=== PATIENT | male | born 1930 | race Caucasian/White ===

== ENCOUNTER → 2016-11-10 | Outpatient (CLI) | payer BC ==
[~2016-11-10] MED LIST: ASCO500T3 PO; ASPI1TAB83 PO; ATOR-24 PO; CALC600T9 PO; CHOL1CAP57 PO; COEN10CA5 PO; CYAN500T PO; INSPMPNVLG; LEVO112T4 PO; LISI-729 PO; MULT-506 PO; TPRSR/25 PO; WARF-246 PO; WARF4TAB44 PO
[2016-11-11 06:08] LABS: ESTIMATED AVERAGE GLUCOSE 169 mg/dl; HA1C FLAG Normal (Normal)
== END | disposition home or self-care (01) ==
LOC: C.LAB1850 15:42
PROVIDERS: ATTEND Nurse Practitioner Adult Health
DX: E10.8 Type 1 diabetes mellitus with unspecified complications (principal); E03.9 Hypothyroidism, unspecified

== ENCOUNTER → 2017-02-11 | Outpatient (CLI) | payer BC ==
[2017-02-12 06:11] LABS: ESTIMATED AVERAGE GLUCOSE 183 mg/dl; HA1C FLAG Normal (Normal)
== END | disposition home or self-care (01) ==
LOC: C.LABBC 13:52
PROVIDERS: ATTEND Nurse Practitioner Adult Health
DX: E10.8 Type 1 diabetes mellitus with unspecified complications (principal); Z95.828 Presence of other vascular implants and grafts

== ENCOUNTER 2017-04-04 20:12 | Inpatient (IN) | payer BC, OTHER ==
[~2017-04-04] VITALS: Ht 182.9 cm; Wt 97.5 kg
[2017-04-04] MEDS ORDERED: ONDANSETRON INJ 2 MG/ML 2 ML VIAL IV STA (20:32)
[2017-04-04] MEDS ORDERED: SODIUM CHLORIDE 0.9% 1000ML 1,000 ML IV STA (20:32)
[2017-04-04] MEDS ORDERED: SODIUM CHLORIDE 0.9% 1000ML 1,000 ML IV ONE (20:32)
--- NOTE | 2017-04-04 20:37 | EMERGENCY ROOM VISIT NOTE ---
History Report prepared by Natalie: Adam Montoya Under the Supervision of: Dr. Jim Pulido M.D. First contact with patient: 20:22 Chief Complaint: ILLNESS Stated Complaint: DIZZY, NAUSEA, History of Present Illness The patient is a 87 year old male who presents to the Emergency Room with complaints of sudden nausea occurring prior to arrival. The patient states that he was eating dinner, and afterwards he became nauseous, dizzy, diaphoretic, and he was short of breath. The patient denies any fever, chest pain, headache, hematochezia, melena, or abdominal pain. The patient states that he is diabetic , and he does not test it every day. Additionally, the patient is currently on blood thinners. He states that he has never felt like this before, and he is not around anyone sick at home. He also denies any recent falls. Source of History: patient Onset: prior to arrival Position: other (global) Quality: other (nausea) Timing: other (sudden) Associated Symptoms: + diaphoresis, No headache, No chest pain, No abdominal pain, No melena, No hematochezia Note: Associated symptoms: Dizziness Review of Systems See HPI for pertinent positives & negatives. A total of 10 systems reviewed and were otherwise negative. Past Medical & Surgical Medical Problems: (1) DM (diabetes mellitus) (2) IDDM (insulin dependent diabetes mellitus) (3) Neuropathy (4) Psoas abscess, left (5) Right Femoral Neck Fracture (6) TIA (transient ischemic attack) Surgical Problems: (1) H/O aortic valve replacement Old medical records were reviewed. Nurse's notes were reviewed and I agree with. Family History No significant family history Social History Smoking Status: Never Smoker Drug Use: none Marital Status: Housing Status: lives with family Occupation Status: retired Current/Historical Medications Scheduled Ascorbic Acid (Vitamin C), 500 MG PO DAILY Aspirin (Aspirin), 81 MG PO DAILY Atorvastatin (Lipitor), 40 MG PO DAILY Cholecalciferol (Vitamin D3), 1,000 INTER.UNIT PO DAILY Coenzyme Q10 (Ubidecarenone) (Co Q 10), 10 MG PO DAILY Cyanocobalamin (Vitamin B-12), 500 MCG PO DAILY Insulin Aspart (novoLOG INSULIN PUMP ), 1 EA N/A UD Levothyroxine Sodium (Levothyroxine Sodium), 112 MCG PO DAILY Lisinopril (Prinivil), 5 MG PO DAILY Metoprolol Succinate (Metoprolol Succinate ER), 12.5 MG PO DAILY Multivitamin (Multivitamin), 1 TAB PO DAILY Warfarin Sodium (Warfarin Sodium), 5 MG PO DAILY Warfarin Sodium (Warfarin Sodium), 3 MG PO DAILY Allergies Coded Allergies: No Known Allergies (Verified , 04/04/17) Physical Exam Vital Signs Date Time Temp Pulse Resp B/P (MAP) Pulse Ox O2 Delivery O2 Flow Rate FiO2 04/04/17 23:26 60 16 134/66 96 Room Air 04/04/17 21:45 65 16 166/74 94 Room Air 04/04/17 20:25 62 04/04/17 20:23 36.5 63 18 151/98 95 Room Air Physical Exam General: Mildly ill appearing older male with intermittent nausea but otherwise no acute distress. HEENT: Normal cephalic atraumatic. Pupils are equal round and reactive to light. Extraocular movements are intact. Oropharynx is pink with moist mucous membranes. No swelling of the mouth lips or tongue. Neck: Supple with a midline trachea. No meningeal signs or stiffness, no JVD or bruits. No Stridor. Chest: Clear to auscultation bilaterally. No wheezes or rhonchi. No increased work of breathing. Heart: regular rate and rhythm. Abdomen: Insulin pump site on the left abdomen. Soft nontender, nondistended without rebound guarding or rigidity. Extremities: 1-2+ lower extremity edema which he states is chronic and is bilateral. No cyanosis clubbing. No calf tenderness or assymetry Spine/Back. Non tender to palpation. No CVA tenderness Skin: Good turgor without rashes. Neurologic exam: Cranial nerves two through 12 are intact. Motor and sensation are intact and symmetrical throughout. Medical Decision & Procedures ER Provider Diagnostic Interpretation: Radiology results as stated below per my review and radiologist interpretation: HEAD WITHOUT CONTRAST (CT) CT DOSE: 614.27 mGy.cm HISTORY: Mental status change eval for dizziness TECHNIQUE: Multiaxial CT images of the head were performed without the use of intravenous contrast. Comparison: 09/05/2016 Findings: The paranasal sinuses and mastoid air cells are clear. The calvarium and skull base are intact. The ventricles and sulci are within normal limits. There is no mass, hematoma, midline shift, or acute infarct. Age-related atrophy and chronic small vessel change Impression: No acute intracranial abnormality. The above report was generated using voice recognition software. It may contain grammatical, syntax or spelling errors. Electronically signed by: Juarez Moeller M.D. 04/04/2017 10:05 PM Dictated Date/Time: 04/04/2017 10:04 PM CHEST ONE VIEW PORTABLE CLINICAL HISTORY: CHEST PAIN dyspnea COMPARISON STUDY: 09/05/2016 FINDINGS: Mild cardia megaly. Prior median sternotomy. Mild basilar interstitial change considered chronic. No focal infiltrate. IMPRESSION: Chronic and postoperative change. No acute process. The above report was generated using voice recognition software. It may contain grammatical, syntax or spelling errors. Electronically signed by: Juarez Moeller M.D. 04/04/2017 9:06 PM Dictated Date/Time: 04/04/2017 9:06 PM Laboratory Results 04/04/17 20:40 Red Blood Count 4.07, Mean Corpuscular Volume 90.9, Mean Corpuscular Hemoglobin 30.0, Mean Corpuscular Hemoglobin Concent 33.0, Mean Platelet Volume 10.6, Neutrophils (%) (Auto) 53.4, Lymphocytes (%) (Auto) 34.4, Monocytes (%) (Auto) 8.0, Eosinophils (%) (Auto) 3.8, Basophils (%) (Auto) 0.2, Neutrophils # (Auto) 3.26, Lymphocytes # (Auto) 2.10, Monocytes # (Auto) 0.49, Eosinophils # (Auto) 0.23, Basophils # (Auto) 0.01 04/04/17 20:40 Test 04/04/17 20:38 04/04/17 20:40 04/04/17 20:51 Bedside Glucose 118 mg/dl (70-99) White Blood Count 6.10 K/uL (4.8-10.8) Red Blood Count 4.07 M/uL (4.7-6.1) Hemoglobin 12.2 g/dL (14.0-18.0) Hematocrit 37.0 % (42-52) Mean Corpuscular Volume 90.9 fL (80-100) Mean Corpuscular Hemoglobin 30.0 pg (25-34) Mean Corpuscular Hemoglobin Concent 33.0 g/dl (32-36) Platelet Count 195 K/uL (130-400) Mean Platelet Volume 10.6 fL (7.4-10.4) Neutrophils (%) (Auto) 53.4 % Lymphocytes (%) (Auto) 34.4 % Monocytes (%) (Auto) 8.0 % Eosinophils (%) (Auto) 3.8 % Basophils (%) (Auto) 0.2 % Neutrophils # (Auto) 3.26 K/uL (1.4-6.5) Lymphocytes # (Auto) 2.10 K/uL (1.2-3.4) Monocytes # (Auto) 0.49 K/uL (0.11-0.59) Eosinophils # (Auto) 0.23 K/uL (0-0.5) Basophils # (Auto) 0.01 K/uL (0-0.2) RDW Standard Deviation 46.3 fL (36.4-46.3) RDW Coefficient of Variation 13.9 % (11.5-14.5) Immature Granulocyte % (Auto) 0.2 % Immature Granulocyte # (Auto) 0.01 K/uL (0.00-0.02) Prothrombin Time 38.0 SECONDS (9.0-12.0) Prothromb Time International Ratio 3.4 (0.9-1.1) Activated Partial Thromboplast Time 45.5 SECONDS (21.0-31.0) Partial Thromboplastin Ratio 1.8 Anion Gap 6.0 mmol/L (3-11) Est Creatinine Clear Calc Drug Dose 56.8 ml/min Estimated GFR () 69.6 Estimated GFR (Non- 60.0 BUN/Creatinine Ratio 21.0 (10-20) Calcium Level 9.4 mg/dl (8.5-10.1) Total Bilirubin 0.8 mg/dl (0.2-1) Direct Bilirubin 0.1 mg/dl (0-0.2) Aspartate Amino Transf (AST/SGOT) 23 U/L (15-37) Alanine Aminotransferase (ALT/SGPT) 25 U/L (12-78) Alkaline Phosphatase 74 U/L (45-117) Total Creatine Kinase 107 U/L (39-308) Creatine Kinase MB 4.0 ng/ml (0.5-3.6) Creatine Kinase MB Ratio 3.7 (0-3.0) Total Protein 7.2 gm/dl (6.4-8.2) Albumin 3.9 gm/dl (3.4-5.0) Lipase 50 U/L (73-393) Bedside Troponin I < 0.030 ng/ml (0-0.045) Laboratory studies as stated above per my review. Medications Administered Medications (Trade) Dose Ordered Sig/Don Route Start Time Stop Time Status Last Admin Dose Admin Sodium Chloride 1,000 ml @ 999 mls/hr Q1H1M STAT IV 04/04/17 20:32 04/04/17 21:32 DC 04/04/17 20:59 999 MLS/HR Sodium Chloride 1,000 ml @ 150 mls/hr Q6H40M ONCE IV 04/04/17 20:32 04/05/17 03:11 04/04/17 22:16 150 MLS/HR Ondansetron HCl (Zofran Inj) 4 mg NOW STAT IV 04/04/17 20:32 04/04/17 20:34 DC 04/04/17 20:59 4 MG ECG Indication: nausea Rate (beats per minute): 67 Rhythm: normal sinus Findings: PVC (frequent), other (Bigeminy, non-specific intraventricular conduction delay) Comparison ECG Date: 08/27/16 Change: Bigeminy is now present REPEAT EKG: Normal Sinus Rhythm, 66 BPM, Non-specific intraventricular delay and PVC are now absent. Bigeminy is now absent. ED Course 2021: Past medical records reviewed. The patient was evaluated in room B7, and a complete history and physical examination were performed. 2031: Zofran Inj 4mg IV, Sodium Chloride 1000 ml @ 150 mls/hr IV, Sodium Chloride 1000 ml @ 999 mls/hr IV 2036: I reevaluated the patient, and he is feeling better and looks well. 2152: I reassessed the patient, and he states that he is feeling fine. 2244: I discussed the patient's case with Dr. Glover, Hospitalist. He is going to evaluate the patient for further treatment. Medical Decision Differentials include, but are not limited to; vertigo, arrhythmia, diabetic emergency, electrolyte or metabolic abnormality, GI problems, intracranial process. Blood Pressure Screening: Patient was found to have a slightly elevated blood pressure due to circumstances. I do not believe that the patient requires hypertension monitoring. Medication Reconciliation: I attest that I have personally reviewed the patient' s current medication list. This patient comes in as described above. He was placed in room B7. He is here for treatment and evaluation of nausea and dizziness. he felt better upon arrival and started having nausea .again it's worse with movement. IV access established blood sugar was obtained and was in the low 100s. He has a normal neurologic exam. He has no chest pain or shortness of breath. He was given Zofran 4 mg IV and IV fluids and was reassessed frequently. His EKG shows bigeminy but no ischemic changes a follow-up EKG shows resolution of the bigeminy. Troponin is not elevated. CAT scan of his head is unremarkable there is nothing to suggest acute intracranial process. He has no significant electrode or metabolic abnormalities. Given his age and symptoms, I do think he needs to be observed overnight. he had an episode where he felt very nauseated had near syncope/dizziness and I concerned that could've had some sort of arrhythmia or cardiac event. He also be further ruled out for neurologic process. He consulted Dr. Soto and the hospitalist team saw him in the ER for these measures. Consults Time Called: 2237 Consulting Physician: Dr. Glover, Hospitalist Returned Call: [phone] I discussed the patient's case with Dr. Glover Hospitalist. He is going to evaluate the patient for further treatment. Impression Primary Impression: Near syncope Additional Impressions: Dizziness Bigeminy Scribe Attestation The scribe's documentation has been prepared under my direction and personally reviewed by me in its entirety. I confirm that the note above accurately reflects all work, treatment, procedures, and medical decision making performed by me. Departure Information Dispostion Being Evaluated By Hospitalist Referrals Juan Mendez M.D. (PCP) Patient Instructions My [facility] Problem Qualifiers
[2017-04-04 20:59] LABS: BASO % 0.2 %; BASO ABS # 0.01 K/uL (0-0.2); COMPLETE YES; EOS % 3.8 %; IG% 0.2 %; LYMPH % 34.4 %; MEAN CELL VOLUME 90.9 fL (80-100); MEAN PLATELET VOLUME 10.6 fL (7.4-10.4); NEUT % 53.4 %; PLATELET COUNT 195 K/uL (130-400); RED BLOOD COUNT 4.07 M/uL (4.7-6.1)
--- NOTE | 2017-04-04 21:07 | DIAGNOSTIC IMAGING REPORT ---
CHEST ONE VIEW PORTABLE CLINICAL HISTORY: CHEST PAIN dyspnea COMPARISON STUDY: 09/05/2016 FINDINGS: Mild cardia megaly. Prior median sternotomy. Mild basilar interstitial change considered chronic. No focal infiltrate. IMPRESSION: Chronic and postoperative change. No acute process. The above report was generated using voice recognition software. It may contain grammatical, syntax or spelling errors. Electronically signed by: Juarez Moeller M.D. 04/04/2017 9:06 PM Dictated Date/Time: 04/04/2017 9:06 PM
[2017-04-04 21:11] LABS: INR 3.4 (0.9-1.1); PARTIAL THROMBOPLASTIN RATIO 1.8
[2017-04-04 21:20] LABS: CALCIUM 9.4 mg/dl (8.5-10.1); CREATININE 1.1 mg/dl (0.60-1.40); POTASSIUM 4.1 mmol/L (3.5-5.1)
[2017-04-04 21:25] LABS: CKMB/CK RATIO 3.7 (0-3.0)
--- NOTE | 2017-04-04 22:07 | DIAGNOSTIC IMAGING REPORT ---
HEAD WITHOUT CONTRAST (CT) CT DOSE: 614.27 mGy.cm HISTORY: Mental status change eval for dizziness TECHNIQUE: Multiaxial CT images of the head were performed without the use of intravenous contrast. Comparison: 09/05/2016 Findings: The paranasal sinuses and mastoid air cells are clear. The calvarium and skull base are intact. The ventricles and sulci are within normal limits. There is no mass, hematoma, midline shift, or acute infarct. Age-related atrophy and chronic small vessel change Impression: No acute intracranial abnormality. The above report was generated using voice recognition software. It may contain grammatical, syntax or spelling errors. Electronically signed by: Juarez Moeller M.D. 04/04/2017 10:05 PM Dictated Date/Time: 04/04/2017 10:04 PM
[2017-04-04] MEDS ORDERED: ENOXAPARIN 40 MG/0.4 ML SYR SC SCH (23:15)
[2017-04-04] MEDS ORDERED: ACETAMINOPHEN 325 MG TAB PO PRN (23:15)
[2017-04-04] MEDS ORDERED: MAGNESIUM HYDROXIDE SUSP 30 ML UDC PO PRN (23:15)
[2017-04-04] MEDS ORDERED: POLYETHYLENE (MIRALAX) 17 GM PACK PO PRN (23:15)
[2017-04-04] MEDS ORDERED: NovoLOG INSULIN PUMP SCH (23:15)
[2017-04-04] MEDS ORDERED: ALUMINUM/MAGNESIUM/SIMETH (MAALOX MAX) 30 ML UDC PO PRN (23:15)
[2017-04-04] MEDS ORDERED: ONDANSETRON INJ 2 MG/ML 2 ML VIAL IV PRN (23:15)
[2017-04-04 23:31] LABS: MAGNESIUM 2.4 mg/dl (1.8-2.4)
--- NOTE | 2017-04-04 23:35 | History and Physical ---
History & Physical Date & Time of Service: Apr 04, 2017 at 23:26 Chief Complaint: Dizzy, Nausea, Primary Care Physician: Juan Mendez M.D. History of Present Illness Source: patient Mr Paz is an 87 yo M with late-onset type 1 diabetes (on insulin pump, managed by [facility]), aortic valve replacement (on coumadin), hypertension, and hyperlipidemia who presents with a pre-syncopal event while eating dinner. He reports he was eating, did not choke, and mid-way through dinner noticed he felt very clammy and flushed. This was associated with nausea, dizziness, but he did not vomit. He thought that he given himself too much insulin and was having a low., But checked his sugar and it was not low. He denies any chest pain or shortness of breath at this point. He came to the ED and on arrival EKG was shown to be in bigeminy, and on telemetry has noticeable drops of heartbeats. He denies any sensation of this currently, and otherwise feels well. 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[employer]) Immunizations History of Influenza Vaccine: Yes Influenza Vaccine Date: Jul 22, 2008 History of Tetanus Vaccine?: Unknown History of Pneumococcal: Yes Pneumococcal Date: Oct 06, 2003 History of Hepatitis B Vaccine: Unknown Multi-Drug Resistant Organisms History of MDRO: No Allergies Coded Allergies: No Known Allergies (Verified , 04/04/17) Home Medications Scheduled Ascorbic Acid (Vitamin C), 500 MG PO DAILY Aspirin (Aspirin), 81 MG PO DAILY Atorvastatin (Lipitor), 40 MG PO DAILY Cholecalciferol (Vitamin D3), 1,000 INTER.UNIT PO DAILY Coenzyme Q10 (Ubidecarenone) (Co Q 10), 10 MG PO DAILY Cyanocobalamin (Vitamin B-12), 500 MCG PO DAILY Insulin Aspart (novoLOG INSULIN PUMP ), 1 EA N/A UD Levothyroxine Sodium (Levothyroxine Sodium), 112 MCG PO DAILY Lisinopril (Prinivil), 5 MG PO DAILY Metoprolol Succinate (Metoprolol Succinate ER), 12.5 MG PO DAILY Multivitamin (Multivitamin), 1 TAB PO DAILY Warfarin Sodium (Warfarin Sodium), 5 MG PO DAILY Warfarin Sodium (Warfarin Sodium), 3 MG PO DAILY Review of Systems See HPI for pertinent positives & negatives. A total of 10 systems reviewed and were otherwise negative. Physical Exam Vital Signs Date Time Temp Pulse Resp B/P (MAP) Pulse Ox O2 Delivery O2 Flow Rate FiO2 04/04/17 21:45 65 16 166/74 94 Room Air 04/04/17 20:25 62 04/04/17 20:23 36.5 63 18 151/98 95 Room Air General Appearance: WD/WN, no apparent distress Head: normocephalic, atraumatic Eyes: normal inspection, PERRL ENT: hearing grossly normal Neck: supple, no JVD Respiratory/Chest: lungs clear, normal breath sounds, no respiratory distress Cardiovascular: regular rate, rhythm, no murmur, normal peripheral pulses Abdomen/GI: normal bowel sounds, non tender, soft Back: no CVA tenderness, no muscle spasm Extremities/Musculoskelatal: no calf tenderness, no pedal edema Neurologic/Psych: alert, normal mood/affect, normal reflexes Skin: no rash Diagnostics Laboratory Results Results Past 24 Hours Test 04/04/17 20:38 04/04/17 20:40 04/04/17 20:51 Range/Units Bedside Glucose 118 70-99 mg/dl White Blood Count 6.10 4.8-10.8 K/uL Red Blood Count 4.07 4.7-6.1 M/uL Hemoglobin 12.2 14.0-18.0 g/dL Hematocrit 37.0 42-52 % Mean Corpuscular Volume 90.9 80-100 fL Mean Corpuscular Hemoglobin 30.0 25-34 pg Mean Corpuscular Hemoglobin Concent 33.0 32-36 g/dl Platelet Count 195 130-400 K/uL Mean Platelet Volume 10.6 7.4-10.4 fL Neutrophils (%) (Auto) 53.4 % Lymphocytes (%) (Auto) 34.4 % Monocytes (%) (Auto) 8.0 % Eosinophils (%) (Auto) 3.8 % Basophils (%) (Auto) 0.2 % Neutrophils # (Auto) 3.26 1.4-6.5 K/uL Lymphocytes # (Auto) 2.10 1.2-3.4 K/uL Monocytes # (Auto) 0.49 0.11-0.59 K/uL Eosinophils # (Auto) 0.23 0-0.5 K/uL Basophils # (Auto) 0.01 0-0.2 K/uL RDW Standard Deviation 46.3 36.4-46.3 fL RDW Coefficient of Variation 13.9 11.5-14.5 % Immature Granulocyte % (Auto) 0.2 % Immature Granulocyte # (Auto) 0.01 0.00-0.02 K/uL Prothrombin Time 38.0 9.0-12.0 SECONDS Prothromb Time International Ratio 3.4 0.9-1.1 Activated Partial Thromboplast Time 45.5 21.0-31.0 SECONDS Partial Thromboplastin Ratio 1.8 Sodium Level 137 136-145 mmol/L Potassium Level 4.1 3.5-5.1 mmol/L Chloride Level 100 98-107 mmol/L Carbon Dioxide Level 31 21-32 mmol/L Anion Gap 6.0 3-11 mmol/L Blood Urea Nitrogen 23 7-18 mg/dl Creatinine 1.10 0.60-1.40 mg/dl Est Creatinine Clear Calc Drug Dose 56.8 ml/min Estimated GFR () 69.6 Estimated GFR (Non- 60.0 BUN/Creatinine Ratio 21.0 10-20 Random Glucose 115 70-99 mg/dl Calcium Level 9.4 8.5-10.1 mg/dl Total Bilirubin 0.8 0.2-1 mg/dl Direct Bilirubin 0.1 0-0.2 mg/dl Aspartate Amino Transf (AST/SGOT) 23 15-37 U/L Alanine Aminotransferase (ALT/SGPT) 25 12-78 U/L Alkaline Phosphatase 74 45-117 U/L Total Creatine Kinase 107 39-308 U/L Creatine Kinase MB 4.0 0.5-3.6 ng/ml Creatine Kinase MB Ratio 3.7 0-3.0 Total Protein 7.2 6.4-8.2 gm/dl Albumin 3.9 3.4-5.0 gm/dl Lipase 50 73-393 U/L Bedside Troponin I < 0.030 0-0.045 ng/ml Diagnostic Radiology CT HEAD Impression: No acute intracranial abnormality. CXR normal EKG Initial EKG: bigeminy, HR 67 bpm, no ST elevation On Telemetry, frequent PVCs and dropped beats. Impression Assessment and Plan 87 yo diabetic, hypertensive male who presents with pre-syncopal event - ddx arrhythmia vs hypoglycemia vs orthostasis Pre-syncope - Continue telemetry monitoring - Hold beta jerald at this time - Orthostatic BPs - For arrythmia noted on monitor, will consult cardiology. - If continues/worsens, will apply pads overnight in case needs to be paced. Diabetes mellitus, on insulin pump - Will continue current pump settings - Diabetic diet - HbA1c in 01/2017 8.0% - BSG AC and HS Hypertension - Will hold beta jerald and Lisinopril at this time Hyperlipidemia - Will continue Lipitor Aortic valve replacement, on coumadin - Continue current coumadin regime VTE: Coumadin DISPO: TELE CODE STATUS: Full Attending Addendum: I have physically seen and examined this patient, have supervised the medical residents activities, and agree with the H&P as noted above with the following exceptions: NONE The patient is awake, well-developed and adequately nourished, alert and oriented 3, normocephalic and atraumatic, lying in bed and in no acute distress. HEENT--PERRL, EOMI, mucous membranes and oropharynx dry. Neck--supple, no JVD or bruits, thyroid normal, trachea midline, no adenopathy. Heart--heart rhythm on exam and monitor with intermittent PVCs and separate episodes of dropped beats, no murmurs, rubs or gallops. Lungs--clear bilaterally but diminished throughout, no respiratory distress, no accessory muscle use. Abdomen--normal bowel sounds and soft, nontender and nondistended, no hernias or masses, no organomegaly. Extremities--no cyanosis, clubbing or edema. There are good distal pulses b/l. Dermatologic--normal skin turgor, normal color, warm and dry, no abnormal lymph nodes, no rash. Neurologic--cranial nerves II through XII grossly intact. Rheumatologic--normal range of motion. Psychiatric--normal affect. Assessment and Plan: 1. 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 Hold all negative inotropes including current beta jerald. Hold lisinopril for generally low blood pressure. Check orthostatic vital signs. Consult cardiology to determine the patient may need a pacer implanted. Gentle IV fluid rehydration. Monitor blood sugars closely with patient's diabetic insulin pump to verify that low blood sugars are not a contributory cause to his symptoms of presyncope. VTE Prophylaxis VTE Risk Assessment Done? Y/N: Yes Risk Level: Moderate Resident Tracking Resident Involvement: Resident Care Provided Care Provided: Adult Hospital Medicine
[2017-04-04 23:50] VITALS: BP 154/72; PULSE 63; TEMP 36.4; O2SAT 98; Ht 182.9 cm; Wt 97.5 kg
[2017-04-05] VITALS (11 sets, daily range): BP systolic 110–129; BP diastolic 59–66; PULSE 53–60; TEMP 36.5–36.8; O2SAT 93–95
[2017-04-05] MEDS: SODIUM CHLOR 0.45% + 20MEQ KCL 1,000 ML IV SCH ×2 (01:12→12:22)
[2017-04-05] MEDS ORDERED: GLUCOSE 40% GEL 15 GM TUBE PO PRN (01:15)
[2017-04-05] MEDS ORDERED: INSULIN ASPART 100 UNITS/ML VIAL SC PRN (01:15)
[2017-04-05] MEDS ORDERED: DEXTROSE 50% 50 ML SYR IV PRN (01:15)
[2017-04-05] MEDS ORDERED: GLUCAGON FOR INJ 1 MG VIAL SQ PRN (01:15)
[2017-04-05] MEDS ORDERED: GLUCOSE 10 TABS/TUBE PO PRN (01:15)
[2017-04-05] MEDS: LEVOTHYROXINE 112 MCG TAB PO SCH (05:24)
[2017-04-05] MEDS: NovoLOG INSULIN PUMP SCH ×4 (07:00→21:02)
[2017-04-05] MEDS: ASCORBIC ACID 500 MG TAB PO SCH (07:26)
[2017-04-05] MEDS: ASPIRIN 81 MG ECTAB PO SCH (07:27)
[2017-04-05] MEDS: MULTIVITAMIN TAB PO SCH (07:27)
[2017-04-05] MEDS: LISINOPRIL 5 MG TAB PO SCH (07:28)
[2017-04-05] MEDS: CYANOCOBALAMIN 500 MCG TAB (VIT B-12) PO SCH (07:28)
[2017-04-05] MEDS: ATORVASTATIN 20 MG TAB PO SCH (07:28)
[2017-04-05] MEDS ORDERED: WARFARIN SOD 5 MG TAB PO SCH (09:00)
[2017-04-05] MEDS ORDERED: METOPROLOL SUCC 25MG EXT REL TAB PO SCH (09:00)
[2017-04-05] MEDS ORDERED: WARFARIN SOD 1 MG TAB PO SCH (09:00)
--- NOTE | 2017-04-05 11:51 | Cardiology Consultation ---
Cardiology Consultation Date of Service Apr 05, 2017. Cardiology Consultation CARDIOLOGY CONSULTATION DATE OF CONSULTATION: April 05, 2017 REFERRING PHYSICIAN: Lulú Albarran MD REASON FOR CONSULT: Abnormal rhythm in patient with vertigo. HISTORY OF PRESENT ILLNESS: 87-year-old man s/p bioprosthetic aortic valve/CABG (2005) with diabetes mellitus (on insulin pump) who was admitted late 04/04/2017 after he developed abrupt onset vertigo while eating dinner followed by a 1/2 hour of nausea without vomiting. He was sitting the whole time. He describes the symptoms as somewhat of a disequilibrium more than lightheadedness or tunnel vision. No chest pain or dyspnea at any time. No subjective palpitations. No definite neurologic symptoms, but he notes that he had difficulty speaking for some time (he attributed this to his gagging from nausea). He denied any focal weakness. Glucose check at home was apparently not low. The symptoms all resolved in about half an hour and he feels well currently. At baseline, he is reasonably physically active and notes no unusual dyspnea and no angina. He has not had any prolonged vertigo symptoms, but notes that from time to time he does have momentary disequilibrium. No other neurologic symptoms noted. OUTPATIENT MEDICATIONS: Amoxicillin (for dental infection) Aspirin 81 mg daily (intermittently compliant) Atorvastatin 40 mg daily Calcium Co Q10 Levothyroxine Lisinopril 5 mg daily Metoprolol succinate 25 mg half tablet daily Multi vitamin NovoLog D3 B12 Vitamin-C Warfarin most recent dose 8 milligram alternating with 10 mg daily ALLERGIES: No known drug allergies. Has pollen and tree allergies. 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 Dyslipidemia Hypertension Hypothyroidism Osteoporosis B12 deficiency Nephrolithiasis Hip fracture, operative repair 2013 Femoral fracture, operative repair 2015 Mild mitral regurgitation Mild pulmonary hypertension. Pulmonary embolism, has IVC filter. NSTEMI during his admission for diabetic ketoacidosis Normal LV systolic function. PAST SURGICAL HISTORY: CABG/AVR IVC filter Inguinal hernia repair Knee replacement Carpal tunnel surgery Hip surgeries after falls SOCIAL HISTORY: . Never smoked. One whiskey and dinner. Retired. FAMILY HISTORY: Sister with hepatic failure. Sister with renal failure. REVIEW OF SYSTEMS: As per HPI. No major bleeding episodes although he does bruise easily. PHYSICAL EXAMINATION: No distress. Vitals: Afebrile. BP 125/64, pulse 60 and generally regular with occasional pause, respirations 18 and unlabored. Skin: Few scattered ecchymoses. HEENT: Unremarkable. Neck: Jugular venous pulse at the clavicle at 90, no obvious carotid bruits. Lungs: Clear and equal breath sounds bilaterally. No wheezing or crackles. Cardiac: Regular rhythm with occasional pauses, 1/6 systolic ejection murmur with readily audible aortic closure sound. No diastolic murmur or gallop. Abdomen: Benign. Extremities: Trace pretibial edema, slightly greater on right. No tenderness. Intact peripheral pulses. Neurologic: Normal affect, nonfocal DATA: Initial ECG showed sinus rhythm with frequent PVCs in a pattern of bigeminy, NSIVCD, otherwise unremarkable. Subsequent ECG showed sinus rhythm with MS IVCD , ventricular ectopy resolved and MI interval increased slightly. Monitor showed probable blocked PACs, no significant tachycardia and no major pauses (all less than 2 seconds). Chest x-ray showed no acute change. Head CT showed no acute abnormality. Hemoglobin 12.2 with normal white count and platelet count. INR 3.4. Normal electrolytes, BUN 23, creatinine 1.1, glucose 118. Magnesium 2.4. Cardiac enzymes negative x2 so far. IMPRESSION: 1. Acute transient vertigo/disequilibrium with nausea, symptoms resolved/ evaluation underway. 2. Monitor with sinus rhythm and brief pauses (likely blocked PACs), no major pauses or tachycardia. 3. Bioprosthetic aortic valve, functioning well on auscultation. 4. Chronic anticoagulation with warfarin (presumably for prior pulmonary embolism), slightly supratherapeutic. 5. Coronary artery disease, status post CABG with ZUNIGA graft/no evidence of ongoing myocardial ischemia thus far. 6. Diabetes mellitus, on insulin pump. 7. Multiple other medical problems as noted. DISCUSSION: Etiology of the patient's transient disequilibrium with nausea is uncertain, however it appears unlikely that dysrhythmia would cause such prolonged symptoms (lasting half an hour) with prominent nausea. His minor pauses on monitor (likely blocked PACs) are not clinically significant. Reasonable to continue to monitor for profound bradycardia or other more significant rhythm disturbances throughout the next 24 hours. Alternative explanations for his symptoms include benign positional vertigo ( given his description of disequilibrium rather than tunnel vision) or transient ischemic attack (given the possibility his difficulty speaking was a neurologic event). If no alternative explanation is demonstrated (such as prolonged bradycardia), could manage by advising the patient to take his aspirin 81 mg daily (he noted to me that he has not been restoration about taking it regularly). At this point, there are no symptoms, enzymes, or ECG indications of ongoing cardiac ischemia. If there are no indications of major pause or hypotension during the day, could restart his low-dose beta-jerald and GLORY-inhibitor this evening or tomorrow. His primary parish visitor, Dr. Bill, is away. Therefore, I will continue to follow while he is hospitalized.
[2017-04-05] MEDS ORDERED: WARFARIN SOD 4 MG TAB PO SCH (16:00)
--- NOTE | 2017-04-05 18:16 | Family Medicine Progress Note ---
Progress Note Date of Service Apr 05, 2017. Subjective Pt evaluation today including: conversation w/ patient, physical exam, chart review, lab review, review of studies, review of inpatient medication list Pain: No dobbs PO Intake: tolerating PO well Voiding: no voiding problems Patient reports cessation of his symptoms but is unsure, as he hasn't tried moving from bed No nausea, vomiting, fever, chills reported Eager to see cardiology team today All Other Systems: Reviewed and Negative Medications Current Inpatient Medications Medications (Trade) Dose Ordered Sig/Don Route Start Time Stop Time Status Last Admin Dose Admin Acetaminophen (Tylenol Tab) 650 mg Q4H PRN PO 04/04/17 23:15 05/04/17 23:14 Al Hydrox/Mg Hydrox/Simethicone (Maalox Max Susp) 15 ml Q4H PRN PO 04/04/17 23:15 05/04/17 23:14 Magnesium Hydroxide (Milk Of Magnesia Susp) 30 ml Q12H PRN PO 04/04/17 23:15 05/04/17 23:14 Ondansetron HCl (Zofran Inj) 4 mg Q6H PRN IV 04/04/17 23:15 05/04/17 23:14 Polyethylene (Miralax Powder Packet) 17 gm DAILY PRN PO 04/04/17 23:15 05/04/17 23:14 Ascorbic Acid (Vitamin C Tab) 500 mg DAILY PO 04/05/17 09:00 05/05/17 08:59 04/05/17 07:26 500 MG Aspirin (Ecotrin Tab) 81 mg DAILY PO 04/05/17 09:00 05/05/17 08:59 04/05/17 07:27 81 MG Atorvastatin Calcium (Lipitor Tab) 40 mg DAILY PO 04/05/17 09:00 05/05/17 08:59 04/05/17 07:28 40 MG Cyanocobalamin (Vitamin B-12 Tab) 500 mcg DAILY PO 04/05/17 09:00 05/05/17 08:59 04/05/17 07:28 500 MCG Levothyroxine Sodium (Synthroid Tab) 112 mcg DAILYBB PO 04/05/17 06:00 05/05/17 06:59 04/05/17 05:24 112 MCG Lisinopril (Zestril Tab) 5 mg DAILY PO 04/05/17 09:00 05/05/17 08:59 04/05/17 07:28 5 MG Multivitamins (Multivitamin Tab) 1 tab DAILY PO 04/05/17 09:00 05/05/17 08:59 04/05/17 07:27 1 TAB Warfarin Sodium (Coumadin Tab) 8 mg DAILY@16 PO 04/05/17 16:00 05/05/17 15:59 04/05/17 16:06 8 MG Insulin Aspart (novoLOG INSULIN PUMP) 1 ea ACHS N/A 04/05/17 07:00 05/05/17 06:59 04/05/17 17:15 1 EA Insulin Aspart (novoLOG ASPART) SLIDING SCALE PRN PRN SC 04/05/17 01:15 05/05/17 01:14 Glucose (Glucose 40% Gel) UD PRN PO 04/05/17 01:15 05/05/17 01:14 Glucose (Glucose Chew Tab) 1 tabs UD PRN PO 04/05/17 01:15 05/05/17 01:14 Glucagon (Glucagon Inj) 1 mg UD PRN SQ 04/05/17 01:15 05/05/17 01:14 Dextrose (Dextrose 50% 50ML Syringe) 50 ml UD PRN IV 04/05/17 01:15 05/05/17 01:14 Objective Physical Exam General Appearance: WD/WN, no apparent distress Eyes: normal inspection, PERRL, EOMI, sclerae normal ENT: normal ENT inspection, TMs normal, pharynx normal Neck: supple, no JVD, no carotid bruits Respiratory/Chest: chest non-tender, lungs clear, normal breath sounds, no respiratory distress, no accessory muscle use Cardiovascular: regular rate, rhythm, no edema, no murmur Abdomen: normal bowel sounds, non tender, soft Extremities: non-tender, normal inspection, no pedal edema 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 as tested, no motor/sensory deficits, alert, normal mood/affect, oriented x 3 Skin: normal color, no rash Laboratory Results Test 04/05/17 17:03 04/05/17 21:31 Troponin I 0.025 ng/ml (0-0.045) Bedside Glucose 95 mg/dl (70-99) Assessment and Plan 87 yo male admitted for 30 min episode of pre-syncopal event; PMH significant for T1DM, HTN, Aortic stenosis; DDx includes arrhythmia, hypoglycemia, orthostasis Current Issues Pre-syncope - Cardiology consulted; deemed unlikely to be cardio related due to duration of symptoms - Hold beta jerald at this time - Orthostatic BPs - Transferred from tele to med/surg. - Will likely have to hold metoprolol for a time after discharge because of bradyarrhythmia Diabetes mellitus, on insulin pump - Continue current pump settings - Diabetic diet - HbA1c in 01/2017 8.0% - BSG AC and HS Hypertension - Hold beta jerald and Lisinopril at this time Hyperlipidemia - Continue Lipitor Aortic valve replacement, on coumadin - Continue current coumadin regime VTE: Coumadin DISPO: Transferred to med/surg from tele CODE STATUS: Full Resident Physician Supervision Note: I interviewed and examined the patient. Discussed with [Maria Esther] and agree with findings and plan as documented in the note. Any exceptions or clarifications are listed here: [None] Documented By: Patricio Koo feeling betteer. dizziness nonspecific but more vertiginous than presyncopal. has had blocked PACs, sinus rufus despite beta jerald being held (and being on really low dose) all other ROS otherwise negative except for as above vitals noted nad breathing unlabored no pallor or icterus no neurologic deficits dizziness - since seemed vertiginous by hx more than near syncopal doubt rhythm abnormalities contribute, follow. ambulate. stop iVF bradycardia - blcoked PACs, asymptomatic sinus rufus - technically "normal abnormalities" wiht no sx, but with age and multiple of these - suspect conduction system may be starting to slowly fail. doubt anything needs done acutely or even soon, but would continue to stop beta jerald and have ongoing outpatient rhythm monitoring and close f/u Resident Tracking Resident Involvement: Resident Care Provided Care Provided: Adult Hospital Medicine
[2017-04-06] MEDS: LEVOTHYROXINE 112 MCG TAB PO SCH (05:59)
[2017-04-06] MEDS: ASCORBIC ACID 500 MG TAB PO SCH (07:39)
[2017-04-06] MEDS: CYANOCOBALAMIN 500 MCG TAB (VIT B-12) PO SCH (07:39)
[2017-04-06] MEDS: LISINOPRIL 5 MG TAB PO SCH (07:40)
[2017-04-06] MEDS: ATORVASTATIN 20 MG TAB PO SCH (07:40)
[2017-04-06] MEDS: MULTIVITAMIN TAB PO SCH (07:40)
[2017-04-06] MEDS: ASPIRIN 81 MG ECTAB PO SCH (07:40)
[2017-04-06 07:41] VITALS: BP_SYST 147; BP_SYST 156; BP_SYST 164; BP_DIAS 72; BP_DIAS 73; BP_DIAS 74; PULSE 54; TEMP 36.6; O2SAT 94
[2017-04-06 08:00] VITALS: O2SAT 94
[2017-04-06] MEDS: NovoLOG INSULIN PUMP SCH ×2 (09:23→12:21)
--- NOTE | 2017-04-06 10:09 | Discharge Instructions ---
Discharge Instructions Date of Service Apr 06, 2017. Admission Reason for Admission: Pre-Syncope Discharge Discharge Diagnosis / Problem: Pre-syncopal episode Discharge Goals Goal(s): Improve function Activity Recommendations Activity Limitations: per Instructions/Follow-up section . Instructions / Follow-Up Instructions / Follow-Up You were admitted because you had an episode of pre-syncope on April 04. In the hospital, they did a scan of your head and lungs, both of which were normal. Your heart rate in the hospital was in the lower 50s, and so they held your Metoprolol and Lisinopril. Because your symptoms have not recurred and not due to your regular medications, cardiology has advised that you restart your Lisinopril and Metoprolol. Please also follow up with your lab courier, Dr. Bill, and your PCP in the next week. If you feel dizzy and unwell again after taking these medications, stop them and contact your PCP. Continue your baby aspirin, and take it every other day. This has been included in your prescription instructions. Your INR was 3.4 this morning. We have drawn another blood sample to check your INR and will call you with the results. We may as you to continue taking the 8mg instead of 10mg on the third day. With regards to your diabetes mellitus, continue with your insulin pump. Your blood pressure will be managed by the metoprolol and lisinopril. Continue your lipitor for your cholesterol. Current Hospital Diet Patient's current hospital diet: Diabetes Type 2 Diet Discharge Diet Recommended Diet: Diabetes Type 2 Diet Pending Studies Studies pending at discharge: yes List of pending studies: INR level Laboratory Results Hemoglobin A1c Test 02/11/17 14:00 Range/Units Estimated Average Glucose 183 mg/dl Hemoglobin A1c 8.0 H 4.5-5.6 % Medical Emergencies . Who to Call and When: Medical Emergencies: If at any time you feel your situation is an emergency, please call 911 immediately. . Non-Emergent Contact Non-Emergency issues call your: Primary Care Provider . . "Provider Documentation" section prepared by Alverto Chung. . VTE Core Measure Inpt VTE Proph given/why not?: Warfarin (Coumadin) Resident Tracking Resident Involvement: Resident Care Provided Care Provided: Adult Hospital Medicine
--- NOTE | 2017-04-06 10:50 | Cardiology Follow-Up ---
Cardiology Follow-Up Date of Service Apr 06, 2017. Cardiology Follow-Up HISTORY OF PRESENT ILLNESS: 87-year-old man s/p bioprosthetic aortic valve/CABG (2005) with diabetes mellitus (on insulin pump) who was admitted l04/04/2017 after he developed abrupt onset vertigo while eating dinner followed by a 1/2 hour of nausea without vomiting. He has had an uneventful hospital stay with no recurrence of symptoms. He denies chest pain, dyspnea, nausea, or lightheadedness. No neurologic symptoms. PHYSICAL EXAMINATION: No distress. Vitals: Afebrile. BP 156/74, pulse 54 and generally regular, respirations 18 and unlabored. Skin: Few scattered ecchymoses. HEENT: Unremarkable. Neck: Jugular venous pulse at the clavicle at 90, no obvious carotid bruits. Lungs: Clear and equal breath sounds bilaterally. No wheezing or crackles. Cardiac: Regular rhythm with occasional pauses, 1/6 systolic ejection murmur with readily audible aortic closure sound. No diastolic murmur or gallop. Abdomen: Benign. Extremities: Trace pretibial edema, slightly greater on right. No tenderness. Intact peripheral pulses. Neurologic: Normal affect, nonfocal DATA: Monitor had shown sinus bradycardia with blocked PACs. No significant pauses or tachycardia. Cardiac enzymes negative x 3. IMPRESSION: 1. Acute transient vertigo/disequilibrium with nausea, symptoms resolved/ etiology uncertain. 2. Monitor with sinus rhythm and brief pauses (likely blocked PACs), no major pauses or tachycardia. 3. Bioprosthetic aortic valve, functioning well on auscultation. 4. Chronic anticoagulation with warfarin (presumably for prior pulmonary embolism), slightly supratherapeutic. 5. Coronary artery disease, status post CABG with ZUNIGA graft/no evidence of myocardial ischemia. 6. Diabetes mellitus, on insulin pump. 7. Multiple other medical problems as noted. DISCUSSION: Etiology of the patient's transient disequilibrium with nausea is unlikely to be dysrhythmia. The minor pauses on monitor (likely blocked PACs) are not clinically significant. Potential explanations for his symptoms include benign positional vertigo ( given his description of disequilibrium rather than tunnel vision) or transient ischemic attack (given the possibility his difficulty speaking was a neurologic event) or transient hypoglycemia. Advised patient on BPV precautions. Recommend restarting aspirin 81 mg (could use every other day given his easy bruising). No evidence of cardiac ischemia. Would restart his low-dose beta-jerald and GLORY-inhibitor as outpatient, since no clinically significant pauses or hypotension seen. He should follow up with his primary records analysis manager, Dr. Bill, sometime within the next month.
[2017-04-06] MEDS ORDERED: METOPROLOL TARTRATE 25 MG TAB PO ONE (11:30)
[2017-04-06 12:44] VITALS: BP 156/74; PULSE 54; TEMP 36.6; O2SAT 94
[2017-04-06] MEDS ORDERED: ASPI1TAB83 PO (15:25)
[2017-04-06 16:08] LABS: INR 3.4 (0.9-1.1); PROTHROMBIN TIME (PATIENT) 38.6 SECONDS (9.0-12.0)
--- NOTE | 2017-04-06 18:42 | Discharge Summary ---
Discharge Summary Date of Service Apr 06, 2017. (Alverto Chung M.D.) Discharge Summary Admission Date: Apr 04, 2017 at 23:05 Discharge Date: Apr 06, 2017 Discharge Disposition: Home Principal Diagnosis: Pre-syncope Immunizations: Have You Had Influenza Vaccine: Yes Influenza Vaccine Date: Jul 22, 2008 History of Tetanus Vaccine?: Unknown History of Pneumococcal: Yes Pneumococcal Date: Oct 06, 2003 History of Hepatitis B Vaccine: Unknown Consultations: Cardiology was consulted regarding Mr. Paz' pre-syncopal episode and atrial bigeminy. (Alverto Chung M.D.) Medication Reconciliation Changed Medications: Aspirin (Aspirin) 81 Mg Tab 81 MG PO DIRECTED for 30 Days, #30 (Changed from: DAILY) Take 1 Aspirin every other day. Continued Medications: Ascorbic Acid (Vitamin C) 500 Mg Tab 500 MG PO DAILY Atorvastatin (Lipitor) 40 Mg Tab 40 MG PO DAILY Cholecalciferol (Vitamin D3) 1,000 Unit Cap 1000 INTER.UNIT PO DAILY Coenzyme Q10 (Ubidecarenone) (Co Q 10) 10 Mg Cap 10 MG PO DAILY Cyanocobalamin (Vitamin B-12) 500 Mcg Tab 500 MCG PO DAILY Insulin Aspart (novoLOG INSULIN PUMP ) 1 Ea Inj 1 EA N/A UD, EA Levothyroxine Sodium (Levothyroxine Sodium) 112 Mcg Tab 112 MCG PO DAILY Lisinopril (Prinivil) 5 Mg Tab 5 MG PO DAILY, TAB Metoprolol Succinate (Metoprolol Succinate ER) 25 Mg Tabcr 12.5 MG PO DAILY Multivitamin (Multivitamin) Tab 1 TAB PO DAILY Warfarin Sodium (Warfarin Sodium) 5 Mg Tab 5 MG PO DAILY take 5mg daily with three 1mg tabs for a total dose of 8mg daily except for every third day then take two 5mg tabs for a dose of 10mg Warfarin Sodium (Warfarin Sodium) 1 Mg Tab 3 MG PO DAILY take three 1mg tablets with one 5mg tablet for a dose of 8mg daily except for every third day then take two 5mg tabs for a dose of 10mg Discharge Exam Mr. Paz is a pleasant 87 year old gentleman who had no new concerns today. He reports that he is feeling well and denies any new pre-syncopal events, chest pain, or shortness of breath. Review of Systems: Constitutional: No fever, No chills, No sweats, No weakness Eyes: No worsening of vision, No eye pain Respiratory: No cough, No sputum, No wheezing, No shortness of breath, No dyspnea on exertion Cardiovascular: No chest pain, No orthopnea, No PND Abdomen: No pain, No nausea, No vomiting, No diarrhea Physical Exam: General Appearance: WD/WN, no apparent distress Eyes: normal inspection, PERRL, EOMI Neck: supple, no adenopathy Respiratory/Chest: chest non-tender, lungs clear, normal breath sounds, no respiratory distress, no accessory muscle use Cardiovascular: regular rate, rhythm, no edema, no gallop, no JVD, no murmur , normal peripheral pulses Abdomen / GI: normal bowel sounds, non tender, soft, no organomegaly, no pulsatile mass Extremities: normal inspection, no calf tenderness Neurologic/Psychiatric: alert, normal mood/affect, oriented x 3 Skin: normal color (Alverto Chung M.D.) Hospital Course Mr Paz is an 87 year old gentleman with a history of type 1 diabetes (on insulin pump), bioprosthetic aortic valve replacement (on coumadin), hypertension and hyperlipidemia who presented 2 days ago with a presyncopal event lasting approximately 30 minutes whilst eating dinner. He states that he was dizzy, nauseous and felt clammy, but denies chest pain, shortness of breath , palpitations and vomiting. On arrival, his EKG showed premature ventricular contractions and was in the low 50s. His metoprolol and lisinopril were held until cardiology evaluated him. His pre-syncopal episode, however, was not found to be of cardiac origin as his PVC's would not produce symptoms lasting [address] brain was negative and chest xray was normal. His INR at discharge was found to be 3.4 and therefore he was told to skip a dose of coumadin, and his weekly regimen was lowered by 10% for the week, and he was told to follow up with the lab in a weeks time to obtain a new INR level. Mr. Paz was also counselled to restart his metoprolol and lisinopril at his regular home dosage and to have his baby aspirin every other day. He was told to follow up with his commodities manager, Dr. Bill, and his PCP in a week. Total Time Spent: Less than 30 minutes This includes examination of the patient, discharge planning, medication reconciliation, and communication with other providers. (Alverto Chung M.D.) Discharge Instructions Please refer to the electronic Patient Visit Report (Discharge Instructions) for additional information. (Alverto Chung M.D.) Follow-Up Follow-up with commodities manager and PCP in one week (Alverto Chung M.D.) Additional Copies To Juan Mendez M.D.; Stephon Bill M.D. History Resident Physician Supervision Note: I was present with Dr. Chung during the history and exam. I discussed the case with the resident and agree with the findings and plan as documented in the note. Any exceptions or clarifications are listed here. Pt resting comfortably in bed. He states that he has not had any symptoms of lightheadedness, nausea or malaise since yesterday and is feeling well. Reports no fever, CP/SOB, palpitations, sensation change. (Martin Moy MD) General Appearance: WD/WN, no apparent distress Respiratory: chest non-tender, lungs clear, normal breath sounds, no respiratory distress Cardiovascular: normal peripheral pulses, regular rate, rhythm, no edema, no murmur Neurologic/Psychiatric: no motor/sensory deficits, alert, normal mood/affect, oriented x 3, other (on 50 yard ambulation testing, patient moved well with a stable gait w/ SPC w/o issue) (Martin Moy MD) Assessment/Plan 87 y/o male h/o HTN, DMII, HLD, aortic valve replacement p/w pre-syncope Pre-syncopal episode - pauses and some bradycardia but likely not causative, resuming metoprolol and lisinopril on discharge DMII - continue present pump settings and testing regimen as outpatient HTN - continue as above HLD - continue lipitor AVR on coumadin - adjustment of regimen and monitoring as outpatient (Martin Moy MD)
== END 2017-04-06 15:45 | disposition home health service (06) | DRG 149 ==
LOC: EDBD 20:12 → C.EDB 20:15 → C.2T 23:05 → ENRESERV 23:14 → C.MS4W 04-05 17:52
PROVIDERS: ADMIT Hospitalist; ATTEND Family Medicine
DX: R42 Dizziness and giddiness (principal); E11.9 Type 2 diabetes mellitus without complications; G62.9 Polyneuropathy, unspecified; Z96.41 Presence of insulin pump (external) (internal); I10 Essential (primary) hypertension; E03.9 Hypothyroidism, unspecified; Z86.73 Personal history of transient ischemic attack (TIA), and cerebral infarction without residual deficits; Z79.82 Long term (current) use of aspirin

== ENCOUNTER 2017-06-19 09:47 | Emergency (ER) | payer BC ==
[~2017-06-19] VITALS: Ht 182.9 cm; Wt 96.0 kg
[~2017-06-19 09:47] MED LIST changes: -ATOR-24 PO; -CALC600T9 PO
[2017-06-19 09:54] VITALS: TEMP 36.5; Ht 182.9 cm; Wt 96.0 kg
[2017-06-19] MEDS ORDERED: SODIUM CHLORIDE 0.9% 1000ML 1,000 ML IV STA (10:44)
[2017-06-19 10:50] LABS: BASO % 0.2 %; BASO ABS # 0.02 K/uL (0-0.2); COMPLETE YES; EOS % 2.6 %; HEMATOCRIT 36.4 % (42-52); IG% 0.3 %; LYMPH % 19.6 %; LYMPH ABS # 2.23 K/uL (1.2-3.4); MEAN CELL VOLUME 90.8 fL (80-100); MEAN CORPUSCULAR HEMOGLOBIN 31.7 pg (25-34); MEAN CORPUSCULAR HGB CONC 34.9 g/dl (32-36); MEAN PLATELET VOLUME 11.1 fL (7.4-10.4); MONO % 4.8 %; NEUT % 72.5 %; PLATELET COUNT 214 K/uL (130-400); RED BLOOD COUNT 4.01 M/uL (4.7-6.1); WHITE BLOOD COUNT 11.37 K/uL (4.8-10.8)
[2017-06-19 10:54] LABS: INR 1.6 (0.9-1.1); PARTIAL THROMBOPLASTIN RATIO 1.2; PROTHROMBIN TIME (PATIENT) 17.3 SECONDS (9.0-12.0)
[2017-06-19] MEDS ORDERED: INSULIN ASPART 100 UNITS/ML 3 ML PEN SC ONE (11:00)
--- NOTE | 2017-06-19 11:02 | EMERGENCY ROOM VISIT NOTE ---
History Report prepared by Natalie: Chantell Holden Under the Supervision of: Dr. Isaac Bernardo M.D. First contact with patient: 10:00 Chief Complaint: ILLNESS Stated Complaint: NEAR SYNCOPE/HYPERGLYCEMIA History of Present Illness The patient is an 87 year old male who presents to the Emergency Room with complaints of a persistent malfunctioning insulin pump that began last evening. The patient reports that he has a history of Type 1 diabetes and has an insulin pump. He states that last evening he changed his pump and states that he believes that he did not attach the pump properly. The patient states that he found his blood glucose level was found to be 400 mg/dL and notes that he is typically under 150 mg/dL. He states that this morning he was felt dizzy and nauseous. The patient states that he called EMS and was brought in to the emergency department. He states that he took additional insulin this morning. The patient reports a history of an aortic valve replacement, noting that he is on warfarin. The patient denies any vomiting, abdominal pain, fever, or chills. Source of History: patient Onset: last evening Position: other (global) Quality: other (malfunctioning insulin pump) Timing: other (persistent) Associated Symptoms: + nausea, No fevers, No chills, No vomiting, No abdominal pain Note: Associated Symptoms: dizzy Review of Systems See HPI for pertinent positives & negatives. A total of 10 systems reviewed and were otherwise negative. Past Medical & Surgical Medical Problems: (1) DM (diabetes mellitus) (2) IDDM (insulin dependent diabetes mellitus) (3) Neuropathy (4) Psoas abscess, left (5) Right Femoral Neck Fracture (6) TIA (transient ischemic attack) Surgical Problems: (1) H/O aortic valve replacement Family History No significant family history Social History Smoking Status: Never Smoker Drug Use: none Marital Status: Housing Status: lives with family Occupation Status: retired Current/Historical Medications Scheduled Ascorbic Acid (Vitamin C), 500 MG PO DAILY Aspirin (Aspirin), 81 MG PO DIRECTED Cholecalciferol (Vitamin D3), 1,000 INTER.UNIT PO DAILY Coenzyme Q10 (Ubidecarenone) (Co Q 10), 10 MG PO DAILY Cyanocobalamin (Vitamin B-12), 500 MCG PO DAILY Insulin Aspart (novoLOG INSULIN PUMP ), 1 EA N/A UD Levothyroxine Sodium (Levothyroxine Sodium), 112 MCG PO DAILY Lisinopril (Prinivil), 5 MG PO DAILY Metoprolol Succinate (Metoprolol Succinate ER), 12.5 MG PO DAILY Multivitamin (Multivitamin), 1 TAB PO DAILY Warfarin Sodium (Warfarin Sodium), 5 MG PO DAILY Warfarin Sodium (Warfarin Sodium), 3 MG PO DAILY Allergies Coded Allergies: No Known Allergies (Verified , 04/04/17) Physical Exam Vital Signs Date Time Temp Pulse Resp B/P (MAP) Pulse Ox O2 Delivery O2 Flow Rate FiO2 06/19/17 13:13 63 137/68 100 06/19/17 13:07 66 06/19/17 11:17 68 16 93 06/19/17 11:01 133/60 06/19/17 10:47 70 14 91 06/19/17 10:32 75 121/53 97 Room Air 06/19/17 10:31 121/53 06/19/17 10:17 69 14 98 06/19/17 09:59 71 06/19/17 09:54 36.5 74 18 140/67 96 Room Air 06/19/17 09:50 140/67 Physical Exam GENERAL: Patient awake, alert, oriented x 3. Patient follows commands. Patient does not appear toxic. Patient is adequately hydrated and well- nourished. SKIN: No erythema, pallor, cyanosis or rash HEENT: Normal head, pupils equal, reactive to light and accommodation. Ears normal. Oral cavity and posterior pharynx appear normal. Neck: Without adenopathy, no neck vein distention. LUNGS: Clear to auscultation. No wheezes, no rales, no rhonchi. HEART: murmur noted to auscultation. No gallops. No rubs ABDOMEN: Insulin pump attached in the right lower quadrant. No masses, no rebound, no hepatomegaly or splenomegaly. EXTREMITIES: No signs of trauma. No pedal or pretibial edema. No calf or thigh tenderness. NEUROLOGIC: Cranial nerves II-XII within normal limits. No gross motor sensory function deficits. Medical Decision & Procedures Laboratory Results 06/19/17 09:36 Red Blood Count 4.01, Mean Corpuscular Volume 90.8, Mean Corpuscular Hemoglobin 31.7, Mean Corpuscular Hemoglobin Concent 34.9, Mean Platelet Volume 11.1, Neutrophils (%) (Auto) 72.5, Lymphocytes (%) (Auto) 19.6, Monocytes (%) (Auto) 4.8, Eosinophils (%) (Auto) 2.6, Basophils (%) (Auto) 0.2, Neutrophils # (Auto) 8.24, Lymphocytes # (Auto) 2.23, Monocytes # (Auto) 0.55, Eosinophils # (Auto) 0.30, Basophils # (Auto) 0.02 06/19/17 09:36 Test 06/19/17 09:36 06/19/17 12:23 White Blood Count 11.37 K/uL (4.8-10.8) Red Blood Count 4.01 M/uL (4.7-6.1) Hemoglobin 12.7 g/dL (14.0-18.0) Hematocrit 36.4 % (42-52) Mean Corpuscular Volume 90.8 fL (80-100) Mean Corpuscular Hemoglobin 31.7 pg (25-34) Mean Corpuscular Hemoglobin Concent 34.9 g/dl (32-36) Platelet Count 214 K/uL (130-400) Mean Platelet Volume 11.1 fL (7.4-10.4) Neutrophils (%) (Auto) 72.5 % Lymphocytes (%) (Auto) 19.6 % Monocytes (%) (Auto) 4.8 % Eosinophils (%) (Auto) 2.6 % Basophils (%) (Auto) 0.2 % Neutrophils # (Auto) 8.24 K/uL (1.4-6.5) Lymphocytes # (Auto) 2.23 K/uL (1.2-3.4) Monocytes # (Auto) 0.55 K/uL (0.11-0.59) Eosinophils # (Auto) 0.30 K/uL (0-0.5) Basophils # (Auto) 0.02 K/uL (0-0.2) RDW Standard Deviation 44.9 fL (36.4-46.3) RDW Coefficient of Variation 13.5 % (11.5-14.5) Immature Granulocyte % (Auto) 0.3 % Immature Granulocyte # (Auto) 0.03 K/uL (0.00-0.02) Prothrombin Time 17.3 SECONDS (9.0-12.0) Prothromb Time International Ratio 1.6 (0.9-1.1) Activated Partial Thromboplast Time 31.1 SECONDS (21.0-31.0) Partial Thromboplastin Ratio 1.2 Anion Gap 12.0 mmol/L (3-11) Est Creatinine Clear Calc Drug Dose 52.1 ml/min Estimated GFR () 62.6 Estimated GFR (Non- 54.0 BUN/Creatinine Ratio 24.1 (10-20) Calcium Level 9.0 mg/dl (8.5-10.1) Total Bilirubin 1.7 mg/dl (0.2-1) Aspartate Amino Transf (AST/SGOT) 19 U/L (15-37) Alanine Aminotransferase (ALT/SGPT) 25 U/L (12-78) Alkaline Phosphatase 82 U/L (45-117) Total Protein 6.8 gm/dl (6.4-8.2) Albumin 3.8 gm/dl (3.4-5.0) Globulin 3.0 gm/dl (2.5-4.0) Albumin/Globulin Ratio 1.3 (0.9-2) Beta-Hydroxybutyric Acid 37.94 mg/dL (0.2-2.81) Bedside Glucose 240 mg/dl (70-99) Laboratory results as stated above per my review. Medications Administered Medications (Trade) Dose Ordered Sig/Don Route Start Time Stop Time Status Last Admin Dose Admin Sodium Chloride 1,000 ml @ 500 mls/hr Q2H STAT IV 06/19/17 10:44 06/19/17 12:43 DC 06/19/17 11:25 500 MLS/HR Insulin Aspart (novoLOG ASPART) 10 units ONE ONCE SC 06/19/17 11:00 06/19/17 11:01 DC 06/19/17 11:00 10 UNITS ECG Indication: altered mental status Rate (beats per minute): 73 Rhythm: sinus rhythm Findings: left axis deviation, other (intraventricular conduction delay) ED Course 1005: Past medical records reviewed. The patient was evaluated in room A10. A complete history and physical examination was performed by the medical student. 1044: Ordered Sodium Chloride 1000 ml @ 500 mls/hr IV. 1054: Past medical records reviewed. The patient was evaluated in room A10. A complete history and physical examination was performed. 1100: Ordered Insulin Aspart 10 units SC. 1250: I reevaluated the patient and he is doing well. I discussed the exam findings with him and I discussed the treatment plan. He verbalized complete understanding and agreement. He is ready for discharge. Medical Decision Nurses notes reviewed. Medical history sheet reviewed. Differential diagnosis includes but is not limited to: Malfunctioning pump, poor controlled insulin. The patient is concerned about his insulin pump not working correctly. He believes that it may be in a scarred area on his abdomen. Therefore he was not getting insulin. Blood sugar was elevated here. He was given subcutaneous insulin and the blood sugar was rechecked and was coming down nicely. The patient will be allowed to return home and reinsert the pump at a different site. INR is low and he was to take one and one half doses tonight. He is to follow-up with Coumadin clinic within the next few days. Medication Reconcilliation Current Medication List: was personally reviewed by me Blood Pressure Screening Patient's blood pressure: Normal blood pressure Blood pressure disposition: Did not require urgent referral Impression Primary Impression: Insulin pump mechanical complication Scribe Attestation The scribe's documentation has been prepared under my direction and personally reviewed by me in its entirety. I confirm that the note above accurately reflects all work, treatment, procedures, and medical decision making performed by me. Departure Information Dispostion Home / Self-Care Referrals Juan Mendez M.D. (PCP) Forms HOME CARE DOCUMENTATION FORM, IMPORTANT VISIT INFORMATION Patient Instructions My [facility] Additional Instructions Restart your insulin pump as soon as you get home today. Take 12 mg of Coumadin tonight then back to 8 mg every night. Follow-up with the Coumadin clinic on Thursday or Thursday. Continue all of your other medications as prescribed.
[2017-06-19 11:05] LABS: ALB/GLOB RATIO 1.3 (0.9-2); BUN/CREATININE RATIO 24.1 (10-20); CREATININE 1.2 mg/dl (0.60-1.40); POTASSIUM 4.9 mmol/L (3.5-5.1)
[2017-06-19 11:18] LABS: BETA-HYDROXYBUTYRATE 37.94 mg/dL (0.2-2.81)
[2017-06-19 13:13] VITALS: BP 137/68; PULSE 63; O2SAT 100
== END 2017-06-19 13:16 | disposition home or self-care (01) ==
LOC: EDBD 09:47 → C.EDA 09:48
DX: T85.694A Other mechanical complication of insulin pump, initial encounter (principal); X58.XXXA Exposure to other specified factors, initial encounter; E11.9 Type 2 diabetes mellitus without complications; R42 Dizziness and giddiness; I35.8 Other nonrheumatic aortic valve disorders; Z86.73 Personal history of transient ischemic attack (TIA), and cerebral infarction without residual deficits; Z79.4 Long term (current) use of insulin; Z79.01 Long term (current) use of anticoagulants; Z79.82 Long term (current) use of aspirin; Z79.899 Other long term (current) drug therapy

== ENCOUNTER → 2017-08-18 | Outpatient (CLI) | payer BC ==
[~2017-08-18] MED LIST changes: -WARF4TAB44 PO
[2017-08-18 14:00] LABS: ESTIMATED AVERAGE GLUCOSE 183 mg/dl; HA1C FLAG Normal (Normal)
[2017-08-18 17:07] LABS: ALT/SGPT 24 U/L (12-78); BLOOD UREA NITROGEN 24 mg/dl (7-18); BUN/CREATININE RATIO 19.3 (10-20); CARBON DIOXIDE 32 mmol/L (21-32); CHLORIDE 96 mmol/L (98-107); CHOLESTEROL 245 mg/dl (0-200); CREATININE 1.22 mg/dl (0.60-1.40); GLUCOSE 291 mg/dl (70-99); POTASSIUM 4.8 mmol/L (3.5-5.1); SODIUM 132 mmol/L (136-145); TRIGLYCERIDES 67 mg/dl (0-150); VERY LOW DENSITY LIPOPROT CALC 13 mg/dl
[2017-08-18 17:18] LABS: ALB/GLOB RATIO 1.2 (0.9-2); ALKALINE PHOSPHATASE 86 U/L (45-117); AST/SGOT 22 U/L (15-37); CHOLESTEROL/HDL RATIO 2.3; HDL CHOLESTEROL 107 mg/dl; LDL CHOLESTEROL CALCULATED 125 mg/dl
== END | disposition home or self-care (01) ==
LOC: C.LABBC 12:19
PROVIDERS: ATTEND Nurse Practitioner Adult Health
DX: E10.8 Type 1 diabetes mellitus with unspecified complications (principal); I10 Essential (primary) hypertension; E03.9 Hypothyroidism, unspecified

== ENCOUNTER → 2018-02-02 | Outpatient (CLI) | payer BC ==
[~2018-02-02] MED LIST changes: +ATOR-24 PO; +WARF1TAB6 PO; +WARF4TAB PO
[2018-02-03 06:09] LABS: HEMOGLOBIN A1C 8.4 % (4.5-5.6)
== END | disposition home or self-care (01) ==
LOC: C.LAB1850 14:25
PROVIDERS: ATTEND Nurse Practitioner Adult Health
DX: E78.5 Hyperlipidemia, unspecified (principal); E11.21 Type 2 diabetes mellitus with diabetic nephropathy

== ENCOUNTER → 2018-02-03 | Outpatient (CLI) | payer BC ==
--- NOTE | 2018-02-03 12:33 | DIAGNOSTIC IMAGING REPORT ---
RIGHT KNEE 2 VIEWS CLINICAL HISTORY: Right knee pain. FINDINGS: AP and lateral views of the right knee are obtained. No prior studies are available for comparison at the time of dictation. The skeletal structures are osteopenic. No fracture is seen. Postoperative change is partially visualized in the distal femoral shaft. There is advanced degenerative narrowing in the medial compartment with near complete loss of the joint space. Mild narrowing is seen in the lateral and patellofemoral compartments. There are large marginal osteophytes. A joint effusion is noted. The overlying soft tissues are normal in appearance. There is advanced atherosclerotic calcification of the popliteal artery. A calcified fabella is incidentally noted. IMPRESSION: 1. No acute bony abnormality is seen in the right knee. 2. Osteopenia and degenerative change as above. 3. Joint effusion. Electronically signed by: Ronn Pretty M.D. 02/03/2018 12:32 PM Dictated Date/Time: 02/03/2018 12:30 PM
== END | disposition home or self-care (01) ==
LOC: C.RADBC 12:04
PROVIDERS: ATTEND Internal Medicine
DX: M25.561 Pain in right knee (principal)

== ENCOUNTER 2018-03-22 11:07 | Inpatient (IN) | payer BC, OTHER ==
[~2018-03-22] VITALS: Ht 175.3 cm; Wt 96.2 kg
[2018-03-22] VITALS (10 sets, daily range): BP systolic 93–118; BP diastolic 48–66; PULSE 71–85; TEMP 36.7; O2SAT 92–100; BMI 31.5
[~2018-03-22 11:07] MED LIST changes: -WARF-246 PO
[2018-03-22] MEDS ORDERED: NovoLIN-R INSULIN PER UNIT CHARGE IV STA ×2 (11:35→12:47)
[2018-03-22] MEDS ORDERED: SODIUM CHLORIDE 0.9% 1000ML 1,000 ML IV STA ×2 (11:35→15:36)
--- NOTE | 2018-03-22 12:04 | EMERGENCY ROOM VISIT NOTE ---
History Report prepared by Natalie: Luz Elena Estrada Under the Supervision of: Dr. Alejandra Simons D.O. First contact with patient: 11:22 Chief Complaint: HYPERGLYCEMIA Stated Complaint: HYPERGLYCEMIA Nursing Triage Summary: pt arrives from home via BLS per BLS pt called 911 for hyperglycemic episode EMS reports pt states his sugar was greater than 500, he is a type 1 Diabetic who uses an insulin pump pt reports he was going to dose himself with his pump but EMS arrived before he was able too EMS reports his sugar on their arrival was 469, pt does have a head "discomfort " and is slow to put words together, but no vision changes History of Present Illness The patient is an 88 year old male who presents to the Emergency Room with complaints of an episode of hyperglycemia starting this morning. The patient states that he took his sugar when he got up and it was 550. He states that he was about to give himself a manual dose of Insulin when EMS arrived. He reports that his pump was functioning fine yesterday, but is unsure if it may be functioning improperly today. The patient complains of being fatigued. He notes that he was not able to sleep well last night. The patient denies urinary symptoms, change in diet, changes in medications, and recent sickness. The patient notes that he has an AC at his house. Source of History: patient Onset: this morning Position: other (global) Quality: other (hyperglycemia) Timing: other (episode) Associated Symptoms: + fatigue, No urinary symptoms Note: The patient denies change in diet, changes in medications, and recent sickness Review of Systems See HPI for pertinent positives & negatives. A total of 10 systems reviewed and were otherwise negative. Past Medical & Surgical Medical Problems: (1) DM (diabetes mellitus) (2) Elevated troponin (3) IDDM (insulin dependent diabetes mellitus) (4) Neuropathy (5) Psoas abscess, left (6) Right Femoral Neck Fracture (7) TIA (transient ischemic attack) Surgical Problems: (1) H/O aortic valve replacement Family History No significant family history Social History Smoking Status: Never Smoker Drug Use: none Marital Status: Housing Status: lives with family Occupation Status: retired Current/Historical Medications Scheduled Ascorbic Acid (Vitamin C), 500 MG PO DAILY Aspirin (Aspirin), 81 MG PO DIRECTED Atorvastatin (Lipitor), 40 MG PO DAILY Cholecalciferol (Vitamin D3), 1,000 INTER.UNIT PO DAILY Coenzyme Q10 (Ubidecarenone) (Co Q 10), 10 MG PO DAILY Cyanocobalamin (Vitamin B-12), 500 MCG PO DAILY Insulin Aspart (novoLOG INSULIN PUMP ), 1 EA N/A UD Levothyroxine Sodium (Levothyroxine Sodium), 112 MCG PO DAILY Lisinopril (Prinivil), 5 MG PO DAILY Metoprolol Succinate (Metoprolol Succinate ER), 12.5 MG PO DAILY Multivitamin (Multivitamin), 1 TAB PO DAILY Warfarin Sod (Jantoven), 7 MG PO 3XWK Warfarin Sodium (Coumadin), 8 TAB PO 4XWK Allergies Coded Allergies: No Known Allergies (Verified , 03/22/18) Physical Exam Vital Signs Date Time Temp Pulse Resp B/P (MAP) Pulse Ox O2 Delivery O2 Flow Rate FiO2 03/22/18 15:49 Room Air 03/22/18 15:16 85 03/22/18 14:40 90 18 114/63 93 Room Air 03/22/18 13:07 86 03/22/18 12:41 105 18 121/62 95 Room Air 03/22/18 11:46 101 03/22/18 11:10 36.7 101 18 110/69 93 Room Air Physical Exam GENERAL: Somnolent, but easily aroused. Well appearing, well nourished, no distress, non-toxic EYE EXAM: normal conjunctiva, PERRL and EOM's grossly intact OROPHARYNX: no exudate, no erythema, lips, buccal mucosa, and tongue normal and mucous membranes are mildly dry NECK: supple, no nuchal rigidity, no adenopathy, non-tender LUNGS: Clear to auscultation. Normal chest wall mechanics HEART: no murmurs, S1 normal and S2 normal CHEST: Well healed vertical midline sternotomy scar. ABDOMEN: abdomen soft, non-tender, normo-active bowel sounds, no masses, no rebound or guarding. BACK: Back is symmetrical on inspection and there is no deformity, no midline tenderness, no CVA tenderness. SKIN: no rashes and no bruising UPPER EXTREMITIES: upper extremities are grossly normal. LOWER EXTREMITIES: Bilateral 2+ pedal edema. Chronic venostasis changes to distal bilateral LE. NEURO EXAM: Normal sensorium, cranial nerves II-XII grossly intact, normal speech, no gross weakness of arms, no gross weakness of legs. Medical Decision & Procedures ER Provider Diagnostic Interpretation: Radiology results have been interpreted by the radiologist and reviewed by me. CHEST ONE VIEW PORTABLE CLINICAL HISTORY: altered ms dyspnea COMPARISON STUDY: 02/04/2018 FINDINGS: Mild stable cardiomegaly. Prior median sternotomy. Lungs are considered clear. Diaphragms are smooth. IMPRESSION: No acute process. The above report was generated using voice recognition software. It may contain grammatical, syntax or spelling errors. Electronically signed by: Juarez Moeller M.D. 03/22/2018 12:07 PM Dictated Date/Time: 03/22/2018 12:07 PM Laboratory Results Test 03/22/18 11:50 03/22/18 14:00 Phosphorus Level 5.5 mg/dl (2.5-4.9) Magnesium Level 2.5 mg/dl (1.8-2.4) Total Bilirubin 1.6 mg/dl (0.2-1) Aspartate Amino Transf (AST/SGOT) 61 U/L (15-37) Alanine Aminotransferase (ALT/SGPT) 32 U/L (12-78) Alkaline Phosphatase 89 U/L (45-117) Pro-B-Type Natriuretic Peptide 1383 pg/ml (0-1800) Total Protein 7.3 gm/dl (6.4-8.2) Albumin 4.2 gm/dl (3.4-5.0) Globulin 3.1 gm/dl (2.5-4.0) Albumin/Globulin Ratio 1.3 (0.9-2) Chemistry Specimen Hemolysis Arterial Blood pH 7.29 (7.35-7.45) Arterial Blood Partial Pressure CO2 34 mmHg (35-46) Arterial Blood Partial Pressure O2 70 mm/Hg (80-95) Arterial Blood HCO3 16 mmol/L (19-24) Arterial Blood Oxygen Saturation 90.4 % (90-95) Arterial Blood Base Excess -9.6 mEq/L (-9-1.8) Arterial Blood Gas Delivery ROOM AIR Yon Test POS (POS) Laboratory results per my review. Medications Administered Medications (Trade) Dose Ordered Sig/Don Route Start Time Stop Time Status Last Admin Dose Admin Insulin Human Regular (novoLIN-R U-100 PER UNIT) 8 units NOW STAT IV 03/22/18 11:35 03/22/18 11:37 DC 03/22/18 12:15 8 UNITS Sodium Chloride 1,000 ml @ 125 mls/hr Q8H STAT IV 03/22/18 11:35 03/22/18 17:07 DC 03/22/18 12:02 125 MLS/HR Ondansetron HCl (Zofran Inj) 4 mg STK-MED ONCE .ROUTE 03/22/18 12:21 03/22/18 12:22 DC 03/22/18 12:26 4 MG Insulin Human Regular (novoLIN-R U-100 PER UNIT) 6 units NOW STAT IV 03/22/18 12:47 03/22/18 12:48 DC 03/22/18 12:59 6 UNITS Miscellaneous (Insulin Protocol Dka Goal Range) 1 ea ONE ONCE N/A 03/22/18 13:45 03/22/18 13:46 DC 03/22/18 18:53 1 EA Insulin Human Regular 2.5 unit/ Syringe 2.5 ml @ 1 mls/min TODAY@1500 IV 03/22/18 15:00 03/22/18 15:06 DC 03/22/18 15:15 1 MLS/MIN Insulin Human Regular 250 units/ Sodium Chloride 252.5 ml @ 0 mls/hr Q24H IV 03/22/18 15:00 03/23/18 14:59 DC 03/22/18 15:17 2.4 MLS/HR ECG Per My Interpretation Indication: vomiting Rate (beats per minute): 95 Rhythm: sinus rhythm Findings: 1st degree AV block, RBBB, no acute ischemic change, left axis deviation Comparison ECG Date: REPEAT 1, REPEAT 2 Change: REPEAT 1: Sinus tachycardia at a rate of 107. Left axis deviation. Right bundle branch block. ST depression in lead 2,3, aVF, and V3-V6. REPEAT 2: Sinus rhythm at a rate of 94. 1st degree AV block. Left axis deviation. ST depression again noted in the same leads, but less compared to prior. ED Course 1129: The patient was evaluated in room B11B. A complete history and physical exam was performed. 1135: Ordered NSS 1000 ml @ 125 mls/hr IV, Insulin Huamn Regular 8 units IV. 1221: Ordered Zofran Inj 4 mg IV. 1231: I reevaluated the patient and he had an episode of vomiting. He seems brighter now, but when we rechecked his sugars, they are still going up. 1247: Ordered Insulin Human Regular 6 units IV. 1339: I reevaluated the patient and he was doing okay. He still denies chest pain and shortness of breath. I updated him and his family on his test results. We are doing a repeat EKG. 1403: I discussed the patient's case with Dr. Wooten-Cardiology. He is going to come evaluate the patient. 1436: I spoke to Dr. Wooten in the ED. He believes that the patient just needs close follow up as he has had this happen before when he was in DKA, although he did not have EKG changes at that time. He does not believe he needs an emergent trip to the film laboratory technician at this time. 1448: I reviewed the patient's case with [place] [place]. She will evaluate the patient for further management. 1500: Ordered Carbohydrates 15-30 grams PRN PO Hypoglycemia Treatment, Glucagon 1 mg Protocol PRN Im Hypoglycemia Protocol, Dextrose 25-50ML PRN IV Hypoglycemia Protocol, Glucose 4-8 tablets PRN PO Hypoglycemia Protocol, Glucose 15-30 grams PRN PO Hypoglycemia Protocol, Insulin Human Regular 250 units/ Sodium Chloride 252.5 ml @ 0 mls/hr IV, Insulin Human Regular 2.5 unit/ Syringe 2.5 ml @ 1 mls/min IV. Medical Decision Differential Diagnosis includes but is not limited to dehydration, stroke, anemia, hypoglycemia, hyponatremia, hypernatremia, urinary tract infection, pneumonia, bronchitis, sepsis, gastroenteritis, additional abdominal pathology, metabolic abnormalities and infections. Patient presenting here with elevated glucose readings which he thought were related to malfunctioning insulin pump as his blood sugar levels have been fine the day before. Patient found to be in DKA. Had been given IV fluids and IV doses of insulin before insulin drip was ready from pharmacy. There was a significant delay in his labs being resulted and it is unclear why. When the rest of his labs finally resulted was also found that he had an elevated troponin level. Patient's initial EKG did not show any acute ischemic changes, however following an episode of vomiting were patient appeared to be in significant distress, a repeat EKG was done as a precaution and he was noted to have ST depression. Upon finding the elevated troponin a repeat EKG was performed and ST depression was still present however improved compared to prior. Because of this case was discussed with the on-call caser shoe parts Dr. Wooten who came and saw the patient at bedside. Upon additional review of EMR, patient has had elevated troponins previously with DKA , however the EKG changes were no and patient does have prior history of CAD. Dr. Wooten felt reasonable to closely observe and recheck the patient, and trend his troponins and monitor for any additional changes. Patient was given additional fluids and insulin drip started. Case was discussed with hospitalist and manager intensive care unit. Patient anticoagulated and therapeutic on this. Not started on heparin drip in addition. Patient hemodynamically stable otherwise here, heart rate improved with IV fluids and improving blood sugar level. Patient slightly somnolent but oriented initially, this continued to improve with IV hydration and improved glucose. 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 No concerning changes for hyperkalemia on EKG and this will improve with treatment of his DKA also. Medication Reconcilliation Current Medication List: was personally reviewed by me Blood Pressure Screening Patient's blood pressure: Normal blood pressure Blood pressure disposition: Did not require urgent referral Consults Time Called: 1400 Consulting Physician: Dr. Wooten-Cardiology Returned Call: 1403 I discussed the patient's case with Dr. Wooten-Cardiology. He is going to come evaluate the patient. Additional Consults: Time Called: 1438 Consulted Physician: Dr. Kurtz Hospitalist Returned Call: 1448 Additional Comments: I reviewed the patient's case with Dr. Kurtz Hospitalist. She will evaluate the patient for further management. Impression Primary Impression: DKA (diabetic ketoacidoses) Additional Impressions: Non-STEMI (non-ST elevated myocardial infarction) CHAD (acute kidney injury) Hyperkalemia Critical Care I have personally spent 60 minutes of critical care time in the direct management of this patient. This includes bedside care, interpretation of diagnostic studies, and testing, discussion with consultants, patient, and family members, and other required patient management activities. This 60 minutes is in excess of all separately billable procedures. Scribe Attestation The scribe's documentation has been prepared under my direction and personally reviewed by me in its entirety. I confirm that the note above accurately reflects all work, treatment, procedures, and medical decision making performed by me. Departure Information Dispostion Being Evaluated By Hospitalist Referrals Juan Mendez M.D. (PCP) Patient Instructions My [facility] Problem Qualifiers Primary Impression: DKA (diabetic ketoacidoses) Diabetes mellitus type: type 2 Diabetes mellitus complication detail: without coma Qualified Codes: E11.10 - Type 2 diabetes mellitus with ketoacidosis without coma
--- NOTE | 2018-03-22 12:09 | DIAGNOSTIC IMAGING REPORT ---
CHEST ONE VIEW PORTABLE CLINICAL HISTORY: altered ms dyspnea COMPARISON STUDY: 02/04/2018 FINDINGS: Mild stable cardiomegaly. Prior median sternotomy. Lungs are considered clear. Diaphragms are smooth. IMPRESSION: No acute process. The above report was generated using voice recognition software. It may contain grammatical, syntax or spelling errors. Electronically signed by: Juarez Moeller M.D. 03/22/2018 12:07 PM Dictated Date/Time: 03/22/2018 12:07 PM
[2018-03-22] MEDS ORDERED: ONDANSETRON INJ 2 MG/ML 2 ML VIAL ONE (12:21)
[2018-03-22 12:56] LABS: EOS % 0.1 %; EOS ABS # 0.01 K/uL (0-0.5); HEMATOCRIT 38.4 % (42-52); HEMOGLOBIN 12.7 g/dL (14.0-18.0); IG# 0.03 K/uL (0.00-0.02); LYMPH % 7.3 %; MEAN CELL VOLUME 91.9 fL (80-100); MEAN CORPUSCULAR HEMOGLOBIN 30.4 pg (25-34); MEAN CORPUSCULAR HGB CONC 33.1 g/dl (32-36); MEAN PLATELET VOLUME 11.5 fL (7.4-10.4); MONO ABS # 0.69 K/uL (0.11-0.59); NEUT % 87.4 %; NEUT ABS # 11.95 K/uL (1.4-6.5); PLATELET COUNT 249 K/uL (130-400); RED CELL DISTRIBUTION WIDTH CV 14.5 % (11.5-14.5); RED CELL DISTRIBUTION WIDTH SD 49.2 fL (36.4-46.3); WHITE BLOOD COUNT 13.68 K/uL (4.8-10.8)
[2018-03-22 13:25] LABS: ALBUMIN 4.2 gm/dl (3.4-5.0); CALCIUM 9.7 mg/dl (8.5-10.1); CREATININE 1.49 mg/dl (0.60-1.40); PHOSPHORUS 5.5 mg/dl (2.5-4.9); POTASSIUM 5.2 mmol/L (3.5-5.1); TOTAL PROTEIN 7.3 gm/dl (6.4-8.2)
[2018-03-22] MEDS ORDERED: DKA GOAL RANGE 150-250 mg/dl 1 EA ONE ×2 (13:45→15:45)
[2018-03-22] MEDS ORDERED: GLUCOSE 40% GEL 15 GM TUBE PO PRN (15:00)
[2018-03-22] MEDS ORDERED: GLUCAGON FOR INJ 1 MG VIAL IM PRN (15:00)
[2018-03-22] MEDS ORDERED: INSULIN HUMAN REGULAR IV BOLUS 2.5 UNIT in SYRINGE 0 ML IV SCH (15:00)
[2018-03-22] MEDS ORDERED: DEXTROSE 50% 50 ML SYR IV PRN (15:00)
[2018-03-22] MEDS ORDERED: CARBOHYDRATES FOR HYPOGLYCEMIA PO PRN (15:00)
[2018-03-22] MEDS ORDERED: INSULIN REGULAR 250 UNITS in SODIUM CHLORIDE 0.9% 250ML 250 ML IV SCH (15:00)
[2018-03-22] MEDS ORDERED: GLUCOSE 10 TABS/TUBE PO PRN (15:00)
[2018-03-22] MEDS ORDERED: INSULIN IV INFUSION PROTOCOL STA (15:42)
[2018-03-22] MEDS ORDERED: ENOXAPARIN 40 MG/0.4 ML SYR SQ SCH (15:45)
[2018-03-22] MEDS ORDERED: MODERATE STRESS LEVEL ONE (15:45)
[2018-03-22] MEDS ORDERED: WARFARIN SOD 1 MG TAB PO SCH (15:45)
[2018-03-22] MEDS ORDERED: ICU PROTOCOL FOR HYPERGLYCEMIA PRN (15:45)
[2018-03-22] MEDS ORDERED: ONDANSETRON INJ 2 MG/ML 2 ML VIAL IV PRN (15:45)
--- NOTE | 2018-03-22 16:29 | History and Physical ---
History & Physical Date & Time of Service: Mar 22, 2018 at 15:57 Chief Complaint: Hyperglycemia Primary Care Physician: Juan Mendez M.D. History of Present Illness Source: patient, family Mr. Paz is an 88yo male presenting with DKA and elevated troponin. Patient is a Type I diabetic with insulin pump in place. He states that his blood sugars were fine yesterday, however became elevated overnight. When he woke up his blood sugar was 550. He called EMS and was brought to [facility]. Patient is not certain if his insulin pump was working properly. He complains of fatigue and generalized weakness as well as nausea with one episode of non-bloody/ nonbilious vomiting this AM prior to arrival, otherwise no complaints. Specifically no fever/chills/CP/palpitations. No cough/SOB/wheeze. No abdominal pain/diarrhea/constipation. On arrival to the ER he was afebrile, mildly tachycardic at 105bpm, otherwise hemodynamically stable. The insulin pump was turned off. Of note, patient had a marked troponin elevation in August 2016 during a prior hospital admission for DKA - troponin peaked at 12.4 at that time. 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 History of PE Anticoagulation TIA Hypertension Hyperlipidemia Surgical Problems: (1) H/O aortic valve replacement - bioprosthetic Right hip fracture Right femur fracture Right knee Left knee Family History No significant family history Social History Smoking Status: Never Smoker Smokeless Tobacco Use: No Alcohol Use: occasionally Drug Use: none Marital Status: Housing status: lives with significant other Occupational Status: retired Immunizations History of Influenza Vaccine: Yes Influenza Vaccine Date: Jul 22, 2008 History of Tetanus Vaccine?: Unknown History of Pneumococcal: Yes Pneumococcal Date: Oct 06, 2003 History of Hepatitis B Vaccine: Unknown Allergies Coded Allergies: No Known Allergies (Verified , 03/22/18) Home Medications Scheduled Ascorbic Acid (Vitamin C), 500 MG PO DAILY Aspirin (Aspirin), 81 MG PO DIRECTED Atorvastatin (Lipitor), 40 MG PO DAILY Cholecalciferol (Vitamin D3), 1,000 INTER.UNIT PO DAILY Coenzyme Q10 (Ubidecarenone) (Co Q 10), 10 MG PO DAILY Cyanocobalamin (Vitamin B-12), 500 MCG PO DAILY Insulin Aspart (novoLOG INSULIN PUMP ), 1 EA N/A UD Levothyroxine Sodium (Levothyroxine Sodium), 112 MCG PO DAILY Lisinopril (Prinivil), 5 MG PO DAILY Metoprolol Succinate (Metoprolol Succinate ER), 12.5 MG PO DAILY Multivitamin (Multivitamin), 1 TAB PO DAILY Warfarin Sod (Jantoven), 7 MG PO 3XWK Warfarin Sodium (Coumadin), 8 TAB PO 4XWK Review of Systems Constitutional: No fever, No chills, No sweats Eyes: No worsening of vision ENT: No hearing loss Respiratory: No cough, No sputum, No shortness of breath, No dyspnea on exertion Cardiovascular: No chest pain, No orthopnea, No claudication, No palpitations Abdomen: + nausea, + vomiting, No pain, No diarrhea, No constipation Musculoskeletal: No joint pain Genitourinary - Male: No hematuria, No dysuria Neurologic: + weakness Endocrine: + fatigue Hematologic / Lymphatic: No abnormal bleeding/bruising Integumentary: No rash Physical Exam Vital Signs Date Time Temp Pulse Resp B/P (MAP) Pulse Ox O2 Delivery O2 Flow Rate FiO2 03/22/18 15:16 85 03/22/18 14:40 90 18 114/63 93 Room Air 03/22/18 13:07 86 03/22/18 12:41 105 18 121/62 95 Room Air 03/22/18 11:46 101 03/22/18 11:10 36.7 101 18 110/69 93 Room Air General Appearance: WD/WN, no apparent distress Head: normocephalic, atraumatic Eyes: normal inspection, PERRL, EOMI, sclerae normal ENT: hearing grossly normal, pharynx normal, + pertinent finding (DRY MUCUS MEMBRANES) Neck: supple, no adenopathy, thyroid normal, no JVD, no carotid bruits, trachea midline Respiratory/Chest: chest non-tender, normal breath sounds, no respiratory distress, no accessory muscle use, + wheezing Cardiovascular: regular rate, rhythm, no edema, no gallop, no JVD, no murmur, normal peripheral pulses Abdomen/GI: normal bowel sounds, + pertinent finding (MILDLY TENDER IN EPIGASTRIC AREA WITH DEEP PALPATION, NO REBOUND/GUARDING/PERITONEAL SIGNS) Back: normal inspection, no CVA tenderness, no muscle spasm, + pertinent finding (LARGE AK PRESENT ON BACK) Extremities/Musculoskelatal: normal inspection, no calf tenderness, normal capillary refill, no pedal edema, non-tender Neurologic/Psych: no motor/sensory deficits Skin: normal color, warm/dry, no rash Diagnostics Laboratory Results Results Past 24 Hours Test 03/22/18 11:11 03/22/18 11:50 03/22/18 12:34 03/22/18 13:33 Range/Units Bedside Glucose 509 579 456 70-99 mg/dl White Blood Count 13.68 4.8-10.8 K/uL Red Blood Count 4.18 4.7-6.1 M/uL Hemoglobin 12.7 14.0-18.0 g/dL Hematocrit 38.4 42-52 % Mean Corpuscular Volume 91.9 80-100 fL Mean Corpuscular Hemoglobin 30.4 25-34 pg Mean Corpuscular Hemoglobin Concent 33.1 32-36 g/dl Platelet Count 249 130-400 K/uL Mean Platelet Volume 11.5 7.4-10.4 fL Neutrophils (%) (Auto) 87.4 % Lymphocytes (%) (Auto) 7.3 % Monocytes (%) (Auto) 5.0 % Eosinophils (%) (Auto) 0.1 % Basophils (%) (Auto) 0.0 % Neutrophils # (Auto) 11.95 1.4-6.5 K/uL Lymphocytes # (Auto) 1.00 1.2-3.4 K/uL Monocytes # (Auto) 0.69 0.11-0.59 K/uL Eosinophils # (Auto) 0.01 0-0.5 K/uL Basophils # (Auto) 0.00 0-0.2 K/uL RDW Standard Deviation 49.2 36.4-46.3 fL RDW Coefficient of Variation 14.5 11.5-14.5 % Immature Granulocyte % (Auto) 0.2 % Immature Granulocyte # (Auto) 0.03 0.00-0.02 K/uL Prothrombin Time 20.7 9.0-12.0 SECONDS Prothromb Time International Ratio 2.0 0.9-1.1 Sodium Level 129 136-145 mmol/L Potassium Level 5.2 3.5-5.1 mmol/L Chloride Level 93 98-107 mmol/L Carbon Dioxide Level 15 21-32 mmol/L Anion Gap 21.0 3-11 mmol/L Blood Urea Nitrogen 38 7-18 mg/dl Creatinine 1.49 0.60-1.40 mg/dl Est Creatinine Clear Calc Drug Dose 39.4 ml/min Estimated GFR () 47.9 Estimated GFR (Non- 41.3 BUN/Creatinine Ratio 25.2 10-20 Random Glucose 547 70-99 mg/dl Calcium Level 9.7 8.5-10.1 mg/dl Phosphorus Level 5.5 2.5-4.9 mg/dl Magnesium Level 2.5 1.8-2.4 mg/dl Total Bilirubin 1.6 0.2-1 mg/dl Aspartate Amino Transf (AST/SGOT) 61 15-37 U/L Alanine Aminotransferase (ALT/SGPT) 32 12-78 U/L Alkaline Phosphatase 89 45-117 U/L Troponin I 9.060 0-0.045 ng/ml Pro-B-Type Natriuretic Peptide 1383 0-1800 pg/ml Total Protein 7.3 6.4-8.2 gm/dl Albumin 4.2 3.4-5.0 gm/dl Globulin 3.1 2.5-4.0 gm/dl Albumin/Globulin Ratio 1.3 0.9-2 Beta-Hydroxybutyric Acid 85.81 0.2-2.81 mg/dL Chemistry Specimen Hemolysis Test 03/22/18 14:00 03/22/18 14:39 03/22/18 15:50 Range/Units Arterial Blood pH 7.29 7.35-7.45 Arterial Blood Partial Pressure CO2 34 35-46 mmHg Arterial Blood Partial Pressure O2 70 80-95 mm/Hg Arterial Blood HCO3 16 19-24 mmol/L Arterial Blood Oxygen Saturation 90.4 90-95 % Arterial Blood Base Excess -9.6 -9-1.8 mEq/L Arterial Blood Gas Delivery ROOM AIR Yon Test POS POS Bedside Glucose 463 453 70-99 mg/dl Diagnostic Radiology CHEST ONE VIEW PORTABLE CLINICAL HISTORY: altered ms dyspnea COMPARISON STUDY: 02/04/2018 FINDINGS: Mild stable cardiomegaly. Prior median sternotomy. Lungs are considered clear. Diaphragms are smooth. IMPRESSION: No acute process. The above report was generated using voice recognition software. It may contain grammatical, syntax or spelling errors. EKG Probable Atrial fibrillation Left axis deviation Right bundle branch block Abnormal ECG When compared with ECG of 04-FEB-2018 09:53, Atrial fibrillation has replaced Sinus rhythm Right bundle branch block has replaced Non-specific intra-ventricular conduction delay Confirmed by GARFIELD VELASQUEZ ([id number]) on 03/22/2018 2:44:57 PM 25mm/s 10mm/mV 150Hz 8.0 SP2 12SL 241 SEGUNDO: 15 Referred by: Confirmed By: GARFIELD VELASQUEZ Wide QRS rhythm Left axis deviation Non-specific intra-ventricular conduction block Marked ST abnormality, possible anterior subendocardial injury Abnormal ECG When compared with ECG of 22-MAR-2018 11:40, Wide QRS rhythm has replaced Atrial fibrillation 25mm/s 10mm/mV 150Hz 8.0 SP2 12SL 241 SEGUNDO: 15 Referred by: Referred Self Sinus rhythm with 1st degree A-V block Left anterior fascicular block ST depression, consider subendocardial injury Abnormal ECG When compared with ECG of 22-MAR-2018 12:28, (unconfirmed) Sinus rhythm has replaced Wide QRS rhythm Impression Assessment and Plan 88yo male with DM, CAD, HTN, HLP presenting with DKA, elevated troponin with EKG changes 1. DKA - patient with blood sugar of 547, anion gap=21, pH=7.29, +B- hydroxybutyrate. K=5.2. Most likely secondary to insulin pump malfunction - patient is unsure if it was functioning properly last night. Cannula was very bent on exam today. VS underlying illness - unclear etiology, patient with abdominal tenderness on exam, mildly elevated bili -Admit to MICU -Check Lipase, RUQUS -IVF, NSS x 1 liter bolus then 150mL/hr x 3 liters -Insulin gtt per protocol for DKA -Monitor BMP q 8 hours for electrolyte abnormalities, resolution of anion gap -Will resume treatment with insulin pump when acute issues resolve 2. Elevated troponin/history of CAD - patient with troponin of 9.06, EKG changes present - possible atrial fibrillation then wide complex rhythm now with ST depressions. Patient denies CP/palpitations, denies dyspnea/ diaphoresis. He has had elevated troponin in the past in setting of DKA. 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 -Cardiology has been consulted and assessed the patient in the ER - appreciate assistance with this case. No urgent intervention at this time -Will continue to monitor -Telemetry -Trend cardiac enzymes x 3 sets -Continue ASA 81mg, Atorvastatin 40mg, Metoprolol 12.5mg -Hold Lisinopril for now 3. HTN - patient presently normotensive -Continue Metoprolol -Hold Lisinopril for now 4. Hyperlipidemia - stable, chronic -Continue Atorvastatin 5. Hypothyroidism - stable, chronic -Continue Synthroid 6. Anemia - Hg=12.7, Hct=38.4. Near baseline. No evidence of hemolysis. No active bleeding -Continue to monitor 7. Leukocytosis - WBC=13.68. ?reactive. Patient is afebrile, no evidence of infection at present -Continue to monitor -Culture if patient becomes febrile or high suspicion for infectious process 8. CHAD - BUN=38, Cr=1.38 -IVF as above -Continue to monitor BUN, Cr, electrolytes, I/Os -Avoid nephrotoxic agents -Renal dosing where appropriate 9. History of PE - patient with IVC filter in place -Continue Coumadin anticoagulation 10. F/E/N - NSS bolus x 1 liter then 150mL/hr x 3 liters, monitor electrolytes and replete as needed, K=5.2 at present, NPO while patient in DKA 11. Ppx - Patient is on Coumadin 12. Code - DNR per discussion with patient 13. Dispo - admission to MICU for continued monitoring Resuscitation Status DNR VTE Prophylaxis Will order VTE Prophylaxis: Yes
[2018-03-22] MEDS: INSULIN ASPART 100 UNITS/ML 3 ML PEN SC SCH ×2 (17:07→20:26)
[2018-03-22] MEDS ORDERED: SODIUM CHLORIDE 0.9% 1000ML 1,000 ML IV ONE (17:07)
--- NOTE | 2018-03-22 17:54 | CARDIOLOGY CONSULTATION ---
DATE OF CONSULTATION: 03/22/2018 CONSULTATION REQUESTED BY: Dr. Simons. REASON FOR CONSULTATION: NSTEMI. HISTORY OF PRESENT ILLNESS: Mr. Paz is a very pleasant 88-year-old man with a history of type 1 diabetes on insulin pump, severe aortic stenosis and coronary artery disease status post bioprosthetic aortic valve replacement with ZUNIGA to LAD in 2005, who presented to the [facility] ED in the setting of lethargy and hyperglycemia. The patient had been in his usual state for the last several days. This morning, stated the patient moved placement of his insulin pump needle. During the course of the day, they noted increasing blood sugars and per , patient was unable to adjust to hyperglycemia and became increasingly lethargic. As a result, he was brought to the ED. On arrival, the patient was hyperglycemic to 547, his anion gap was 21, and his beta hydroxybutyric acid was elevated at 85.81. Subsequent troponin was checked which was elevated at 9 and after an episode of vomiting, a repeat EKG showed atrial fibrillation with chronic right bundle branch block and new ST depressions in V2 through V5. The patient remained chest pain free during this episode, but due to elevated troponin and EKG changes, cardiology was consulted. At the time of interview, the patient was sleeping, difficult to arouse, but denied any chest pain or new symptoms. Of note, patient had a prior hospitalization in 08/2016 when presented with DKA and was noted to have a troponin that elevated up to 12. A repeat echocardiogram at that time showed unchanged LV function with no regional wall motion abnormalities. Invasive investigation was declined by patient and family and the episode was thought potentially in part due to strain of acute illness. PAST MEDICAL HISTORY: 1. Severe aortic stenosis, status post bioprosthetic AVR at [facility] in 2005 (25 mm pericardial valve). 2. Coronary artery disease status post ZUNIGA to LAD at the time of AVR. 3. Longstanding type 1 diabetes, on insulin pump for more than 15 years. 4. History of PE, status post total hip arthroplasty, status post IVC filter, on anticoagulation with Coumadin. 5. Prior femur fracture post ORIF. 6. Hypertension. 7. Hyperlipidemia. 8. Testicular hypofunction. 9. Osteoporosis. 10. Dyslipidemia. 11. Vertigo with admission back in 03/2017. FAMILY HISTORY: Not relevant in the setting of patient's age and known comorbidities. SOCIAL HISTORY: Lives with his . Denies any heavy alcohol, smoking or illicit drugs. REVIEW OF SYSTEMS: Unable to be obtained due to patient's lethargy. HOME MEDICATIONS: Include Coumadin, atorvastatin 40, vitamin B12, multivitamin, omega-3, vitamin C, lisinopril 5, metoprolol succinate 12.5 mg daily, levothyroxine 112, vitamin D3, insulin pump, and aspirin 81. PHYSICAL EXAMINATION: VITAL SIGNS: Temperature 36.7, pulse of 90, blood pressure 114/63, satting 93% on room air. GENERAL: The patient appears lethargic but comfortable, in no acute distress. HEENT: Sclerae are anicteric. Oropharynx is clear. LUNGS: Clear to auscultation bilaterally. CARDIAC: Regular rate and rhythm with a crisp bioprosthetic closure sound and 2/6 systolic ejection murmur. ABDOMEN: Soft, nontender. EXTREMITIES: Warm. He has 2+ radial pulses. Distal extremities are well perfused with no significant lower extremity edema, some mild signs of chronic venous stasis. NEUROLOGIC: Lethargic, unable to, but otherwise appears nonfocal. DATA: Sodium 129, potassium of 5.2, BUN of 38, creatinine of 1.5, glucose 547. Beta hydroxybutyric of 85. Troponin of 9. ProBNP of 1383. White blood cell count of 13.7, hemoglobin of 12.7, platelets of 249. ABG; pH of 7.29, pCO2 of 34, pO2 of 70, bicarb of 60. Chest x-ray showed no acute cardiopulmonary process. IMPRESSION AND PLAN: 1. DKA. 2. Elevated troponin. 3. History of coronary artery disease status post ZUNIGA to LAD. 4. History of severe aortic stenosis, status post bioprosthetic AVR. 5. Type 1 diabetes, on insulin pump. Mr. Paz is here with lethargy and elevated blood sugars, found to be in DKA. While in the ED, he became acutely nauseous with vomiting and was noted on repeat EKG to have new ST depressions across precordial leads. Initial troponin elevated at 9. The patient is chest pain free and hemodynamically and electrically stable. He had a similar admission back in 08/2016 where troponin peaked at 12 in the setting of DKA. In that setting, recommend conservative management initially. I do not feel there is acute need for urgent intervention. Would recommend admission with serial troponins, repeat echocardiogram in the a.m. The patient anticoagulated on Coumadin and INR therapeutic. Continue home aspirin, beta jerald, and statin. Tentatively, we will plan to manage conservatively unless patient develops persistent chest pain or becomes hemodynamically or electrically unstable. Further recommendations pending patient's clinical course. Thank you for consultation. KIRSTEN
[2018-03-22] MEDS ORDERED: SODIUM CHLORIDE 0.9% 1000ML 1,000 ML IV SCH (18:08)
--- NOTE | 2018-03-22 18:13 | Critical Care Consultation ---
Critical Care Consultation Date of Consultation: Mar 22, 2018. Attending Physician: Chantell Slaughter D.O. Reason for Consultation: Diabetic ketoacidosis non-ST elevation MT History of Present Illness Patient is an 88-year-old male who presented to the emergency room for hyperglycemia, he checked his blood sugar which was recorded at 550. He normally wears an insulin pump however it is unsure if the pump is functioning correctly. Patient recently changed the infusion site on his insulin pump, as his blood sugars were elevating he became more weak. Upon arrival in the emergency department he was found to have significant ST depressions, profoundly elevated blood sugar and an elevated troponin. He was seen by Reji Wooten of interventional cardiology, at this time we are continuing to medically treat the patient as he previously had a similar episode for which his troponins peaked at 12, the patient is therapeutic on Coumadin for atrial fibrillation. Past Medical/Surgical History Insulin-dependent diabetes mellitus Severe aortic stenosis: Status post biosynthetic aortic valve replacement Coronary artery disease: ZUNIGA to LAD in 2005 History TIA History right hip fracture History of acute kidney injury Family History No significant family history Social History Smoking Status: Never Smoker Smokeless Tobacco Use: No Alcohol Use: occasionally Drug Use: none Marital Status: Housing Status: lives with family Occupation Status: retired Allergies Coded Allergies: No Known Allergies (Verified , 03/22/18) Home Medications Scheduled Ascorbic Acid (Vitamin C), 500 MG PO DAILY Aspirin (Aspirin), 81 MG PO DIRECTED Atorvastatin (Lipitor), 40 MG PO DAILY Cholecalciferol (Vitamin D3), 1,000 INTER.UNIT PO DAILY Coenzyme Q10 (Ubidecarenone) (Co Q 10), 10 MG PO DAILY Cyanocobalamin (Vitamin B-12), 500 MCG PO DAILY Insulin Aspart (novoLOG INSULIN PUMP ), 1 EA N/A UD Levothyroxine Sodium (Levothyroxine Sodium), 112 MCG PO DAILY Lisinopril (Prinivil), 5 MG PO DAILY Metoprolol Succinate (Metoprolol Succinate ER), 12.5 MG PO DAILY Multivitamin (Multivitamin), 1 TAB PO DAILY Warfarin Sod (Jantoven), 7 MG PO 3XWK Warfarin Sodium (Coumadin), 8 TAB PO 4XWK Current Inpatient Medications Current Inpatient Medications Medications (Trade) Dose Ordered Sig/Don Route Start Time Stop Time Status Last Admin Dose Admin Insulin Human Regular 250 units/ Sodium Chloride 252.5 ml @ 0 mls/hr Q24H IV 03/22/18 15:00 03/23/18 14:59 03/22/18 15:17 2.4 MLS/HR Glucose (Glucose 40% Gel) 15-30 GRAMS 15 GRAMS... UD PRN PO 03/22/18 15:00 04/21/18 14:59 Glucose (Glucose Chew Tab) 4-8 Tablets 4 Tabl... UD PRN PO 03/22/18 15:00 04/21/18 14:59 Dextrose (Dextrose 50% 50ML Syringe) 25-50ML 25ML FOR ... UD PRN IV 03/22/18 15:00 04/21/18 14:59 Glucagon (Glucagon Inj) 1 mg UD PRN IM 03/22/18 15:00 04/21/18 14:59 Carbohydrates (Carbohydrates For Hypoglycemia) 15-30 GRAMS 15 grams if BSG 54-69... UD PRN PO 03/22/18 15:00 04/21/18 14:59 Sodium Chloride 1,000 ml @ 150 mls/hr Q6H40M IV 03/22/18 18:08 03/23/18 14:07 Ondansetron HCl (Zofran Inj) 4 mg Q6H PRN IV 03/22/18 15:45 04/21/18 15:44 Miscellaneous Information (Icu Protocol For Hyperglycemia) 1 ea PRN PRN N/A 03/22/18 15:45 03/24/18 15:44 Insulin Aspart (novoLOG ASPART) [facility] [place] 03/22/18 17:15 04/21/18 18:59 Aspirin (Ecotrin Tab) 81 mg DAILY PO 03/23/18 09:00 04/22/18 08:59 Atorvastatin Calcium (Lipitor Tab) 40 mg DAILY PO 03/23/18 09:00 04/22/18 08:59 Cyanocobalamin (Vitamin B-12 Tab) 500 mcg DAILY PO 03/23/18 09:00 04/22/18 08:59 Levothyroxine Sodium (Synthroid Tab) 112 mcg DAILYBB PO 03/23/18 06:00 04/22/18 05:59 Metoprolol Succinate (Toprol Xl Tab) 12.5 mg DAILY PO 03/23/18 09:00 04/22/18 08:59 Warfarin Sodium (Coumadin Tab) 8 mg SuTuThSa@1600 PO 03/23/18 16:00 04/22/18 15:59 Albuterol/ Ipratropium (Duoneb) 3 ml Q4R INH 03/22/18 20:00 04/21/18 19:59 Insulin Human Regular 250 units/ Sodium Chloride 252.5 ml @ 0 mls/hr Q24H IV 03/23/18 15:00 04/22/18 14:59 Warfarin Sodium (Coumadin Tab) 7 mg MoWeFr@1600 PO 03/24/18 16:00 04/23/18 15:59 Review of Systems Denies chest pain, shortness of breath, nausea, vomiting, diarrhea, fever A 10 point review of systems has been obtained and is otherwise negative. Physical Exam Date Time Temp Pulse Resp B/P (MAP) Pulse Ox O2 Delivery O2 Flow Rate FiO2 03/22/18 17:31 79 18 96/66 (76) 95 Room Air 03/22/18 16:45 85 22 114/64 (81) 94 Room Air 03/22/18 16:00 94 Room Air 03/22/18 15:49 Room Air 03/22/18 15:16 85 03/22/18 14:40 90 18 114/63 93 Room Air 03/22/18 13:07 86 03/22/18 12:41 105 18 121/62 95 Room Air 03/22/18 11:46 101 03/22/18 11:10 36.7 101 18 110/69 93 Room Air General: Alert. nontoxic. Skin: Warm, dry, Head: Atraumatic Ears, nose, mouth and throat: airway patent Cardiovascular: Normal peripheral perfusion Respiratory: no respiratory distress Gastrointestinal: Non distended Musculoskeletal: No deformity, trace edema noted Laboratory Results Last 24 Hours Test 03/22/18 11:11 03/22/18 11:50 03/22/18 12:34 03/22/18 13:33 Bedside Glucose 509 mg/dl 579 mg/dl 456 mg/dl White Blood Count 13.68 K/uL Red Blood Count 4.18 M/uL Hemoglobin 12.7 g/dL Hematocrit 38.4 % Mean Corpuscular Volume 91.9 fL Mean Corpuscular Hemoglobin 30.4 pg Mean Corpuscular Hemoglobin Concent 33.1 g/dl Platelet Count 249 K/uL Mean Platelet Volume 11.5 fL Neutrophils (%) (Auto) 87.4 % Lymphocytes (%) (Auto) 7.3 % Monocytes (%) (Auto) 5.0 % Eosinophils (%) (Auto) 0.1 % Basophils (%) (Auto) 0.0 % Neutrophils # (Auto) 11.95 K/uL Lymphocytes # (Auto) 1.00 K/uL Monocytes # (Auto) 0.69 K/uL Eosinophils # (Auto) 0.01 K/uL Basophils # (Auto) 0.00 K/uL RDW Standard Deviation 49.2 fL RDW Coefficient of Variation 14.5 % Immature Granulocyte % (Auto) 0.2 % Immature Granulocyte # (Auto) 0.03 K/uL Prothrombin Time 20.7 SECONDS Prothromb Time International Ratio 2.0 Sodium Level 129 mmol/L Potassium Level 5.2 mmol/L Chloride Level 93 mmol/L Carbon Dioxide Level 15 mmol/L Anion Gap 21.0 mmol/L Blood Urea Nitrogen 38 mg/dl Creatinine 1.49 mg/dl Est Creatinine Clear Calc Drug Dose 39.4 ml/min Estimated GFR () 47.9 Estimated GFR (Non- 41.3 BUN/Creatinine Ratio 25.2 Random Glucose 547 mg/dl Calcium Level 9.7 mg/dl Phosphorus Level 5.5 mg/dl Magnesium Level 2.5 mg/dl Total Bilirubin 1.6 mg/dl Aspartate Amino Transf (AST/SGOT) 61 U/L Alanine Aminotransferase (ALT/SGPT) 32 U/L Alkaline Phosphatase 89 U/L Troponin I 9.060 ng/ml Pro-B-Type Natriuretic Peptide 1383 pg/ml Total Protein 7.3 gm/dl Albumin 4.2 gm/dl Globulin 3.1 gm/dl Albumin/Globulin Ratio 1.3 Beta-Hydroxybutyric Acid 85.81 mg/dL Chemistry Specimen Hemolysis Test 03/22/18 14:00 03/22/18 14:39 03/22/18 15:50 03/22/18 17:08 Arterial Blood pH 7.29 Arterial Blood Partial Pressure CO2 34 mmHg Arterial Blood Partial Pressure O2 70 mm/Hg Arterial Blood HCO3 16 mmol/L Arterial Blood Oxygen Saturation 90.4 % Arterial Blood Base Excess -9.6 mEq/L Arterial Blood Gas Delivery ROOM AIR Yon Test POS Bedside Glucose 463 mg/dl 453 mg/dl Lactic Acid Level 3.3 mmol/L Lipase 31 U/L Test 03/22/18 17:25 03/22/18 17:59 Urine Color YELLOW Urine Appearance CLEAR Urine pH 5.0 Urine Specific [place] 1.028 Urine Protein NEG Urine Glucose (UA) 3+ Urine Ketones 3+ Urine Occult Blood NEG Urine Nitrite NEG Urine Bilirubin NEG Urine Urobilinogen NEG Urine Leukocyte Esterase NEG Bedside Glucose 352 mg/dl Assessment & Plan Reason Critically Ill: 88-year-old male with elevated lactate and beta hydroxybutyrate indicative of diabetic ketoacidosis PLAN: CV: Elevated troponins -Reviewed cardiology notes Atrial fibrillation -On long-term anticoagulation: Warfarin Status post aortic valve replacement Fluids/Renal: Diabetic ketoacidosis -Insulin infusion -Elevated potassium initially, will likely need potassium supplementation ID: Monitor fever curve - Urine unremarkable -Chest x-ray unremarkable -Biliary ultrasound pending GI/Nutrition: Mild elevation in AST and bilirubin -Biliary ultrasound pending, no tenderness to palpation at this time Heme: Anemia: NOS Leukocytosis: Likely reactionary -On warfarin, currently therapeutic History of pulmonary embolism -History of IVC filter Endocrine: Insulin-dependent diabetes mellitus -Insulin infusion per DKA protocol Code Status: DNR in event of cardiac arrest I have personally spent 45 minutes of critical care time in the direct management of this patient. This is a life/limb threatening event. This includes time spent evaluating patient, direct bedside care, chart review, placing orders, interpretation of diagnostic studies, discussion with consultants, patient, and/or family members regarding treatment decisions, as well as other required patient management activities. This time is exclusive of all separately billable procedures, and teaching time and separate from and in addition to any other critical care service time.
[2018-03-22] MEDS: ALBUT/IPRATROP 3MG/0.5MG NEB 3 ML VIAL INH SCH ×2 (18:59→23:05)
--- NOTE | 2018-03-22 19:23 | DIAGNOSTIC IMAGING REPORT ---
GALLBLADDER-ABD LIMITED CLINICAL HISTORY: 88 years-old Male presenting with elevated bilirubin. TECHNIQUE: Real-time grayscale and limited color Doppler ultrasound imaging of the abdomen limited to the right upper quadrant was performed. COMPARISON: CT from 06/12/2015. FINDINGS: Pancreas: Largely obscured due to overlying bowel gas. Liver: Normal echogenicity and echotexture. Somewhat poor sonographic penetration. The liver measures 16.7 cm in maximal sagittal dimension. No sonographic evidence of hepatic mass. Main portal vein patent with normal directional flow. Biliary: No intrahepatic biliary ductal dilatation. Common bile duct measures up to 4 mm in diameter. Gallbladder: No evidence of gallstones, gallbladder distention, or pericholecystic fluid or inflammatory change. Mild apparent gallbladder wall thickening may be due to expansion of pericholecystic fat. Sonographic Mckeon's sign negative. Right kidney: Normal in appearance without evidence of hydronephrosis. Ascites: None. Other: None. IMPRESSION: No cholelithiasis or biliary ductal dilatation. No significant sonographic abnormality. Electronically signed by: Juan Ordonez M.D. 03/22/2018 7:22 PM Dictated Date/Time: 03/22/2018 7:20 PM
[2018-03-22] MEDS: NORMOSOL R 1,000 ML IV SCH (19:28)
[2018-03-22 20:28] LABS: CALCIUM 8.5 mg/dl (8.5-10.1); CREATININE 1.43 mg/dl (0.60-1.40); POTASSIUM 4.7 mmol/L (3.5-5.1)
[2018-03-23] VITALS (17 sets, daily range): BP systolic 80–117; BP diastolic 48–69; PULSE 66–83; TEMP 36.6–37; O2SAT 91–97; Ht 175.3 cm; Wt 96.2 kg
[2018-03-23 00:41] LABS: CALCIUM 7.8 mg/dl (8.5-10.1); CREATININE 1.33 mg/dl (0.60-1.40); POTASSIUM 4.4 mmol/L (3.5-5.1)
[2018-03-23] MEDS: NORMOSOL R 1,000 ML IV SCH ×2 (02:13→08:28)
[2018-03-23] MEDS: ALBUT/IPRATROP 3MG/0.5MG NEB 3 ML VIAL INH SCH ×4 (04:38→15:09)
[2018-03-23 06:04] LABS: BASO % 0.1 %; BASO ABS # 0.01 K/uL (0-0.2); EOS % 0.5 %; EOS ABS # 0.06 K/uL (0-0.5); HEMATOCRIT 30.9 % (42-52); HEMOGLOBIN 10.6 g/dL (14.0-18.0); IG# 0.02 K/uL (0.00-0.02); LYMPH % 17.5 %; LYMPH ABS # 2.16 K/uL (1.2-3.4); MEAN CELL VOLUME 88.8 fL (80-100); MEAN CORPUSCULAR HEMOGLOBIN 30.5 pg (25-34); MEAN CORPUSCULAR HGB CONC 34.3 g/dl (32-36); MEAN PLATELET VOLUME 10.1 fL (7.4-10.4); MONO % 8.5 %; MONO ABS # 1.05 K/uL (0.11-0.59); NEUT % 73.2 %; NEUT ABS # 9.03 K/uL (1.4-6.5); PLATELET COUNT 181 K/uL (130-400); RED CELL DISTRIBUTION WIDTH CV 14.6 % (11.5-14.5); WHITE BLOOD COUNT 12.33 K/uL (4.8-10.8)
[2018-03-23] MEDS: LEVOTHYROXINE 112 MCG TAB PO SCH (06:14)
[2018-03-23 06:21] LABS: INR 3.5 (0.9-1.1)
[2018-03-23 06:41] LABS: CALCIUM 7.7 mg/dl (8.5-10.1); CREATININE 1.09 mg/dl (0.60-1.40); POTASSIUM 4.1 mmol/L (3.5-5.1)
[2018-03-23] MEDS: INSULIN ASPART 100 UNITS/ML 3 ML PEN SC SCH ×4 (08:27→21:17)
[2018-03-23] MEDS: ATORVASTATIN 40 MG TAB PO SCH (08:28)
[2018-03-23] MEDS: CYANOCOBALAMIN 500 MCG TAB (VIT B-12) PO SCH (08:29)
[2018-03-23] MEDS: METOPROLOL SUCC 25MG EXT REL TAB PO SCH ×2 (08:29→08:54)
[2018-03-23] MEDS: ASPIRIN 81 MG ECTAB PO SCH (08:29)
[2018-03-23] MEDS ORDERED: ENOXAPARIN 40 MG/0.4 ML SYR SQ ONE (09:44)
[2018-03-23] MEDS ORDERED: GLUCOSE 40% GEL 15 GM TUBE PO PRN (10:00)
[2018-03-23] MEDS ORDERED: DEXTROSE 50% 50 ML SYR IV PRN (10:00)
[2018-03-23] MEDS ORDERED: CARBOHYDRATES FOR HYPOGLYCEMIA PO PRN (10:00)
[2018-03-23] MEDS ORDERED: GLUCAGON FOR INJ 1 MG VIAL SQ PRN (10:00)
[2018-03-23] MEDS ORDERED: GLUCOSE 10 TABS/TUBE PO PRN (10:00)
[2018-03-23] MEDS: INSULIN GLARGINE SOLOSTAR 100 UNITS/ML 3 ML PEN SC SCH (10:30)
--- NOTE | 2018-03-23 11:48 | Clinical Documentation Query ---
CLINICAL DOCUMENTATION QUERY 88 year old male who presents to the Emergency Room in [place]. On presentation patient had an ECG showing probable AFib, Anterior ST Depressions, Inferior ST Depressions, & RBBB. Troponin's where markedly elevated at 9.060, 32.400, 26.600 respectively. With treatment of DKA ECG has improved as. In your clinical opinion is this patient being managed for: ( x) Type II [place] in setting of DKA ( ) Not Agree ( ) Other explanation of clinical findings (No explanation is considered a No Response) ( ) Unable to determine ( ) Need to Discuss (Phone CDS or qliq) (No discussion is considered a No Response) The medical record reflects the following clinical findings, treatment, and risk factors. Clinical Indicators: As above. Treatment: ECG, Cardiology consult, serial troponin's, IV insulin gtt, Risk Factors: DKA, CAD, Age Please clarify and document your clinical opinion in the progress notes and discharge summary. Terms such as "probable", "suspected", "likely", "questionable", "possible", or "still to be ruled out" are acceptable. IF IN AGREEMENT, YOU MUST DOCUMENT ABOVE DIAGNOSTIC STATEMENT IN DAILY PROGRESS NOTES AND DISCHARGE SUMMARY. This document is not part of the patient's record. Thank You, René Donald RN [phone] & via qlicCONNECT
--- NOTE | 2018-03-23 11:49 | Clinical Documentation Query ---
CLINICAL DOCUMENTATION QUERY 88 year old male who presents to the Emergency Room in [place]. On presentation patient had an ECG showing probable AFib, Anterior ST Depressions, Inferior ST Depressions, & RBBB. Troponin's where markedly elevated at 9.060, 32.400, 26.600 respectively. With treatment of DKA ECG has improved as. In your clinical opinion is this patient being managed for: (x) Type II [place] in setting of DKA/metabolic acidosis ( ) Not Agree ( ) Other explanation of clinical findings (No explanation is considered a No Response) ( ) Unable to determine ( ) Need to Discuss (Phone CDS or qliq) (No discussion is considered a No Response) The medical record reflects the following clinical findings, treatment, and risk factors. Clinical Indicators: As above. Treatment: ECG, Cardiology consult, serial troponin's, IV insulin gtt, Risk Factors: DKA, CAD, Age Please clarify and document your clinical opinion in the progress notes and discharge summary. Terms such as "probable", "suspected", "likely", "questionable", "possible", or "still to be ruled out" are acceptable. IF IN AGREEMENT, YOU MUST DOCUMENT ABOVE DIAGNOSTIC STATEMENT IN DAILY PROGRESS NOTES AND DISCHARGE SUMMARY. This document is not part of the patient's record. Thank You, René Donald RN [phone] & via qlicCONNECT
--- NOTE | 2018-03-23 13:08 | CARDIOLOGY PROGRESS NOTE ---
DATE: 03/23/2018 HISTORY OF PRESENT ILLNESS: The patient was seen by me this morning in his intensive care unit room. He is awake and alert today. He denies any chest pain or other anginal-type pains. He denies dyspnea, orthopnea, PND. He states that until at least 03/19/2018, he was in his usual state of health. He was going to physical therapy at [facility]. He was not having any limiting cardiac or pulmonary complaints. Today, he has no cardiac or pulmonary complaints. No abdominal pain or nausea. No leg pain. No cerebrovascular complaints. CURRENT MEDICATIONS: Warfarin daily, Lantus insulin 20 units subQ daily a.m., aspirin 81 mg daily, atorvastatin 40 mg daily, vitamin B12 500 mcg daily, metoprolol succinate ER 12.5 mg daily, levothyroxine 112 mcg daily, DuoNeb 3 mL q. 4 hours, insulin infusion, and several p.r.n. medications. ALLERGIES: No known drug allergies. PHYSICAL EXAMINATION: VITAL SIGNS: This morning with oral temperature 37.0, pulse 83, blood pressure 91/52, pulse oximetry on room air 92%. GENERAL APPEARANCE: Shows him to be in no distress. NECK: No jugular venous distention. LUNGS: Normal respiratory effort. No rales. Decreased breath sounds at bases. Expiratory wheeze, left upper lung field. HEART: Regular rate and rhythm. [place] prosthetic valve sound. Grade 2/6 systolic murmur, second right intercostal space and left sternal border. No diastolic murmur or rub. No gallop. ABDOMEN: Soft and nontender. No palpable masses or organomegaly. EXTREMITIES: No pretibial edema. NEUROLOGIC: Alert and oriented x3. Motor grossly intact. PSYCHIATRIC: Affect normal. DATA: Electrocardiogram today with normal sinus rhythm with borderline first degree atrioventricular block, left axis deviation, left anterior fascicular block, nonspecific IVCD, prolonged QTC interval, prolonged QT interval, and nonspecific ST and T wave abnormalities. Compared to yesterday's electrocardiogram, the resolution of ST depressions in the anterior leads. Monitor history reveals episodes of nonsustained accelerated junctional rhythm. Peak troponin I 32.400. Repeat troponin I 26.600. Metabolic profile today with sodium 141, potassium 4.1, chloride 107, carbon dioxide 28, BUN 34, creatinine 1.09, random glucose 127. CBC today with hemoglobin 10.6, hematocrit 30.9, WBC , platelet count 181. ASSESSMENT: 1. Status post episode of diabetic ketoacidosis. Glucose is markedly improved today. 2. The patient had a decreased mental status with the diabetic ketoacidosis. He now appears to be back to his baseline mental status. I have followed the patient for many years in the office. 3. No anginal-type symptoms. 4. Non-ST elevation myocardial infarction. This has occurred in the setting of his diabetic ketoacidosis. The patient denies any anginal-type symptoms. His electrocardiogram initially did reveal ST depressions anteriorly. These have since resolved. The patient has had prior hospitalizations for DKA with elevations in his troponin I. He had an episode in 08/2016. In the interim, he has done well without any anginal-type symptoms. Suspect that the current troponin elevation was secondary to demand ischemia and not a primary coronary event. 5. Evidence of reactive airway disease on exam today. 6. Decreased hemoglobin today compared to yesterday; likely reflects increased hydration. 7. Accelerated junctional rhythm. This was paroxysmal. RECOMMENDATIONS: 1. Continue metoprolol. 2. Continue warfarin. 3. Continue aspirin and atorvastatin. 4. Conservative medical management of his coronary artery disease. The patient has previously declined repeat cardiac catheterization.
[2018-03-23 14:43] LABS: CALCIUM 8.2 mg/dl (8.5-10.1); CREATININE 1.4 mg/dl (0.60-1.40); POTASSIUM 4.3 mmol/L (3.5-5.1)
[2018-03-23] MEDS ORDERED: INSULIN REGULAR 250 UNITS in SODIUM CHLORIDE 0.9% 250ML 250 ML IV SCH (15:00)
[2018-03-23] MEDS ORDERED: WARFARIN SOD 4 MG TAB PO SCH (16:00)
[2018-03-23] MEDS ORDERED: DC IV INSULIN INFUSION ONE (16:30)
[2018-03-23] MEDS ORDERED: ALBUT/IPRATROP 3MG/0.5MG NEB 3 ML VIAL INH PRN (18:15)
--- NOTE | 2018-03-23 18:45 | ECHOCARDIOGRAM REPORT ---
*NOTICE TO RECEIVING CONSTITUTION PARTY AGENCY This information is strictly Confidential and protected under [place] law. [place] law prohibits you from making any further disclosure of this information unless further disclosure is expressly permitted by the written consent of the person to whom it pertains or is authorized by law. A general authorization for the release of medical or other information is not sufficient for this purpose. Hospital accepts no responsibility if the information is made available to any other person, INCLUDING THE PATIENT. Interpretation Summary * Name: INNA BALLARD Study Date: 03/23/2018 06:21 AM BP: 104/61 mmHg * [facility] HR: 67 * : 1930 (M/d/yyyy) Gender: Male Height: 69 in * Age: 88 yrs Ethnicity: [place] Weight: 213 lb * Ordering Physician: Chantell Slaughter * Referring Physician: Self, Referred * Performed By: Debra Nagy RCS * * Reason For Study: NSTEMI * BSA: 2.1 m2 * -- Conclusions -- * 1. Normal LV size, borderline LVH. * 2. LVEF 50-55%. Abnormal septal motion consistent with post-operative state. * 3. Borderline RV size, normal RV function. * 4. Well-seated bioprosthetic aortic valve with expected transvalvular gradients. Trace AI. * 5. Mild mitral stenosis. * 6. Compared with prior study on 09/06/2016: No significant changes. Procedure Details * A complete two-dimensional transthoracic echocardiogram was performed (2D, M-mode, Doppler and color flow Doppler). Left Ventricle * The left ventricle is grossly normal size. * There is borderline concentric left ventricular hypertrophy. * Ejection Fraction = 50-55%. * Septal motion is consistent with post-operative state. Right Ventricle * Borderline right ventricular enlargement. * The right ventricular systolic function is normal as assessed by tricuspid annular plane systolic excursion (TAPSE) (normal >1.5 cm). Atria * The left atrium is moderately dilated. * The right atrium is severely dilated. * No ASD detected; PFO is not assessed. Mitral Valve * There is mild to moderate mitral annular calcification. * There is mild mitral stenosis. * There is trace mitral regurgitation. Tricuspid Valve * There is mild tricuspid regurgitation. * Right ventricular systolic pressure is elevated at 30-40mmHg. Aortic Valve * No hemodynamically significant valvular aortic stenosis. * Expected transvalvular gradients * There is no significant aortic regurgitation. * There is a bioprosthetic aortic valve. Pulmonic Valve * The pulmonary valve is inadequately visualized, but the Doppler data is adequate for interpretation. * Pulmonic stenosis is absent. * Trace pulmonic valvular regurgitation. Great Vessels * The aortic root and proximal ascending aorta are normal sized. Pericardium/Pleural * There is no pericardial effusion. Great Vessels * IVC > 2.1, >50% change with respiration MMode 2D Measurements and Calculations IVSd 1.1 cm IVSs 1.3 cm LVIDd 4.7 cm LVIDs 3.2 cm LVPWd 1.1 cm LVPWs 1.3 cm IVS/LVPW 0.99 FS 32.3 % EDV(Teich) 104.3 ml ESV(Teich) 41.2 ml EF(Teich) 60.5 % EDV(cubed) 106.4 ml ESV(cubed) 33.0 ml EF(cubed) 69.0 % % IVS thick 13.5 % % LVPW thick 18.4 % LV mass(C)d 198.5 grams LV mass(C)dI 93.5 grams/m\S\2 LV mass(C)s 138.9 grams LV mass(C)sI 65.5 grams/m\S\2 SV(Teich) 63.1 ml SI(Teich) 29.7 ml/m\S\2 SV(cubed) 73.3 ml SI(cubed) 34.6 ml/m\S\2 Ao root diam 3.6 cm Ao root area 10.0 cm\S\2 ACS 1.4 cm LA dimension 4.8 cm asc Aorta Diam 3.4 cm LA/Ao 1.3 EDV(MOD-sp4) 110.9 ml ESV(MOD-sp4) 62.6 ml EF(MOD-sp4) 43.5 % LVAd ap2 35.8 cm\S\2 LVLd ap2 8.8 cm EDV(MOD-sp2) 117.9 ml EDV(sp2-el) 123.0 ml LVAs ap2 20.8 cm\S\2 LVLs ap2 7.4 cm ESV(MOD-sp2) 47.6 ml ESV(sp2-el) 49.8 ml EF(MOD-sp2) 59.7 % EF(sp2-el) 59.5 % SV(MOD-sp4) 48.3 ml SI(MOD-sp4) 22.8 ml/m\S\2 SV(MOD-sp2) 70.4 ml SI(MOD-sp2) 33.2 ml/m\S\2 SV(sp2-el) 73.2 ml SI(sp2-el) 34.5 ml/m\S\2 Doppler Measurements and Calculations MV E max tremaine 148.3 cm/sec MV A max tremaine 90.6 cm/sec MV E/A 1.6 MV P1/2t max tremaine 161.8 cm/sec MV P1/2t 85.8 msec MVA(P1/2t) 2.6 cm\S\2 MV dec slope 552.3 cm/sec\S\2 MV dec time 0.25 sec Ao V2 max 268.7 cm/sec Ao max PG 28.9 mmHg Ao max PG (full) 24.7 mmHg Ao V2 mean 196.8 cm/sec Ao mean PG 17.0 mmHg Ao mean PG (full) 14.4 mmHg Ao V2 VTI 68.3 cm LV V1 max PG 4.2 mmHg LV V1 mean PG 2.6 mmHg LV V1 max 102.2 cm/sec LV V1 mean 78.2 cm/sec LV V1 VTI 24.3 cm SV(Ao) 680.6 ml SI(Ao) 320.8 ml/m\S\2 PA V2 max 74.6 cm/sec PA max PG 2.2 mmHg PI max tremaine 155.3 cm/sec PI max PG 9.6 mmHg PI dec slope 148.5 cm/sec\S\2 PI P1/2t 306.3 msec TR max tremaine 216.4 cm/sec
--- NOTE | 2018-03-23 18:52 | Critical Care Progress Note ---
Critical Care Progress Note Date of Service Mar 23, 2018. ICU Day ICU Day Number: [address] Vasquez Subjective No overnight events, patient tolerating diet Objective General: Alert. nontoxic. Skin: Warm, dry, Head: Atraumatic Ears, nose, mouth and throat: airway patent Cardiovascular: Normal peripheral perfusion Respiratory: no respiratory distress Gastrointestinal: Non distended Musculoskeletal: No deformity Assessment & Plan PLAN: CV: Elevated troponins -Reviewed cardiology notes -Reviewed echocardiogram no change compared to prior Atrial fibrillation -On long-term anticoagulation: Warfarin Status post aortic valve replacement Fluids/Renal: Diabetic ketoacidosis -Transitioning to subcutaneous insulin -Patient's to bring in insulin pump -medical educator consult ID: Monitor fever curve -Biliary ultrasound: Reviewed GI/Nutrition: Tolerated diet Heme: Anemia: NOS Leukocytosis: Likely reactionary -On warfarin, currently therapeutic History of pulmonary embolism -History of IVC filter Endocrine: Insulin-dependent diabetes mellitus -Transitioning off insulin infusion Code Status: DNR in event of cardiac arrest Patient's anion gap has closed, is tolerating diet, no significant electrolyte abnormality stable for downgrade to telemetry status given elevated troponins. Data Medications: Current Inpatient Medications Medications (Trade) Dose Ordered Sig/Don Route Start Time Stop Time Status Last Admin Dose Admin Glucose (Glucose 40% Gel) 15-30 GRAMS 15 GRAMS... UD PRN PO 03/22/18 15:00 04/21/18 14:59 Glucose (Glucose Chew Tab) 4-8 Tablets 4 Tabl... UD PRN PO 03/22/18 15:00 04/21/18 14:59 Dextrose (Dextrose 50% 50ML Syringe) 25-50ML 25ML FOR ... UD PRN IV 03/22/18 15:00 04/21/18 14:59 Glucagon (Glucagon Inj) 1 mg UD PRN IM 03/22/18 15:00 04/21/18 14:59 Carbohydrates (Carbohydrates For Hypoglycemia) 15-30 GRAMS 15 grams if BSG 54-69... UD PRN PO 03/22/18 15:00 04/21/18 14:59 Ondansetron HCl (Zofran Inj) 4 mg Q6H PRN IV 03/22/18 15:45 04/21/18 15:44 Miscellaneous Information (Icu Protocol For Hyperglycemia) 1 ea PRN PRN N/A 03/22/18 15:45 03/24/18 15:44 Aspirin (Ecotrin Tab) 81 mg DAILY PO 03/23/18 09:00 04/22/18 08:59 03/23/18 08:29 81 MG Atorvastatin Calcium (Lipitor Tab) 40 mg DAILY PO 03/23/18 09:00 04/22/18 08:59 03/23/18 08:28 40 MG Cyanocobalamin (Vitamin B-12 Tab) 500 mcg DAILY PO 03/23/18 09:00 04/22/18 08:59 03/23/18 08:29 500 MCG Levothyroxine Sodium (Synthroid Tab) 112 mcg DAILYBB PO 03/23/18 06:00 04/22/18 05:59 03/23/18 06:14 112 MCG Metoprolol Succinate (Toprol Xl Tab) 12.5 mg DAILY PO 03/23/18 09:00 04/22/18 08:59 Warfarin Sodium (Coumadin Tab) 8 mg SuTuThSa@1600 PO 03/23/18 16:00 04/22/18 15:59 03/23/18 17:16 8 MG Warfarin Sodium (Coumadin Tab) 7 mg MoWeFr@1600 PO 03/24/18 16:00 04/23/18 15:59 Insulin Glargine (Lantus Solostar Pen) 20 units QAM SC 03/23/18 10:30 04/22/18 10:29 03/23/18 10:30 20 UNITS Insulin Aspart (novoLOG ASPART) SLIDING SCALE If C... ACHS SC 03/23/18 11:00 04/22/18 10:59 03/23/18 17:19 9 UNITS Albuterol/ Ipratropium (Duoneb) 3 ml Q4 PRN INH 03/23/18 18:15 04/22/18 18:14 I & O: 24-Hour Column 03/24/18 08:00 Intake Total 601 ml Balance 601 ml Vital Signs: Date Time Temp Pulse Resp B/P (MAP) Pulse Ox O2 Delivery O2 Flow Rate FiO2 03/23/18 16:09 36.6 68 18 99/61 (74) 93 Room Air 03/23/18 15:10 70 18 93 Room Air 03/23/18 13:21 36.6 82 16 93 03/23/18 12:00 Room Air 03/23/18 12:00 36.6 82 16 101/57 (72) 93 Room Air 03/23/18 11:05 71 18 95 Room Air 03/23/18 10:00 71 11 92/48 (63) 96 Room Air 03/23/18 08:00 Room Air 03/23/18 08:00 37.0 83 29 91/52 (65) 92 Room Air 03/23/18 08:00 Room Air 03/23/18 06:59 66 18 93 Room Air 03/23/18 06:00 66 18 96/55 (69) 96 Room Air 03/23/18 04:00 37.0 67 16 104/61 (75) 97 Nasal Cannula 2.0 03/23/18 04:00 Nasal Cannula 2.0 03/23/18 02:00 70 16 106/58 (74) 97 Nasal Cannula 2.0 03/23/18 01:00 71 16 96/49 (65) 95 Nasal Cannula 2.0 03/23/18 00:01 37.0 72 16 80/55 (63) 95 Nasal Cannula 2.0 03/22/18 23:59 Nasal Cannula 2.0 03/22/18 23:05 75 21 97 Nasal Cannula 2.0 03/22/18 22:00 73 19 114/66 (82) 97 Nasal Cannula 2.0 03/22/18 21:00 74 18 94/52 (61) 92 03/22/18 20:07 93 Room Air 03/22/18 20:00 36.7 73 20 93/48 (59) 92 03/22/18 19:00 71 18 118/64 (82) 100 Room Air 03/22/18 19:00 77 16 95 Room Air Laboratory Results: Last 24 Hours Test 03/22/18 19:22 03/22/18 19:30 03/22/18 20:15 03/22/18 22:12 Bedside Glucose 330 mg/dl 292 mg/dl 316 mg/dl Sodium Level 136 mmol/L Potassium Level 4.7 mmol/L Chloride Level 102 mmol/L Carbon Dioxide Level 24 mmol/L Anion Gap 10.0 mmol/L Blood Urea Nitrogen 35 mg/dl Creatinine 1.43 mg/dl Est Creatinine Clear Calc Drug Dose 41.0 ml/min Estimated GFR () 50.3 Estimated GFR (Non- 43.4 BUN/Creatinine Ratio 24.5 Random Glucose 350 mg/dl Calcium Level 8.5 mg/dl Beta-Hydroxybutyric Acid 11.50 mg/dL Test 03/22/18 23:06 03/23/18 00:10 03/23/18 00:18 03/23/18 01:07 Bedside Glucose 313 mg/dl 227 mg/dl 178 mg/dl Sodium Level 139 mmol/L Potassium Level 4.4 mmol/L Chloride Level 105 mmol/L Carbon Dioxide Level 27 mmol/L Anion Gap 7.0 mmol/L Blood Urea Nitrogen 36 mg/dl Creatinine 1.33 mg/dl Est Creatinine Clear Calc Drug Dose 44.1 ml/min Estimated GFR () 54.9 Estimated GFR (Non- 47.4 BUN/Creatinine Ratio 26.8 Random Glucose 258 mg/dl Calcium Level 7.8 mg/dl Troponin I 32.400 ng/ml Test 03/23/18 02:12 03/23/18 03:09 03/23/18 04:11 03/23/18 05:14 Bedside Glucose 202 mg/dl 201 mg/dl 157 mg/dl 145 mg/dl Test 03/23/18 05:58 03/23/18 06:12 03/23/18 07:10 03/23/18 07:52 White Blood Count 12.33 K/uL Red Blood Count 3.48 M/uL Hemoglobin 10.6 g/dL Hematocrit 30.9 % Mean Corpuscular Volume 88.8 fL Mean Corpuscular Hemoglobin 30.5 pg Mean Corpuscular Hemoglobin Concent 34.3 g/dl Platelet Count 181 K/uL Mean Platelet Volume 10.1 fL Neutrophils (%) (Auto) 73.2 % Lymphocytes (%) (Auto) 17.5 % Monocytes (%) (Auto) 8.5 % Eosinophils (%) (Auto) 0.5 % Basophils (%) (Auto) 0.1 % Neutrophils # (Auto) 9.03 K/uL Lymphocytes # (Auto) 2.16 K/uL Monocytes # (Auto) 1.05 K/uL Eosinophils # (Auto) 0.06 K/uL Basophils # (Auto) 0.01 K/uL RDW Standard Deviation 47.0 fL RDW Coefficient of Variation 14.6 % Immature Granulocyte % (Auto) 0.2 % Immature Granulocyte # (Auto) 0.02 K/uL Prothrombin Time 36.1 SECONDS Prothromb Time International Ratio 3.5 Sodium Level 141 mmol/L Potassium Level 4.1 mmol/L Chloride Level 107 mmol/L Carbon Dioxide Level 28 mmol/L Anion Gap 6.0 mmol/L Blood Urea Nitrogen 34 mg/dl Creatinine 1.09 mg/dl Est Creatinine Clear Calc Drug Dose 54.7 ml/min Estimated GFR () 69.9 Estimated GFR (Non- 60.3 BUN/Creatinine Ratio 30.8 Random Glucose 127 mg/dl Calcium Level 7.7 mg/dl Bedside Glucose 122 mg/dl 117 mg/dl 151 mg/dl Test 03/23/18 07:57 03/23/18 09:06 03/23/18 09:59 03/23/18 11:23 Troponin I 26.600 ng/ml Bedside Glucose 233 mg/dl 248 mg/dl 233 mg/dl Test 03/23/18 12:31 03/23/18 13:30 03/23/18 13:54 03/23/18 14:25 Bedside Glucose 296 mg/dl 263 mg/dl 233 mg/dl Sodium Level 137 mmol/L Potassium Level 4.3 mmol/L Chloride Level 104 mmol/L Carbon Dioxide Level 27 mmol/L Anion Gap 6.0 mmol/L Blood Urea Nitrogen 34 mg/dl Creatinine 1.40 mg/dl Est Creatinine Clear Calc Drug Dose 42.6 ml/min Estimated GFR () 51.6 Estimated GFR (Non- 44.5 BUN/Creatinine Ratio 24.6 Random Glucose 258 mg/dl Calcium Level 8.2 mg/dl Test 03/23/18 16:26 Bedside Glucose 284 mg/dl
[2018-03-23 22:32] LABS: CALCIUM 8.1 mg/dl (8.5-10.1); CREATININE 1.19 mg/dl (0.60-1.40); POTASSIUM 4.4 mmol/L (3.5-5.1)
--- NOTE | 2018-03-23 23:39 | Progress Note ---
Subjective Date of Service: Mar 23, 2018. Subjective Pt evaluation today including: conversation w/ patient, physical exam 88 yo male reports feeling well. He feels a little dry today. Problem List Medical Problems: (1) Abnormal white blood cell (WBC) count Status: Acute (2) Acute kidney injury (nontraumatic) Status: Acute (3) CHAD (acute kidney injury) Status: Acute (4) Bigeminy Status: Acute (5) Dehydration Status: Acute (6) Dizziness Status: Acute (7) Dizzy Status: Acute (8) DKA (diabetic ketoacidoses) Status: Acute (9) DKA (diabetic ketoacidoses) Status: Acute (10) Insulin pump mechanical complication Status: Acute (11) Left leg weakness Status: Acute (12) Near syncope Status: Acute (13) Non-STEMI (non-ST elevated myocardial infarction) Status: Acute (14) NSTEMI (non-ST elevated myocardial infarction) Status: Acute (15) Vomiting Status: Acute Review of Systems Constitutional: No fever, No chills, No sweats Eyes: No worsening of vision ENT: No hearing loss Respiratory: No cough, No sputum, No shortness of breath, No dyspnea on exertion Cardiovascular: No chest pain, No orthopnea, No claudication, No palpitations Abdomen: No pain, No diarrhea, No constipation Musculoskeletal: No joint pain Genitourinary - Male: No hematuria, No dysuria Neurologic: + weakness Endocrine: + fatigue Hematologic / Lymphatic: No abnormal bleeding/bruising Integumentary: No rash Objective Vital Signs Date Time Temp Pulse Resp B/P (MAP) Pulse Ox O2 Delivery O2 Flow Rate FiO2 03/23/18 20:00 97 Room Air 03/23/18 19:05 36.8 70 20 117/68 (84) 97 Room Air 03/23/18 16:09 36.6 68 18 99/61 (74) 93 Room Air 03/23/18 15:10 70 18 93 Room Air 03/23/18 13:21 36.6 82 16 93 03/23/18 12:00 Room Air 03/23/18 12:00 36.6 82 16 101/57 (72) 93 Room Air 03/23/18 11:05 71 18 95 Room Air 03/23/18 10:00 71 11 92/48 (63) 96 Room Air 03/23/18 08:00 Room Air 03/23/18 08:00 37.0 83 29 91/52 (65) 92 Room Air 03/23/18 08:00 Room Air 03/23/18 06:59 66 18 93 Room Air 03/23/18 06:00 66 18 96/55 (69) 96 Room Air 03/23/18 04:00 37.0 67 16 104/61 (75) 97 Nasal Cannula 2.0 03/23/18 04:00 Nasal Cannula 2.0 03/23/18 02:00 70 16 106/58 (74) 97 Nasal Cannula 2.0 03/23/18 01:00 71 16 96/49 (65) 95 Nasal Cannula 2.0 03/23/18 00:01 37.0 72 16 80/55 (63) 95 Nasal Cannula 2.0 03/22/18 23:59 Nasal Cannula 2.0 Physical Exam Comments: General Appearance: WD/WN, no apparent distress Head: normocephalic, atraumatic Eyes: normal inspection, PERRL, EOMI, sclerae normal ENT: hearing grossly normal, pharynx normal, + pertinent finding (DRY MUCUS MEMBRANES) Neck: supple, no adenopathy, thyroid normal, no JVD, no carotid bruits, trachea midline Respiratory/Chest: chest non-tender, normal breath sounds, no respiratory distress, no accessory muscle use, Cardiovascular: regular rate, rhythm, no edema, no gallop, no JVD, no murmur, normal peripheral pulses Abdomen/GI: normal bowel sounds, no tenderness to palpation. Back: normal inspection, no CVA tenderness, no muscle spasm, + pertinent finding (LARGE AK PRESENT ON BACK) Extremities/Musculoskelatal: normal inspection, no calf tenderness, normal capillary refill, no pedal edema, non-tender Neurologic/Psych: no motor/sensory deficits Skin: normal color, warm/dry, no rash Laboratory Results Last 24 Hours Test 03/23/18 00:10 03/23/18 00:18 03/23/18 01:07 03/23/18 02:12 Sodium Level 139 mmol/L Potassium Level 4.4 mmol/L Chloride Level 105 mmol/L Carbon Dioxide Level 27 mmol/L Anion Gap 7.0 mmol/L Blood Urea Nitrogen 36 mg/dl Creatinine 1.33 mg/dl Est Creatinine Clear Calc Drug Dose 44.1 ml/min Estimated GFR () 54.9 Estimated GFR (Non- 47.4 BUN/Creatinine Ratio 26.8 Random Glucose 258 mg/dl Calcium Level 7.8 mg/dl Troponin I 32.400 ng/ml Bedside Glucose 227 mg/dl 178 mg/dl 202 mg/dl Test 03/23/18 03:09 03/23/18 04:11 03/23/18 05:14 03/23/18 05:58 Bedside Glucose 201 mg/dl 157 mg/dl 145 mg/dl White Blood Count 12.33 K/uL Red Blood Count 3.48 M/uL Hemoglobin 10.6 g/dL Hematocrit 30.9 % Mean Corpuscular Volume 88.8 fL Mean Corpuscular Hemoglobin 30.5 pg Mean Corpuscular Hemoglobin Concent 34.3 g/dl Platelet Count 181 K/uL Mean Platelet Volume 10.1 fL Neutrophils (%) (Auto) 73.2 % Lymphocytes (%) (Auto) 17.5 % Monocytes (%) (Auto) 8.5 % Eosinophils (%) (Auto) 0.5 % Basophils (%) (Auto) 0.1 % Neutrophils # (Auto) 9.03 K/uL Lymphocytes # (Auto) 2.16 K/uL Monocytes # (Auto) 1.05 K/uL Eosinophils # (Auto) 0.06 K/uL Basophils # (Auto) 0.01 K/uL RDW Standard Deviation 47.0 fL RDW Coefficient of Variation 14.6 % Immature Granulocyte % (Auto) 0.2 % Immature Granulocyte # (Auto) 0.02 K/uL Prothrombin Time 36.1 SECONDS Prothromb Time International Ratio 3.5 Sodium Level 141 mmol/L Potassium Level 4.1 mmol/L Chloride Level 107 mmol/L Carbon Dioxide Level 28 mmol/L Anion Gap 6.0 mmol/L Blood Urea Nitrogen 34 mg/dl Creatinine 1.09 mg/dl Est Creatinine Clear Calc Drug Dose 54.7 ml/min Estimated GFR () 69.9 Estimated GFR (Non- 60.3 BUN/Creatinine Ratio 30.8 Random Glucose 127 mg/dl Calcium Level 7.7 mg/dl Test 03/23/18 06:12 03/23/18 07:10 03/23/18 07:52 03/23/18 07:57 Bedside Glucose 122 mg/dl 117 mg/dl 151 mg/dl Troponin I 26.600 ng/ml Test 03/23/18 09:06 03/23/18 09:59 03/23/18 11:23 03/23/18 12:31 Bedside Glucose 233 mg/dl 248 mg/dl 233 mg/dl 296 mg/dl Test 03/23/18 13:30 03/23/18 13:54 03/23/18 14:25 03/23/18 16:26 Bedside Glucose 263 mg/dl 233 mg/dl 284 mg/dl Sodium Level 137 mmol/L Potassium Level 4.3 mmol/L Chloride Level 104 mmol/L Carbon Dioxide Level 27 mmol/L Anion Gap 6.0 mmol/L Blood Urea Nitrogen 34 mg/dl Creatinine 1.40 mg/dl Est Creatinine Clear Calc Drug Dose 42.6 ml/min Estimated GFR () 51.6 Estimated GFR (Non- 44.5 BUN/Creatinine Ratio 24.6 Random Glucose 258 mg/dl Calcium Level 8.2 mg/dl Test 03/23/18 20:53 03/23/18 22:05 Bedside Glucose 261 mg/dl Sodium Level 135 mmol/L Potassium Level 4.4 mmol/L Chloride Level 103 mmol/L Carbon Dioxide Level 26 mmol/L Anion Gap 6.0 mmol/L Blood Urea Nitrogen 31 mg/dl Creatinine 1.19 mg/dl Est Creatinine Clear Calc Drug Dose 50.1 ml/min Estimated GFR () 62.8 Estimated GFR (Non- 54.2 BUN/Creatinine Ratio 26.2 Random Glucose 223 mg/dl Calcium Level 8.1 mg/dl Assessment and Plan 88yo male with DM, CAD, HTN, HLP presenting with DKA, elevated troponin with EKG changes 1. DKA - patient with blood sugar of 547, anion gap=21, pH=7.29, +B- hydroxybutyrate. K=5.2. Most likely secondary to insulin pump malfunction - patient is unsure if it was functioning properly last night. Cannula was very bent on exam today. VS underlying illness - unclear etiology, patient with abdominal tenderness on exam, mildly elevated bili Transferred off the ICu Anion gap closed. Off insulin drip Will restart insulin pump in AM. 2. Type II [place] in setting of DKA Elevated troponin/history of CAD - patient with troponin of 9.06, EKG changes present - possible atrial fibrillation then wide complex rhythm now with ST depressions. Patient denies CP/palpitations, denies dyspnea/ diaphoresis. He has had elevated troponin in the past in setting of DKA. 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 -Cardiology has been consulted and assessed the patient in the ER - appreciate assistance with this case. No urgent intervention at this time -Will continue to monitor -Mild increase of troponin. -Likely secondary to dehydration. 3. HTN - patient presently normotensive -Continue Metoprolol -Hold Lisinopril for now 4. Hyperlipidemia - stable, chronic -Continue Atorvastatin 5. Hypothyroidism - stable, chronic -Continue Synthroid 6. Anemia - Hg=12.7, Hct=38.4. Near baseline. No evidence of hemolysis. No active bleeding -Continue to monitor 7. Leukocytosis - WBC=13.68. ?reactive. Patient is afebrile, no evidence of infection at present -Continue to monitor -Culture if patient becomes febrile or high suspicion for infectious process 8. CHAD - BUN=38, Cr=1.38 -resolved. cr=1.19 9. History of PE - patient with IVC filter in place -Continue Coumadin anticoagulation 10. Ppx - Patient is on Coumadin 11. Code - DNR per discussion with patient
[2018-03-24 03:30] VITALS: BP 117/67; PULSE 68; TEMP 36.8; O2SAT 90
[2018-03-24 04:00] VITALS: O2SAT 91
[2018-03-24] MEDS: LEVOTHYROXINE 112 MCG TAB PO SCH (06:00)
[2018-03-24 06:16] LABS: BASO % 0.1 %; BASO ABS # 0.01 K/uL (0-0.2); EOS % 3.7 %; EOS ABS # 0.31 K/uL (0-0.5); HEMATOCRIT 30.6 % (42-52); HEMOGLOBIN 10.4 g/dL (14.0-18.0); IG# 0.01 K/uL (0.00-0.02); LYMPH % 20.8 %; LYMPH ABS # 1.75 K/uL (1.2-3.4); MEAN CELL VOLUME 89.7 fL (80-100); MEAN CORPUSCULAR HEMOGLOBIN 30.5 pg (25-34); MEAN PLATELET VOLUME 10.2 fL (7.4-10.4); MONO ABS # 0.76 K/uL (0.11-0.59); NEUT % 66.3 %; NEUT ABS # 5.59 K/uL (1.4-6.5); PLATELET COUNT 158 K/uL (130-400); RED CELL DISTRIBUTION WIDTH CV 14.8 % (11.5-14.5); RED CELL DISTRIBUTION WIDTH SD 48.4 fL (36.4-46.3); WHITE BLOOD COUNT 8.43 K/uL (4.8-10.8)
[2018-03-24 06:55] LABS: CALCIUM 7.7 mg/dl (8.5-10.1); CREATININE 0.87 mg/dl (0.60-1.40); POTASSIUM 4.4 mmol/L (3.5-5.1)
[2018-03-24] MEDS: INSULIN ASPART 100 UNITS/ML 3 ML PEN SC SCH (07:00)
[2018-03-24] MEDS: ATORVASTATIN 40 MG TAB PO SCH (07:17)
[2018-03-24] MEDS: CYANOCOBALAMIN 500 MCG TAB (VIT B-12) PO SCH (07:17)
[2018-03-24] MEDS: ASPIRIN 81 MG ECTAB PO SCH (07:17)
[2018-03-24] MEDS: METOPROLOL SUCC 25MG EXT REL TAB PO SCH (07:18)
[2018-03-24 07:56] VITALS: BP 129/77; PULSE 65; TEMP 36.9; O2SAT 98
[2018-03-24] MEDS: INSULIN GLARGINE SOLOSTAR 100 UNITS/ML 3 ML PEN SC SCH (09:00)
[2018-03-24] MEDS ORDERED: ENOXAPARIN 40 MG/0.4 ML SYR SQ SCH (09:00)
--- NOTE | 2018-03-24 11:15 | Discharge Instructions ---
Discharge Instructions Date of Service Mar 24, 2018. Admission Reason for Admission: Dka, Elevated Troponin Discharge Discharge Diagnosis / Problem: DKA Discharge Goals Goal(s): Decrease discomfort, Improve function Activity Recommendations Activity Limitations: resume your previous activity . Instructions / Follow-Up Instructions / Follow-Up Followup with PCP in 1 week. Current Hospital Diet Patient's current hospital diet: AHA Diet (Heart Healthy), Low Sodium Diet (2gm Na), Diabetes Type 1 Diet Discharge Diet Recommended Diet: AHA Diet (Heart Healthy), Low Sodium Diet (2gm Na) Pending Studies Studies pending at discharge: no Laboratory Results Hemoglobin A1c Test 02/04/18 10:00 Range/Units Estimated Average Glucose 194 mg/dl Hemoglobin A1c 8.4 H 4.5-5.6 % Lipid Panel Test 02/05/18 05:29 Range/Units Triglycerides Level 49 0-150 mg/dl Cholesterol Level 216 H 0-200 mg/dl HDL Cholesterol 98 mg/dl Cholesterol/HDL Ratio 2.2 LDL Cholesterol, Calculated 108 mg/dl Medical Emergencies . Who to Call and When: Medical Emergencies: If at any time you feel your situation is an emergency, please call 911 immediately. . Non-Emergent Contact Non-Emergency issues call your: Primary Care Provider Call Non-Emergent contact if: you have any medication questions . . "Provider Documentation" section prepared by Teodoro Vail. .
[2018-03-24 11:26] VITALS: BP 129/77; PULSE 65; TEMP 36.9; O2SAT 98
[2018-03-24] MEDS ORDERED: WARFARIN PO SCH ×2 (16:00)
--- NOTE | 2018-04-01 15:35 | Discharge Summary ---
Discharge Summary Date of Service Mar 24, 2018. Discharge Summary Admission Date: Mar 22, 2018 at 15:56 Discharge Date: Mar 24, 2018 Discharge Disposition: Home Principal Diagnosis: Diabetic Ketoacidosis Immunizations: Have You Had Influenza Vaccine: Yes Influenza Vaccine Date: Jul 22, 2008 History of Tetanus Vaccine?: Unknown History of Pneumococcal: Yes Pneumococcal Date: Oct 06, 2003 History of Hepatitis B Vaccine: Unknown Consultations: Intensive care and Cardiology Medication Reconciliation Continued Medications: Ascorbic Acid (Vitamin C) 500 Mg Tab 500 MG PO DAILY Aspirin (Aspirin) 81 Mg Tab 81 MG PO DIRECTED for 30 Days, #30 Take 1 Aspirin every other day. Atorvastatin (Lipitor) 40 Mg Tab 40 MG PO DAILY, TAB Cholecalciferol (Vitamin D3) 1,000 Unit Cap 1000 INTER.UNIT PO DAILY Coenzyme Q10 (Ubidecarenone) (Co Q 10) 10 Mg Cap 10 MG PO DAILY Cyanocobalamin (Vitamin B-12) 500 Mcg Tab 500 MCG PO DAILY Insulin Aspart (novoLOG INSULIN PUMP ) 1 Ea Inj 1 EA N/A UD, EA Levothyroxine Sodium (Levothyroxine Sodium) 112 Mcg Tab 112 MCG PO DAILY Lisinopril (Prinivil) 5 Mg Tab 5 MG PO DAILY, TAB Metoprolol Succinate (Metoprolol Succinate ER) 25 Mg Tabcr 12.5 MG PO DAILY Multivitamin (Multivitamin) Tab 1 TAB PO DAILY Warfarin Sod (Jantoven) 1 Mg Tab 7 MG PO 3XWK, #120 TAB 3 Refills TAKES Mon, Wed, Fri Warfarin Sodium (Coumadin) 4 Mg Tab 8 TAB PO 4XWK for 30 Days, #60 TAB 3 Refills TAKES SAT, SUN, TUE, DIVINE Discharge Exam Review of Systems Constitutional: No fever, No chills, No sweats Eyes: No worsening of vision ENT: No hearing loss Respiratory: No cough, No sputum, No shortness of breath, No dyspnea on exertion Cardiovascular: No chest pain, No orthopnea, No claudication, No palpitations Abdomen: No pain, No diarrhea, No constipation Musculoskeletal: No joint pain Genitourinary - Male: No hematuria, No dysuria Neurologic: + weakness (on admission, not on discharge) Endocrine: + fatigue (on admission, not on discharge) Hematologic / Lymphatic: No abnormal bleeding/bruising Integumentary: No rash Physical Exam Comments: General Appearance: WD/WN, no apparent distress Head: normocephalic, atraumatic Eyes: normal inspection, PERRL, EOMI, sclerae normal ENT: hearing grossly normal, pharynx normal, Moist mucus membranes Neck: supple, no adenopathy, thyroid normal, no JVD, no carotid bruits, trachea midline Respiratory/Chest: chest non-tender, normal breath sounds, no respiratory distress, no accessory muscle use, Cardiovascular: regular rate, rhythm, no edema, no gallop, no JVD, no murmur, normal peripheral pulses Abdomen/GI: normal bowel sounds, no tenderness to palpation. Back: normal inspection, no CVA tenderness, no muscle spasm, + pertinent finding (LARGE [place] PRESENT ON BACK) Extremities/Musculoskelatal: normal inspection, no calf tenderness, normal capillary refill, no pedal edema, non-tender Neurologic/Psych: no motor/sensory deficits Skin: normal color, warm/dry, no rash Hospital Course 88yo male with DM, CAD, HTN, HLP presenting with DKA, elevated troponin with EKG changes 1. DKA - patient with blood sugar of 547, anion gap=21, pH=7.29, +B- hydroxybutyrate. K=5.2. Most likely secondary to insulin pump malfunction - patient is unsure if it was functioning properly last night. Cannula was very bent on exam today. VS underlying illness - unclear etiology, patient with abdominal tenderness on exam, mildly elevated bili Patient was admitted to the ICU due to DKA. Patient was placed on aggressive fluid resusciation and insulin drip; Patient responded to treatment. Anion gap closed. Patient was transferred off the ICU And was monitored for another day Restarted insulin pump on day of discharge. 2. Type II [place] in setting of DKA Elevated troponin/history of CAD - patient with troponin of 9.06, EKG changes present - possible atrial fibrillation then wide complex rhythm now with ST depressions. Patient denies CP/palpitations, denies dyspnea/ diaphoresis. He has had elevated troponin in the past in setting of DKA. 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 -Cardiology has been consulted and assessed the patient in the ER - appreciate assistance with this case. No urgent intervention at this time -Will continue to monitor -Mild increase of troponin. -Likely secondary to dehydration. 3. HTN - patient presently normotensive -Continue Metoprolol -Hold Lisinopril for now 4. Hyperlipidemia - stable, chronic -Continue Atorvastatin 5. Hypothyroidism - stable, chronic -Continue Synthroid 6. Anemia - Hg=12.7, Hct=38.4. Near baseline. No evidence of hemolysis. No active bleeding -Continue to monitor 7. Leukocytosis - WBC=13.68. Likely reactive. Patient is afebrile, no evidence of infection at present 8. CHAD - BUN=38, Cr=1.38 -resolved. cr=1.19 9. History of PE - patient with IVC filter in place -Continue Coumadin anticoagulation 10. Ppx - Patient is on Coumadin 11. Code - DNR per discussion with patient Total Time Spent: Greater than 30 minutes This includes examination of the patient, discharge planning, medication reconciliation, and communication with other providers. Discharge Instructions Please refer to the electronic Patient Visit Report (Discharge Instructions) for additional information. Follow-Up F/U with PCP in 1 week Additional Copies To Juan Mendez M.D.
[2018-04-13] MEDS ORDERED: INSDGI SC (15:38)
== END 2018-03-24 12:22 | disposition home or self-care (01) | DRG 919 ==
LOC: EDBD 11:07 → C.EDB 11:08 → C.MSICU 15:56 → ENRESERV 16:09 → C.2T 03-23 13:21
PROVIDERS: ADMIT Internal Medicine; ATTEND Internal Medicine Sports Medicine
DX: T85.614A Breakdown (mechanical) of insulin pump, initial encounter (principal); E10.10 Type 1 diabetes mellitus with ketoacidosis without coma; I21.A1 Myocardial infarction type 2; N17.9 Acute kidney failure, unspecified; T38.3X6A Underdosing of insulin and oral hypoglycemic [antidiabetic] drugs, initial encounter; Y82.8 Other medical devices associated with adverse incidents; E87.5 Hyperkalemia; R94.5 Abnormal results of liver function studies; D72.829 Elevated white blood cell count, unspecified; I48.91 Unspecified atrial fibrillation; I45.10 Unspecified right bundle-branch block; I25.10 Atherosclerotic heart disease of native coronary artery without angina pectoris; I10 Essential (primary) hypertension; E78.5 Hyperlipidemia, unspecified; E03.9 Hypothyroidism, unspecified; J45.909 Unspecified asthma, uncomplicated; D64.9 Anemia, unspecified; M81.0 Age-related osteoporosis without current pathological fracture; Z66 Do not resuscitate; Z95.3 Presence of xenogenic heart valve; Z95.1 Presence of aortocoronary bypass graft; Z96.649 Presence of unspecified artificial hip joint; Z86.73 Personal history of transient ischemic attack (TIA), and cerebral infarction without residual deficits; Z86.711 Personal history of pulmonary embolism; Z79.01 Long term (current) use of anticoagulants; Z79.82 Long term (current) use of aspirin; Z79.899 Other long term (current) drug therapy

== ENCOUNTER 2019-04-07 12:26 | Inpatient (IN) ==
--- NOTE | 2019-04-07 13:10 | CT Scan Report ---
CT head/brain wo con CLINICAL HISTORY: 89 years-old Male presenting with fall. TECHNIQUE: Multidetector CT imaging of the head was performed without the use of intravenous contrast . IV contrast: None. One or more dose lowering techniques were used consistent with the principles of ALARA (as low as reasonably achievable), including automatic exposure control, mA or kV adjustment t o individual patient size, and/or use of iterative reconstruction. COMPARISON: 02/04/2018. CT DOSE (mGy.cm): The estimated cumulative dose is 1016.74. FINDINGS: Wet Room Supervisor topogram: The patient is edentulous. Median sternotomy wires. Proportional ventricular and sulcal prominence, likely age-related parenchymal volume loss. No hemorr maya. Periventricular and subcortical white matter hypoattenuation, nonspecific but likely indicative of chronic small vessel ischemic change. No acute territorial infarct. No mass effect or midline conner ft. No extra-axial fluid collection. Paranasal sinuses and mastoid air cells clear. Calvarium intact. Intracranial atherosclerosis noted. Cerumen noted in the external auditory canals. IMPRESSION: 1. Chronic small vessel ischemic change. No acute intracranial abnormality. Electronically signed by: Juan Ordonez M.D. 04/07/2019 1:08 PM
[2019-04-07 13:16] LABS: Basophils # (auto) 0.01 K/uL (0-0.2); Basophils % (auto) 0.2 %; Eosinophils # (auto) 0.12 K/uL (0-0.5); Eosinophils % (auto) 1.9 %; Hematocrit (blood only) 35.3 % (42-52); Hemoglobin 12.1 g/dL (14.0-18.0); Immature Granulocytes # (auto) 0.02 K/uL (0.00-0.02); Immature Granulocytes % (auto) 0.3 %; Lymphocytes # (auto) 1.51 K/uL (1.2-3.4); Lymphocytes % (auto) 23.4 %; Mean Corpuscular Hgb Conc 34.3 g/dL (32-36); Mean Corpuscular Volume 87.8 fL (80-100); Mean Platelet Volume 10.8 fL (7.4-10.4); Monocytes # (auto) 0.51 K/uL (0.11-0.59); Monocytes % (auto) 7.9 %; Neutrophils # (auto) 4.27 K/uL (1.4-6.5); Neutrophils % (auto) 66.3 %; Platelet Count 149 K/uL (130-400); RDW Coefficient of Variation 14.3 % (11.5-14.5); RDW Standard Deviation 46.2 fL (36.4-46.3); Red Blood Count 4.02 M/uL (4.7-6.1); White Blood Count 6.44 K/uL (4.8-10.8)
--- NOTE | 2019-04-07 13:16 | CT Scan Report ---
CT OF THE CERVICAL SPINE WITHOUT CONTRAST CLINICAL HISTORY: Fall. COMPARISON STUDY: Neck CTA February 04, 2018. TECHNIQUE: Helical axial images of the cervical spine were obtained without IV contrast. Sagittal a nd coronal reconstructions were viewed. Automated exposure control was utilized for the study. A do se lowering technique was utilized adhering to the principles of ALARA. FINDINGS: Alignment of the cervical spine is anatomic. Vertebral body heights are maintained. No acut e cervical spine fracture or subluxation is present. There is no prevertebral edema. Facet joints are intact. Severe multilevel disc space narrowing, osteophytosis and facet arthrosis within the cervic al spine is noted. IMPRESSION: No acute cervical spine fracture or subluxation. Electronically signed by: Samir Garcia M.D. 04/07/2019 1:14 PM
[2019-04-07 13:27] LABS: INR 3.5 (0.9-1.1); Prothrombin Time 32.8 Seconds (9.0-12.0)
--- NOTE | 2019-04-07 13:32 | XRay Report ---
XR femur LT 2V routine CLINICAL HISTORY: 89 years-old Male presenting with l hip pain. TECHNIQUE: Frontal and lateral views of the left femur were obtained. COMPARISON: Correlation made to plain radiographs of the left femur from 02/04/2018. FINDINGS: The left hip joint is not included within the femur series. Please see separately dictated pelvic and left hip radiographs. Postsurgical changes of unicompartmental knee arthroplasty. A prominent 1.7 cm loose body is suggested in the knee joint. Severe underlying osteopenia. Allowing for this, no displ aced fracture. No malalignment allowing for suboptimal positioning. Atherosclerosis. IMPRESSION: 1. A loose body may be present in the left knee. Dedicated knee radiographs recommended. 2. Allowing for osteopenia, no gross evidence of acute osseous injury. Electronically signed by: Juan Ordonez M.D. 04/07/2019 1:30 PM
--- NOTE | 2019-04-07 13:34 | XRay Report ---
SINGLE VIEW PELVIS; 2 VIEWS LEFT HIP CLINICAL HISTORY: Fall with left hip pain. FINDINGS: An AP supine view of the pelvis with AP and crosstable lateral views of the left hip are co mpared to study dated 02/04/2018. The skeletal structures are osteopenic. There is a minimally displac ed subcapital fracture of the left femur. No additional fracture is identified involving the hips or bony pelvis. A right hip arthroplasty is in near anatomic alignment. A buttress plate is present pedro g the lateral cortex of the right proximal femur. Soft tissue edema is noted in the left upper thigh. There is moderate degenerative joint space narrowing present in the left hip. Enthesophytes arise fr om the anterior superior iliac spines. Lumbosacral spondylosis is partially imaged. There are numerou s pelvic phleboliths. Advanced atherosclerotic calcification is seen in the femoral arteries. An IVC filter is in place. There is no evidence of bowel obstruction. IMPRESSION: 1. There is an impacted and mildly displaced subcapital fracture of the left femur. 2. No additional fracture is identified involving the hips or bony pelvis. Electronically signed by: Ronn Pretty M.D. 04/07/2019 1:33 PM
[2019-04-07 13:36] LABS: Creatinine Clr Calc Pharmacy 61.9 ml/min; Est GFR (Non-African American) 66.4; Potassium 4.4 mmol/L (3.5-5.1)
[2019-04-07 13:37] LABS: Albumin Globulin Ratio 1.2 (0.9-2); Albumin Level 3.8 gm/dl (3.4-5.0); BUN Creatinine Ratio 20.7 (10-20); Calcium 8.7 mg/dl (8.5-10.1); Globulin 3.1 gm/dl (2.5-4.0); Total Protein 6.9 gm/dl (6.4-8.2)
--- NOTE | 2019-04-07 13:37 | XRay Report ---
XR hand RT min 3V routine CLINICAL HISTORY: r 2nd fingure pain trauma. Pain. COMPARISON: None. DISCUSSION: Severe degenerative change proximal interphalangeal joint right second finger. Localizer and soft tissue edema. The degenerative change potentially is associated with nondisplaced cortical f ractures. Mild degenerative change of the remaining bony structures. No additional acute abnormalities apprecia esperanza. IMPRESSION: 1. Moderate degenerative change throughout the hand and wrist with evidence for severe degenerative c hange of the second finger at the proximal interphalangeal joint. 2. Probable nondisplaced cortical hairline fractures proximal interphalangeal joint right second fing er. The above report was generated using voice recognition software. It may contain grammatical, syntax or spelling errors. Electronically signed by: Juarez Moeller M.D. 04/07/2019 1:36 PM
[2019-04-07] MEDS ORDERED: XYLOCAINE 1%/SOD BICARB 20 ML VIAL INFIL ONE (14:08)
--- NOTE | 2019-04-07 14:51 | History & Physical Report ---
Date of Service April 07, 2019 Assessment & Plan (1) Hip fracture, left: Ortho planning for OR later today if INR reversed Diet, DVT proph as per ortho (2) Encounter for pre-operative examination: EKG with 1st degree AV block I cannot find old EKGs to compare in [email or web address] or [facility], however cardiology notes from last year note EKG with same Pt is stable in the ED and is acceptable risk for a needed intervention (3) Fall in home: No other recent falls PT/OT when able Family did request [facility] if rehab needed CM c/s (4) IDDM (insulin dependent diabetes mellitus): Pump at home Will use SSI PRN while NPO Pt would like to manage with his pump as at home when able (5) HTN (hypertension): continue home meds Of note, pt states he only sporadically takes his metoprolol and lisinopril Monitor BP with daily dosing (6) TIA (transient ischemic attack): Uncertain if actual event per pt Takes aspirin 81mg on occasion, cannot remember last use but not today Hold for now (7) Aortic valve replaced: Coumadin use with anticoag clinic States a bovine valve 7mg on //, 8mg other days INR 3.5 Vit K 5mg and recheck at 5p to determine OR status for later today Of note, last anticoag clinic note states that pt's goal is 2-3 (not 2.5-3.5 as would typically be goal range in mechanical AVR) and plans were to switch to 7.5mg QD once current script is used (8) Hypothyroid: continue home meds (9) Hyperlipidemia: continue home meds (10) History of pulmonary embolism: After R hip surgery Has IVC filter in place (11) DVT prophylaxis: SCDs given OR Restart coumadin when able IVC filter in place History of Present Illness Primary Care Provider: Juan Mendez MD 89 y/o M with a L subcapital fracture s/p mechanical fall today. He was bending over to empty a dog bowl into plants off of his deck when he lost his balance and fell. He scraped his R hand and landed on his L hip and hit his head. Denies any LOC, syncope, lightheadedness, dizziness. Prior to this, he was having a usual day for himself. He and his took their grandchildren to [place] for breakfast and he had no issues with any of this activity. He says he has fallen in the past, but not in the last 6 months. He has a lot of pain related to his L hip, but feels fine otherwise. Pt denies fever, SOB, chest pain, abd pain, n/v/c/d. He has chronic b/l LE swelling and this is at baseline. Pt consistently takes his coumadin. Last dose was yesterday HS. He states that he only sporadically takes his aspirin and is unable to tell me the last time he took this. He states he also intermittently does not take his metoprolol and lisinopril. He uses an insulin pump to manage his DM and would like to use this while admitted when able. Allergies Allergy/AdvReac Type Severity Reaction Status Date / Time No Known Allergies Allergy Verified 04/07/19 13:38 Home Medications Home Medications Medication Instructions Recorded Confirmed Type aspirin 81 mg tablet,delayed 81 mg PO DAILY 06/15/18 04/07/19 History release atorvastatin 40 mg tablet 40 mg PO DAILY 06/15/18 04/07/19 History cholecalciferol (vitamin D3) 1,000 1,000 units PO DAILY 06/15/18 04/07/19 History unit capsule coenzyme Q 10 10 mg capsule 10 mg PO DAILY cap 06/15/18 04/07/19 History cyanocobalamin (vit B-12) 500 mcg 500 mcg PO DAILY 06/15/18 04/07/19 History lozenges levothyroxine 112 mcg capsule 112 mcg PO DAILY 06/15/18 04/07/19 History lisinopril 5 mg tablet 5 mg PO DAILY 06/15/18 04/07/19 History metoprolol succinate ER 25 mg 12.5 mg PO DAILY ea 06/15/18 04/07/19 History capsule sprinkle, ext. release 24 hr multivitamin tablet 1 tab PO DAILY 06/15/18 04/07/19 History warfarin 4 mg tablet See Rx Instructions PO UD tab 06/15/18 04/07/19 History ascorbic acid (vitamin C) [Vitamin 500 mg PO DAILY 07/13/18 04/07/19 History C] insulin aspart U-100 See Rx Instructions .ROUTE 07/13/18 04/07/19 History .COMPLEX #0 blood sugar diagnostic strips #400 ea 02/24/19 04/07/19 Rx Past Med/Surg History Medical History DKA (diabetic ketoacidoses) March 2018. Diabetes mellitus type 1 History of non-ST elevation myocardial infarction (NSTEMI) March 2018. Per cardiology note as patient was admitted at the time: "Non-ST elevation myocardial infarction. This has occurred in the setting of his diabetic ketoacidosis. The patient denies any anginal-type symptoms. His electrocardiogram initially did reveal ST depressions anteriorly. These have since resolved. The patient has had prior hospitalizations for DKA with elevations in his troponin I. He had an episode in 08/2016. In the interim, he has done well without any anginal-type symptoms. Suspect that the current troponin elevation was secondary to demand ischemia and not a primary coronary event." History of pulmonary embolism 2005 - post op - w/ ivc filter Hypertension Hypothyroidism Neuropathy On anticoagulant therapy Presence of IVC filter Transient ischemic attack (TIA) pulled from past problem list - pt could not confirm - unsure of dx Surgical History H/O aortic valve replacement >10 years - [facility] [place] - follows w/ dr. westbrook H/O removal of cyst History of colonoscopy History of herniorrhaphy rt inguinal History of inferior vena caval filter placement History of surgery rt femur reconstruction History of total hip arthroplasty rt History of total knee replacement lt Hx of right cataract extraction Family History Brother History of heart valve replacement Unknown Depression Sister Hepatic failure Renal failure Social History Preferred Language: Khmer Communication Ability: Effective Beliefs That Will Affect Care: None Current Living Situation: Spouse Feels Safe at Home: Yes Smoking Status: Never smoker Second Hand Exposure: No Hx Alcohol Use: Yes Alcohol type: beer Alcohol Intake Frequency Comment: 1 beer per day prior to dinner Hx Substance Use: No Review of Systems Review of Systems: Pertinent positives and negatives reviewed in HPI--all others negative Physical Exam Constitutional: WD/WN, vitals as above Eyes: normal visual ford by confrontation and + anicteric sclerae Neck: normal visual inspection and trachea midline Respiratory: normal respiratory effort, lungs clear to auscultation Cardiovascular: Rate/Rhythm: regular rate and regular rhythm Gastrointestinal (Abdomen): Inspection/Auscultation: abdomen not distended Percussion/Palpation: abdomen soft; abdomen nontender Musculoskeletal: Head/Neck/Chest: normocephalic and head atraumatic b/l 1+ pitting edema, peripheral pulses intact Skin: no rashes, warm and dry Neurologic: awake; not confused Speech / Cognition: normal speech Psychiatric: A+Ox3, euthymic affect Results & Data Vital Signs (Past 12 Hours) Vital Signs Temp Pulse Resp BP Pulse Ox 04/07/19 12:26 36.8 C 82 20 144/[address] head: neg for acute L hip/pelvis XR: displaced subcapital fx R hand XR: 2nd digit with nondisplaced hairline fx L femur XR: neg for acute ECG Findings: + 1st degree AV block Code Status & VTE Plan Code Status Full code, although pt states no prolonged mechanical life support, feeding tubes, etc. He and state that they have living huerta, but he is uncertain as to what it says at this point. He had a very difficult time deciding if he wanted any sort of resuscitation, but did ultimately decide that he would want initial resuscitation, but not prolonged if no meaningful recovery. His was present and agrees. Daughter had been present but stepped out during this conversation "in case he was having difficulty answering in front of me". VTE Prophylaxis Plan VTE Prophylaxis will be ordered: Yes PG Care Time/CCT Total # of Minutes Spent Total Time Spent with Patient: Total time spent is greater than 50% in coordination of care (as documented) at patient's floor/unit and/or counseling patient:
--- NOTE | 2019-04-07 14:59 | Emergency Department Note ---
ED Visit Note I was asked by Dr. dEmonds to perform this patient's left third finger laceration repair. Please see his dictation for full ED course and diagnostics. Examination reveals a 1 cm laceration to the distal aspect of the left third digit which extends along the lateral side of the fingernail. Verbal consent was obtained to perform the procedure. Using sterile technique the wound was cleaned with Betadine. The area was sterilely draped. 3 ml of 1% buffered lidocaine was used to perform a digital block to anesthetize the finger. Once the patient was anesthetized, the wound was copiously irrigated under pressure with sterile saline. The wound was explored and there were no deep structures injured such as tendons, bone, or significant blood vessels. The laceration was repaired using 3 simple interrupted 5-0 nylon sutures with the wound edges being well approximated. The patient tolerated the procedure well. Hemostasis was achieved. The area was cleaned with sterile saline and dressed with bacitracin ointment and bandage.
--- NOTE | 2019-04-07 15:19 | Orthopedic Consultation ---
Date of Consultation April 07, 2019 Assessment & Plan (1) Closed hip fracture: Reviewed diagnosis and treatment options with patient and family. After discussing risks/benefits, alternatives, and expected outcomes, patient elects to have a Bipolar left hip hemiarthroplasty. All questions answered. Informed consent signed. His INR is elevated at 3.5. Dr. Johnson ordered 5 mg oral Vit K to lower patient's INR Recheck INR at 1700. If INR is corrected, we will proceed with surgery tonight after he clears 8 hours NPO (last meal at 1000). If INR remains elevated, however, will have Dr. Slaughter perform procedure tomorrow Bedrest until surgery. Pain control and diabetes control per internal medicine. Supervising Physician Co-Signing Physician Notes I saw and examined the patient in the ER, and formulated the above treatment plan. Spoke with Dr. Johnson and Dr. Slaughter to coordinate this patient's care. History of Present Illness Reason for Consultation: Traumatic subcapital left hip fracture Requesting Physician: Juan Zaldivar MD Attending Physician: Karina Johnson History of Present Illness This 89 yo M is seen in ED this afternoon for consultation. Pt states that he tripped on an uneven surface while watering plants. Pt fell and struck his left hip off of a cement slab and was unable to move leg or stand afterward. Pt also c/o laceration to the distal tip of his left 3rd finger that was sutured while in ED. Pt denies CP, SOB, nausea, vomiting, fever, chills, sweats, lethargy, visual disturbances, head or neck pain at this time. No numbness/tingling down either leg. He has previously undergone a right hip cemented bipolar hemiarthroplasty, as well as an ORIF of a right [place] C periprosthetic femur fracture 3 years ago. Both surgeries were done by Dr. Slaughter. Allergies Allergy/AdvReac Type Severity Reaction Status Date / Time No Known Allergies Allergy Verified 04/07/19 13:38 Home Medications Home Medications Medication Instructions Recorded Confirmed Type aspirin 81 mg tablet,delayed 81 mg PO DAILY 06/15/18 04/07/19 History release atorvastatin 40 mg tablet 40 mg PO DAILY 06/15/18 04/07/19 History cholecalciferol (vitamin D3) 1,000 1,000 units PO DAILY 06/15/18 04/07/19 History unit capsule coenzyme Q 10 10 mg capsule 10 mg PO DAILY cap 06/15/18 04/07/19 History cyanocobalamin (vit B-12) 500 mcg 500 mcg PO DAILY 06/15/18 04/07/19 History lozenges levothyroxine 112 mcg capsule 112 mcg PO DAILY 06/15/18 04/07/19 History lisinopril 5 mg tablet 5 mg PO DAILY 06/15/18 04/07/19 History metoprolol succinate ER 25 mg 12.5 mg PO DAILY ea 06/15/18 04/07/19 History capsule sprinkle, ext. release 24 hr multivitamin tablet 1 tab PO DAILY 06/15/18 04/07/19 History warfarin 4 mg tablet See Rx Instructions PO UD tab 06/15/18 04/07/19 History ascorbic acid (vitamin C) [Vitamin 500 mg PO DAILY 07/13/18 04/07/19 History C] insulin aspart U-100 See Rx Instructions .ROUTE 07/13/18 04/07/19 History .COMPLEX #0 blood sugar diagnostic strips #400 ea 02/24/19 04/07/19 Rx Patient History Medical History DKA (diabetic ketoacidoses) March 2018. Diabetes mellitus type 1 History of non-ST elevation myocardial infarction (NSTEMI) March 2018. Per cardiology note as patient was admitted at the time: "Non-ST elevation myocardial infarction. This has occurred in the setting of his diabetic ketoacidosis. The patient denies any anginal-type symptoms. His electrocardiogram initially did reveal ST depressions anteriorly. These have since resolved. The patient has had prior hospitalizations for DKA with elevations in his troponin I. He had an episode in 08/2016. In the interim, he has done well without any anginal-type symptoms. Suspect that the current troponin elevation was secondary to demand ischemia and not a primary coronary event." History of pulmonary embolism 2005 - post op - w/ ivc filter Hypertension Hypothyroidism Neuropathy On anticoagulant therapy Presence of IVC filter Transient ischemic attack (TIA) pulled from past problem list - pt could not confirm - unsure of dx Surgical History H/O aortic valve replacement >10 years - [facility] [place] - follows w/ dr. westbrook H/O removal of cyst History of colonoscopy History of herniorrhaphy rt inguinal History of inferior vena caval filter placement History of surgery rt femur reconstruction History of total hip arthroplasty rt History of total knee replacement lt Hx of right cataract extraction Family History Brother History of heart valve replacement Unknown Depression Sister Hepatic failure Renal failure Social History Preferred Language: Tanzanian Communication Ability: Effective Beliefs That Will Affect Care: None Current Living Situation: Spouse Feels Safe at Home: Yes Smoking Status: Never smoker Second Hand Exposure: No Hx Alcohol Use: Yes Alcohol type: beer Alcohol Intake Frequency Comment: 1 beer per day prior to dinner Hx Substance Use: No Review of Systems Review of Systems: All systems reviewed & are unremarkable except as noted in HPI & below Physical Exam Constitutional: WD/WN, vitals as above Eyes: PERRL, conjunctivae normal, anicteric sclerae normal visual ford by confrontation ENMT: throat: posterior oropharynx clear with no edema, erythema or exudate. Respiratory: normal respiratory effort, lungs clear to auscultation Cardiovascular: Rate/Rhythm: regular rate and regular rhythm Heart Sounds: + murmur (Grade IV/ holosystolic murmur heard throughout all areas) Gastrointestinal (Abdomen): normal bowel sounds, soft, nontender, no hepatosplenomegaly Musculoskeletal: Left LE: TTP over anterior and lateral aspect of left hip. + log roll. Unable to test hip ROM due to pain. No TTP over femur knee or lower leg. Able to actively dorsi/plantar flex foot. Periph pulses intact. NV intact in Left LE. Able to depict light sensation to touch on dorsal and plantar surface of foot. Quad tone 4/5 but unable to perform SLRT. 1-2+ pitting edema in both LE's extending from knees to base of digits. Neurologic: CN's II-XI intact bilaterally Psychiatric: A+Ox3, euthymic affect Results & Data Vital Signs (Past 12 Hours) Vital Signs Temp Pulse Resp BP Pulse Ox 04/07/19 12:26 36.8 C 82 20 144/80 H 92 Laboratory Results 04/07/19 04/07/19 04/07/19 Range/Units 12:57 12:57 12:57 WBC 6.44 (4.8-10.8) K/uL RBC 4.02 L (4.7-6.1) M/uL Hgb 12.1 L (14.0-18.0) g/dL Hct 35.3 L (42-52) % MCV 87.8 (80-100) fL MCH 30.1 (25-34) pg MCHC 34.3 (32-36) g/dL RDW Std Deviation 46.2 (36.4-46.3) fL RDW Coeff of Roger 14.3 (11.5-14.5) % Plt Count 149 (130-400) K/uL MPV 10.8 H (7.4-10.4) fL Immature Gran % (Auto) 0.3 % Neut % (Auto) 66.3 % Lymph % (Auto) 23.4 % [place] % (Auto) 7.9 % Eos % (Auto) 1.9 % Baso % (Auto) 0.2 % Immature Gran # (Auto) 0.02 (0.00-0.02) K/uL Neut # (Auto) 4.27 (1.4-6.5) K/uL Lymph # (Auto) 1.51 (1.2-3.4) K/uL [place] # (Auto) 0.51 (0.11-0.59) K/uL Eos # (Auto) 0.12 (0-0.5) K/uL Baso # (Auto) 0.01 (0-0.2) K/uL PT 32.8 H (9.0-12.0) Seconds INR 3.5 H (0.9-1.1) Sodium 130 L (136-145) mmol/L Potassium 4.4 (3.5-5.1) mmol/L Chloride 95 L (98-107) mmol/L Carbon Dioxide 32 (21-32) mmol/L Anion Gap 3.0 (3-11) BUN 21 H (7-18) mg/dl Creatinine 1.00 (0.6-1.4) mg/dl Est Cr Clr Drug Dosing 61.9 ml/min Est GFR ( Amer) 77.0 Est GFR (Non-Af Amer) 66.4 BUN/Creatinine Ratio 20.7 H (10-20) Glucose 270 H (70-99) mg/dl Calcium 8.7 (8.5-10.1) mg/dl Total Bilirubin 1.0 (0.2-1) mg/dl AST 21 (15-37) U/L ALT 25 (12-78) U/L Alkaline Phosphatase 77 (45-117) U/L Total Protein 6.9 (6.4-8.2) gm/dl Albumin 3.8 (3.4-5.0) gm/dl Globulin 3.1 (2.5-4.0) gm/dl Albumin/Globulin Ratio 1.2 (0.9-2) Diagnostic Findings X-rays show a left subcapital vertical, femoral neck fracture, moderately displaced. (1) Closed hip fracture Encounter type: initial encounter Laterality: left Qualified Code(s): S72.002A - Fracture of unspecified part of neck of left femur, initial encounter for closed fracture
--- NOTE | 2019-04-07 15:24 | XRay Report ---
XR knee LT 2V routine CLINICAL HISTORY: 89 years-old Male presenting with l knee pain. TECHNIQUE: Frontal and lateral views of the left knee were obtained. COMPARISON: Radiographs from earlier today. FINDINGS: Suboptimal positioning limits evaluation. Tricompartmental arthroplasty in the medial compartment of the left knee. A bone fragment or loose masha dy is again noted in the anterior knee. Limited evaluation due to suboptimal crosstable lateral posit ioning. It is difficult to localize this on frontal view. Allowing for osteopenia, no acute fracture or malalignment. Trace if any joint effusion is present. Atherosclerosis. IMPRESSION: 1. Suboptimal positioning limits evaluation. Allowing for this, suspected loose body in the knee roberto nt. This is likely on a chronic basis. 2. Unicompartmental arthroplasty in the medial compartment of the knee. 3. Allowing for osteopenia, no acute osseous injury. Electronically signed by: Juna Ordonez M.D. 04/07/2019 3:23 PM
[2019-04-07 15:29] LABS: Appearance Urine Clear (Clear); Bilirubin Urine Negative (Negative); Blood Urine Negative (Negative); Color Urine Yellow; Glucose Urine UA 1+ (Negative); Ketones Urine Negative (Negative); Leukocyte Esterase Urine Negative (Negative); Nitrite Urine Negative (Negative); Protein Urine Negative (Negative); Specific Gravity Urine 1.013 (1.000-1.030); Urobilinogen Urine Negative (Negative)
--- NOTE | 2019-04-07 15:37 | Emergency Department Note ---
Entered by Kemi Awad acting as a scribe for History of Present Illness General Chief complaint: Fall Time Seen by Provider: 04/07/19 12:27 Source: patient History of Present Illness Onset (ago): hour(s) (just prior to arrival) Location: right Pain Consistency: + other (episode) Maximum Pain Intensity: 5 Quality: + other (fall ) Associated symptoms: + other (positive leg pain) The patient is a 89 year old male with a PMHx of NSTEMI, PE, TIA, diabetes, and HTN who presents to the Emergency Room with complaints of an episode of a fall that occurred just prior to arrival. The patient states that he walked outside and tripped on the sidewalk falling backwards into a brick wall before falling onto his right side. The patient states that he has leg pain and is unable to lift his legs. The patient states that he is on Coumadin. No other exacerbating or remitting factors. Home Medications Home Medications Medication Instructions Recorded Confirmed Type aspirin 81 mg tablet,delayed 81 mg PO DAILY 06/15/18 04/07/19 History release atorvastatin 40 mg tablet 40 mg PO DAILY 06/15/18 04/07/19 History cholecalciferol (vitamin D3) 1,000 1,000 units PO DAILY 06/15/18 04/07/19 History unit capsule coenzyme Q 10 10 mg capsule 10 mg PO DAILY cap 06/15/18 04/07/19 History cyanocobalamin (vit B-12) 500 mcg 500 mcg PO DAILY 06/15/18 04/07/19 History lozenges levothyroxine 112 mcg capsule 112 mcg PO DAILY 06/15/18 04/07/19 History lisinopril 5 mg tablet 5 mg PO DAILY 06/15/18 04/07/19 History metoprolol succinate ER 25 mg 12.5 mg PO DAILY ea 06/15/18 04/07/19 History capsule sprinkle, ext. release 24 hr multivitamin tablet 1 tab PO DAILY 06/15/18 04/07/19 History warfarin 4 mg tablet See Rx Instructions PO UD tab 06/15/18 04/07/19 History ascorbic acid (vitamin C) [Vitamin 500 mg PO DAILY 07/13/18 04/07/19 History C] insulin aspart U-100 See Rx Instructions .ROUTE 07/13/18 04/07/19 History .COMPLEX #0 blood sugar diagnostic strips #400 ea 02/24/19 04/07/19 Rx Allergies Allergy/AdvReac Type Severity Reaction Status Date / Time No Known Allergies Allergy Verified 04/07/19 13:38 Past Med/Surg History Medical History DKA (diabetic ketoacidoses) March 2018. Diabetes mellitus type 1 History of non-ST elevation myocardial infarction (NSTEMI) March 2018. Per cardiology note as patient was admitted at the time: "Non-ST elevation myocardial infarction. This has occurred in the setting of his diabetic ketoacidosis. The patient denies any anginal-type symptoms. His electrocardiogram initially did reveal ST depressions anteriorly. These have since resolved. The patient has had prior hospitalizations for DKA with elevations in his troponin I. He had an episode in 08/2016. In the interim, he has done well without any anginal-type symptoms. 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 westbrook H/O removal of cyst History of colonoscopy History of herniorrhaphy rt inguinal History of inferior vena caval filter placement History of surgery rt femur reconstruction History of total hip arthroplasty rt History of total knee replacement lt Hx of right cataract extraction Family History Brother History of heart valve replacement Unknown Depression Sister Hepatic failure Renal failure Social History Preferred Language: Zambian Communication Ability: Effective Beliefs That Will Affect Care: None Current Living Situation: Spouse Feels Safe at Home: Yes Smoking Status: Never smoker Second Hand Exposure: No Hx Alcohol Use: Yes Alcohol type: beer Alcohol Intake Frequency Comment: 1 beer per day prior to dinner Hx Substance Use: No Review of Systems See HPI for pertinent positives & negatives. and A total of 10 systems reviewed and were otherwise negative Physical Exam Vital Signs Vital Signs - 24 hr 04/07/19 12:26 Temperature 36.8 C Temperature Source Oral Sepsis Recent Fever Within 48 Hours No Sepsis New/Unexplained Change in Mental Status No Sepsis Action Taken by Nursing No Action Required Pulse Rate 82 Pulse Rhythm Regular Pulse Strength Normal Respiratory Rate 20 Respiratory Effort / Characteristics Non-Labored Spontaneous Respiratory Depth Normal Respiratory Pattern Regular Blood Pressure 144/80 H Blood Pressure Mean 101 Blood Pressure Position Lying Pulse Oximetry 92 Oxygen Delivery Method Room Air GENERAL: Laying on bed blood on hands. Talking in full sentences. HEAD: Abrasion just above midline frontal region. normal cephalic EYE EXAM: normal conjunctiva, PERRL and EOM's grossly intact OROPHARYNX: no exudate, no erythema, lips, buccal mucosa, and tongue normal and mucous membranes are moist EARS: TMs clear b/l NECK: supple, no nuchal rigidity, no adenopathy, non-tender CHEST: stable to compression anteriorly and posteriorly LUNGS: clear to auscultation. Normal chest wall mechanics HEART: no murmurs, S1 normal and S2 normal ABDOMEN: abdomen soft, non-tender, normo-active bowel sounds, no masses, no rebound or guarding. PELVIS: stable to compression anteriorly and posteriorly BACK: Back is symmetrical on inspection and there is no deformity, no midline tenderness, no CVA tenderness. UPPER EXTREMITIES: Bruising, swelling, and tenderness to palpation to the right second digit PIP. Skin tears to the right dorsal surface. Skin tears to the left third finger just anterior to the nail with laceration. Abrasions to the left fingers. LOWER EXTREMITIES: full active and passive range of motion of all joints without tenderness to palpation with exception of significant pain on palpation of the left hip. NEURO EXAM: Normal sensorium, cranial nerves II-XII grossly intact, normal spe ech, no gross weakness of arms, no gross weakness of legs. GCS: 15. Course ED COURSE: Vital signs were reviewed and showed hypertensive. The patients medical record was reviewed The above diagnostic studies were performed and reviewed. ED treatments and interventions as stated above. 1229: The patient was evaluated in room B12B. A complete history and physical examination was performed. 1356: I discussed the case with Dr. Johnson-[facility] Hospitalist who accepts the patient for further evaluation. 1421: I discussed the case with Dr. Zaldivar-Orthopedics who recommends Vitamin K. 1426: I discussed the case with Dr. Johnson-[facility] Hospitalist in regard to reversing the patient's coumadin level. 1428: Upon reevaluation, the patient is resting comfortably. I discussed my findings with the patient and he understands and agrees with the treatment plan. Based on the patients age, coexisting illnesses, exam and lab findings the dec ision to treat as an inpatient was made. The patient remained stable while under my care. The patient will be evaluated for further management. Administered Medications Discontinued Medications Lidocaine HCl (Buffered Lidocaine 1%) 20 ml INFIL NOW ONE Stop: 04/07/19 14:09 Last Admin: 04/07/19 14:53 Dose: 20 ml Documented by: [id number] Medical Decision Making Differential Diagnosis Differential diagnoses include major intracranial, cervical, spinal, thoracic, abdominal, pelvic and neurologic injury. Fracture, contusion, sprain, strain, laceration, abrasions included as well. Medical Records Attestation: I reviewed the patient's medical records. Home Medications Current Medication List: was personally reviewed by me Laboratory Data Attestation: I reviewed the patient's lab results. Result diagrams: 04/07/19 12:57 04/07/19 12:57 Lab Results 04/07/19 04/07/19 04/07/19 Range/Units 12:57 12:57 12:57 WBC 6.44 (4.8-10.8) K/uL RBC 4.02 L (4.7-6.1) M/uL Hgb 12.1 L (14.0-18.0) g/dL Hct 35.3 L (42-52) % MCV 87.8 (80-100) fL MCH 30.1 (25-34) pg MCHC 34.3 (32-36) g/dL RDW Std Deviation 46.2 (36.4-46.3) fL RDW Coeff of Roger 14.3 (11.5-14.5) % Plt Count 149 (130-400) K/uL MPV 10.8 H (7.4-10.4) fL Immature Gran % (Auto) 0.3 % Neut % (Auto) 66.3 % Lymph % (Auto) 23.4 % [place] % (Auto) 7.9 % Eos % (Auto) 1.9 % Baso % (Auto) 0.2 % Immature Gran # (Auto) 0.02 (0.00-0.02) K/uL Neut # (Auto) 4.27 (1.4-6.5) K/uL Lymph # (Auto) 1.51 (1.2-3.4) K/uL [place] # (Auto) 0.51 (0.11-0.59) K/uL Eos # (Auto) 0.12 (0-0.5) K/uL Baso # (Auto) 0.01 (0-0.2) K/uL PT 32.8 H (9.0-12.0) Seconds INR 3.5 H (0.9-1.1) Sodium 130 L (136-145) mmol/L Potassium 4.4 (3.5-5.1) mmol/L Chloride 95 L (98-107) mmol/L Carbon Dioxide 32 (21-32) mmol/L Anion Gap 3.0 (3-11) BUN 21 H (7-18) mg/dl Creatinine 1.00 (0.6-1.4) mg/dl Est Cr Clr Drug Dosing 61.9 ml/min Est GFR ( Amer) 77.0 Est GFR (Non-Af Amer) 66.4 BUN/Creatinine Ratio 20.7 H (10-20) Glucose 270 H (70-99) mg/dl Calcium 8.7 (8.5-10.1) mg/dl Total Bilirubin 1.0 (0.2-1) mg/dl AST 21 (15-37) U/L ALT 25 (12-78) U/L Alkaline Phosphatase 77 (45-117) U/L Total Protein 6.9 (6.4-8.2) gm/dl Albumin 3.8 (3.4-5.0) gm/dl Globulin 3.1 (2.5-4.0) gm/dl Albumin/Globulin Ratio 1.2 (0.9-2) Urine Color Urine Appearance (Clear) Urine pH (4.5-7.5) Ur Specific [place] (1.000-1.030) Urine Protein (Negative) Urine Glucose (UA) (Negative) Urine Ketones (Negative) Urine Blood (Negative) Urine Nitrite (Negative) Urine Bilirubin (Negative) Urine Urobilinogen (Negative) Ur Leukocyte Esterase (Negative) 07/18/19 Range/Units Unknown WBC (4.8-10.8) K/uL RBC (4.7-6.1) M/uL Hgb (14.0-18.0) g/dL Hct (42-52) % MCV (80-100) fL MCH (25-34) pg MCHC (32-36) g/dL RDW Std Deviation (36.4-46.3) fL RDW Coeff of Roger (11.5-14.5) % Plt Count (130-400) K/uL MPV (7.4-10.4) fL Immature Gran % (Auto) % Neut % (Auto) % Lymph % (Auto) % [place] % (Auto) % Eos % (Auto) % Baso % (Auto) % Immature Gran # (Auto) (0.00-0.02) K/uL Neut # (Auto) (1.4-6.5) K/uL Lymph # (Auto) (1.2-3.4) K/uL [place] # (Auto) (0.11-0.59) K/uL Eos # (Auto) (0-0.5) K/uL Baso # (Auto) (0-0.2) K/uL PT (9.0-12.0) Seconds INR (0.9-1.1) Sodium (136-145) mmol/L Potassium (3.5-5.1) mmol/L Chloride (98-107) mmol/L Carbon Dioxide (21-32) mmol/L Anion Gap (3-11) BUN (7-18) mg/dl Creatinine (0.6-1.4) mg/dl Est Cr Clr Drug Dosing ml/min Est GFR ( Amer) Est GFR (Non-Af Amer) BUN/Creatinine Ratio (10-20) Glucose (70-99) mg/dl Calcium (8.5-10.1) mg/dl Total Bilirubin (0.2-1) mg/dl AST (15-37) U/L ALT (12-78) U/L Alkaline Phosphatase (45-117) U/L Total Protein (6.4-8.2) gm/dl Albumin (3.4-5.0) gm/dl Globulin (2.5-4.0) gm/dl Albumin/Globulin Ratio (0.9-2) Urine Color Yellow Urine Appearance Clear (Clear) Urine pH 8.0 H (4.5-7.5) Ur Specific [place] 1.013 (1.000-1.030) Urine Protein Negative (Negative) Urine Glucose (UA) 1+ H (Negative) Urine Ketones Negative (Negative) Urine Blood Negative (Negative) Urine Nitrite Negative (Negative) Urine Bilirubin Negative (Negative) Urine Urobilinogen Negative (Negative) Ur Leukocyte Esterase Negative (Negative) Imaging Data Radiologist's Impression: Radiology results as stated below per my review and the radiologist's interpretation: CT OF THE CERVICAL SPINE WITHOUT CONTRAST CLINICAL HISTORY: Fall. COMPARISON STUDY: Neck CTA February 04, 2018. TECHNIQUE: Helical axial images of the cervical spine were obtained without IV contrast. Sagittal and coronal reconstructions were viewed. Automated exposure control was utilized for the study. A dose lowering technique was utilized adhering to the principles of ALARA. FINDINGS: Alignment of the cervical spine is anatomic. Vertebral body heights are maintained. No acute cervical spine fracture or subluxation is present. There is no prevertebral edema. Facet joints are intact. Severe multilevel disc space narrowing, osteophytosis and facet arthrosis within the cervical spine is noted. IMPRESSION: No acute cervical spine fracture or subluxation. Electronically signed by: Samir Garcia M.D. 04/07/2019 1:[address] head/brain wo con CLINICAL HISTORY: 89 years-old Male presenting with fall. TECHNIQUE: Multidetector CT imaging of the head was performed without the use of intravenous contrast. IV contrast: None. One or more dose lowering techniques were used consistent with the principles of ALARA (as low as reasonably achievable), including automatic exposure control, mA or kV adjustment to individual patient size, and/or use of iterative reconstruction. COMPARISON: 02/04/2018. CT DOSE (mGy.cm): The estimated cumulative dose is 1016.74. FINDINGS: [place] [place] [facility] topogram: The patient is edentulous. Median sternotomy wires. Proportional ventricular and sulcal prominence, likely age-related parenchymal volume loss. No hemorrhage. Periventricular and subcortical white matter hypoa ttenuation, nonspecific but likely indicative of chronic small vessel ischemic change. No acute territorial infarct. No mass effect or midline shift. No extra- axial fluid collection. Paranasal sinuses and mastoid air cells clear. Calvarium intact. Intracranial atherosclerosis noted. Cerumen noted in the external auditory canals. IMPRESSION: 1. Chronic small vessel ischemic change. No acute intracranial abnormality. Electronically signed by: Juan Ordonez M.D. 04/07/2019 1:08 PM XR hand RT min 3V routine CLINICAL HISTORY: r 2nd fingure pain trauma. Pain. COMPARISON: None. DISCUSSION: Severe degenerative change proximal interphalangeal joint right second finger. Localizer and soft tissue edema. The degenerative change potentially is associated with nondisplaced cortical fractures. Mild degenerative change of the remaining bony structures. No additional acute abnormalities appreciated. IMPRESSION: 1. Moderate degenerative change throughout the hand and wrist with evidence for severe degenerative change of the second finger at the proximal interphalangeal joint. 2. Probable nondisplaced cortical hairline fractures proximal interphalangeal joint right second finger. The above report was generated using voice recognition software. It may contain grammatical, syntax or spelling errors. Electronically signed by: Juarez Moeller M.D. 04/07/2019 1:36 PM XR femur LT 2V routine CLINICAL HISTORY: 89 years-old Male presenting with l hip pain. TECHNIQUE: Frontal and lateral views of the left femur were obtained. COMPARISON: Correlation made to plain radiographs of the left femur from 02/04/2018. FINDINGS: The left hip joint is not included within the femur series. Please see sepa rately dictated pelvic and left hip radiographs. Postsurgical changes of unicompartmental knee arthroplasty. A prominent 1.7 cm loose body is suggested in the knee joint. Severe underlying osteopenia. Allowing for this, no displaced fracture. No malalignment allowing for suboptimal positioning. Atherosclerosis. IMPRESSION: 1. A loose body may be present in the left knee. Dedicated knee radiographs recommended. 2. Allowing for osteopenia, no gross evidence of acute osseous injury. Electronically signed by: Juan Ordonez M.D. 04/07/2019 1:30 PM SINGLE VIEW PELVIS; 2 VIEWS LEFT HIP CLINICAL HISTORY: Fall with left hip pain. FINDINGS: An AP supine view of the pelvis with AP and crosstable lateral views of the left hip are compared to study dated 02/04/2018. The skeletal structures are osteopenic. There is a minimally displaced subcapital fracture of the left femur. No additional fracture is identified involving the hips or bony pelvis. A right hip arthroplasty is in near anatomic alignment. A buttress plate is present along the lateral cortex of the right proximal femur. Soft tissue edema is noted in the left upper thigh. There is moderate degenerative joint space narrowing present in the left hip. Enthesophytes arise from the anterior superior iliac spines. Lumbosacral spondylosis is partially imaged. There are numerous pelvic phleboliths. Advanced atherosclerotic calcification is seen in the femoral arteries. An IVC filter is in place. There is no evidence of bowel obstruction. IMPRESSION: 1. There is an impacted and mildly displaced subcapital fracture of the left femur. 2. No additional fracture is identified involving the hips or bony pelvis. Electronically signed by: Ronn Pretty M.D. 04/07/2019 1:33 PM ECG Data Attestation: I personally reviewed and interpreted this ECG as follows: Indication: other (hip fracture) Rate (beats per minute): 74 Rhythm: sinus rhythm Findings: + other (poor baseline ), + 1st degree AV block, + PVC and + left axis deviation Blood Pressure Blood Pressure Findings: Elevated blood pressure Blood Pressure Disposition: further management by hospitalist AMBER Narrative Patient is a 89-year-old male presents the ER following a mechanical fall for left hip pain. Patient had several lacerations which were repaired by my PA. Please see her separate note for length and locations. IV was established and blood work was obtained and she has no significant leukocytosis or anemia. INR was supratherapeutic at 3.5. BMP with mild hyponatremia. Glucose was elevated 270. LFTs bilirubin was unremarkable. UA was unremarkable as well. CT of the head and cervical spine was without acute pathology. X-ray of the left hip shows fracture. Pelvis was unremarkable. X-ray of the right hand shows a questionable fracture of the right second digit. Patient declined pain medications while in the ER. He was updated bedside. Discussed the hospitalist and orthopedics. Orthopedics evaluated him at bedside. INR will be reversed for the OR. Discussed with patient and family admission. Impression & Plan Fall, Laceration, Closed hip fracture, Elevated INR, Finger fracture, right Discharge Plan Visit Data Chief Complaint: Fall ED Provider: Patricio Edmonds Discharge Problem: Fall, Laceration, Closed hip fracture, Elevated INR, Finger fracture, right Patient Disposition: Being Evaluated by Hospitalist Forms Stand Alone Forms: My [facility] Prescriptions Prescriptions: No Action aspirin [Adult Low Dose Aspirin] 81 mg tablet,delayed release (DR/EC) 81 mg PO DAILY RF: 0 atorvastatin 40 mg tablet 40 mg PO DAILY RF: 0 cholecalciferol (vitamin D3) 1,000 unit capsule 1,000 units PO DAILY RF: 0 coenzyme Q10 10 mg capsule 10 mg PO DAILY RF: 0 cyanocobalamin (vitamin B-12) 500 mcg lozenge 500 mcg PO DAILY RF: 0 levothyroxine 112 mcg capsule 112 mcg PO DAILY RF: 0 lisinopril 5 mg tablet 5 mg PO DAILY RF: 0 metoprolol succinate 25 mg capsule,sprinkle,ER 24hr 12.5 mg PO DAILY RF: 0 multivitamin tablet 1 tab PO DAILY RF: 0 warfarin 4 mg tablet See Patient Comments PO UD RF: 0 OneTouch Ultra Blue Test Strip strip .ROUTE .MEDSUPPLY Qty: 400 RF: 5 ascorbic acid (vitamin C) [Vitamin C] 500 mg Tablet 500 mg PO DAILY RF: 0 insulin aspart U-100 100 unit/mL Cartridge See Rx Instructions .ROUTE .COMPLEX Qty: 0 RF: 0 Referrals Referrals: Juan Mendez MD [Primary Care Provider] - The scribe's documentation has been prepared under my direction and personally reviewed by me in its entirety. I confirm that the note above accurately reflects all work, treatment, procedures, and medical decision making performed by me.
[2019-04-07] MEDS ORDERED: MAGNESIUM HYDROXIDE SUSP 30 ML UDC PO PRN (16:09)
[2019-04-07] MEDS ORDERED: PHYTONADIONE 5 MG TAB PO STA (16:09)
[2019-04-07] MEDS ORDERED: MoRPHine SULFATE 2 MG/ML CARP IV PRN (16:09)
[2019-04-07] MEDS ORDERED: GLUCAGON FOR INJ 1 MG VIAL SQ PRN (16:09)
[2019-04-07] MEDS ORDERED: CARBOHYDRATES FOR HYPOGLYCEMIA PO PRN (16:09)
[2019-04-07] MEDS ORDERED: DEXTROSE 50% 50 ML SYRINGE IV PRN (16:09)
[2019-04-07] MEDS ORDERED: GLUCOSE 40% GEL 15 GM TUBE PO PRN (16:09)
[2019-04-07] MEDS ORDERED: GLUCOSE 10 TABS/TUBE PO PRN (16:09)
[2019-04-07] MEDS ORDERED: ONDANSETRON INJ 2 MG/ML 2 ML VIAL IV PRN (16:09)
[2019-04-07] MEDS ORDERED: ORTHO JOINT ANESTHETIC ONE (16:39)
[2019-04-07] MEDS ORDERED: BACITRACIN INJ 50,000 UNIT VIAL ONE (16:39)
[2019-04-07] MEDS ORDERED: THROMBIN FOR SOLN 20000 UNIT KIT ONE (16:39)
[2019-04-07] MEDS ORDERED: SODIUM CHLORIDE 0.9% 250 ML IV PRN (16:51)
[2019-04-07] MEDS ORDERED: PHYTONADIONE 5 MG TAB PO ONE (18:15)
[2019-04-07] MEDS: INSULIN ASPART 100 UNITS/ML 3 ML PEN SC SCH ×2 (18:48→21:28)
[2019-04-07 21:00] LABS: INR 3.4 (0.9-1.1); Prothrombin Time 31.8 Seconds (9.0-12.0)
[2019-04-07] MEDS ORDERED: Nursing to Pharmacy Communication ONE (23:28)
[2019-04-08] MEDS: INSULIN ASPART 100 UNITS/ML 3 ML PEN SC SCH ×6 (00:45→23:53)
[2019-04-08] MEDS: LEVOTHYROXINE SODIUM 112 MCG TABLET PO SCH (06:25)
[2019-04-08 07:48] LABS: Basophils # (auto) 0.01 K/uL (0-0.2); Basophils % (auto) 0.1 %; Eosinophils # (auto) 0.31 K/uL (0-0.5); Eosinophils % (auto) 2.5 %; Hematocrit (blood only) 36.2 % (42-52); Hemoglobin 12.4 g/dL (14.0-18.0); Immature Granulocytes # (auto) 0.03 K/uL (0.00-0.02); Immature Granulocytes % (auto) 0.2 %; Lymphocytes # (auto) 1.04 K/uL (1.2-3.4); Lymphocytes % (auto) 8.5 %; Mean Corpuscular Hgb Conc 34.3 g/dL (32-36); Mean Corpuscular Volume 88.7 fL (80-100); Mean Platelet Volume 11.1 fL (7.4-10.4); Monocytes % (auto) 5.7 %; Neutrophils # (auto) 10.09 K/uL (1.4-6.5); Platelet Count 149 K/uL (130-400); RDW Coefficient of Variation 14.5 % (11.5-14.5); RDW Standard Deviation 47.5 fL (36.4-46.3); Red Blood Count 4.08 M/uL (4.7-6.1); White Blood Count 12.18 K/uL (4.8-10.8)
[2019-04-08 07:55] LABS: INR 2.5 (0.9-1.1); Prothrombin Time 23.9 Seconds (9.0-12.0)
[2019-04-08 08:13] LABS: Estimated Average Glucose 174 mg/dl; Hemoglobin A1C 7.7 % (4.5-5.6)
[2019-04-08 08:14] LABS: BUN Creatinine Ratio 20.2 (10-20); Creatinine Clr Calc Pharmacy 55.7 ml/min; Est GFR (African American) 67.9; Est GFR (Non-African American) 58.6; Potassium 4.3 mmol/L (3.5-5.1)
[2019-04-08] MEDS ORDERED: PHYTONADIONE 5 MG TAB PO STA (08:42)
[2019-04-08] MEDS ORDERED: PHYTONADIONE 5 MG in SODIUM CHLORIDE 0.9% 50 ML IV ONE (08:46)
--- NOTE | 2019-04-08 08:51 | Orthopedic Progress Note ---
Date of Service April 08, 2019 Assessment & Plan (1) Closed hip fracture: We will keep him npo. His INR is still 2.5 today. I spoke with the hospitalist service and they have ordered some IV vitamin K. We will recheck his INR at 1pm today. The plan is for cemented left hip hemiarthroplasty with Dr. Slaughter. Procedure explained including risks, benefits and alternatives to surgery. He wishes to proceed with surgery. Subjective Mr. Paz is npo at this point. No new complaints today. States that he had no left hip pain prior to his fall. Used a cane with ambulation. Physical Exam Physical Exam: alert and oriented. NAD. Left leg is externally rotated. NVI Results & Data Vital Signs (Past 12 Hours) Vital Signs Temp Pulse Pulse Resp BP Pulse Ox 04/08/19 07:30 36.4 C L 81 17 132/62 93 04/08/19 00:57 37.3 C 04/07/19 23:33 38.4 C H 87 16 112/72 95 (1) Closed hip fracture Encounter type: initial encounter Laterality: left Qualified Code(s): S72.002A - Fracture of unspecified part of neck of left femur, initial encounter for closed fracture
[2019-04-08] MEDS: METOPROLOL TARTRATE 25 MG TAB PO SCH (09:11)
[2019-04-08] MEDS: CYANOCOBALAMIN 500 MCG TABLET (VITAMIN B-12) PO SCH (09:12)
[2019-04-08] MEDS: ATORVASTATIN 40 MG TAB PO SCH (09:12)
[2019-04-08] MEDS: LISINOPRIL 5 MG TAB PO SCH (09:12)
[2019-04-08] MEDS ORDERED: PHARMACY GLYCEMIC MGMT CONSULT PRN (11:21)
[2019-04-08] MEDS ORDERED: INSULIN GLARGINE SOLOSTAR 100 UNITS/ML 3 ML PEN SC ONE ×2 (11:30→12:00)
[2019-04-08 13:25] LABS: INR 1.7 (0.9-1.1); Prothrombin Time 16.4 Seconds (9.0-12.0)
--- NOTE | 2019-04-08 16:11 | Pharmacy Report ---
Pharmacy Glycemic Short Note 2 - Date of Service April 08, 2019 - Glycemic Short BSG Results (Last 24 hours): 04/07/19 04/07/19 04/07/19 17:20 17:22 20:53 Glucose POC Glucose 361 H* 365 H* 296 H 04/08/19 04/08/19 04/08/19 00:07 06:05 07:08 Glucose 284 H POC Glucose 163 H 285 H 04/08/19 04/08/19 04/08/19 11:52 11:54 11:55 Glucose POC Glucose 310 H* 286 H 287 H OUTPATIENT ANTIDIABETIC REGIMEN: * Insulin pump: * carb ratio 1:15, Sensitivity factor 50 * Basal rates: 4539-6245: 0.525; 9243-3422: 0.925; 8106-7439: 0.525 * A1c 7.7% ASSESSMENT: * Mr. Paz is a type 1 diabetic admitted following a hip fracture with possible OR intervention after INR is reversed * Mr. Paz is controlled on an insulin pump that was taken off yesterday, BSGs have been elevated in high 200s and low-mid 300s with sliding scale only provided * Anticipate patient is basal deficient as he has been without his pump providing basline basal, provided patient with lantus dose but was slightly conservative given patient's NPO status, will likely need increased * Slightly loosened correction factor/carb ratio for now and can adjust as needed once patient has lantus on board * Could consider insulin drip if patient's BSGs continue to be hyperglycemic in post-surgical setting PLAN FOR INPATIENT GLYCEMIC CONTROL: * Hold outpatient oral diabetes medications * Basal insulin * Lantus 10 units x 1 * Bolus insulin * NovoLog per scale ACHS or Q6hrs while NPO * Goal Range: Low 110 mg/dL - High 140 mg/dL * Correction Factor: 20 mg/dL/unit * Nutritional / Prandial insulin per carb ratio of 1 unit per 12 grams CHO consumed PLAN FOR DISCHARGE: * A1c 7.7% acceptable given patient's age, patient can likely continue home insulin regimen. Patient is going to be transitioning from animas to medtronic insulin pump and should have close outpatient provider
[2019-04-08 16:15] LABS: INR 1.4 (0.9-1.1); Prothrombin Time 14.3 Seconds (9.0-12.0)
[2019-04-08] MEDS ORDERED: fentaNYL citrate 100 MCG/2 ML VIAL IV PRN (16:31)
[2019-04-08] MEDS ORDERED: ATROPINE SULFATE 0.1 MG/ML 10ML SYR IV PRN (16:31)
[2019-04-08] MEDS ORDERED: ONDANSETRON INJ 2 MG/ML 2 ML VIAL IV PRN ×2 (16:31→21:21)
[2019-04-08] MEDS ORDERED: ePHEDrine sulfate 50 MG/ML AMP IV PRN (16:31)
--- NOTE | 2019-04-08 16:31 | Anesthesiology Consultation ---
Date of Service April 08, 2019 Hx NSTEMI IVC Filter Hx PE HTN AVR IDDM Hypothyroidism Assessment & Plan (1) Encounter for pre-operative examination: Chart Review Chart Review: Acceptable Risk for Surgery and Patient NOT seen in Pre Admission Testing Consults Requested none ASA ASA3 Proposed Anesthesia Anesthesia Type: MAC Spinal Risk / Benefits Reviewed With: PT / POA / Parent / Guardian, Accepts Plan and Informed Consent Obtained History Surgery Operation Date: 04/08/19 08:50 Proposed Procedures p Left Total Hip Hemiarthroplasty - Gonzalez Slaughter MD Height/Weight Height: 6 ft Weight: 102 kg Allergies Allergy/AdvReac Type Severity Reaction Status Date / Time No Known Allergies Allergy Verified 04/07/19 13:38 Medications Home Medications Medication Instructions Recorded Confirmed Last Taken aspirin 81 mg tablet,delayed 81 mg PO DAILY 06/15/18 04/07/19 04/07/19 release atorvastatin 40 mg tablet 40 mg PO DAILY 06/15/18 04/07/19 04/07/19 cholecalciferol (vitamin D3) 1,000 1,000 units PO DAILY 06/15/18 04/07/19 04/07/19 unit capsule coenzyme Q 10 10 mg capsule 10 mg PO DAILY cap 06/15/18 04/07/19 04/07/19 cyanocobalamin (vit B-12) 500 mcg 500 mcg PO DAILY 06/15/18 04/07/19 04/07/19 lozenges levothyroxine 112 mcg capsule 112 mcg PO DAILY 06/15/18 04/07/19 04/07/19 lisinopril 5 mg tablet 5 mg PO DAILY 06/15/18 04/07/19 04/07/19 metoprolol succinate ER 25 mg 12.5 mg PO DAILY ea 06/15/18 04/07/19 04/07/19 capsule sprinkle, ext. release 24 hr multivitamin tablet 1 tab PO DAILY 06/15/18 04/07/19 04/07/19 warfarin 4 mg tablet See Rx Instructions PO UD tab 06/15/18 04/07/19 04/07/19 ascorbic acid (vitamin C) [Vitamin 500 mg PO DAILY 07/13/18 04/07/19 04/07/19 C] insulin aspart U-100 See Rx Instructions .ROUTE 07/13/18 04/07/19 04/07/19 .COMPLEX #0 blood sugar diagnostic strips #400 ea 02/24/19 04/07/19 04/07/19 Active Medications Generic Name Dose Route Start Last Admin Trade Name Freq PRN Reason Stop Dose Admin Atorvastatin Calcium 40 mg 04/08/19 09:00 04/08/19 09:12 Lipitor PO 05/08/19 08:59 40 mg DAILY KARINA Administration Cyanocobalamin 500 mcg 04/08/19 09:00 04/08/19 09:12 Vitamin B-12 PO 05/08/19 08:59 500 mcg DAILY KARINA Administration Insulin Aspart 0 units 04/08/19 16:00 04/08/19 16:02 Novolog Flexpen SC 05/08/19 00:14 5 units Q4 KARINA Administration Levothyroxine Sodium 112 mcg 04/08/19 06:30 04/08/19 06:25 Synthroid PO 05/08/19 06:29 112 mcg DAILYBB KARINA Administration Lisinopril 5 mg 04/08/19 09:00 04/08/19 09:12 Zestril PO 05/08/19 08:59 5 mg DAILY KARINA Administration Metoprolol Tartrate 12.5 mg 04/08/19 09:00 04/08/19 09:11 Lopressor PO 05/08/19 08:59 12.5 mg DAILY KARINA Administration Morphine Sulfate 0.5 mg 04/07/19 16:09 04/07/19 17:56 Morphine Sulfate IV 04/21/19 16:08 0.5 mg Q4H PRN Administration Pain Ondansetron HCl 4 mg 04/07/19 16:09 04/07/19 18:08 Zofran IV 05/07/19 16:08 4 mg Q6H PRN Administration Nausea NPO Date Last Intake of Fluids: 04/08/19 Time Last Intake of Fluids: 09:00 Last Intake of Fluids Comment: sip with am medications. Date Last Intake of Solids: 04/08/19 Time Last Intake of Solids: 00:00 Past Medical History Medical History DKA (diabetic ketoacidoses) March 2018. Diabetes mellitus type 1 History of non-ST elevation myocardial infarction (NSTEMI) March 2018. Per cardiology note as patient was admitted at the time: "Non-ST elevation myocardial infarction. This has occurred in the setting of his diabetic ketoacidosis. The patient denies any anginal-type symptoms. His electrocardiogram initially did reveal ST depressions anteriorly. These have since resolved. The patient has had prior hospitalizations for DKA with elevations in his troponin I. He had an episode in 08/2016. In the interim, he has done well without any anginal-type symptoms. Suspect that the current troponin elevation was secondary to demand ischemia and not a primary coronary event." History of pulmonary embolism 2005 - post op - w/ ivc filter Hypertension Hypothyroidism Neuropathy On anticoagulant therapy Presence of IVC filter Transient ischemic attack (TIA) pulled from past problem list - pt could not confirm - unsure of dx Exercise / Class Metabolic Activity II 4-5 Yardwork/Stairs/Walk up hill Past Family History Family History Brother History of heart valve replacement Unknown Depression Sister Hepatic failure Renal failure Past Surgical History Surgical History H/O aortic valve replacement >10 years [place] [facility] [place] w/ dr. westbrook H/O removal of cyst History of colonoscopy History of herniorrhaphy rt inguinal History of inferior vena caval filter placement History of surgery rt femur reconstruction History of total hip arthroplasty rt History of total knee replacement lt Hx of right cataract extraction Past Anesthesia History No Hx of Anesthesia Complications and No Family Hx of Anesthesia Complications History of PONV No Hx of PONV and No Hx of Motion Sickness Social History Smoking Status: Never smoker Hx Alcohol Use: Yes Alcohol type: beer alcohol intake frequency: 0-2 drinks per day Alcohol Intake Frequency Comment: 1 can per day Hx Substance Use: No Physical Exam Vital Signs Last Vital Signs Temp 36.9 C 04/08/19 15:27 Pulse 76 04/08/19 15:27 Resp 16 04/08/19 15:27 BP 126/80 04/08/19 15:27 Pulse Ox 92 04/08/19 15:27 ENMT Mouth: + edentulous Thyromental Distance: > or= 3.5 Finger Breadths Mallampati Class: II Neck normal visual inspection and + limited neck extension Respiratory normal respiratory effort Auscultation: lungs clear to auscultation bilaterally Cardiovascular Rate/Rhythm: regular rate and regular rhythm Neurologic moves all extremities Psychiatric Orientation: alert Testing Laboratory Results 04/08/19 07:08 04/08/19 07:08 PT 14.3 Seconds (9.0-12.0) H 04/08/19 15:59 INR 1.4 (0.9-1.1) H 04/08/19 15:59 Hemoglobin A1c 7.7 % (4.5-5.6) H 04/08/19 07:08 Urine Color Yellow 04/07/19 Unknown Urine Appearance Clear (Clear) 04/07/19 Unknown Urine pH 8.0 (4.5-7.5) H 04/07/19 Unknown Ur Specific [place] 1.013 (1.000-1.030) 04/07/19 Unknown Urine Protein Negative (Negative) 04/07/19 Unknown Urine Glucose (UA) 1+ (Negative) H 04/07/19 Unknown Urine Ketones Negative (Negative) 04/07/19 Unknown Urine Nitrite Negative (Negative) 04/07/19 Unknown Ur Leukocyte Esterase Negative (Negative) 04/07/19 Unknown Blood Type A Positive 04/07/19 20:41 Antibody Screen NEGATIVE 04/07/19 20:41 04/08/19 04/08/19 04/08/19 16:00 11:55 11:54 POC Glucose 221 H 287 H 286 H 04/08/19 04/08/19 11:52 06:05 POC Glucose 310 H* 285 H
--- NOTE | 2019-04-08 16:41 | Hospitalist Progress Note ---
Date of Service April 08, 2019 Assessment & Plan (1) Hip fracture, left: - Following mechanical fall at home. - Ortho consulted, plan for surgical repair today following reversal of INR. - Pain control per orthopedics team. - Will need PT/OT evaluation prior to discharge. - DVT ppx per ortho -- will need to resume Coumadin. - Will monitor CBC qAM to evaluate for acute blood loss. (2) Encounter for pre-operative examination: - EKG showed first degree AV block -- no previous EKG for comparison. - Low risk for surgery, can proceed. (3) Fall in home: - PT/OT evaluation following repair. - Family requested [facility] if rehab is necessary. (4) CAD (coronary artery disease): - H/o STEMI in March 2018; continue home statin, beta jerald; holding Lisinopril and Aspirin. - Follows with Dr. Bill. - No evidence of acute symptoms. (5) IDDM (insulin dependent diabetes mellitus): - Has insulin pump at home -- will hold for now. - Pharmacy consulted for glycemic management. - Hgb A1C was 7.7. (6) HTN (hypertension): - Continue home Metoprolol. - Will hold Lisinopril during operative setting. (7) TIA (transient ischemic attack): - Unclear history; will hold home aspirin for surgery. (8) Aortic valve replaced: - [place] bovine [place] [facility] [place] Follow[place] Dr. Viera. - INR was 3.5 on admission, now reversed with multiple doses of Vit K. Holding med for procedure. - Monitor PT/INR daily. (Of note, last [facility] note states that pt's goal is 2-3 (not 2.5-3.5 as would typically be goal range in mechanical AVR) and plans were to switch to 7.5mg QD once current script is used) (9) Hypothyroid: - Continue home Levothyroxine. - Most recent TSH was 1.8 in Oct 2018. (10) Hyperlipidemia: - Continue home statin. (11) History of pulmonary embolism: - Following previous surgery; has IVC filter in place. - Also on Coumadin as noted above. (12) DVT prophylaxis: - SCDs; restart Coumadin per ortho. Dispo: Discharge pending PT/OT evaluation. Supervising Physician Co-Signing Physician Notes Attending Attestation - Chart reviewed in detail, care plan d/w PREET Harrison. I agree w/ the kumar components of her documentation. Patient is now s/p ORIF of left hip fracture. Post-op VTE risk is high as patient has had VTE following prior surgical procedures. Fortunately he has IVC filter in place. Other medical issues stable at this time. Appreciate ortho assistance. Valentin Banegas MD Subjective Patient admitted yesterday for a left hip fracture. Ortho awaiting OR pending reversal of his INR, which was 3.5 on admission and after receiving a total of 10mg Mephyton since admission. The patient states he continues to have hip pain, but that it is primarily when he is actively moving or being repositioned in bed. The patient states that he also has not had a bowel movement since admission. He states that this is a common occurrence at home, and he is usually successful at relieving the constipation with miralax. The patient denies chest pain, shortness of breath, or abdominal discomfort. Patient awaiting OR pending decreased INR. Review of Systems Review of Systems: All systems reviewed & are unremarkable except as noted in HPI & below Constitutional: no fever, no chills, no fatigue and no weakness Respiratory: no cough, no dyspnea and no dyspnea on exertion Cardiovascular: no chest pain, no palpitations and no edema Gastrointestinal: + constipation; no abdominal pain, no nausea and no vomiting Genitourinary: no difficulty urinating Musculoskeletal: + joint pain; no back pain Integumentary: no non-healing lesions Allergy / Immunological: no rash Physical Exam Physical Exam: General: Resting comfortably HEENT: NC/AT; PERRLA with EOMI; [place] conjunctiva, MMM. No erythema of posterior pharynx Neck: Supple and nontender Cardiac: RRR Lungs: CTA bilaterally; No rhonchi, wheezing, or rales Abdomen: Bowel normoactive X 4; Nontender to palpation Extremities: Warm. +2 bilat LE pitting edema. Neuro: No focal weakness Skin: No rash Results & Data Vital Signs (Past 12 Hours) Vital Signs Temp Pulse Pulse Resp BP BP Pulse Ox 04/08/19 16:11 37.1 C 84 20 128/70 90 04/08/19 15:27 36.9 C 76 16 126/80 92 04/08/19 12:00 36.3 C L 88 19 124/83 96 04/08/19 07:30 36.4 C L 81 17 132/62 93 Laboratory Results 04/08/19 04/08/19 04/08/19 Range/Units 16:00 15:59 12:57 WBC (4.8-10.8) K/uL RBC (4.7-6.1) M/uL Hgb (14.0-18.0) g/dL Hct (42-52) % MCV (80-100) fL MCH (25-34) pg MCHC (32-36) g/dL RDW Std Deviation (36.4-46.3) fL RDW Coeff of Roger (11.5-14.5) % Plt Count (130-400) K/uL MPV (7.4-10.4) fL Immature Gran % (Auto) % Neut % (Auto) % Lymph % (Auto) % Kimball % (Auto) % Eos % (Auto) % Baso % (Auto) % Immature Gran # (Auto) (0.00-0.02) K/uL Neut # (Auto) (1.4-6.5) K/uL Lymph # (Auto) (1.2-3.4) K/uL Kimball # (Auto) (0.11-0.59) K/uL Eos # (Auto) (0-0.5) K/uL Baso # (Auto) (0-0.2) K/uL PT 14.3 H 16.4 H (9.0-12.0) Seconds INR 1.4 H 1.7 H (0.9-1.1) Sodium (136-145) mmol/L Potassium (3.5-5.1) mmol/L Chloride (98-107) mmol/L Carbon Dioxide (21-32) mmol/L Anion Gap (3-11) BUN (7-18) mg/dl Creatinine (0.6-1.4) mg/dl Est Cr Clr Drug Dosing ml/min Est GFR ( Amer) Est GFR (Non-Af Amer) BUN/Creatinine Ratio (10-20) Glucose (70-99) mg/dl POC Glucose 221 H (70-99) Estimat Average Glucose mg/dl Hemoglobin A1c (4.5-5.6) % Calcium (8.5-10.1) mg/dl Blood Type Antibody Screen Crossmatch 04/08/19 04/08/19 04/08/19 Range/Units 11:55 11:54 11:52 WBC (4.8-10.8) K/uL RBC (4.7-6.1) M/uL Hgb (14.0-18.0) g/dL Hct (42-52) % MCV (80-100) fL MCH (25-34) pg MCHC (32-36) g/dL RDW Std Deviation (36.4-46.3) fL RDW Coeff of Roger (11.5-14.5) % Plt Count (130-400) K/uL MPV (7.4-10.4) fL Immature Gran % (Auto) % Neut % (Auto) % Lymph % (Auto) % Kimball % (Auto) % Eos % (Auto) % Baso % (Auto) % Immature Gran # (Auto) (0.00-0.02) K/uL Neut # (Auto) (1.4-6.5) K/uL Lymph # (Auto) (1.2-3.4) K/uL Kimball # (Auto) (0.11-0.59) K/uL Eos # (Auto) (0-0.5) K/uL Baso # (Auto) (0-0.2) K/uL PT (9.0-12.0) Seconds INR (0.9-1.1) Sodium (136-145) mmol/L Potassium (3.5-5.1) mmol/L Chloride (98-107) mmol/L Carbon Dioxide (21-32) mmol/L Anion Gap (3-11) BUN (7-18) mg/dl Creatinine (0.6-1.4) mg/dl Est Cr Clr Drug Dosing ml/min Est GFR ( Amer) Est GFR (Non-Af Amer) BUN/Creatinine Ratio (10-20) Glucose (70-99) mg/dl POC Glucose 287 H 286 H 310 H* (70-99) Estimat Average Glucose mg/dl Hemoglobin A1c (4.5-5.6) % Calcium (8.5-10.1) mg/dl Blood Type Antibody Screen Crossmatch 04/08/19 04/08/19 04/08/19 Range/Units 07:08 07:08 07:08 WBC (4.8-10.8) K/uL RBC (4.7-6.1) M/uL Hgb (14.0-18.0) g/dL Hct (42-52) % MCV (80-100) fL MCH (25-34) pg MCHC (32-36) g/dL RDW Std Deviation (36.4-46.3) fL RDW Coeff of Roger (11.5-14.5) % Plt Count (130-400) K/uL MPV (7.4-10.4) fL Immature Gran % (Auto) % Neut % (Auto) % Lymph % (Auto) % Kimball % (Auto) % Eos % (Auto) % Baso % (Auto) % Immature Gran # (Auto) (0.00-0.02) K/uL Neut # (Auto) (1.4-6.5) K/uL Lymph # (Auto) (1.2-3.4) K/uL Kimball # (Auto) (0.11-0.59) K/uL Eos # (Auto) (0-0.5) K/uL Baso # (Auto) (0-0.2) K/uL PT 23.9 H (9.0-12.0) Seconds INR 2.5 H (0.9-1.1) Sodium 133 L (136-145) mmol/L Potassium 4.3 (3.5-5.1) mmol/L Chloride 96 L (98-107) mmol/L Carbon Dioxide 27 (21-32) mmol/L Anion Gap 10.0 (3-11) BUN 22 H (7-18) mg/dl Creatinine 1.11 (0.6-1.4) mg/dl Est Cr Clr Drug Dosing 55.7 ml/min Est GFR ( Amer) 67.9 Est GFR (Non-Af Amer) 58.6 BUN/Creatinine Ratio 20.2 H (10-20) Glucose 284 H (70-99) mg/dl POC Glucose (70-99) Estimat Average Glucose 174 mg/dl Hemoglobin A1c 7.7 H (4.5-5.6) % Calcium 9.0 (8.5-10.1) mg/dl Blood Type Antibody Screen Crossmatch 04/08/19 04/08/19 04/08/19 Range/Units 07:08 06:05 00:07 WBC 12.18 H (4.8-10.8) K/uL RBC 4.08 L (4.7-6.1) M/uL Hgb 12.4 L (14.0-18.0) g/dL Hct 36.2 L (42-52) % MCV 88.7 (80-100) fL MCH 30.4 (25-34) pg MCHC 34.3 (32-36) g/dL RDW Std Deviation 47.5 H (36.4-46.3) fL RDW Coeff of Roger 14.5 (11.5-14.5) % Plt Count 149 (130-400) K/uL MPV 11.1 H (7.4-10.4) fL Immature Gran % (Auto) 0.2 % Neut % (Auto) 83.0 % Lymph % (Auto) 8.5 % Kimball % (Auto) 5.7 % Eos % (Auto) 2.5 % Baso % (Auto) 0.1 % Immature Gran # (Auto) 0.03 H (0.00-0.02) K/uL Neut # (Auto) 10.09 H (1.4-6.5) K/uL Lymph # (Auto) 1.04 L (1.2-3.4) K/uL Kimball # (Auto) 0.70 H (0.11-0.59) K/uL Eos # (Auto) 0.31 (0-0.5) K/uL Baso # (Auto) 0.01 (0-0.2) K/uL PT (9.0-12.0) Seconds INR (0.9-1.1) Sodium (136-145) mmol/L Potassium (3.5-5.1) mmol/L Chloride (98-107) mmol/L Carbon Dioxide (21-32) mmol/L Anion Gap (3-11) BUN (7-18) mg/dl Creatinine (0.6-1.4) mg/dl Est Cr Clr Drug Dosing ml/min Est GFR ( Amer) Est GFR (Non-Af Amer) BUN/Creatinine Ratio (10-20) Glucose (70-99) mg/dl POC Glucose 285 H 163 H (70-99) Estimat Average Glucose mg/dl Hemoglobin A1c (4.5-5.6) % Calcium (8.5-10.1) mg/dl Blood Type Antibody Screen Crossmatch 04/07/19 04/07/19 04/07/19 Range/Units 20:53 20:41 20:41 WBC (4.8-10.8) K/uL RBC (4.7-6.1) M/uL Hgb (14.0-18.0) g/dL Hct (42-52) % MCV (80-100) fL MCH (25-34) pg MCHC (32-36) g/dL RDW Std Deviation (36.4-46.3) fL RDW Coeff of Roger (11.5-14.5) % Plt Count (130-400) K/uL MPV (7.4-10.4) fL Immature Gran % (Auto) % Neut % (Auto) % Lymph % (Auto) % Kimball % (Auto) % Eos % (Auto) % Baso % (Auto) % Immature Gran # (Auto) (0.00-0.02) K/uL Neut # (Auto) (1.4-6.5) K/uL Lymph # (Auto) (1.2-3.4) K/uL Kimball # (Auto) (0.11-0.59) K/uL Eos # (Auto) (0-0.5) K/uL Baso # (Auto) (0-0.2) K/uL PT 31.8 H (9.0-12.0) Seconds INR 3.4 H (0.9-1.1) Sodium (136-145) mmol/L Potassium (3.5-5.1) mmol/L Chloride (98-107) mmol/L Carbon Dioxide (21-32) mmol/L Anion Gap (3-11) BUN (7-18) mg/dl Creatinine (0.6-1.4) mg/dl Est Cr Clr Drug Dosing ml/min Est GFR ( Amer) Est GFR (Non-Af Amer) BUN/Creatinine Ratio (10-20) Glucose (70-99) mg/dl POC Glucose 296 H (70-99) Estimat Average Glucose mg/dl Hemoglobin A1c (4.5-5.6) % Calcium (8.5-10.1) mg/dl Blood Type A Positive Antibody Screen NEGATIVE Crossmatch See Detail 04/07/19 04/07/19 Range/Units 17:22 17:20 WBC (4.8-10.8) K/uL RBC (4.7-6.1) M/uL Hgb (14.0-18.0) g/dL Hct (42-52) % MCV (80-100) fL MCH (25-34) pg MCHC (32-36) g/dL RDW Std Deviation (36.4-46.3) fL RDW Coeff of Roger (11.5-14.5) % Plt Count (130-400) K/uL MPV (7.4-10.4) fL Immature Gran % (Auto) % Neut % (Auto) % Lymph % (Auto) % Kimball % (Auto) % Eos % (Auto) % Baso % (Auto) % Immature Gran # (Auto) (0.00-0.02) K/uL Neut # (Auto) (1.4-6.5) K/uL Lymph # (Auto) (1.2-3.4) K/uL Kimball # (Auto) (0.11-0.59) K/uL Eos # (Auto) (0-0.5) K/uL Baso # (Auto) (0-0.2) K/uL PT (9.0-12.0) Seconds INR (0.9-1.1) Sodium (136-145) mmol/L Potassium (3.5-5.1) mmol/L Chloride (98-107) mmol/L Carbon Dioxide (21-32) mmol/L Anion Gap (3-11) BUN (7-18) mg/dl Creatinine (0.6-1.4) mg/dl Est Cr Clr Drug Dosing ml/min Est GFR ( Amer) Est GFR (Non-Af Amer) BUN/Creatinine Ratio (10-20) Glucose (70-99) mg/dl POC Glucose 365 H* 361 H* (70-99) Estimat Average Glucose mg/dl Hemoglobin A1c (4.5-5.6) % Calcium (8.5-10.1) mg/dl Blood Type Antibody Screen Crossmatch PG Care Time/CCT Total # of Minutes Spent Total Time Spent with Patient: Total time spent is greater than 50% in coordination of care (as documented) at patient's floor/unit and/or counseling patient:
[2019-04-08] MEDS ORDERED: MIDAZOLAM HCL 1 MG/ML 2ML VIAL ONE ×2 (17:05)
[2019-04-08] MEDS ORDERED: CEFAZOLIN 2,000 MG/15 ML IV PUSH IV ONE (17:35)
[2019-04-08] MEDS ORDERED: CEFAZOLIN 2000MG 2,000 MG/15 ML SYR IV ONE (17:38)
--- NOTE | 2019-04-08 17:56 | History & Physical Bridge Note ---
Date of Service April 08, 2019 History & Physical Bridge Note I have examined the patient, reviewed the History & Physical and in the interval since the performance of the History & Physical I have noted the following changes of clinical significance: no changes noted Supervising Physician Co-Signing Physician Notes I saw and examined the patient in the ER, and formulated the above treatment plan. Spoke with Dr. Johnson and Dr. Slaughter to coordinate this patient's care.
[2019-04-08] MEDS ORDERED: BUPIVACAINE/EPINEPHRINE 0.5% MPF 1:200,000 30 ML VIAL ONE (17:59)
[2019-04-08] MEDS ORDERED: THROMBIN FOR SOLN 20000 UNIT KIT ONE (17:59)
[2019-04-08] MEDS ORDERED: KETAMINE HCL INJ 50 MG/ML 10 ML VIAL ONE (18:11)
[2019-04-08] MEDS ORDERED: PROPOFOL IV EMULSION 10 MG/ML 20 ML VIAL IV ONE (18:41)
[2019-04-08] MEDS ORDERED: BACITRACIN INJ 50,000 UNIT VIAL IR ONE (19:45)
[2019-04-08] MEDS ORDERED: PHENYLEPHRINE 100MCG/ML 5ML SYR ONE (20:10)
--- NOTE | 2019-04-08 20:18 | Post Operative Brief Note ---
Immediate Post Op Note v1 Date of Surgery April 08, 2019 Pre & Post Diagnosis Operation Date: 04/08/19 08:50 Pre-Op Diagnosis: LEFT HIP FRACTURE Post-Op Diagnosis: LEFT HIP FRACTURE Procedure Operation Date: 04/08/19 08:50 Actual Procedures p Left Hip Hemiarthroplasty(Left) - Gonzalez Slaughter MD Surgeon Gonzalez Slaughter MD Patient Service Technician Pst [place], PAC Estimated Blood Loss 200 Findings Consistent with Post-Op Diagnosis Fluids 1000 cc Specimens Left Femoral Head Anesthesia Type Spinal Complications none Disposition Accompanied Patient To Recovery: Yes Disposition: Recovery Room
--- NOTE | 2019-04-08 21:15 | XRay Report ---
XR hip LT min 2V CLINICAL HISTORY: Post-Operative implant position COMPARISON: None. DISCUSSION: Anatomic alignment posttotal left hip arthroplasty. Good contact between prosthetically Bone. Expected soft tissue postoperative change. IMPRESSION: Anatomic alignment posttotal left hip arthroplasty. The above report was generated using voice recognition software. It may contain grammatical, syntax or spelling errors. Electronically signed by: Juarez Moeller M.D. 04/08/2019 9:14 PM
[2019-04-08] MEDS ORDERED: NALOXONE HCL 0.4 MG/1 ML VIAL/CARP IV PRN (21:21)
[2019-04-08] MEDS ORDERED: BISACODYL 10 MG SUPP PR PRN (21:21)
[2019-04-08] MEDS ORDERED: HYDROmorphone INJ 0.5 MG/0.5 ML SYR IV PRN (21:21)
[2019-04-08] MEDS ORDERED: OXYCODONE HCL IR 5 MG TAB (IMMEDIATE RELEASE) PO PRN (21:21)
[2019-04-08] MEDS ORDERED: MAGNESIUM HYDROXIDE SUSP 30 ML UDC PO PRN (21:21)
[2019-04-08] MEDS ORDERED: BLOOD SUGAR DIAGNOSTIC SCH (21:21)
--- NOTE | 2019-04-08 22:04 | Anesthesiology Progress Note ---
Date of Service April 08, 2019 Anesthesia Post Procedure Vital Signs Vital Signs: Temp Pulse Pulse Pulse Resp BP BP 04/08/19 21:57 36.6 C 77 18 136/62 04/08/19 21:26 36.5 C 68 17 115/67 04/08/19 21:10 65 18 109/51 L 04/08/19 21:00 36.8 C 75 18 108/63 04/08/19 20:50 83 19 100/56 L 04/08/19 20:40 60 16 89/55 L 04/08/19 20:30 85 19 109/56 L 04/08/19 20:21 36.6 C 78 16 107/57 L 04/08/19 16:11 37.1 C 84 20 128/70 04/08/19 15:27 36.9 C 76 16 126/80 04/08/19 12:00 36.3 C L 88 19 124/83 04/08/19 07:30 36.4 C L 81 17 132/62 04/08/19 00:57 37.3 C 04/07/19 23:33 38.4 C H 87 16 112/72 Pulse Ox 04/08/19 21:57 95 04/08/19 21:26 95 04/08/19 21:10 96 04/08/19 21:00 97 04/08/19 20:50 95 04/08/19 20:40 94 04/08/19 20:30 96 04/08/19 20:21 96 04/08/19 16:11 90 04/08/19 15:27 92 04/08/19 12:00 96 04/08/19 07:30 93 04/08/19 00:57 04/07/19 23:33 95 Pain Intensity Abdomen: Pain Intensity: 3 Transfer of Care Handoff Completed per policy Notes Mental Status: alert / awake / arousable Patient Amnestic to Procedure: Yes Nausea / Vomiting: adequately controlled Pain: adequately controlled Airway Patency, RR, SpO2: stable & adequate BP & HR: stable & adequate Hydration State: stable & adequate Neuraxial Anesthesia: was administered and sensory block is resolving Anesthetic Complications: no major complications apparent
[2019-04-08] MEDS ORDERED: WARFARIN SOD 5 MG TAB PO ONE (23:00)
[2019-04-08] MEDS: SENNA 8.6 MG TAB PO SCH (23:46)
--- NOTE | 2019-04-09 01:20 | Operative Report ---
DATE OF OPERATION: 04/08/2019 SURGEON: Gonzalez Slaughter MD ENOLOGIST: PREET Rodriguez PREOPERATIVE DIAGNOSIS: Left comminuted displaced femoral neck fracture. POSTOPERATIVE DIAGNOSIS: Left comminuted displaced femoral neck fracture. PROCEDURE PERFORMED: Left cemented bipolar hip arthroplasty. COMPLICATIONS: None. ESTIMATED BLOOD LOSS: 200 mL. FLUID REPLACEMENT: 1000 mL crystalloid fluid replacement. ANESTHESIA: Spinal anesthesia. SPECIMENS: Left femoral head sent for pathology. OPERATIVE INDICATIONS: The patient is an elderly male who is well known to me from previous fractures in the past. He sustained a mechanical fall yesterday and was brought to the Emergency Room where x-rays revealed a displaced comminuted femoral neck fracture. The patient has been on chronic Coumadin. He was admitted by the hospitalist service and medically optimized. His INR was reversed with vitamin K. The patient was indicated for hemiarthroplasty. OPERATIVE FINDINGS: Operative findings revealed a comminuted displaced femoral neck fracture. There was a lot of hemorrhage posteriorly likley due to anticoagulation preoperatively. Minimal arthritic change. OPERATIVE IMPLANTS: Operative implants consisted of: 1. Carri LDFX size 14 hip fracture cemented stem. 2. A size 12 centralizer. 3. A +7/28 mm metal articular ball. 4. A 54 bipolar shell and liner. OPERATIVE PROCEDURE: The patient was taken to the operating room, identified and placed on the operating table in supine position. All contact areas were appropriately padded. I.V. antibiotics were provided by anesthesia team. A spinal anesthetic was implemented. The patient was then placed on the operating room table in the right lateral decubitus position. An axillary roll was placed. Stuhlberg hip positioner was used for positioning. Left hip and leg were then prepped and draped in the usual sterile fashion. A posterolateral approach to the left hip was then performed through a curvilinear incision centered over the greater trochanter. Sharp dissection was carried through the subcutaneous tissue down to the level of the IT band and gluteal fascia. The IT band and gluteal fascia were incised longitudinally in line with the incision. The greater trochanteric bursa was excised. There was a lot of hemorrhage posteriorly and I worked my way through this and taken to the quadratus and the external rotators were very carefully off the posterior aspect of the hip joint capsule. Great care was taken throughout the procedure to protect the sciatic nerve at all times. Posterior capsulotomy was then performed bilaterally and could be repaired at the end of the case. The hip was then internally rotated. Femoral neck osteotomy cut was made at the base of the fracture site. We removed all the comminuted fracture segments and removed the femoral head. I sized the acetabulum to a size 54. Attention was then drawn to the femur. The proximal femur was entered with cookie cutter followed by canal finder and lateralizing reamer. I then broached beginning with a size 8 and progressing up to 14. Calcar reamer was used to smoothen off the calcar. I then trialed the hip and +7 articular ball seemed to provide the most stability and soft tissue tension and appropriate length. The implant has little offset so soft tissue laxity was moderate. I elected to place these implants. All trial implants were removed. A large cement restrictor was placed. A double batch of Palacos G cement was mixed. I injected the canal with cement and then a size 14 stem with a 12 centralizer was placed. I tried to maximize the anteversion. All extraneous cement was removed. Once the cement hardened, I trialed again and I felt +7 articular ball provided appropriate stability and appropriate leg lengths. The soft tissue laxity was still present, but I felt that was related to the lack of offset. The hip appeared stable. A +7/28 mm articular ball was placed followed by 54 bipolar shell and liner. Hip was located. Attention was then drawn toward closing. The posterior capsule was then closed with #2 Ti-Cron suture in [id number] fashion. The external rotators were then repaired to the posterior aspect of the hip joint through the hip abductors posteriorly. The IT band and gluteal fascia were then closed with #1 PDS suture in running fashion. The subcutaneous tissue was then closed in 2 layers, the deep layer #1 Vicryl suture and subcutaneous tissue with 2-0 Dexon suture in a buried interrupted fashion. Skin was closed with skin bryant. Leg was then cleaned, dried and a sterile dressing of Xeroform, 4 x 4, sterile ABD pad and foam tape was applied. The patient was then transferred to the recovery room in a stable condition. The patient tolerated the procedure well with no complications. All needle and sponge counts were correct at the end of the operation. I attest to the content of the Intraoperative Record and any orders documented therein. Any exceptions are noted below. KIRSTEN
[2019-04-09] MEDS: CEFAZOLIN 2000MG 2,000 MG/15 ML SYR IV SCH ×2 (01:43→09:15)
[2019-04-09] MEDS: INSULIN ASPART 100 UNITS/ML 3 ML PEN SC SCH ×5 (04:55→22:12)
[2019-04-09] MEDS: LEVOTHYROXINE SODIUM 112 MCG TABLET PO SCH (04:56)
[2019-04-09 06:59] LABS: Basophils # (auto) 0.01 K/uL (0-0.2); Basophils % (auto) 0.1 %; Eosinophils # (auto) 0.34 K/uL (0-0.5); Eosinophils % (auto) 3.4 %; Hematocrit (blood only) 33.3 % (42-52); Hemoglobin 11.3 g/dL (14.0-18.0); Immature Granulocytes # (auto) 0.02 K/uL (0.00-0.02); Immature Granulocytes % (auto) 0.2 %; Lymphocytes # (auto) 0.87 K/uL (1.2-3.4); Lymphocytes % (auto) 8.8 %; Mean Corpuscular Hgb Conc 33.9 g/dL (32-36); Mean Corpuscular Volume 89.5 fL (80-100); Mean Platelet Volume 10.9 fL (7.4-10.4); Monocytes # (auto) 0.73 K/uL (0.11-0.59); Monocytes % (auto) 7.3 %; Neutrophils # (auto) 7.97 K/uL (1.4-6.5); Neutrophils % (auto) 80.2 %; Platelet Count 132 K/uL (130-400); RDW Coefficient of Variation 14.5 % (11.5-14.5); RDW Standard Deviation 47.5 fL (36.4-46.3); Red Blood Count 3.72 M/uL (4.7-6.1); White Blood Count 9.94 K/uL (4.8-10.8)
[2019-04-09 07:11] LABS: INR 1.2 (0.9-1.1); Prothrombin Time 12.3 Seconds (9.0-12.0)
[2019-04-09 07:33] LABS: BUN Creatinine Ratio 24.3 (10-20); Calcium 8.3 mg/dl (8.5-10.1); Creatinine Clr Calc Pharmacy 67.3 ml/min; Est GFR (African American) 85.2; Est GFR (Non-African American) 73.5; Potassium 4.2 mmol/L (3.5-5.1)
[2019-04-09] MEDS: LISINOPRIL 5 MG TAB PO SCH (09:14)
[2019-04-09] MEDS: METOPROLOL TARTRATE 25 MG TAB PO SCH (09:14)
[2019-04-09] MEDS: ATORVASTATIN 40 MG TAB PO SCH (09:15)
[2019-04-09] MEDS: CYANOCOBALAMIN 500 MCG TABLET (VITAMIN B-12) PO SCH (09:15)
[2019-04-09] MEDS: INSULIN GLARGINE SOLOSTAR 100 UNITS/ML 3 ML PEN SC SCH (09:16)
--- NOTE | 2019-04-09 09:36 | Progress Note ---
DATE: 04/09/2019 SUBJECTIVE: An 89-year-old gentleman postop day 1 from a left cemented bipolar hip arthroplasty for fracture. He is doing pretty well. Not having that much pain. No chest pain or shortness of breath. Not feeling dizzy or lightheaded. OBJECTIVE: VITAL SIGNS: Temperature 37.0. Vital signs stable. GENERAL: Physical examination reveals a pleasant elderly male. He is lying in bed, looks pretty comfortable. He is awake, alert and oriented. EXTREMITIES: Examination of the left hip reveals leg lengths to be equal. Dressing is clean, dry and intact. Thigh is soft and supple. He can dorsiflex and plantarflex his foot appropriately. LABORATORY DATA: Hemoglobin is 11.3. Hematocrit 33.3. Electrolytes are stable. ASSESSMENT: An 89-year-old gentleman postop day 1 from a left cemented bipolar hip arthroplasty for fracture. He is doing pretty well. Pain seems to be controlled. Hip is located. He is neurologically intact. PLAN: 1. DVT prophylaxis including thigh-high TEDs, SCDs, and back on his Coumadin. He was given 15 mg last night and will likely take a couple days to get him back into his therapeutic INR. We need to be careful not to over shoot this. 2. PT/OT. He can weightbear as tolerated. Left total hip protocol. 3. Pain control, doing well with current pain regimen. 4. Medical management as per the medicine service. 5. Disposition: He is hoping to be discharged likely to a rehab facility once medically stable. The patient has got multiple medical comorbidities that may take several days to medically stabilize.
--- NOTE | 2019-04-09 13:24 | Pharmacy Report ---
Pharmacy Glycemic Short Note 2 - Date of Service April 09, 2019 - Glycemic Short BSG Results (Last 24 hours): 04/08/19 04/08/19 04/08/19 16:00 20:38 21:59 Glucose POC Glucose 221 H 188 H 208 H 04/08/19 04/09/19 04/09/19 23:51 04:39 06:25 Glucose 169 H POC Glucose 219 H 162 H 04/09/19 04/09/19 08:16 12:09 Glucose POC Glucose 165 H 236 H OUTPATIENT ANTIDIABETIC REGIMEN: * Insulin pump: * carb ratio 1:15, Sensitivity factor 50 * Basal rates: 4389-4686: 0.525; 8015-9315: 0.925; 6191-7361: 0.525 * A1c 7.7% ASSESSMENT: 04/09/19 * POD 1, blood sugars good this morning, slightly elevated at lunch, increase Lantus to basal dose patient uses on pump at home. 04/08/19 * Mr. Paz is a type 1 diabetic admitted following a hip fracture with possible OR intervention after INR is reversed * Mr. Paz is controlled on an insulin pump that was taken off yesterday, BSGs have been elevated in high 200s and low-mid 300s with sliding scale only provided * Anticipate patient is basal deficient as he has been without his pump providing basline basal, provided patient with lantus dose but was slightly conservative given patient's NPO status, will likely need increased * Slightly loosened correction factor/carb ratio for now and can adjust as needed once patient has lantus on board * Could consider insulin drip if patient's BSGs continue to be hyperglycemic in post-surgical setting PLAN FOR INPATIENT GLYCEMIC CONTROL: * Hold outpatient oral diabetes medications * Basal insulin - INCREASE * Lantus 13 units SQ daily * Bolus insulin * NovoLog per scale ACHS or Q6hrs while NPO * Goal Range: Low 110 mg/dL - High 140 mg/dL * Correction Factor: 20 mg/dL/unit * Nutritional / Prandial insulin per carb ratio of 1 unit per 12 grams CHO consumed PLAN FOR DISCHARGE: * A1c 7.7% acceptable given patient's age, patient can likely continue home insulin regimen. Patient is going to be transitioning from [employer] to medtronic insulin pump and should have close outpatient provider
--- NOTE | 2019-04-09 14:12 | Hospitalist Progress Note ---
Date of Service April 09, 2019 Assessment & Plan (1) Hip fracture, left: - Following mechanical fall at home. - Ortho consulted, s/p left cemented bipolar hip arthroplasty on 04/08, POD#1. - Pain control per orthopedics team. - DVT ppx: resumed home Coumadin; Lovenox 30 mg q12hr. - PT/OT evaluation -- family would like placement at [facility]. - Monitor CBC qAM to evaluate for acute blood loss. (2) Urinary retention: - Lipscomb was removed this morning, has not voided yet. - Start Flomax 0.4 mg daily. - Will need re-insertion of lipscomb if no improvement and urology consult. (3) Acute respiratory failure with hypoxia: - Requiring 2-4L via NC during this admission. - Unclear etiology -- does have h/o PE, resumed Coumadin post op but INR is subtherapeutic. Consider PE as differential. - Most recent TTE on 03/23/19 with no evidence of HF, is not on Lasix at home but does have chronic LE edema. - CXR is showed possible CHF, otherwise negative. (4) Fall in home: - PT/OT - discharge to [facility] if accepted once medically stable. (5) CAD (coronary artery disease): - H/o STEMI in March 2018; continue home statin, beta jerald, ACEI. Will resume ASA 81 mg daily. - Follows with Dr. Bill. - No evidence of acute symptoms. (6) IDDM (insulin dependent diabetes mellitus): - Has insulin pump at home -- do not use as inpatient. - Pharmacy consulted for glycemic management. - Hgb A1C was 7.7. (7) HTN (hypertension): - Continue home Metoprolol and Lisinopril. (8) TIA (transient ischemic attack): - Unclear history; resume home ASA 81 mg daily. (9) Aortic valve replaced: - Has bovine valve, placed 10 [address] [facility]. (10) Hypothyroid: - Continue home Levothyroxine. - Most recent TSH was 1.8 in Oct 2018. (11) Hyperlipidemia: - Continue home statin. (12) History of pulmonary embolism: - Following previous surgery; has IVC filter in place. - Has bovine valve, placed [address] [facility]. Follows with Dr. Viera. - INR was 1.2 this morning due to reversal with Vit K; received Coumadin 15 mg l ast evening, will give 10 mg daily starting at 16:00. - Start Lovenox 30 mg subQ q12hr for ppx; avoid therapeutic heparin due to h/o post op bleeding. - Monitor PT/INR daily. (13) DVT prophylaxis: - SCDs; Coumadin & Lovenox q12hr. Dispo: Discharge to rehab once medically stable. Supervising Physician Co-Signing Physician Notes Attending Attestation - Chart reviewed in detail, care plan d/w PREET Harrison. I agree w/ the kumar components of her documentation. POD #1 s/p ORIF of left hip fracture. Post-op VTE risk is high as patient has had VTE following prior surgical procedures. Fortunately he has IVC filter in place. However, agree with lovenox bridge 30mg SC q12h while awaiting coumadin to become therapeutic. Recommend additional work-up for hypoxia and O2 requirement. Has acute blood loss anemia - will need ferrous sulfate supplementation. Valentin Banegas MD Subjective Pt. is doing well overall. Denies pain in left hip, chest pain, SOB, N/V. Has not had a BM yet. On 2L via NC -- not on oxygen at home Leg edema is improved. Has not voided since this morning after removing lipscomb, will monitor. Review of Systems Review of Systems: All systems reviewed & are unremarkable except as noted in HPI & below Constitutional: no fever, no chills, no fatigue and no weakness Respiratory: no cough, no dyspnea, no dyspnea on exertion and no wheezing Cardiovascular: no chest pain, no palpitations and no edema Gastrointestinal: + constipation; no abdominal pain, no nausea and no vomiting Genitourinary: + difficulty urinating Musculoskeletal: no back pain and no joint pain Integumentary: no non-healing lesions Allergy / Immunological: no rash Physical Exam Physical Exam: General: Resting comfortably HEENT: NC/AT; PERRLA with EOMI; [place] conjunctiva, MMM. No erythema of posterior pharynx Neck: Supple and nontender Cardiac: RRR Lungs: on 2L via NC; CTA bilaterally Abdomen: Bowel normoactive X 4; Nontender to palpation Extremities: Warm. No edema present Neuro: No focal weakness Skin: No rash Results & Data Vital Signs (Past 12 Hours) Vital Signs Temp Pulse Resp BP Pulse Ox 04/09/19 12:49 36.8 C 71 19 145/80 H 95 04/09/19 07:30 37.0 C 82 18 127/71 93 04/09/19 04:44 36.5 C 81 18 147/72 H 92 Laboratory Results 04/09/19 04/09/19 04/09/19 Range/Units 12:09 08:16 06:25 WBC (4.8-10.8) K/uL RBC (4.7-6.1) M/uL Hgb (14.0-18.0) g/dL Hct (42-52) % MCV (80-100) fL MCH (25-34) pg MCHC (32-36) g/dL RDW Std Deviation (36.4-46.3) fL RDW Coeff of Roger (11.5-14.5) % Plt Count (130-400) K/uL MPV (7.4-10.4) fL Immature Gran % (Auto) % Neut % (Auto) % Lymph % (Auto) % [place] % (Auto) % Eos % (Auto) % Baso % (Auto) % Immature Gran # (Auto) (0.00-0.02) K/uL Neut # (Auto) (1.4-6.5) K/uL Lymph # (Auto) (1.2-3.4) K/uL [place] # (Auto) (0.11-0.59) K/uL Eos # (Auto) (0-0.5) K/uL Baso # (Auto) (0-0.2) K/uL PT (9.0-12.0) Seconds INR (0.9-1.1) Sodium 133 L (136-145) mmol/L Potassium 4.2 (3.5-5.1) mmol/L Chloride 98 (98-107) mmol/L Carbon Dioxide 29 (21-32) mmol/L Anion Gap 6.0 (3-11) BUN 22 H (7-18) mg/dl Creatinine 0.92 (0.6-1.4) mg/dl Est Cr Clr Drug Dosing 67.3 ml/min Est GFR ( Amer) 85.2 Est GFR (Non-Af Amer) 73.5 BUN/Creatinine Ratio 24.3 H (10-20) Glucose 169 H (70-99) mg/dl POC Glucose 236 H 165 H (70-99) Calcium 8.3 L (8.5-10.1) mg/dl 04/09/19 04/09/19 04/09/19 Range/Units 06:25 06:25 04:39 WBC 9.94 (4.8-10.8) K/uL RBC 3.72 L (4.7-6.1) M/uL Hgb 11.3 L (14.0-18.0) g/dL Hct 33.3 L (42-52) % MCV 89.5 (80-100) fL MCH 30.4 (25-34) pg MCHC 33.9 (32-36) g/dL RDW Std Deviation 47.5 H (36.4-46.3) fL RDW Coeff of Roger 14.5 (11.5-14.5) % Plt Count 132 (130-400) K/uL MPV 10.9 H (7.4-10.4) fL Immature Gran % (Auto) 0.2 % Neut % (Auto) 80.2 % Lymph % (Auto) 8.8 % [place] % (Auto) 7.3 % Eos % (Auto) 3.4 % Baso % (Auto) 0.1 % Immature Gran # (Auto) 0.02 (0.00-0.02) K/uL Neut # (Auto) 7.97 H (1.4-6.5) K/uL Lymph # (Auto) 0.87 L (1.2-3.4) K/uL [place] # (Auto) 0.73 H (0.11-0.59) K/uL Eos # (Auto) 0.34 (0-0.5) K/uL Baso # (Auto) 0.01 (0-0.2) K/uL PT 12.3 H (9.0-12.0) Seconds INR 1.2 H (0.9-1.1) Sodium (136-145) mmol/L Potassium (3.5-5.1) mmol/L Chloride (98-107) mmol/L Carbon Dioxide (21-32) mmol/L Anion Gap (3-11) BUN (7-18) mg/dl Creatinine (0.6-1.4) mg/dl Est Cr Clr Drug Dosing ml/min Est GFR ( Amer) Est GFR (Non-Af Amer) BUN/Creatinine Ratio (10-20) Glucose (70-99) mg/dl POC Glucose 162 H (70-99) Calcium (8.5-10.1) mg/dl 04/08/19 04/08/19 04/08/19 Range/Units 23:51 21:59 20:38 WBC (4.8-10.8) K/uL RBC (4.7-6.1) M/uL Hgb (14.0-18.0) g/dL Hct (42-52) % MCV (80-100) fL MCH (25-34) pg MCHC (32-36) g/dL RDW Std Deviation (36.4-46.3) fL RDW Coeff of Roger (11.5-14.5) % Plt Count (130-400) K/uL MPV (7.4-10.4) fL Immature Gran % (Auto) % Neut % (Auto) % Lymph % (Auto) % [place] % (Auto) % Eos % (Auto) % Baso % (Auto) % Immature Gran # (Auto) (0.00-0.02) K/uL Neut # (Auto) (1.4-6.5) K/uL Lymph # (Auto) (1.2-3.4) K/uL [place] # (Auto) (0.11-0.59) K/uL Eos # (Auto) (0-0.5) K/uL Baso # (Auto) (0-0.2) K/uL PT (9.0-12.0) Seconds INR (0.9-1.1) Sodium (136-145) mmol/L Potassium (3.5-5.1) mmol/L Chloride (98-107) mmol/L Carbon Dioxide (21-32) mmol/L Anion Gap (3-11) BUN (7-18) mg/dl Creatinine (0.6-1.4) mg/dl Est Cr Clr Drug Dosing ml/min Est GFR ( Amer) Est GFR (Non-Af Amer) BUN/Creatinine Ratio (10-20) Glucose (70-99) mg/dl POC Glucose 219 H 208 H 188 H (70-99) Calcium (8.5-10.1) mg/dl 04/08/19 04/08/19 Range/Units 16:00 15:59 WBC (4.8-10.8) K/uL RBC (4.7-6.1) M/uL Hgb (14.0-18.0) g/dL Hct (42-52) % MCV (80-100) fL MCH (25-34) pg MCHC (32-36) g/dL RDW Std Deviation (36.4-46.3) fL RDW Coeff of Roger (11.5-14.5) % Plt Count (130-400) K/uL MPV (7.4-10.4) fL Immature Gran % (Auto) % Neut % (Auto) % Lymph % (Auto) % [place] % (Auto) % Eos % (Auto) % Baso % (Auto) % Immature Gran # (Auto) (0.00-0.02) K/uL Neut # (Auto) (1.4-6.5) K/uL Lymph # (Auto) (1.2-3.4) K/uL [place] # (Auto) (0.11-0.59) K/uL Eos # (Auto) (0-0.5) K/uL Baso # (Auto) (0-0.2) K/uL PT 14.3 H (9.0-12.0) Seconds INR 1.4 H (0.9-1.1) Sodium (136-145) mmol/L Potassium (3.5-5.1) mmol/L Chloride (98-107) mmol/L Carbon Dioxide (21-32) mmol/L Anion Gap (3-11) BUN (7-18) mg/dl Creatinine (0.6-1.4) mg/dl Est Cr Clr Drug Dosing ml/min Est GFR ( Amer) Est GFR (Non-Af Amer) BUN/Creatinine Ratio (10-20) Glucose (70-99) mg/dl POC Glucose 221 H (70-99) Calcium (8.5-10.1) mg/dl PG Care Time/CCT Total # of Minutes Spent Total Time Spent with Patient: Total time spent is greater than 50% in coordina tion of care (as documented) at patient's floor/unit and/or counseling patient:
--- NOTE | 2019-04-09 14:55 | XRay Report ---
XR chest 2V routine CLINICAL HISTORY: Shortness of breath COMPARISON STUDY: 03/22/2018 FINDINGS: There are postsurgical changes of a midline sternotomy and aortic valve replacement. The he art is mildly enlarged. There is no focal pulmonary consolidation. There are trace bilateral pleural effusions. There is slight interstitial prominence. An element of mild pulmonary vascular congestion cannot be excluded IMPRESSION: Cardiomegaly and possible mild pulmonary vascular congestion. Trace pleural effusions. No evidence of focal pulmonary consolidation Electronically signed by: Maximo Oates M.D. 04/09/2019 2:54 PM
[2019-04-09] MEDS: ASPIRIN 81 MG ECTAB PO SCH (16:38)
[2019-04-09] MEDS: TAMSULOSIN HCL 0.4 MG CAP PO SCH (16:38)
[2019-04-09] MEDS: WARFARIN SOD 10 MG TAB PO SCH (16:39)
[2019-04-09] MEDS: ENOXAPARIN INJ 30 MG/0.3 ML SYR SQ SCH (18:25)
[2019-04-09] MEDS ORDERED: INSULIN HUMAN REGULAR PER UNIT 8 UNITS in SYRINGE 7.92 ML IV ONE (21:45)
[2019-04-09] MEDS: SENNA 8.6 MG TAB PO SCH (22:18)
[2019-04-10] MEDS: INSULIN ASPART 100 UNITS/ML 3 ML PEN SC SCH ×6 (00:07→20:51)
[2019-04-10] MEDS: POLYETHYLENE (MIRALAX) 17 GM PACK PO SCH ×3 (05:45→17:58)
[2019-04-10] MEDS: LEVOTHYROXINE SODIUM 112 MCG TABLET PO SCH (05:46)
[2019-04-10 06:37] LABS: Hematocrit (blood only) 30.8 % (42-52); Hemoglobin 10.6 g/dL (14.0-18.0); Mean Corpuscular Hgb Conc 34.4 g/dL (32-36); Mean Platelet Volume 11.3 fL (7.4-10.4); Platelet Count 129 K/uL (130-400); RDW Coefficient of Variation 14.5 % (11.5-14.5); RDW Standard Deviation 46.8 fL (36.4-46.3); White Blood Count 9.78 K/uL (4.8-10.8)
[2019-04-10 06:48] LABS: INR 1.2 (0.9-1.1); Prothrombin Time 11.8 Seconds (9.0-12.0)
[2019-04-10 07:07] LABS: BUN Creatinine Ratio 32.1 (10-20); Calcium 8.5 mg/dl (8.5-10.1); Creatinine Clr Calc Pharmacy 72.8 ml/min; Est GFR (African American) 89.5; Est GFR (Non-African American) 77.3; Potassium 4.3 mmol/L (3.5-5.1)
[2019-04-10] MEDS: ACETAMINOPHEN 325 MG TAB PO PRN (08:28)
[2019-04-10] MEDS: LISINOPRIL 5 MG TAB PO SCH (08:29)
[2019-04-10] MEDS: METOPROLOL TARTRATE 25 MG TAB PO SCH (08:29)
[2019-04-10] MEDS: ATORVASTATIN 40 MG TAB PO SCH (08:29)
[2019-04-10] MEDS: ASPIRIN 81 MG ECTAB PO SCH (08:29)
[2019-04-10] MEDS: CYANOCOBALAMIN 500 MCG TABLET (VITAMIN B-12) PO SCH (08:29)
[2019-04-10] MEDS: ENOXAPARIN INJ 30 MG/0.3 ML SYR SQ SCH ×2 (08:30→20:48)
[2019-04-10] MEDS: INSULIN GLARGINE SOLOSTAR 100 UNITS/ML 3 ML PEN SC SCH (09:17)
[2019-04-10] MEDS: TAMSULOSIN HCL 0.4 MG CAP PO SCH (09:18)
--- NOTE | 2019-04-10 09:55 | Progress Note ---
DATE: 04/10/2019 SUBJECTIVE: An 89-year-old gentleman postop day #2 from left cemented bipolar hip arthroplasty for fracture. He is doing pretty well. Not having much pain. He states he has not been out of bed really or walking yet much. No chest pain or shortness of breath. Not feeling dizzy or lightheaded. OBJECTIVE: VITAL SIGNS: Temperature 36.8. Vital signs are stable. PHYSICAL EXAMINATION: GENERAL: Physical examination shows a pleasant elderly male. He is lying in bed, looks reasonably comfortable. EXTREMITIES: Examination of the left hip and leg reveals the leg to be well aligned. His dressings in place. Just a little bit of bloody drainage. Thigh is soft and supple. No significant bruising. He is neurologically intact. LABORATORY DATA: Hemoglobin 10.6. Hematocrit is 30.8. Electrolytes are stable. ASSESSMENT: An 89-year-old gentleman with multiple medical comorbidities, postoperative day #2 from a left cemented bipolar hip arthroplasty for fracture. He is on chronic Coumadin normally for history of pulmonary emboli in the past after his previous hip surgery. He does have an IVC filter in place. His pain is controlled. PLAN: 1. DVT prophylaxis including thigh-high TEDs, SCDs and back on his Coumadin. He was placed on heparin postoperatively after his last hip surgery and developed a large hematoma and had to go back to the operating room. I would recommend just continuing him to redose him on his Coumadin. Some prophylactic Lovenox would be okay, but I think anything higher than that puts him at significant risk for bleeding. 2. PT/OT. Weight bear as tolerated. Right total hip protocol. 3. Pain control, seems to be doing well with current pain regimen. We will need to limit narcotics to avoid confusion issues. 4. Disposition: He will likely need a rehab stay. director of student financial services is working on this. He will likely be orthopedically okay for discharge any time after tomorrow morning. I need to see him back 2 weeks postop. Any orthopedic questions can be directed at [phone].
--- NOTE | 2019-04-10 10:09 | Pharmacy Report ---
Pharmacy Glycemic Short Note 2 - Date of Service April 10, 2019 - Glycemic Short BSG Results (Last 24 hours): 04/09/19 04/09/19 04/09/19 12:09 17:41 21:26 Glucose POC Glucose 236 H 292 H 320 H* 04/09/19 04/09/19 04/10/19 21:28 23:57 03:58 Glucose POC Glucose 316 H* 257 H 169 H 04/10/19 04/10/19 05:50 08:12 Glucose 184 H POC Glucose 245 H OUTPATIENT ANTIDIABETIC REGIMEN: * Insulin pump: * carb ratio 1:15, Sensitivity factor 50 * Basal rates: 6167-6827: 0.525; 1693-6601: 0.925; 7395-3290: 0.525 * A1c 7.7% ASSESSMENT: 04/10/19 * POD 2, blood sugars yary all day yesterday into 200-300s, will tighten CR significantly at this time for better prandial coverage. No change in basal at this time for type 1 diabetic. Just increased to home dose yesterday. 04/09/19 * POD 1, blood sugars good this morning, slightly elevated at lunch, increase Lantus to basal dose patient uses on pump at home. 04/08/19 * Mr. Paz is a type 1 diabetic admitted following a hip fracture with possible OR intervention after INR is reversed * Mr. Paz is controlled on an insulin pump that was taken off yesterday, BSGs have been elevated in high 200s and low-mid 300s with sliding scale only provided * Anticipate patient is basal deficient as he has been without his pump providing basline basal, provided patient with lantus dose but was slightly conservative given patient's NPO status, will likely need increased * Slightly loosened correction factor/carb ratio for now and can adjust as needed once patient has lantus on board * Could consider insulin drip if patient's BSGs continue to be hyperglycemic in post-surgical setting PLAN FOR INPATIENT GLYCEMIC CONTROL: * Hold outpatient oral diabetes medications * Basal insulin * Lantus 13 units SQ daily * Bolus insulin * NovoLog per scale ACHS or Q6hrs while NPO * Goal Range: Low 110 mg/dL - High 140 mg/dL * Correction Factor: 20 mg/dL/unit * TIGHTEN: Nutritional / Prandial insulin per carb ratio of 1 unit per 6 grams CHO consumed PLAN FOR DISCHARGE: * A1c 7.7% acceptable given patient's age, patient can likely continue home insulin regimen. Patient is going to be transitioning from [employer] to [employer] insulin pump and should have close outpatient provider
--- NOTE | 2019-04-10 10:24 | Urology Consultation ---
Date of Consultation April 10, 2019 Assessment & Plan (1) Hip fracture, left: S/p Fall and repair with OR. Improving. Plan to likely have rehab post admission (2) Urinary retention: AUR s/p fall and hip frx with repair. discussed anesthesia, pain m edication, constipation, and mobility. Discussed baseline BPH issues and LUTs. Discussed options. Discussed possible changes or issues. Discussed followup. Will plan to monitor Will need setup with outpatient follow up. May need to consider catheter for short period until mobility and bowel function normalizes. Will see how patient clinically improves. If going to rehab center capable of intermittent catheters may be able to utilize these. History of Present Illness Attending Physician: Valentin Banegas History of Present Illness Patient with fall and hip frx. Underwent repair. Hager was removed post op and unable to void. Patient with history of LUTS with bother. No major changes. Had recent dizziness. No major bleeding. No severe issues. no fever or chills. Constipation issues post op and poor mobility. No severe pain related to retention. Urgency and frequency with spasms. Allergies Allergy/AdvReac Type Severity Reaction Status Date / Time No Known Allergies Allergy Verified 04/07/19 13:38 Home Medications Home Medications Medication Instructions Recorded Confirmed Type aspirin 81 mg tablet,delayed 81 mg PO DAILY 06/15/18 04/07/19 History release atorvastatin 40 mg tablet 40 mg PO DAILY 06/15/18 04/07/19 History cholecalciferol (vitamin D3) 1,000 1,000 units PO DAILY 06/15/18 04/07/19 History unit capsule coenzyme Q 10 10 mg capsule 10 mg PO DAILY cap 06/15/18 04/07/19 History cyanocobalamin (vit B-12) 500 mcg 500 mcg PO DAILY 06/15/18 04/07/19 History lozenges levothyroxine 112 mcg capsule 112 mcg PO DAILY 06/15/18 04/07/19 History lisinopril 5 mg tablet 5 mg PO DAILY 06/15/18 04/07/19 History metoprolol succinate ER 25 mg 12.5 mg PO DAILY ea 06/15/18 04/07/19 History capsule sprinkle, ext. release 24 hr multivitamin tablet 1 tab PO DAILY 06/15/18 04/07/19 History warfarin 4 mg tablet See Rx Instructions PO UD tab 06/15/18 04/07/19 History ascorbic acid (vitamin C) [Vitamin 500 mg PO DAILY 07/13/18 04/07/19 History C] insulin aspart U-100 See Rx Instructions .ROUTE 07/13/18 04/07/19 History .COMPLEX #0 blood sugar diagnostic strips #400 ea 02/24/19 04/07/19 Rx Patient History Medical History DKA (diabetic ketoacidoses) March 2018. Diabetes mellitus type 1 History of non-ST elevation myocardial infarction (NSTEMI) March 2018. Per cardiology note as patient was admitted at the time: "Non-ST elevation myocardial infarction. This has occurred in the setting of his diabetic ketoacidosis. The patient denies any anginal-type symptoms. His electrocardiogram initially did reveal ST depressions anteriorly. These have since resolved. The patient has had prior hospitalizations for DKA with elevations in his troponin I. He had an episode in 08/2016. In the interim, he has done well without any anginal-type symptoms. Suspect that the current troponin elevation was secondary to demand ischemia and not a primary coronary event." History of pulmonary embolism 2005 - post op - w/ ivc filter Hypertension Hypothyroidism Neuropathy On anticoagulant therapy Presence of IVC filter Transient ischemic attack (TIA) pulled from past problem list - pt could not confirm - unsure of dx Surgical History H/O aortic valve replacement >10 years [place] [facility] [place] follows w/ dr. westbrook H/O removal of cyst History of colonoscopy History of herniorrhaphy rt inguinal History of inferior vena caval filter placement History of surgery rt femur reconstruction History of total hip arthroplasty rt History of total knee replacement lt Hx of right cataract extraction Family History Brother History of heart valve replacement Unknown Depression Sister Hepatic failure Renal failure Social History Preferred Language: Welsh Communication Ability: Effective Beliefs That Will Affect Care: None marital status: Current Living Situation: Spouse Current Living Situation Comment: home Feels Safe at Home: Yes Smoking Status: Never smoker Second Hand Exposure: No Hx Alcohol Use: Yes Alcohol type: beer Alcohol Intake Frequency Comment: 1 beer per day prior to dinner Hx Substance Use: No Review of Systems Review of Systems: All systems reviewed & are unremarkable except as noted in HPI & below Pertinent positives and negatives reviewed in HPI--all others negative Gastrointestinal: + constipation; no abdominal pain, no nausea and no vomiting Genitourinary: + difficulty urinating Physical Exam Constitutional: WD/WN, vitals as above Eyes: PERRL, conjunctivae normal, anicteric sclerae normal visual ford by confrontation and + anicteric sclerae ENMT: Mouth: + edentulous Mallampati Class: II Neck: normal visual inspection, trachea midline and + limited neck extension Respiratory: normal respiratory effort; no respiratory distress and no labored breathing Cardiovascular: Rate/Rhythm: not tachycardic Gastrointestinal (Abdomen): normal bowel sounds, soft, nontender, no hepatosplenomegaly Inspection/Auscultation: abdomen not distended Percussion/Palpation: abdomen soft; abdomen nontender Musculoskeletal: Head/Neck/Chest: normocephalic and head atraumatic Skin: no rashes, warm and dry Neurologic: CN's II-XI intact bilaterally, moves all extremities and awake; not confused Speech / Cognition: normal speech Psychiatric: A+Ox3, euthymic affect Orientation: alert Genitourinary: Hager with clear yellow urine. Results & Data Vital Signs (Past 12 Hours) Vital Signs Temp Pulse Resp BP Pulse Ox 04/10/19 07:42 36.8 C 81 16 145/80 H 95 04/09/19 23:40 36.9 C 82 18 98/61 L 93
--- NOTE | 2019-04-10 14:08 | Hospitalist Progress Note ---
Date of Service April 10, 2019 Assessment & Plan (1) Hip fracture, left: - Following mechanical fall at home. - Ortho consulted, s/p left cemented bipolar hip arthroplasty on 04/08, POD#2. - Pain control per orthopedics team. - DVT ppx: resumed home Coumadin; Lovenox 30 mg q12hr. - PT/OT evaluation -- [facility] at discharge once medically stable if accepted. (2) Urinary retention: - Lipscomb was removed on 04/09, did not void; lipscomb was re-inserted last evening. - Flomax 0.4 mg daily. - Urology consulted, will need follow up as outpatient. (3) Decreased urine output: - May be related to ATN in setting of recent blood loss vs. dehydration. - NS at 100 cc/hr - monitor volume status closely. - Monitor lipscomb output. (4) Chest pain: - C/o chest pain and SOB this afternoon; h/o cardiac disease, most recently with Type II NSTEMI in March 2018. - EKG showed T-wave inversions in V1 and V2 -- could not find previous EKGs for comparison. - Trop was 0.028; will trend q6hr. - CXR negative for acute abnormalities. (5) Acute respiratory failure with hypoxia: - Now weaned to 1L via NC. - Unclear etiology -- PE as differential, consider CT PE but he does have IVC filter in place. - CXR on 04/09 concerning for developing CHF -- pt. appears clinically dry on exam and labs. (6) Hyponatremia: - Na level decreased to 130, Elevated Bun/Cr ratio and urine Na 7. - Repeat labs this afternoon indicate worsening renal function/hypovolemia. - NS at 100 cc/hr -- monitor volume status closely. (7) Fall in home: - PT/OT - discharge to [facility] once medically stable. (8) CAD (coronary artery disease): - H/o NSTEMI (Type II) in March 2018; continue home statin, beta jerald, ACEI, ASA 81 mg daily. - Follows with Dr. Bill. - Acute chest pain work up as noted above. (9) IDDM (insulin dependent diabetes mellitus): - Has insulin pump at home -- do not use as inpatient. - Pharmacy consulted for glycemic management. - Hgb A1C was 7.7. (10) HTN (hypertension): - Continue home Metoprolol and Lisinopril. (11) TIA (transient ischemic attack): - Unclear history; ASA 81 mg daily. (12) Aortic valve replaced: - Has bovine valve, placed 10 years ago at [facility]. (13) Hypothyroid: - Continue home Levothyroxine. - Most recent TSH was 1.8 in Oct 2018. (14) Hyperlipidemia: - Continue home statin. (15) History of pulmonary embolism: - Following previous surgery; has IVC filter in place. - Has bovine valve, placed 10 years ago at [facility]. Follows with Dr. Viera. - INR was 1.2 due to reversal with Vit K; continue Coumadin 10 mg daily. - Lovenox 30 mg subQ q12hr for ppx; avoid therapeutic heparin due to h/o post op bleeding. - Monitor PT/INR daily. (16) Anemia: - Hgb trending down post op -- will monitor. - Starting IV fluids due to concern for dehydration; consider blood transfusion if necessary. (17) DVT prophylaxis: - SCDs; Coumadin & Lovenox q12hr. Dispo: Discharge to rehab once medically stable. Supervising Physician Co-Signing Physician Notes Attending Attestation - Chart reviewed in detail, care plan d/w PREET Harrison. I agree w/ the kumar components of her documentation. POD #2 s/p ORIF of left hip fracture. Pt w/ multiple issues last 24 hours - urinary retention leading to lipscomb reinsertion; altered MS/lethargy; chest pain. Agree w/ serial trops. VERY LOW threshold for repeat CT head given his pre-hospital fall and use of coumadin at home (perhaps first head CT missed intra-cranial pathology). Continue supportive care for various issues. Agree w/ IV fluids given his very low urine Na level and low UOP. Valentin Banegas MD Subjective Pt. had decreased urine output overnight -- 175 cc from lipscomb. Is on 1L via NC -- will attempt to wean. Has mild pain in hip. Denies chest pain, SOB, N/V. Pt. developed increased lethargy this afternoon; he had chest pain and shortness of breath per bedside nursing. He denied symptoms when asked during evaluation. Pt. remained mildly lethargic but answered questions appropriately. EKG showed T-wave inversion in V1 and V2; no previous EKGs for comparison were found in allscripts. Trop was 0.028. Lactic acid and VBG WNL. Repeat BMP indicated worsening renal function/hypovolemia -- will increase IV fluids to 100 cc/hr. Will trend trop level q6hr due to cardiac history. Review of Systems Review of Systems: All systems reviewed & are unremarkable except as noted in HPI & below Constitutional: no fever, no chills, no fatigue, no weakness and no anorexia Respiratory: no cough, no dyspnea, no dyspnea on exertion and no wheezing Cardiovascular: no chest pain, no palpitations and no edema Gastrointestinal: no abdominal pain, no nausea and no constipation Genitourinary: + difficulty urinating and + decreased urination Musculoskeletal: + joint pain; no back pain Integumentary: no non-healing lesions Allergy / Immunological: no rash Physical Exam Physical Exam: General: Resting comfortably HEENT: NC/AT; PERRLA with EOMI; Bergman conjunctiva, MMM. No erythema of posterior pharynx Neck: Supple and nontender Cardiac: RRR Lungs: on 1L via NC; CTA bilaterally Abdomen: Bowel normoactive X 4; Nontender to palpation Extremities: Warm. No edema present Neuro: No focal weakness Skin: No rash Results & Data Vital Signs (Past 12 Hours) Vital Signs Temp Pulse Resp BP Pulse Ox 04/10/19 07:42 36.8 C 81 16 145/80 H 95 Laboratory Results 04/10/19 04/10/19 04/10/19 Range/Units Unknown 12:18 12:17 WBC (4.8-10.8) K/uL RBC (4.7-6.1) M/uL Hgb (14.0-18.0) g/dL Hct (42-52) % MCV (80-100) fL MCH (25-34) pg MCHC (32-36) g/dL RDW Std Deviation (36.4-46.3) fL RDW Coeff of Roger (11.5-14.5) % Plt Count (130-400) K/uL MPV (7.4-10.4) fL PT (9.0-12.0) Seconds INR (0.9-1.1) Sodium (136-145) mmol/L Potassium (3.5-5.1) mmol/L Chloride (98-107) mmol/L Carbon Dioxide (21-32) mmol/L Anion Gap (3-11) BUN (7-18) mg/dl Creatinine (0.6-1.4) mg/dl Est Cr Clr Drug Dosing ml/min Est GFR ( Amer) Est GFR (Non-Af Amer) BUN/Creatinine Ratio (10-20) Glucose (70-99) mg/dl POC Glucose 337 H* 319 H* (70-99) Calcium (8.5-10.1) mg/dl Magnesium (1.8-2.4) mg/dl Ur Random Sodium 7 mmol/L Crossmatch 04/10/19 04/10/19 04/10/19 Range/Units 08:12 05:50 05:50 WBC 9.78 (4.8-10.8) K/uL RBC 3.50 L (4.7-6.1) M/uL Hgb 10.6 L (14.0-18.0) g/dL Hct 30.8 L (42-52) % MCV 88.0 (80-100) fL MCH 30.3 (25-34) pg MCHC 34.4 (32-36) g/dL RDW Std Deviation 46.8 H (36.4-46.3) fL RDW Coeff of Roger 14.5 (11.5-14.5) % Plt Count 129 L (130-400) K/uL MPV 11.3 H (7.4-10.4) fL PT (9.0-12.0) Seconds INR (0.9-1.1) Sodium 130 L (136-145) mmol/L Potassium 4.3 (3.5-5.1) mmol/L Chloride 95 L (98-107) mmol/L Carbon Dioxide 27 (21-32) mmol/L Anion Gap 8.0 (3-11) BUN 27 H (7-18) mg/dl Creatinine 0.85 (0.6-1.4) mg/dl Est Cr Clr Drug Dosing 72.8 ml/min Est GFR ( Amer) 89.5 Est GFR (Non-Af Amer) 77.3 BUN/Creatinine Ratio 32.1 H (10-20) Glucose 184 H (70-99) mg/dl POC Glucose 245 H (70-99) Calcium 8.5 (8.5-10.1) mg/dl Magnesium 2.0 (1.8-2.4) mg/dl Ur Random Sodium mmol/L Crossmatch 04/10/19 04/10/19 04/09/19 Range/Units 05:50 03:58 23:57 WBC (4.8-10.8) K/uL RBC (4.7-6.1) M/uL Hgb (14.0-18.0) g/dL Hct (42-52) % MCV (80-100) fL MCH (25-34) pg MCHC (32-36) g/dL RDW Std Deviation (36.4-46.3) fL RDW Coeff of Roger (11.5-14.5) % Plt Count (130-400) K/uL MPV (7.4-10.4) fL PT 11.8 (9.0-12.0) Seconds INR 1.2 H (0.9-1.1) Sodium (136-145) mmol/L Potassium (3.5-5.1) mmol/L Chloride (98-107) mmol/L Carbon Dioxide (21-32) mmol/L Anion Gap (3-11) BUN (7-18) mg/dl Creatinine (0.6-1.4) mg/dl Est Cr Clr Drug Dosing ml/min Est GFR ( Amer) Est GFR (Non-Af Amer) BUN/Creatinine Ratio (10-20) Glucose (70-99) mg/dl POC Glucose 169 H 257 H (70-99) Calcium (8.5-10.1) mg/dl Magnesium (1.8-2.4) mg/dl Ur Random Sodium mmol/L Crossmatch 04/09/19 04/09/19 04/09/19 Range/Units 21:28 21:26 17:41 WBC (4.8-10.8) K/uL RBC (4.7-6.1) M/uL Hgb (14.0-18.0) g/dL Hct (42-52) % MCV (80-100) fL MCH (25-34) pg MCHC (32-36) g/dL RDW Std Deviation (36.4-46.3) fL RDW Coeff of Roger (11.5-14.5) % Plt Count (130-400) K/uL MPV (7.4-10.4) fL PT (9.0-12.0) Seconds INR (0.9-1.1) Sodium (136-145) mmol/L Potassium (3.5-5.1) mmol/L Chloride (98-107) mmol/L Carbon Dioxide (21-32) mmol/L Anion Gap (3-11) BUN (7-18) mg/dl Creatinine (0.6-1.4) mg/dl Est Cr Clr Drug Dosing ml/min Est GFR ( Amer) Est GFR (Non-Af Amer) BUN/Creatinine Ratio (10-20) Glucose (70-99) mg/dl POC Glucose 316 H* 320 H* 292 H (70-99) Calcium (8.5-10.1) mg/dl Magnesium (1.8-2.4) mg/dl Ur Random Sodium mmol/L Crossmatch 04/07/19 Range/Units 20:41 WBC (4.8-10.8) K/uL RBC (4.7-6.1) M/uL Hgb (14.0-18.0) g/dL Hct (42-52) % MCV (80-100) fL MCH (25-34) pg MCHC (32-36) g/dL RDW Std Deviation (36.4-46.3) fL RDW Coeff of Roger (11.5-14.5) % Plt Count (130-400) K/uL MPV (7.4-10.4) fL PT (9.0-12.0) Seconds INR (0.9-1.1) Sodium (136-145) mmol/L Potassium (3.5-5.1) mmol/L Chloride (98-107) mmol/L Carbon Dioxide (21-32) mmol/L Anion Gap (3-11) BUN (7-18) mg/dl Creatinine (0.6-1.4) mg/dl Est Cr Clr Drug Dosing ml/min Est GFR ( Amer) Est GFR (Non-Af Amer) BUN/Creatinine Ratio (10-20) Glucose (70-99) mg/dl POC Glucose (70-99) Calcium (8.5-10.1) mg/dl Magnesium (1.8-2.4) mg/dl Ur Random Sodium mmol/L Crossmatch See Detail PG Care Time/CCT Total # of Minutes Spent Total Time Spent with Patient: Total time spent is greater than 50% in coordination of care (as documented) at patient's floor/unit and/or counseling patient:
[2019-04-10] MEDS ORDERED: INSULIN HUMAN REGULAR PER UNIT 5 UNITS in SYRINGE 4.95 ML IV ONE (15:30)
[2019-04-10] MEDS: SODIUM CHLORIDE 0.9% 1000ML 1,000 ML IV SCH (15:54)
--- NOTE | 2019-04-10 16:42 | XRay Report ---
XR chest 1V portable CLINICAL HISTORY: Chest pain dyspnea COMPARISON STUDY: No previous studies for comparison. FINDINGS: Prior median sternotomy. Mild cardiomegaly. Lungs are clear. Mild emphysematous change. IMPRESSION: Mild emphysematous change. No focal infiltrate. The above report was generated using voice recognition software. It may contain grammatical, syntax or spelling errors. Electronically signed by: Juarez Moeller M.D. 04/10/2019 4:41 PM
[2019-04-10 16:49] LABS: Base Excess VBG 4.3 mEq/L; Oxygen Saturation VBG 61.7 %; pH VBG 7.44 (7.36-7.41)
[2019-04-10 16:58] LABS: BUN Creatinine Ratio 31.5 (10-20); Calcium 8.4 mg/dl (8.5-10.1); Creatinine Clr Calc Pharmacy 51.1 ml/min; Est GFR (African American) 61.1; Est GFR (Non-African American) 52.8; Potassium 3.8 mmol/L (3.5-5.1)
[2019-04-10] MEDS: WARFARIN SOD 10 MG TAB PO SCH (17:02)
[2019-04-10] MEDS: SENNA 8.6 MG TAB PO SCH (20:49)
[2019-04-10 22:12] LABS: Hematocrit (blood only) 27.9 % (42-52); Hemoglobin 9.7 g/dL (14.0-18.0)
[2019-04-11] MEDS: INSULIN ASPART 100 UNITS/ML 3 ML PEN SC SCH ×6 (00:18→21:20)
[2019-04-11] MEDS: POLYETHYLENE (MIRALAX) 17 GM PACK PO SCH ×6 (00:20→23:42)
[2019-04-11] MEDS: SODIUM CHLORIDE 0.9% 1000ML 1,000 ML IV SCH ×3 (00:52→20:44)
--- NOTE | 2019-04-11 00:57 | Progress Note ---
Date of Service April 11, 2019 Subjective Alerted by nursing that pt's mentation was decreased, concern for lethargy. I went and assessed patient. He answered to his name, denied any pain anywhere. PE GEN: somnolent but arousable HENT: symmetric facial movements, no JVD RESP: CTAB CV: RRR, +systolic murmur 3/6 LE: trace edema. A/P: Concern for decreased mentation -somnolent but arousable on my exam -reviewed overnight labs, Hgb down 1 point to 9.7. Repeat trop detectable but not elevated. No increased o2 demand, no pain. -clinically follow -am labs to include cbc and trop. -anemia likely 2/2 hip fracture -fluids running A Rain WALKER PGY3 FCM Resident Results & Data Vital Signs (Past 12 Hours) Vital Signs Temp Pulse Resp BP Pulse Ox 04/10/19 23:11 36.8 C 82 19 106/59 L 94 04/10/19 15:26 36.8 C 70 16 103/64 95 Resident Activity Tracking Resident Involvement: Resident Care Provided Care Provided: Adult Hospital Medicine
[2019-04-11 04:47] LABS: Hematocrit (blood only) 28.4 % (42-52); Hemoglobin 9.8 g/dL (14.0-18.0); Mean Corpuscular Hgb Conc 34.5 g/dL (32-36); Mean Corpuscular Volume 87.7 fL (80-100); Mean Platelet Volume 10.3 fL (7.4-10.4); Platelet Count 121 K/uL (130-400); RDW Coefficient of Variation 14.4 % (11.5-14.5); RDW Standard Deviation 46.9 fL (36.4-46.3); Red Blood Count 3.24 M/uL (4.7-6.1); White Blood Count 7.75 K/uL (4.8-10.8)
[2019-04-11 04:57] LABS: INR 1.3 (0.9-1.1); Prothrombin Time 13.3 Seconds (9.0-12.0)
[2019-04-11 05:02] LABS: BUN Creatinine Ratio 36.1 (10-20); Calcium 7.9 mg/dl (8.5-10.1); Creatinine Clr Calc Pharmacy 65.8 ml/min; Est GFR (Non-African American) 71.6; Potassium 4.2 mmol/L (3.5-5.1)
[2019-04-11 05:07] LABS: Troponin I 0.042 ng/ml (0-0.045)
[2019-04-11] MEDS: LEVOTHYROXINE SODIUM 112 MCG TABLET PO SCH (05:37)
--- NOTE | 2019-04-11 07:38 | Progress Note ---
DATE: 04/11/2019 SUBJECTIVE: An 89-year-old gentleman postop day 3 from a left cemented bipolar hip arthroplasty for fracture. Seems to be doing okay. A little bit confused this morning, but he just woke up. Denies any significant or new pains. Hip pains very manageable. No chest pain or shortness of breath. OBJECTIVE: VITAL SIGNS: Temperature 36.8. Vital signs stable. GENERAL: Physical examination shows a pleasant elderly male. He is lying in bed, looks reasonably comfortable. EXTREMITIES: Examination of the left hip reveals the dressing to be in place. Just a little bit of serous and bloody drainage on the dressing. Some mild edema in his left lower extremity. Thigh is soft and supple. He is neurologically intact. Hip is located. LABORATORY DATA: Hemoglobin 9.8. Hematocrit 28.4. INR is 1.3. Electrolytes are stable. ASSESSMENT: An 89-year-old gentleman postop day 3 from a left cemented bipolar hip arthroplasty for fracture. Orthopedically, he is doing reasonably well. A little bit confused this morning, but he really just woke up. PLAN: 1. DVT prophylaxis including thigh-high TEDs, SCDs, and back on his Coumadin. He is on prophylactic Lovenox until Coumadin is more therapeutic. 2. PT/OT. He can fully weightbear as tolerated in the left lower extremity. 3. Pain control, doing well with current pain regimen. I would really try and limit narcotics to avoid confusion issues. 4. Medical management as per the medicine service. 5. Disposition: He is orthopedically okay for discharge any time medically stable. I need to see him back 2 weeks out from surgery date. Any orthopedic questions can be directed to me at [phone].
[2019-04-11] MEDS: ACETAMINOPHEN 325 MG TAB PO PRN (08:33)
[2019-04-11] MEDS ORDERED: INSULIN GLARGINE SOLOSTAR 100 UNITS/ML 3 ML PEN SC ONE (09:00)
[2019-04-11] MEDS ORDERED: INSULIN HUMAN REGULAR IV BOLUS 2.5 UNITS in SYRINGE 0 ML IV ONE (09:00)
[2019-04-11] MEDS: ASPIRIN 81 MG ECTAB PO SCH (09:02)
[2019-04-11] MEDS: TAMSULOSIN HCL 0.4 MG CAP PO SCH (09:03)
[2019-04-11] MEDS: ATORVASTATIN 40 MG TAB PO SCH (09:03)
[2019-04-11] MEDS: CYANOCOBALAMIN 500 MCG TABLET (VITAMIN B-12) PO SCH (09:03)
--- NOTE | 2019-04-11 09:12 | Hospitalist Progress Note ---
Date of Service April 11, 2019 Assessment & Plan (1) Hip fracture, left: - Following mechanical fall at home. - Ortho consulted, s/p left cemented bipolar hip arthroplasty on 04/08, -Patient is planning on doing rehab [facility] once a bed is arranged this would be also on his insulin and diabetes are controlled - DVT ppx: resumed home Coumadin; Lovenox 30 mg q12hr. -Anticipate discharge to be 04/12 or 04/13 (2) Urinary retention: - Lipscomb was removed on 04/09, did not void; lipscomb was re-inserted last evening. - Flomax 0.4 mg daily. - Urology consulted, urology recommends chronic Lipscomb catheter until seen in the office versus intermittent straight cath if the patient goes to a fpc facility in the following up in the office for further recommendations (3) Decreased urine output: - May be related to ATN in setting of recent blood loss vs. dehydration. Resolved (4) Chest pain: - C/o chest pain postoperatively without recurrence, troponins without significant abnormal state did have a recent NSTEMI - CXR negative for acute abnormalities. (5) Acute respiratory failure with hypoxia: - Now weaned to 1L via NC. Likely multifactorial considering atelectasis postoperatively possible small fluid overload associate with surgery in any case this is resolving (6) Hyponatremia: Noted and improved with hydration but still remains in sub-normal range (7) Fall in home: - PT/OT - discharge to [facility] once medically stable. (8) CAD (coronary artery disease): - H/o NSTEMI (Type II) in March 2018; continue home statin, beta jerald, ACEI, ASA 81 mg daily. - Follows with Dr. Bill. No concern for acute coronary syndrome at this time (9) IDDM (insulin dependent diabetes mellitus): - Has insulin pump at home -- do not use as inpatient. - Pharmacy consulted for glycemic management. Put on insulin drip temporarily will resume to his pump for basal rate as soon as possible - Hgb A1C was 7.7. (10) HTN (hypertension): - Continue home Metoprolol and Lisinopril. (11) TIA (transient ischemic attack): - Unclear history; ASA 81 mg daily. (12) Aortic valve replaced: - [place] [facility] [place] (13) Hypothyroid: - Continue home Levothyroxine. - Most recent TSH was 1.8 in Oct 2018. (14) Hyperlipidemia: - Continue home statin. (15) History of pulmonary embolism: - Following previous surgery; has IVC filter in place. - Has bovine valve, [place] [facility] [place] Follows with Dr. Viera. - INR was 1.2 due to reversal with Vit K; continue Coumadin 10 mg daily. Following daily INRs - Lovenox 30 mg subQ q12hr for ppx; avoid therapeutic heparin due to h/o post op bleeding. - Monitor PT/INR daily. (16) Anemia: - acute blood loss anemia -Patient is anemic but stable he does have acute blood loss anemia (17) DVT prophylaxis: - SCDs; Coumadin & Lovenox q12hr. Dispo: Discharge to rehab once medically stable. Subjective Patient was sleeping upon my entering the room first however did awaken and was interactive during the remainder of his stay. His son arrived during the visit and was updated on his condition. Most notably the patient is not transitioning to a insulin drip for short period time to control glucose before returning to basal bolus insulin. I informed the patient of the recommendations by urology of either having a chronic indwelling Lipscomb catheter for short period of time versus intermittent straight caths to his difficulty with postoperative urinary retention. Review of Systems Review of Systems: ROS: well nourished well developed. No double vision blurry vision No problems with speech or swallowing No palpitations, chest pain or pressure No Wheezing or breathing issues No abdominal pain nausea vomiting diarrhea changes in appetite or weight No burning urine Lipscomb catheter is in place with clear tera urine Patient still with some left hip discomfort and stiffness post procedure nothing unusual to No skin rashes or oral lesions No unusual bruising or bleeding No focused back pain or numbness or loss of strength No changes in memory or confusion Physical Exam Physical Exam: The patient appeared well nourished and normally developed. Vital signs as documented. Head exam is unremarkable. normocephalic, atraumatic Neck is without jugular venous distension, thyromegaly, or lymphademopathy Lungs are clear to auscultation and percussion. Cardiac exam reveals Rhythm is regular. Systolic ejection murmur is heard Abdominal exam reveals normal bowel sounds, no masses, no organomegaly Extremities are nonedematous and both pedal pulses are present, left hip is mildly tender to touch ice bag is in place some mild swelling Neurologic exam is A&Ox3, no focal deficits, strength is been on the left leg due to his recent surgery Psychologically seems neither anxious or depressed Skin is warm Dry with exception of the surgical site Results & Data Vital Signs (Past 12 Hours) Vital Signs Temp Pulse Pulse Resp BP Pulse Ox 04/11/19 07:51 37.0 C 87 16 98/64 L 94 04/10/19 23:11 36.8 C 82 19 106/59 L 94 PG Care Time/CCT Total # of Minutes Spent Total Time Spent with Patient: Total time spent is greater than 50% in coordination of care (as documented) at patient's floor/unit and/or counseling patient:
[2019-04-11] MEDS: LISINOPRIL 5 MG TAB PO SCH (09:18)
[2019-04-11] MEDS: METOPROLOL TARTRATE 25 MG TAB PO SCH (09:19)
[2019-04-11] MEDS: ENOXAPARIN INJ 30 MG/0.3 ML SYR SQ SCH ×2 (09:22→20:35)
--- NOTE | 2019-04-11 09:47 | Urology Progress Note ---
Date of Service April 11, 2019 Assessment & Plan (1) Urinary retention: Urinary retention. Recommend maintaining Hager for 7-10 days. Per spouse, likely DC to SNF/rehab. Will tentatively plan for TOV at facility and will arrange for outpatient URO follow up. Please contact our service if we can be of further assistance during hospitalization. Subjective 89 YO male with UR. Indwelling Hager placed over weekend due to repeat straight catheterization. Hager not bothersome. No abdominal/flank pain. No fevers/chills. Review of Systems Review of Systems: All systems reviewed & are unremarkable except as noted in HPI & below Physical Exam Physical Exam: WN/WD NAD. Resp effort normal. No JVD. Abd soft/nontender. Alert, cooperative. : bladder nontender/nondistended; Hager in place draining clear yellow urine. Results & Data Vital Signs (Past 12 Hours) Vital Signs Temp Pulse Pulse Resp BP Pulse Ox 04/11/19 07:51 37.0 C 87 16 98/64 L 94 04/10/19 23:11 36.8 C 82 19 106/59 L 94
[2019-04-11] MEDS: INSULIN REGULAR 250 UNITS in SODIUM CHLORIDE 0.9% 247.5 ML IV SCH (10:03)
--- NOTE | 2019-04-11 10:55 | Anesthesiology Progress Note ---
Date of Service April 11, 2019 Anesthesia Post Procedure Vital Signs Vital Signs: Temp Pulse Pulse Resp BP Pulse Ox 04/11/19 09:03 95 H 96/61 L 04/11/19 07:51 37.0 C 87 16 98/64 L 94 04/10/19 23:11 36.8 C 82 19 106/59 L 94 04/10/19 15:26 36.8 C 70 16 103/64 95 Pain Intensity Abdomen: Pain Intensity: 3 Left Hip: Pain Intensity: 1 Notes Mental Status: alert / awake / arousable Patient Amnestic to Procedure: Yes Nausea / Vomiting: adequately controlled Pain: adequately controlled Airway Patency, RR, SpO2: stable & adequate BP & HR: stable & adequate Hydration State: stable & adequate Neuraxial Anesthesia: was administered and sensory block resolved Anesthetic Complications: no major complications apparent
--- NOTE | 2019-04-11 13:16 | Pharmacy Report ---
Pharmacy Glycemic Short Note 2 - Date of Service April 11, 2019 - Glycemic Short BSG Results (Last 24 hours): 04/10/19 04/10/19 04/10/19 15:15 15:17 16:27 Glucose 249 H POC Glucose 325 H* 317 H* 04/10/19 04/10/19 04/11/19 17:25 20:33 00:01 Glucose POC Glucose 247 H 201 H 217 H 04/11/19 04/11/19 04/11/19 04:14 04:30 08:12 Glucose 190 H POC Glucose 186 H 291 H 04/11/19 04/11/19 10:59 11:01 Glucose POC Glucose 371 H* 362 H* OUTPATIENT ANTIDIABETIC REGIMEN: Insulin pump: * Basal rates * 9863-5460: 0.925 units/hr * 2204-2287: 0.525 units/hr * Goal range: 90-140 mg/dL * Correction factor: 50 mg/dL/unit * Carb ratio: 15 g CHO/unit HbA1c 7.7% on 04/08/19 ASSESSMENT: * 89 yo M with TYPE 1 diabetes admitted for hip fracture, now POD 3 s/p cemented left hip hemiarthroplasty * BSG's remain persistently elevated. With BSG's in the 300's for the past two days. * Etiology of hyperglycemia is partially due to inaccuracy of previously reported "total basal dose" of 13 units per outpatient records, but upon calculation of actual administered basal insulin per basal rates (above), home administration is 17.2 units. The patient has therefore received insufficient basal insulin for the last 3 days, which is significant for type 1 diabetes. No evidence of DKA at this time (anion gap and CO2 wnl) * Basal insufficiency alone does not, however, explain the significant insulin requirements of the last few days. Yesterday, patient's BSG's ranged 169-337 mg/dL after receiving 2-3 times the amount of insulin he usually receives as an outpatient (received 72 units yesterday as compared to usual home dose 28- 37 units). The patient's BSG's are behaving as if he received steroids in the intraoperative period (either IV or intra-articular), although after careful chart review I cannot find any documentation supporting that (other than an overriden ortho joint mixture from the day *prior* to surgery, without a corresponding pharmacy medication order that would have prompted mixing/sending - patient therefore did not likely receive this) * 1600 - spoke with Joseluis (RN) - patient's BSG's finally in 200's now that insulin drip up to 8.4 units/hr. I gave verbal authorization to continue 8.4 units/hr (despite calculator noting to increase) as I suspect insulin requirements may decrease soon now that patient's basal depletion is being addressed with higher Lantus dose this AM and significant IV insulin administration so far today. Patients with type 1 diabetes are more prone to rapid decrease in BSG at higher insulin rates therefore this patient may require more rapid decreases in insulin infusion as compared to what the calculator suggests to prevent hypoglycemia. Discussed with Joseluis - please call pharmacy when BSG's decreasing to assess need for more rapid decrease in insulin infusion dose than suggested by calculator * Lantus dose this AM to increase * Discussed starting insulin drip with Dr. West this AM * Patient to continue on insulin drip for now 2nd elevated BSG's despite high infusion rates. Plan to transition back to basal/bolus when BSG's controlled at drip rate less than 1 unit/hr * Pre-selected CHO ratio of 5 g CHO/unit (not per insulin drip calculator) as patient is also receiving basal insulin which would increase chance that CHO r atio calculated by drip would be insufficient to cover prandial CHO PLAN FOR INPATIENT GLYCEMIC CONTROL: * Basal insulin * Lantus 20 units SQ x1 this AM * Insulin drip * Moderate stress protocol * Goal range 110-160 mg/dL * Bolus insulin * CHO ratio: 5 g CHO/unit while on drip
[2019-04-11] MEDS: WARFARIN SOD 10 MG TAB PO SCH (16:14)
[2019-04-11] MEDS: [UNRECOGNIZED DRUG - REMARK] SCH ×2 (16:14→23:43)
[2019-04-11] MEDS: SENNA 8.6 MG TAB PO SCH (20:35)
[2019-04-12] MEDS: POLYETHYLENE (MIRALAX) 17 GM PACK PO SCH ×2 (05:31→12:43)
[2019-04-12] MEDS: LEVOTHYROXINE SODIUM 112 MCG TABLET PO SCH (05:31)
[2019-04-12] MEDS: SODIUM CHLORIDE 0.9% 1000ML 1,000 ML IV SCH (06:32)
[2019-04-12 07:09] LABS: INR 1.9 (0.9-1.1); Prothrombin Time 18.4 Seconds (9.0-12.0)
[2019-04-12] MEDS ORDERED: INSULIN GLARGINE SOLOSTAR 100 UNITS/ML 3 ML PEN SC ONE (09:00)
[2019-04-12] MEDS: TAMSULOSIN HCL 0.4 MG CAP PO SCH (09:14)
[2019-04-12] MEDS: ASPIRIN 81 MG ECTAB PO SCH (09:14)
[2019-04-12] MEDS: METOPROLOL TARTRATE 25 MG TAB PO SCH (09:15)
[2019-04-12] MEDS: ATORVASTATIN 40 MG TAB PO SCH (09:15)
[2019-04-12] MEDS: ENOXAPARIN INJ 30 MG/0.3 ML SYR SQ SCH (09:15)
[2019-04-12] MEDS: CYANOCOBALAMIN 500 MCG TABLET (VITAMIN B-12) PO SCH (09:16)
[2019-04-12] MEDS: LISINOPRIL 5 MG TAB PO SCH (09:16)
[2019-04-12] MEDS: INSULIN ASPART 100 UNITS/ML 3 ML PEN SC SCH ×2 (09:27→13:08)
[2019-04-12] MEDS: INSULIN REGULAR 250 UNITS in SODIUM CHLORIDE 0.9% 247.5 ML IV SCH (09:32)
--- NOTE | 2019-04-12 12:43 | Pharmacy Report ---
Pharmacy Glycemic Short Note 2 - Date of Service April 12, 2019 - Glycemic Short BSG Results (Last 24 hours): 04/11/19 04/11/19 04/11/19 11:53 13:02 13:57 POC Glucose 368 H* 343 H* 387 H* 04/11/19 04/11/19 04/11/19 14:57 15:56 16:59 POC Glucose 325 H* 273 H 266 H 04/11/19 04/11/19 04/11/19 17:54 19:05 19:55 POC Glucose 218 H 176 H 159 H 04/11/19 04/11/19 04/11/19 21:17 21:41 22:00 POC Glucose 87 135 H 123 H 04/11/19 04/11/19 04/11/19 22:13 22:29 23:30 POC Glucose 121 H 115 H 146 H 04/12/19 04/12/19 04/12/19 00:32 01:26 02:30 POC Glucose 193 H 207 H 167 H 04/12/19 04/12/19 04/12/19 03:30 04:31 05:30 POC Glucose 150 H 187 H 133 H 04/12/19 04/12/19 04/12/19 06:29 07:27 09:25 POC Glucose 168 H 155 H 204 H 04/12/19 12:10 POC Glucose 198 H OUTPATIENT ANTIDIABETIC REGIMEN: Insulin pump: * Basal rates * [id number]: 0.925 units/hr * 3339-7466: 0.525 units/hr * Goal range: 90-140 mg/dL * Correction factor: 50 mg/dL/unit * Carb ratio: 15 g CHO/unit HbA1c 7.7% on 04/08/19 ASSESSMENT: 04/12/19 * BSG's did eventually drop precipitously yesterday while on drip as anticipated - rates adjusted by pharmacy/nursing off-protocol appropriately. Overnight, drip rates remained <= 1 unit/hr with BSG's in goal range * Will discontinue insulin drip this AM 2nd low rate of insulin drip with BSG's well controlled. No need for 6 hour overlap with Lantus this AM as patient received an adequate dose of Lantus yesterday AM * OK to very slightly increase Lantus from yesterday 2nd low but persistent need for IV insulin overnight. Anticipate that this may be able to be decreased tomorrow now that basal insufficiency has been completely or mostly corrected * Spoke with RN (Alyssia) - patient has all required insulin pump supplies available here to be able to resume insulin pump if/when clinically indicated. Therefore will not order ongoing Lantus as this time. * Will continue tight CHO ratio that was used while insulin drip was running, but loosen correction factor as compared to previous to prevent hypoglycemia given that insulin sensitivity may now increase from correction of basal insufficiency * Will continue to monitor BSG's this evening as patient is at risk for developing both hyperglycemia (evidenced by high insulin drip rates yesterday) and hypoglycemia due to increased insulin sensitivity * Will add two overnight checks 04/11/19 * 89 yo M with TYPE 1 diabetes admitted for hip fracture, now POD 3 s/p cemented left hip hemiarthroplasty * BSG's remain persistently elevated. With BSG's in the 300's for the past two days. * Etiology of hyperglycemia is partially due to inaccuracy of previously reported "total basal dose" of 13 units per outpatient records, but upon calculation of actual administered basal insulin per basal rates (above), home administration is 17.2 units. The patient has therefore received insufficient basal insulin for the last 3 days, which is significant for type 1 diabetes. No evidence of DKA at this time (anion gap and CO2 wnl) * Basal insufficiency alone does not, however, explain the significant insulin requirements of the last few days. Yesterday, patient's BSG's ranged 169-337 mg/dL after receiving 2-3 times the amount of insulin he usually receives as an outpatient (received 72 units yesterday as compared to usual home dose 28- 37 units). The patient's BSG's are behaving as if he received steroids in the intraoperative period (either IV or intra-articular), although after careful chart review I cannot find any documentation supporting that (other than an overriden ortho joint mixture from the day *prior* to surgery, without a corresponding pharmacy medication order that would have prompted mixing/sending - patient therefore did not likely receive this) * 1600 - spoke with Joseluis (MANI) - patient's BSG's finally in 200's now that insulin drip up to 8.4 units/hr. I gave verbal authorization to continue 8.4 units/hr (despite calculator noting to increase) as I suspect insulin requirements may decrease soon now that patient's basal depletion is being addressed with higher Lantus dose this AM and significant IV insulin administration so far today. Patients with type 1 diabetes are more prone to rapid decrease in BSG at higher insulin rates therefore this patient may req uire more rapid decreases in insulin infusion as compared to what the calculator suggests to prevent hypoglycemia. Discussed with Joseluis - please call pharmacy when BSG's decreasing to assess need for more rapid decrease in insulin infusion dose than suggested by calculator * Lantus dose this AM to increase * Discussed starting insulin drip with Dr. West this AM * Patient to continue on insulin drip for now 2nd elevated BSG's despite high infusion rates. Plan to transition back to basal/bolus when BSG's controlled at drip rate less than 1 unit/hr * Pre-selected CHO ratio of 5 g CHO/unit (not per insulin drip calculator) as patient is also receiving basal insulin which would increase chance that CHO ratio calculated by drip would be insufficient to cover prandial CHO PLAN FOR INPATIENT GLYCEMIC CONTROL: * Stop insulin drip * Basal insulin * Lantus 22 units SQ x1 this AM * Bolus insulin * Novolog ACHS with two overnight checks * Goal range: 120-160 mg/dL * Correction factor: 20 mg/dL/unit * CHO ratio: 5 g CHO/unit
[2019-04-12] MEDS ORDERED: WARFARIN SOD 4 MG TAB PO SCH (16:00)
--- NOTE | 2019-04-12 17:25 | Discharge Summary ---
Date of Service April 12, 2019 Admission HPI Per Admitting Provider 89 y/o M with a L subcapital fracture s/p mechanical fall today. He was bending over to empty a dog bowl into plants off of his deck when he lost his balance and fell. He scraped his R hand and landed on his L hip and hit his head. Denies any LOC, syncope, lightheadedness, dizziness. Prior to this, he was having a usual day for himself. He and his took their grandchildren to [place] for breakfast and he had no issues with any of this activity. He says he has fallen in the past, but not in the last 6 months. He has a lot of pain related to his L hip, but feels fine otherwise. Pt denies fever, SOB, c hest pain, abd pain, n/v/c/d. He has chronic b/l LE swelling and this is at baseline. Pt consistently takes his coumadin. Last dose was yesterday HS. He states that he only sporadically takes his aspirin and is unable to tell me the last time he took this. He states he also intermittently does not take his metoprolol and lisinopril. He uses an insulin pump to manage his DM and would like to use this while admitted when able. Principal Diagnosis Left total hip hemiarthroplasty performed 04/08 Urinary outlet obstruction requiring chronic indwelling Lipscomb catheter urology follow-up recommended Discharge Exam Constitutional well developed and average body habitus Eyes no conjunctival abnormality and no scleral abnormality Neck normal visual inspection and trachea midline Respiratory normal respiratory effort; no respiratory distress Auscultation: lungs clear to auscultation bilaterally Cardiovascular RRR, no murmur, no edema Gastrointestinal (Abdomen) normal bowel sounds, soft, nontender, no hepatosplenomegaly Discharge Data Allergies Allergy/AdvReac Type Severity Reaction Status Date / Time No Known Allergies Allergy Verified 04/07/19 13:38 Consultations 04/07/19 16:09 Consult Case Management - Discharge Planning Routine Consult Orthopedic Surgery Routine 04/08/19 21:21 Consult Case Management - Discharge Planning Routine 04/09/19 17:59 Consult Urology Routine Procedures Performed Operation Date: 04/08/19 08:50 Actual Procedures p Left Total Hip Hemiarthroplasty(Left) - Gonzalez Slaughter MD Ordered Studies 04/07/19 12:35 CT cervical spine wo con Stat CT head/brain wo con Stat Hospital Course (1) Family conflict: Prior to being discharged his complained significantly that she was unaware of his discharge. She would not shake my hand she was adamant that she was unhappy about what was happening. We spent approximately 20 minutes talking to the and family member at the bedside. Patient himself did not voice any misunderstanding of the plan. The rehabilitation case coordinator yasmany Mclaughlin did convey the plan to the son who is predominantly present at the bedside typically around midday. However there was not clear lines of communication between different family members. At the end of the meeting Dr. Slaughter walk-in and felt he validated that the patient could go to [facility] for rehab today and the family was agreeable to that although not pleased with the patient's overall communication during the stay (2) Hip fracture, left: - Following mechanical fall at home. - Ortho consulted, s/p left cemented bipolar hip arthroplasty on 04/08, -Patient is planning on doing rehab [facility] ed - DVT ppx: resumed home Coumadin; (3) Urinary retention: - Lipscomb was removed on 04/09, did not void; lipscomb was re-inserted last evening. - Flomax 0.4 mg daily. - Urology consulted, urology recommends chronic Lipscomb catheter until seen in the office versus intermittent straight cath if the patient goes to a [facility] facility in the following up in the office for further recommendations (4) Decreased urine output: - May be related to ATN in setting of recent blood loss vs. dehydration. Resolved (5) Chest pain: - C/o chest pain postoperatively without recurrence, troponins without significant abnormal state did have a recent NSTEMI - CXR negative for acute abnormalities. (6) Acute respiratory failure with hypoxia: - Now weaned to 1L via NC. Likely multifactorial considering atelectasis postoperatively possible small fluid overload associate with surgery in any case this is resolving (7) Hyponatremia: Noted and improved with hydration but still remains in sub-normal range (8) Fall in home: - PT/OT - discharge to [facility] once medically stable. (9) CAD (coronary artery disease): - H/o NSTEMI (Type II) in March 2018; continue home statin, beta jerald, ACEI, ASA 81 mg daily. - Follows with Dr. Bill. No concern for acute coronary syndrome at this time (10) IDDM (insulin dependent diabetes mellitus): - Has insulin pump at home -- - Pharmacy consulted for glycemic management. Put on insulin drip temporarily Patient did receive some long-acting basal insulin subcutaneously on 04/12, will resume to his pump for basal rate once he gets to [facility] and start this on 04/13 continuing sliding scale, if it is well and sliding scale then transition for the patient self-management of his insulin via his pump - Hgb A1C was 7.7. (11) HTN (hypertension): - Continue home Metoprolol and Lisinopril. (12) TIA (transient ischemic attack): - Unclear history; ASA 81 mg daily. 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 (14) Hypothyroid: - Continue home Levothyroxine. - Most recent TSH was 1.8 in Oct 2018. (15) Hyperlipidemia: - Continue home statin. (16) History of pulmonary embolism: - Following previous surgery; has IVC filter in place. - Has bovine valve, placed 10 years ago at [facility]. Follows with Dr. Viera. - INR was 1.2 due to reversal with Vit K; continue Coumadin 10 mg daily. Since his INR is at 1.9 will resume his typical Coumadin alternative dosing as he was prior to presenting here (17) Anemia: - acute blood loss anemia -Patient is anemic but stable he does have acute blood loss anemia Total Time Total Time Spent Total Time Spent (In Minutes): greater than 30 minutes were required to prepare discharge Discharge Plan Discharge Items Patient Disposition: Transfer Residential Fac Reason For Visit: L HIP FRACTURE Discharge Diagnosis: Left Hip Arthroplasty for fracture Discharge Goals: Decrease discomfort, Improve disease control and Therapeutic intervention Activity: Per 'Additional Instructions' section Activity Comment: Total Hip PRecautions Weightbearing: Left weightbearing Weightbearing Comment: Weightbear as tolerated obeying hip precautions Non-emergency contact: Primary Care Provider and Surgeon Call non-emergency contact if: you have any medication questions Follow-up/Referrals: Juan Mendez MD [Primary Care Provider] - Gonzalez Slaughter MD [Surgeon] - (Follow-up in Orthopedic clinic 2 weeks from surgery date.) Diet: Carb Consistent or DM2 Addtl Provider Instructions: PT diabetic management he was given long acting insulin 04/12, recomendation from pharmacist will be to continue slinding scale as recommended below with aspartate and to start pt's insulin pump 04/13 at basal rate, if glucose control is good then the pt can resume taking over meal time correction on 04/14 or beyond ACTIVITY RECOMMENDATIONS: Physical Therapy: * Aggressive physical therapy is not usually needed. You will learn to take care of yourself safely and walk. * Follow the "Hip Precautions Instructions." * In some cases, the pediatric social worker at the hospital will arrange to have a therapist come to your house for the first couple of weeks to help you learn these skills. * You need to practice on your own or with the help of a family member as needed. * When you learn these skills, most of the therapy can be done on your own. Home Exercise: * You were shown a series of exercises in the hospital. Do these exercises three to four times each day including the exercises you were shown in physical therapy. Walking: * Get up and walk several times each day. For the first four weeks, try not to stand or walk for more than one hour at a time. If you do stand or walk for more than one hour, you will not hurt anything, but your leg will likely swell. * As you feel comfortable, you may change from the walker or crutches to a cane and then to independent walking. MEDICATIONS: "VERY IMPORTANT TO READ AND REVIEW" Pain: * The immediate post-operative period after hip replacement surgery is often quite painful. * You are given a prescription for pain medicine. You should take it, as directed, when you need it, especially before physical therapy and before going to bed. Pain that interferes with sleep is very common and can last several months. * You will likely need pain medicine for the first two to four weeks. It will not stop all of the pain. The pain will lessen and as you feel better, you may change to milder pain medicine such as Tylenol. * The most common side effects of pain medicine are nausea and constipation, so don't take more than you need. SPECIAL CARE INSTRUCTIONS: TEDs/Elastic Stockings: * The white elastic stockings help limit swelling and prevent blood clots from forming in your legs. The more you wear them, the more they work. * Wear them for six weeks. Prevention of Infection: * Take antibiotics one hour before any dental cleaning, dental work, urological procedure, gastrointestinal procedure or any invasive surgery in order to prevent your new joint from getting infected. * You may get the antibiotics from the doctor performing the procedure or you may call our office at before and we will call in a prescription to the pharmacy of your choice. Things to Watch For: * Drainage from the incision site that occurs more than one week after your surgery. * Severely increased leg pain or swelling. * Increased redness at the incision site. * Fever above 102 degrees Fahrenheit. * Unusual chest pain or shortness of breath. * Unusual pain or burning with urination. Call [facility] at with any of the above problems or if you have any questions about your medicines or recovery. FOLLOW UP VISIT: Make an appointment to see your doctor for approximately two weeks after surgery for a progress check and staple removal by calling the office at . Prescriptions: New sennosides [Senokot] 8.6 mg Tablet 17.2 mg PO HS Qty: 30 RF: 0 oxycodone 5 mg Tablet 5 mg PO Q6H PRN (Reason: pain) Qty: 30 RF: 0 tamsulosin 0.4 mg Capsule 0.4 mg PO QAM Qty: 30 RF: 0 Novolog Flexpen U-100 Insulin 100 unit/mL (3 mL) Insulin Pen 1 units SC ACHS Qty: 15 RF: 0 Continued aspirin [Adult Low Dose Aspirin] 81 mg tablet,delayed release (DR/EC) 81 mg PO DAILY RF: 0 atorvastatin 40 mg tablet 40 mg PO DAILY RF: 0 cholecalciferol (vitamin D3) 1,000 unit capsule 1,000 units PO DAILY RF: 0 coenzyme Q10 10 mg capsule 10 mg PO DAILY RF: 0 cyanocobalamin (vitamin B-12) 500 mcg lozenge 500 mcg PO DAILY RF: 0 levothyroxine 112 mcg capsule 112 mcg PO DAILY RF: 0 lisinopril 5 mg tablet 5 mg PO DAILY RF: 0 metoprolol succinate 25 mg capsule,sprinkle,ER 24hr 12.5 mg PO DAILY RF: 0 multivitamin tablet 1 tab PO DAILY RF: 0 warfarin 4 mg tablet See Patient Comments PO UD RF: 0 ascorbic acid (vitamin C) [Vitamin C] 500 mg Tablet 500 mg PO DAILY RF: 0 insulin aspart U-100 100 unit/mL Cartridge See Rx Instructions .ROUTE .COMPLEX Qty: 0 RF: 0 No Action OneTouch Ultra Blue Test Strip strip .ROUTE .MEDSUPPLY Qty: 400 RF: 5 Stand-Alone Forms: [facility] Cristian/Other Patient Handouts: Pain Management, Falls Preventing Discharge Orders: Discharge Order (Routine); Ordered 04/12/19 Ordered By: Germain West Skilled Items Patient informed of condition?: Yes DNR: No Discharge Level of Care: Skilled Communicable Disease: No Discharge Prognosis: Stable Admission Data Admit Date/Time: 04/07/19 14:30 Attending Provider: Germain West Admit Provider: Karina Johnson Primary Care Provider: Juan Mendez Other Providers: Gonzalez Slaughter ; Terrell Villarreal II ; Valentin Banegas Service: Surgical Services Other Interventions: Discharge Summary Assessment (RN) Last Done: 04/12/19 14:35 DC Date/Time DO NOT enter until pt leaves facility: 04/12/19 15:54
[2019-04-13] MEDS ORDERED: INSULIN ASPART 100 UNITS/ML 3 ML PEN SC SCH ×2
== END 2019-04-12 15:54 | DRG 469 ==
LOC: ED 12:26 → SUATTDRO 14:30 → 3N 14:30

== ENCOUNTER 2019-10-18 22:57 | Inpatient (IN) ==
[2019-10-18] MEDS ORDERED: ALBUT/IPRATROP 3MG/0.5MG NEB 3 ML VIAL NEB STA (23:39)
[2019-10-18] MEDS ORDERED: cefTRIAXone SODIUM 1,000 MG/50 ML BAG IV STA (23:40)
[2019-10-18] MEDS ORDERED: AZITHROMYCIN 500 MG in DEXTROSE 5% 250 ML IV ONE (23:40)
[2019-10-18 23:52] LABS: Basophils # (auto) 0.01 K/uL (0-0.2); Basophils % (auto) 0.1 %; Eosinophils # (auto) 0.01 K/uL (0-0.5); Eosinophils % (auto) 0.1 %; Hemoglobin 11.2 g/dL (14.0-18.0); Immature Granulocytes # (auto) 0.03 K/uL (0.00-0.02); Immature Granulocytes % (auto) 0.3 %; Lymphocytes # (auto) 1.12 K/uL (1.2-3.4); Lymphocytes % (auto) 9.5 %; Mean Corpuscular Hemoglobin 30.1 pg (25-34); Mean Corpuscular Hgb Conc 33.9 g/dL (32-36); Mean Corpuscular Volume 88.7 fL (80-100); Mean Platelet Volume 10.6 fL (7.4-10.4); Monocytes # (auto) 1.21 K/uL (0.11-0.59); Monocytes % (auto) 10.2 %; Neutrophils # (auto) 9.46 K/uL (1.4-6.5); Neutrophils % (auto) 79.8 %; Platelet Count 188 K/uL (130-400); RDW Coefficient of Variation 16.9 % (11.5-14.5); Red Blood Count 3.72 M/uL (4.7-6.1); White Blood Count 11.84 K/uL (4.8-10.8)
[2019-10-19 00:09] LABS: Albumin Level 3.1 gm/dl (3.4-5.0); BUN Creatinine Ratio 23.8 (10-20); Calcium 8.8 mg/dl (8.5-10.1); Creatinine Clr Calc Pharmacy 72.7 ml/min; Est GFR (African American) 88.7; Est GFR (Non-African American) 76.5; INR 1.7 (0.9-1.1); Partial Thromboplastin Ratio 1.3; Partial Thromboplastin Time 35.1 Seconds (21.0-31.0); Potassium 4.5 mmol/L (3.5-5.1); Prothrombin Time 16.8 Seconds (9.0-12.0)
[2019-10-19 00:18] LABS: Albumin Globulin Ratio 0.9 (0.9-2); Bilirubin,Total 1.5 mg/dl (0.2-1); Globulin 3.3 gm/dl (2.5-4.0); Total Protein 6.4 gm/dl (6.4-8.2); Troponin I 0.048 ng/ml (0-0.045)
[2019-10-19 01:11] LABS: Influenza A virus by PCR Neg for Influ A (Neg); Influenza B virus by PCR Neg for Influ B (Neg)
--- NOTE | 2019-10-19 01:38 | Emergency Department Note ---
Entered by Windy Babin acting as a scribe for Keyshawn Ku DO History of Present Illness General Chief complaint: Shortness of Breath/Dyspnea Stated complaint: SHORT OF BREATH/FEVER Time Seen by Provider: 10/18/19 23:21 Source: patient and family () History of Present Illness Onset (ago): week(s) 1 Location: chest (SOB/dyspnea ) Pain Consistency: + intermittent Associated symptoms: + denies other symptoms (abdominal pain, rhinorrhea ), + fever/chills (began 2 days ago; (Tmax today of 101.8 dgerees)) and + other (congestion, "whistle" in chest); no cough Treatments prior to arrival: other (Tylenol) The patient is an 89 year old male with a history of CAD, aortic valve replaced, Afib, acute respiratory failure with hypoxia, TIA, DM, HTN, anemia, hyperlipidemia, and hypothyroid who presents to the Emergency Room with complaints of shortness of breath/dyspnea. The patient's states that the patient has been experiencing congestion for 1 week associated with a constant "whistle" in his chest and intermittent shortness of breath. 2 days ago he began to experience a fever which worsened this evening (Tmax 101.8 degrees). He has been taking Tylenol for relief. Of note, the patient does not wear oxygen at home and he uses a walker for assistance. He denies abdominal pain, rhinorrhea, and cough. The patient and his offer no further concerns at this time. Home Medications Home Medications Medication Instructions Recorded Confirmed Type aspirin 81 mg tablet,delayed 81 mg PO DAILY 06/15/18 09/28/19 History release cholecalciferol (vitamin D3) 25 1,000 units PO DAILY 06/15/18 09/28/19 History mcg (1,000 unit) capsule coenzyme Q10 10 mg capsule 10 mg PO DAILY cap 06/15/18 09/28/19 History ascorbic acid (vitamin C) [Vitamin 500 mg PO DAILY 07/13/18 09/28/19 History C] blood sugar diagnostic #400 ea 02/24/19 09/28/19 Rx cyanocobalamin (vitamin B-12) 2,500 mcg PO DAILY tab 05/03/19 09/28/19 History 2,500 mcg tablet urine glucose-ketones test #50 ea 05/03/19 09/28/19 History blood-glucose meter #1 ea 05/04/19 09/28/19 History insulin syr/ndl U100 half beatriz 0.3 #100 ea 05/04/19 09/28/19 History mL 31 gauge x 5/16" acetaminophen 325 mg capsule 975 mg PO QID PRN cap 05/11/19 09/28/19 History atorvastatin 40 mg tablet 40 mg PO DAILY #90 tab 05/11/19 09/28/19 Rx metoprolol succinate 25 mg capsule 12.5 mg PO DAILY #45 ea 05/11/19 09/28/19 Rx sprinkle, ext. release 24 hr miscellaneous medical supply #1 ea 05/12/19 09/28/19 Rx levothyroxine 112 mcg tablet 112 mcg PO DAILY #90 tab 05/13/19 09/28/19 Rx Bedside Commode #1 ea 05/17/19 09/28/19 Rx pen needle, diabetic 32 gauge x #100 ea 05/19/19 09/28/19 Rx 5/32" Novolog Flexpen U-100 Insulin 100 See Rx Instructions SQ .COMPLEX #1 06/14/19 09/28/19 Rx unit/mL (3 mL) subcutaneous box NS sennosides 8.6 mg tablet 17.2 mg PO HS PRN tab 08/11/19 09/28/19 History insulin glargine 100 unit/mL (3 12 units SQ QPM ml 09/26/19 09/28/19 History mL) subcutaneous pen warfarin 4 mg tablet See Rx Instructions PO DAILY tab 09/28/19 09/28/19 History Allergies Allergy/AdvReac Type Severity Reaction Status Date / Time No Known Allergies Allergy Verified 09/26/19 14:20 Past Med/Surg History Medical History Diabetes mellitus type 1 DKA (diabetic ketoacidoses) March 2018. History of non-ST elevation myocardial infarction (NSTEMI) March 2018. Per cardiology note as patient was admitted at the time: "Non-ST elevation myocardial infarction. This has occurred in the setting of his diabetic ketoacidosis. The patient denies any anginal-type symptoms. His electrocardiogram initially did reveal ST depressions anteriorly. These have since resolved. The patient has had prior hospitalizations for DKA with elevations in his troponin I. He had an episode in 08/2016. In the interim, he has done well without any anginal-type symptoms. Suspect that the current troponin elevation was secondary to demand ischemia and not a primary coronary event." History of pulmonary embolism 2005 - post op - w/ ivc filter Hypertension Hypothyroidism Neuropathy On anticoagulant therapy Presence of IVC filter Transient ischemic attack (TIA) pulled from past problem list - pt could not confirm - unsure of dx Surgical History H/O aortic valve replacement >10 years - [facility] - follows w/ dr. westbrook H/O removal of cyst History of colonoscopy History of herniorrhaphy rt inguinal History of inferior vena caval filter placement History of surgery rt femur reconstruction History of total hip arthroplasty rt History of total knee replacement lt Hx of right cataract extraction Family History Brother History of heart valve replacement Unknown Depression Sister Hepatic failure Renal failure Social History Preferred Language: Cuban Communication Ability: Effective Apartment Leasing Consultant Required: No Beliefs That Will Affect Care: None marital status: Current Living Situation: Spouse Current Living Situation Comment: home Feels Safe at Home: Yes Smoking Status: Never smoker Second Hand Exposure: No ; Hx Alcohol Use: Yes Alcohol type: beer Alcohol Intake Frequency Comment: 1 beer per day prior to dinner Hx Substance Use: No Review of Systems See HPI for pertinent positives & negatives. and A total of 10 systems reviewed and were otherwise negative Physical Exam Vital Signs Vital Signs - 24 hr 10/18/19 23:00 10/18/19 23:54 10/19/19 00:03 Temperature 37.4 C Temperature Source Oral Pulse Rate 99 H Pulse Rate [Apical] 93 H 91 H Pulse Rhythm Regular Pulse Rhythm [Apical] Regular Respiratory Rate 20 20 16 Respiratory Effort / Characteristics Non-Labored Spontaneous Spontaneous Non-Labored Spontaneous Respiratory Depth Normal Normal Respiratory Pattern Regular Blood Pressure 107/84 Blood Pressure [Right Arm] 92/63 L Blood Pressure Mean 91 Blood Pressure Mean [Right Arm] 72 Pulse Oximetry 87 L 95 93 Oxygen Delivery Method Room Air Nasal Cannula Nasal Cannula Oxygen Flow Rate 2 2 2 Sepsis Recent Fever Within 48 Hours Yes Sepsis New/Unexplained Change in Mental Status No Sepsis Action Taken by Nursing No Action Required Oxygen Flow Rate - Titration 2 Pulse Oximetry Post Tiitration 96 10/19/19 00:57 Temperature Temperature Source Pulse Rate Pulse Rate [Apical] 86 Pulse Rhythm Pulse Rhythm [Apical] Regular Respiratory Rate 16 Respiratory Effort / Characteristics Non-Labored Spontaneous Respiratory Depth Normal Respiratory Pattern Blood Pressure Blood Pressure [Right Arm] 100/58 L Blood Pressure Mean Blood Pressure Mean [Right Arm] 72 Pulse Oximetry 95 Oxygen Delivery Method Nasal Cannula Oxygen Flow Rate 2 Sepsis Recent Fever Within 48 Hours Sepsis New/Unexplained Change in Mental Status Sepsis Action Taken by Nursing Oxygen Flow Rate - Titration Pulse Oximetry Post Tiitration CONSTITUTIONAL/VITAL SIGNS: Reviewed / noted above. GENERAL: Non-toxic in appearance. INTEGUMENTARY: Warm, dry, and [place]. HEAD: Normocephalic. EYES: without scleral icterus or trauma. ENT/OROPHARYNX: clear and moist. LYMPHADENOPATHY/NECK: Is supple without lymphadenopathy or meningismus. RESPIRATORY: Lungs clear with diminished breath sounds bilaterally. CARDIOVASCULAR: Regular rate and rhythm. GI/ABDOMEN: Soft and nontender. No organomegaly or pulsatile mass. No rebound or guarding. Normal bowel sounds. EXTREMITIES: Warm and well perfused. BACK: No CVA tenderness. NEUROLOGICAL: Intact without focal deficits. PSYCHIATRIC: normal affect. MUSCULOSKELETAL: Normally developed with good muscle tone. Course Course 2325: Past medical records reviewed. The patient was evaluated in room C04. A complete history and physical exam was performed. 0118: I paged Dr. Rueda, [facility] Hospitalist. 0120: I checked on the patient and updated him on plan to admit. The patient verbally expressed understanding and agreement of the treatment plan. The patient will be evaluated for further treatment. Administered Medications Azithromycin 500 mg/ Dextrose 255 mls @ 125 mls/hr IV ONE ONE Stop: 10/19/19 01:42 Last Admin: 10/19/19 00:02 Dose: 125 mls/hr Documented by: [id number] Discontinued Medications Albuterol (Duoneb) 3 ml NEB NOW STA Stop: 10/18/19 23:40 Last Admin: 10/18/19 23:49 Dose: 3 ml Documented by: [id number] Ceftriaxone Sodium (Rocephin) 1,000 mg in 50 mls @ 100 mls/hr IV NOW STA Stop: 10/19/19 00:09 Last Infusion: 10/19/19 00:33 Dose: 0 mls/hr Documented by: [id number] Admin: 10/19/19 00:02 Dose: 100 mls/hr Documented by: [id number] Medical Decision Making Differential Diagnosis Differential diagnoses includes but is not limited to pneumonia, bronchitis, COPD/Asthma exacerbation, pneumothorax, pulmonary embolism, congestive heart failure, acute coronary syndrome Medical Records Attestation: I reviewed the patient's medical records. Home Medications Current Medication List: was personally reviewed by fl Laboratory Data Attestation: I reviewed the patient's lab results. Result diagrams: 10/18/19 23:44 10/18/19 23:44 Lab Results 10/18/19 10/18/19 10/18/19 Range/Units 00:10 23:44 23:44 WBC 11.84 H (4.8-10.8) K/uL RBC 3.72 L (4.7-6.1) M/uL Hgb 11.2 L (14.0-18.0) g/dL Hct 33.0 L (42-52) % MCV 88.7 (80-100) fL MCH 30.1 (25-34) pg MCHC 33.9 (32-36) g/dL RDW Std Deviation 55.0 H (36.4-46.3) fL RDW Coeff of Roger 16.9 H (11.5-14.5) % Plt Count 188 (130-400) K/uL MPV 10.6 H (7.4-10.4) fL Immature Gran % (Auto) 0.3 % Neut % (Auto) 79.8 % Lymph % (Auto) 9.5 % [place] % (Auto) 10.2 % Eos % (Auto) 0.1 % Baso % (Auto) 0.1 % Immature Gran # (Auto) 0.03 H (0.00-0.02) K/uL Neut # (Auto) 9.46 H (1.4-6.5) K/uL Lymph # (Auto) 1.12 L (1.2-3.4) K/uL [place] # (Auto) 1.21 H (0.11-0.59) K/uL Eos # (Auto) 0.01 (0-0.5) K/uL Baso # (Auto) 0.01 (0-0.2) K/uL PT 16.8 H (9.0-12.0) Seconds INR 1.7 H (0.9-1.1) APTT 35.1 H (21.0-31.0) Seconds PTT Ratio 1.3 Sodium (136-145) mmol/L Potassium (3.5-5.1) mmol/L Chloride (98-107) mmol/L Carbon Dioxide (21-32) mmol/L Anion Gap (3-11) BUN (7-18) mg/dl Creatinine (0.6-1.4) mg/dl Est Cr Clr Drug Dosing ml/min Est GFR ( Amer) Est GFR (Non-Af Amer) BUN/Creatinine Ratio (10-20) Glucose (70-99) mg/dl Calcium (8.5-10.1) mg/dl Total Bilirubin (0.2-1) mg/dl AST (15-37) U/L ALT (12-78) U/L Alkaline Phosphatase (45-117) U/L Troponin I (0-0.045) ng/ml NT-Pro-B Natriuret Pep (0-1800) pg/ml Total Protein (6.4-8.2) gm/dl Albumin (3.4-5.0) gm/dl Globulin (2.5-4.0) gm/dl Albumin/Globulin Ratio (0.9-2) Influenza Type A (PCR) Neg for Influ A (Neg) Influenza Type B (PCR) Neg for Influ B (Neg) 10/18/19 Range/Units 23:44 WBC (4.8-10.8) K/uL RBC (4.7-6.1) M/uL Hgb (14.0-18.0) g/dL Hct (42-52) % MCV (80-100) fL MCH (25-34) pg MCHC (32-36) g/dL RDW Std Deviation (36.4-46.3) fL RDW Coeff of Roger (11.5-14.5) % Plt Count (130-400) K/uL MPV (7.4-10.4) fL Immature Gran % (Auto) % Neut % (Auto) % Lymph % (Auto) % [place] % (Auto) % Eos % (Auto) % Baso % (Auto) % Immature Gran # (Auto) (0.00-0.02) K/uL Neut # (Auto) (1.4-6.5) K/uL Lymph # (Auto) (1.2-3.4) K/uL [place] # (Auto) (0.11-0.59) K/uL Eos # (Auto) (0-0.5) K/uL Baso # (Auto) (0-0.2) K/uL PT (9.0-12.0) Seconds INR (0.9-1.1) APTT (21.0-31.0) Seconds PTT Ratio Sodium 132 L (136-145) mmol/L Potassium 4.5 (3.5-5.1) mmol/L Chloride 97 L (98-107) mmol/L Carbon Dioxide 27 (21-32) mmol/L Anion Gap 8.0 (3-11) BUN 21 H (7-18) mg/dl Creatinine 0.87 (0.6-1.4) mg/dl Est Cr Clr Drug Dosing 72.7 ml/min Est GFR ( Amer) 88.7 Est GFR (Non-Af Amer) 76.5 BUN/Creatinine Ratio 23.8 H (10-20) Glucose 173 H (70-99) mg/dl Calcium 8.8 (8.5-10.1) mg/dl Total Bilirubin 1.5 H (0.2-1) mg/dl AST 21 (15-37) U/L ALT 24 (12-78) U/L Alkaline Phosphatase 112 (45-117) U/L Troponin I 0.048 H* (0-0.045) ng/ml NT-Pro-B Natriuret Pep 4788 H (0-1800) pg/ml Total Protein 6.4 (6.4-8.2) gm/dl Albumin 3.1 L (3.4-5.0) gm/dl Globulin 3.3 (2.5-4.0) gm/dl Albumin/Globulin Ratio 0.9 (0.9-2) Influenza Type A (PCR) (Neg) Influenza Type B (PCR) (Neg) Imaging Data Attestation: I personally reviewed and interpreted this imaging study as follows: My Impression: Chest x-ray: * Right lower lobe pneumonia * No pneumothorax ECG Data Attestation: I personally reviewed and interpreted this ECG as follows: Indication: + SOB/dyspnea Rate (beats per minute): 95 Rhythm: + atrial fibrillation ECG ST segments: no ST elevation ECG Findings: no PVCs Blood Pressure Blood Pressure Findings: Low blood pressure Blood Pressure Disposition: further management by hospitalist MDM Narrative This is a 89-year-old male who presents to the ED with a chief complaint of feve r cough and congestion for the past couple of days. He was noted to be hypoxic with oxygen saturations of 87% on room air. He does not use oxygen at home. He is weak. He was chest x-ray reveals a right lower lobe pneumonia. His troponin is minimally elevated. EKG shows A. fib. CBC is unremarkable. The patient was treated with IV antibiotics as well as albuterol nebulizer. He will be seen by the hospitalist for further evaluation and care. He does not have any findings to suggest sepsis/septic shock. Impression & Plan Right lower lobe pneumonia, Elevated troponin, Hypoxia Discharge Plan Visit Data Chief Complaint: Shortness of Breath/Dyspnea Stated Complaint: SHORT OF BREATH/FEVER Other Complaint: Fever ED Provider: Keyshawn Ku Discharge Problem: Right lower lobe pneumonia, Elevated troponin, Hypoxia Patient Disposition: Being Evaluated by Hospitalist Forms Stand Alone Forms: [facility] Prescriptions: No Action aspirin [Adult Low Dose Aspirin] 81 mg tablet,delayed release (DR/EC) 81 mg PO DAILY RF: 0 cholecalciferol (vitamin D3) 1,000 unit capsule 1,000 units PO DAILY RF: 0 coenzyme Q10 10 mg capsule 10 mg PO DAILY RF: 0 Lantus Solostar U-100 Insulin 100 unit/mL (3 mL) insulin pen 12 units SQ QPM RF: 0 warfarin 4 mg tablet See Rx Instructions PO DAILY RF: 0 (DME) OneTouch Ultra Blue Test Strip strip See Dose Instructions .ROUTE .MEDSUPPLY Qty: 400 RF: 5 cyanocobalamin (vitamin B-12) 2,500 mcg tablet 2,500 mcg PO DAILY RF: 0 (DME) Keto-Diastix strip See Dose Instructions .ROUTE .MEDSUPPLY Qty: 50 RF: 0 (DME) BD Insulin Syringe Half Unit 0.3 mL 31 gauge x 5/16" syringe See Dose Instructions .ROUTE .MEDSUPPLY Qty: 100 RF: 0 (DME) blood-glucose meter [OneTouch Ultra2 Meter] kit See Dose Instructions .ROUTE .MEDSUPPLY Qty: 1 RF: 0 levothyroxine 112 mcg tablet 112 mcg PO DAILY Qty: 90 RF: 0 (DME) Bedside Commode Misc See Dose Instructions .ROUTE .MEDSUPPLY Qty: 1 RF: 0 Novolog Flexpen U-100 Insulin 100 unit/mL (3 mL) insulin pen See Rx Instructions SQ .COMPLEX Qty: 1 RF: 5 acetaminophen 325 mg capsule 975 mg PO QID PRNRF: 0 atorvastatin 40 mg tablet 40 mg PO DAILY Qty: 90 RF: 3 metoprolol succinate 25 mg capsule,sprinkle,ER 24hr 12.5 mg PO DAILY Qty: 45 RF: 3 (DME) miscellaneous medical supply misc See Dose Instructions .ROUTE .MEDSUPPLY Qty: 1 RF: 0 (DME) pen needle, diabetic [Comfort EZ Pen [place]] 32 gauge x 5/32" needle See Dose Instructions .ROUTE .MEDSUPPLY Qty: 100 RF: 3 sennosides [Senokot] 8.6 mg tablet 17.2 mg PO HS PRN (Reason: constipation) RF: 0 ascorbic acid (vitamin C) [Vitamin C] 500 mg Tablet 500 mg PO DAILY RF: 0 Referrals Referrals: Juan Mendez MD [Primary Care Provider] - Discharge Problem: Right lower lobe pneumonia Qualifiers: Pneumonia type: due to unspecified organism Qualified Code(s): J18.9 - Pneumonia, unspecified organism The scribe's documentation has been prepared under my direction and personally reviewed by me in its entirety. I confirm that the note above accurately reflects all work, treatment, procedures, and medical decision making performed by me.
[2019-10-19] MEDS ORDERED: GLUCOSE 40% GEL 15 GM TUBE PO PRN (02:50)
[2019-10-19] MEDS ORDERED: GLUCOSE 10 TABS/TUBE PO PRN (02:50)
[2019-10-19] MEDS ORDERED: ALBUT/IPRATROP 3MG/0.5MG NEB 3 ML VIAL NEB PRN (02:50)
[2019-10-19] MEDS ORDERED: GLUCAGON FOR INJ 1 MG VIAL SQ PRN (02:50)
[2019-10-19] MEDS ORDERED: DEXTROSE 50% 50 ML SYRINGE IV PRN (02:50)
[2019-10-19] MEDS ORDERED: ACETAMINOPHEN 325 MG TAB PO PRN (02:50)
[2019-10-19] MEDS ORDERED: ONDANSETRON INJ 2 MG/ML 2 ML VIAL IV PRN (02:50)
[2019-10-19] MEDS: SODIUM CHLORIDE 0.9% 1000ML 1,000 ML IV SCH ×2 (02:59→16:26)
--- NOTE | 2019-10-19 04:23 | History & Physical Report ---
Date of Service October 19, 2019 Assessment & Plan (1) Right lower lobe pneumonia: Admit PCU IV Rocephin and IV Zithromax\\ DVT prophylaxis covered by warfarin. (2) Acute respiratory failure with hypoxia: Supplemental oxygen Duonebs prn (3) Elevated troponin: Suspect demand ischemia Will trend trops. (4) Atrial fibrillation: Continue metoprolol Continue warfarin INR goal 2-3 (5) CAD (coronary artery disease): Continue aspirin and atorvastatin. (6) IDDM (insulin dependent diabetes mellitus): Continue Lantus 12 units daily Sliding scale coverage (7) H/O aortic valve replacement: Tissue/bovine valve. History of Present Illness 89 y/o male presented to the ED with shortness of breath/dyspnea that has been worsening for 1 week. He has had intermittent fevers over the past 2 days. On the evening of 10/18 the patient's reported fever of 101.8F Patient does not use oxygen at home. He uses a walker. No chest pain, N/V/D, dysuria, or body aches. He has had an unproductive cough. Primary Care Provider: Juan Mendez MD Allergies Allergy/AdvReac Type Severity Reaction Status Date / Time No Known Allergies Allergy Verified 10/19/19 01:55 Home Medications Home Medications Medication Instructions Recorded Confirmed Type aspirin 81 mg tablet,delayed 81 mg PO DAILY 06/15/18 10/19/19 History release cholecalciferol (vitamin D3) 25 1,000 units PO DAILY 06/15/18 10/19/19 History mcg (1,000 unit) capsule coenzyme Q10 10 mg capsule 10 mg PO DAILY cap 06/15/18 10/19/19 History ascorbic acid (vitamin C) [Vitamin 500 mg PO DAILY 07/13/18 10/19/19 History C] blood sugar diagnostic #400 ea 02/24/19 09/28/19 Rx cyanocobalamin (vitamin B-12) 2,500 mcg PO DAILY tab 05/03/19 10/19/19 History 2,500 mcg tablet urine glucose-ketones test #50 ea 05/03/19 09/28/19 History blood-glucose meter #1 ea 05/04/19 09/28/19 History insulin syr/ndl U100 half beatriz 0.3 #100 ea 05/04/19 09/28/19 History mL 31 gauge x 5/16" acetaminophen 325 mg capsule 975 mg PO QID PRN cap 05/11/19 10/19/19 History atorvastatin 40 mg tablet 40 mg PO DAILY #90 tab 05/11/19 10/19/19 Rx metoprolol succinate 25 mg capsule 12.5 mg PO DAILY #45 ea 05/11/19 10/19/19 Rx sprinkle, ext. release 24 hr miscellaneous medical supply #1 ea 05/12/19 09/28/19 Rx levothyroxine 112 mcg tablet 112 mcg PO DAILY #90 tab 05/13/19 10/19/19 Rx Bedside Commode #1 ea 05/17/19 09/28/19 Rx pen needle, diabetic 32 gauge x #100 ea 05/19/19 09/28/19 Rx 5/32" Novolog Flexpen U-100 Insulin 100 See Rx Instructions SQ .COMPLEX #1 06/14/19 10/19/19 Rx unit/mL (3 mL) subcutaneous box NS sennosides 8.6 mg tablet 17.2 mg PO HS PRN tab 08/11/19 10/19/19 History insulin glargine 100 unit/mL (3 12 units SQ QPM ml 09/26/19 10/19/19 History mL) subcutaneous pen warfarin 4 mg tablet See Rx Instructions PO DAILY tab 09/28/19 10/19/19 History Past Med/Surg History Medical History Diabetes mellitus type 1 DKA (diabetic ketoacidoses) March 2018. History of non-ST elevation myocardial infarction (NSTEMI) March 2018. Per cardiology note as patient was admitted at the time: "Non-ST elevation myocardial infarction. This has occurred in the setting of his diabetic ketoacidosis. The patient denies any anginal-type symptoms. His electrocardiogram initially did reveal ST depressions anteriorly. These have since resolved. The patient has had prior hospitalizations for DKA with elevations in his troponin I. He had an episode in 08/2016. In the interim, he has done well without any anginal-type symptoms. Suspect that the current troponin elevation was secondary to demand ischemia and not a primary coronary event." History of pulmonary embolism 2005 - post op - w/ ivc filter Hypertension Hypothyroidism Neuropathy On anticoagulant therapy Presence of IVC filter Transient ischemic attack (TIA) pulled from past problem list - pt could not confirm - unsure of dx Surgical History H/O aortic valve replacement >10 years - [facility] – [place] - follows w/ dr. westbrook H/O removal of cyst History of colonoscopy History of herniorrhaphy rt inguinal History of inferior vena caval filter placement History of surgery rt femur reconstruction History of total hip arthroplasty rt History of total knee replacement lt Hx of right cataract extraction Family History Brother History of heart valve replacement Unknown Depression Sister Hepatic failure Renal failure Social History Preferred Language: Surinamese Communication Ability: Impaired Cable Armorer Required: No Beliefs That Will Affect Care: None marital status: Current Living Situation: Spouse Current Living Situation Comment: Other Information That Helps Us Care for You: No Feels Safe at Home: Yes Safety Concerns: Feels Safe At This Time Smoking Status: Former smoker Do You Dip or Chew Tobacco: No ; Second Hand Exposure: No ; Tobacco Cessation Education Requested by Patient: No Hx Alcohol Use: Yes Alcohol type: beer, wine and hard liquor Alcohol Intake Frequency Comment: 1 beer per day prior to dinner Hx Substance Use: No Review of Systems Review of Systems: All systems reviewed & are unremarkable except as noted in HPI & below Physical Exam Physical Exam: General- adult male, NAD Head- atraumatic Eyes- PERRL, EOMI, anicteric ENT- oropharynx clear Neck- supple, no JVD, no adenopathy, no thyromegaly; carotids +2/2, no bruits appreciated Lungs- Scattered rhonchi b/l. Heart- regular rhythm; no murmur, no gallop, no rub appreciated Abdomen- normal bowel sounds, soft, nontender. Extremities- no pretibial edema, no calf tenderness; peripheral pulses intact Neuro- alert, oriented x 3; PERRL, EOMI; dean of girls II-XII grossly intact, non-focal. Skin- warm & dry Results & Data Vital Signs (Past 12 Hours) Vital Signs Temp Pulse Pulse Resp BP BP Pulse Ox 10/19/19 02:44 37.0 C 80 24 106/61 95 10/19/19 02:14 37.3 C 85 16 104/56 L 94 10/19/19 01:49 84 16 102/49 L 94 10/19/19 00:57 86 16 100/58 L 95 10/19/19 00:03 91 H 16 92/63 L 93 10/18/19 23:54 93 H 20 95 10/18/19 23:00 37.4 C 99 H 20 107/84 87 L Laboratory Results Laboratory Results WBC 11.84 K/uL (4.8-10.8) H 10/18/19 23:44 RBC 3.72 M/uL (4.7-6.1) L 10/18/19 23:44 Hgb 11.2 g/dL (14.0-18.0) L 10/18/19 23:44 Hct 33.0 % (42-52) L 10/18/19 23:44 MCV 88.7 fL (80-100) 10/18/19 23:44 MCH 30.1 pg (25-34) 10/18/19 23:44 MCHC 33.9 g/dL (32-36) 10/18/19 23:44 RDW Std Deviation 55.0 fL (36.4-46.3) H 10/18/19 23:44 RDW Coeff of Roger 16.9 % (11.5-14.5) H 10/18/19 23:44 Plt Count 188 K/uL (130-400) 10/18/19 23:44 MPV 10.6 fL (7.4-10.4) H 10/18/19 23:44 Immature Gran % (Auto) 0.3 % 10/18/19 23:44 Neut % (Auto) 79.8 % 10/18/19 23:44 Lymph % (Auto) 9.5 % 10/18/19 23:44 [place] % (Auto) 10.2 % 10/18/19 23:44 Eos % (Auto) 0.1 % 10/18/19 23:44 Baso % (Auto) 0.1 % 10/18/19 23:44 Immature Gran # (Auto) 0.03 K/uL (0.00-0.02) H 10/18/19 23:44 Neut # (Auto) 9.46 K/uL (1.4-6.5) H 10/18/19 23:44 Lymph # (Auto) 1.12 K/uL (1.2-3.4) L 10/18/19 23:44 [place] # (Auto) 1.21 K/uL (0.11-0.59) H 10/18/19 23:44 Eos # (Auto) 0.01 K/uL (0-0.5) 10/18/19 23:44 Baso # (Auto) 0.01 K/uL (0-0.2) 10/18/19 23:44 PT 16.8 Seconds (9.0-12.0) H 10/18/19 23:44 INR 1.7 (0.9-1.1) H 10/18/19 23:44 APTT 35.1 Seconds (21.0-31.0) H 10/18/19 23:44 PTT Ratio 1.3 10/18/19 23:44 Sodium 132 mmol/L (136-145) L 10/18/19 23:44 Potassium 4.5 mmol/L (3.5-5.1) 10/18/19 23:44 Chloride 97 mmol/L (98-107) L 10/18/19 23:44 Carbon Dioxide 27 mmol/L (21-32) 10/18/19 23:44 Anion Gap 8.0 (3-11) 10/18/19 23:44 BUN 21 mg/dl (7-18) H 10/18/19 23:44 Creatinine 0.87 mg/dl (0.6-1.4) 10/18/19 23:44 Est Cr Clr Drug Dosing 72.7 ml/min 10/18/19 23:44 Est GFR ( Amer) 88.7 10/18/19 23:44 Est GFR (Non-Af Amer) 76.5 10/18/19 23:44 BUN/Creatinine Ratio 23.8 (10-20) H 10/18/19 23:44 Glucose 173 mg/dl (70-99) H 10/18/19 23:44 Calcium 8.8 mg/dl (8.5-10.1) 10/18/19 23:44 Total Bilirubin 1.5 mg/dl (0.2-1) H 10/18/19 23:44 AST 21 U/L (15-37) 10/18/19 23:44 ALT 24 U/L (12-78) 10/18/19 23:44 Alkaline Phosphatase 112 U/L (45-117) 10/18/19 23:44 Troponin I 0.048 ng/ml (0-0.045) H* 10/18/19 23:44 NT-Pro-B Natriuret Pep 4788 pg/ml (0-1800) H 10/18/19 23:44 Total Protein 6.4 gm/dl (6.4-8.2) 10/18/19 23:44 Albumin 3.1 gm/dl (3.4-5.0) L 10/18/19 23:44 Globulin 3.3 gm/dl (2.5-4.0) 10/18/19 23:44 Albumin/Globulin Ratio 0.9 (0.9-2) 10/18/19 23:44 Influenza Type A (PCR) Neg for Influ A (Neg) 10/18/19 00:10 Influenza Type B (PCR) Neg for Influ B (Neg) 10/18/19 00:10 Code Status & VTE Plan VTE Prophylaxis Plan VTE Prophylaxis will be ordered: Yes PG Care Time/CCT Total # of Minutes Spent Total Time Spent: 60 Total Time Spent with Patient: Total time spent is greater than 50% in coordination of care (as documented) at patient's floor/unit and/or counseling patient: Coding Level of Care Code 27524 Initial Inpt Care Lvl 3 Diagnoses Right lower lobe pneumonia J18.9 Pneumonia type: due to unspecified organism Acute respiratory failure with hypoxia J96.01 Elevated troponin R79.89 Atrial fibrillation I48.91 CAD (coronary artery disease) I25.10 Coronary Disease-Associated Artery/Lesion type: [place] artery [place] vs. transplanted heart: [place] heart Associated angina: without angina IDDM (insulin dependent diabetes mellitus) E11.9; Z79.4 H/O aortic valve replacement Z95.2 (1) Right lower lobe pneumonia Pneumonia type: due to unspecified organism Qualified Code(s): J18.9 - Pneumonia, unspecified organism (2) CAD (coronary artery disease) Coronary Disease-Associated Artery/Lesion type: [place] artery [place] vs. transplanted heart: [place] heart Associated angina: without angina Qualified Code(s): I25.10 - Atherosclerotic heart disease of [place] coronary artery without angina pectoris
[2019-10-19] MEDS: LEVOTHYROXINE SODIUM 112 MCG TABLET PO SCH (05:51)
[2019-10-19 05:53] LABS: Hematocrit (blood only) 30.5 % (42-52); Hemoglobin 10.3 g/dL (14.0-18.0); Mean Corpuscular Hemoglobin 30.3 pg (25-34); Mean Corpuscular Hgb Conc 33.8 g/dL (32-36); Mean Corpuscular Volume 89.7 fL (80-100); Mean Platelet Volume 10.2 fL (7.4-10.4); Platelet Count 173 K/uL (130-400); RDW Coefficient of Variation 16.9 % (11.5-14.5); RDW Standard Deviation 55.7 fL (36.4-46.3); White Blood Count 14.82 K/uL (4.8-10.8)
[2019-10-19 05:56] LABS: Estimated Average Glucose 169 mg/dl; Hemoglobin A1C 7.5 % (4.5-5.6)
[2019-10-19 06:07] LABS: INR 1.8 (0.9-1.1); Prothrombin Time 17.7 Seconds (9.0-12.0)
[2019-10-19 06:29] LABS: Albumin Level 2.7 gm/dl (3.4-5.0); BUN Creatinine Ratio 22.3 (10-20); Bilirubin Direct 0.3 mg/dl (0-0.2); Calcium 8.4 mg/dl (8.5-10.1); Creatinine Clr Calc Pharmacy 59.8 ml/min; Est GFR (African American) 72.6; Est GFR (Non-African American) 62.6; Potassium 4.5 mmol/L (3.5-5.1)
--- NOTE | 2019-10-19 06:32 | XRay Report ---
XR chest 1V portable HISTORY: 89 years-old Male Dyspnea acute shortness of breath COMPARISON: Chest radiograph 04/10/2019 TECHNIQUE: Portable AP view of the chest FINDINGS: Cardiac silhouette is enlarged. Prior median sternotomy with cardiac valvular prosthesis. Surgical cl ips suggest prior CABG. Calcified plaque of the thoracic aortic arch. Trace right pleural effusion. N o pneumothorax. There is pulmonary vascular congestion with mild interstitial coarsening. Ill-defined right basilar and right midlung opacities. Degenerative changes of the shoulders and spine. IMPRESSION: 1. Cardiomegaly with pulmonary vascular congestion. 2. Trace right pleural effusion with ill-defined right midlung and right lung base opacities. Finding s may reflect asymmetric pulmonary edema, atelectasis or pneumonitis. ACT 112: Negative or not required by law. The above report was generated using voice recognition software. It may contain grammatical, syntax o r spelling errors. Electronically signed by: Tony Hurley M.D. 10/19/2019 6:31 AM
[2019-10-19 06:38] LABS: Albumin Globulin Ratio 0.9 (0.9-2); Bilirubin,Total 1.4 mg/dl (0.2-1); Globulin 3.1 gm/dl (2.5-4.0); Total Protein 5.8 gm/dl (6.4-8.2); Troponin I 0.076 ng/ml (0-0.045)
[2019-10-19] MEDS: CYANOCOBALAMIN 500 MCG TABLET (VITAMIN B-12) PO SCH (08:18)
[2019-10-19] MEDS: FAMOTIDINE 20 MG TAB PO SCH ×2 (08:18→21:45)
[2019-10-19] MEDS: ASCORBIC ACID 500 MG TAB PO SCH (08:18)
[2019-10-19] MEDS: ATORVASTATIN 40 MG TAB PO SCH (08:18)
[2019-10-19] MEDS: ASPIRIN 81 MG ECTAB PO SCH (08:18)
[2019-10-19] MEDS: INSULIN ASPART 100 UNITS/ML 3 ML PEN SC SCH ×4 (08:23→21:06)
[2019-10-19] MEDS ORDERED: NON-FORMULARY MEDICATION (Coenzyme Q10 10 MG) PO SCH (09:00)
[2019-10-19] MEDS ORDERED: METOPROLOL SUCC 25MG EXT REL TAB PO SCH (09:00)
[2019-10-19] MEDS: METOPROLOL SUCC 25MG EXT REL TAB PO SCH (10:35)
[2019-10-19] MEDS ORDERED: VANCOMYCIN CONSULT ACTIVE PRN (13:41)
[2019-10-19] MEDS ORDERED: VANCOMYCIN HCL 2,000 MG in SODIUM CHLORIDE 0.9% 500 ML IV ONE (14:00)
--- NOTE | 2019-10-19 14:12 | Pharmacy Report ---
Pharmacy Abx Dose Short Note - Date of Service October 19, 2019 - Assessment & Plan Assessment * 89 year old M admitted for CAP - currently on Tele unit and receiving Rocephin + Zithromax IV * 2 of 2 BLCXs currently growing gram + cocci in chains (strep species?) --> Vancomycin IV added, Pharmacy to dose * Patient does have h/o AVR * CXR read as: * 1. Cardiomegaly with pulmonary vascular congestion. 2. Trace right pleural effusion with ill-defined right midlung and right lung base opacities. Findings may reflect asymmetric pulmonary edema, atelectasis or pneumonitis. * + leukocytosis, afebrile, sats in 90s on room air, non-hypotensive, non- tachycardic * Renal fxn appears to be at baseline Plan Vancomycin * Loading dose: 2000mg (~20mg/kg) x 1 * P'kinetic estimates: Vd 0.7L/kg, half-life ~14 hrs * Maint dose: 1500mg (~15mg/kg) IV Q 18 hrs * Goal trough level for bacteremia/pulm infnx : 15 to 20 mcg/mL * Trough level will be checked w/ 2nd maint dose due to bacteremia w/ risk factors for endocarditis to ensure we are achieving therapeutic levels quickly Pharmacy will continue to follow and will adjust dose/frequency as necessary. Thank you.
[2019-10-19] MEDS: cefTRIAXone SODIUM 2,000 MG in DEXTROSE 5% 50 ML IV SCH (14:55)
[2019-10-19] MEDS: WARFARIN SOD 6 MG TAB PO SCH (17:13)
[2019-10-19] MEDS ORDERED: PHARMACY GLYCEMIC MGMT CONSULT PRN (17:19)
[2019-10-19] MEDS ORDERED: INSULIN HUMAN REGULAR IV BOLUS 2.5 UNITS in SYRINGE 0 ML IV STA (17:28)
[2019-10-19] MEDS ORDERED: INSULIN REGULAR 250 UNITS in SODIUM CHLORIDE 0.9% 247.5 ML IV SCH (17:30)
--- NOTE | 2019-10-19 17:48 | Electrocardiogram Report ---
Test Reason : Blood Pressure : / mmHG Vent. Rate : 095 BPM Atrial Rate : 107 BPM P-R Int : 000 ms QRS Dur : 116 ms QT Int : 380 ms P-R-T Axes : 000 -44 117 degrees QTc Int : 477 ms Atrial fibrillation Left axis deviation Nonspecific ST and T wave abnormality Abnormal ECG When compared with ECG of 10-APR-2019 16:16, Atrial fibrillation has replaced Sinus rhythm T wave amplitude has decreased in Inferior leads Confirmed by Martin Mancuso ([id number]) on 10/19/2019 5:47:34 PM Referred By: REFERRED SELF Confirmed By:Zhen Mancuso
[2019-10-19 18:12] LABS: Base Excess VBG 2.8 mEq/L; HCO3 VBG 28 mmol/L; PCO2 VBG 48 mmHg (38-50); PO2 VBG 32 mmHg; pH VBG 7.39 (7.36-7.41)
[2019-10-19 18:28] LABS: BUN Creatinine Ratio 21.1 (10-20); Calcium 8.4 mg/dl (8.5-10.1); Creatinine Clr Calc Pharmacy 49.8 ml/min; Est GFR (African American) 58.2; Est GFR (Non-African American) 50.2; Potassium 4.7 mmol/L (3.5-5.1)
--- NOTE | 2019-10-19 18:29 | Hospitalist Progress Note ---
Date of Service October 19, 2019 Assessment & Plan (1) Right lower lobe pneumonia: 89 yo M w/ pMHx of IDDM, A. fib, NSTEMI, PE in 2006 post op IVC filter placement, HTN, hyperthyroid, Aortic valve replaced over 10 years ago. Presented with week of increased shortness of breath and 2 days of fevers. CXR showed cardiomegaly with pulmonary vasc. congestion and right mid lung and base opacities with the differential of edema, atelectasis, or pneumonia. Blood cultures consistent with bacteremia. - currently on 2L NC - Started on rocephin and Azithromycin - blood cultures showed G+Cocci in chains, added Vancomycin and Zoysn - Duonebs PRN - on NSS 75 mL/hr, will continue to evaluate fluid status and if worsening edema consider stopping fluids - Repeating ECHO (last 2018 nl) to further evaluate for possible HF given edema and XR findings DVT: Warfarin Diet/FEN: regular diet, 75 mL/hr NSS Code: full (2) Elevated troponin: - found to have elevated troponin 0.048 @ 23:44 and 0.076 @ 5:25 - likely due to demand ischemia, will continue to monitor symptoms and ECHO ordered (3) Hypoxia: - likely 2/2 pna (4) Atrial fibrillation: - History of A. fib, appears to be rate controlled - continue warfarin with daily INR checks - continue metoprolol (5) Postoperative urinary retention: - found to have 900 mL retained - lipscomb was placed, no prior history of urinary retention (6) Anemia: - found to be anemic w/ H&H of 10.3 and 30.5 unclear etiology at this point - will continue to follow with AM CBC (7) History of pulmonary embolism: - history of post operative PE with IVC in place - continue Warfarin (8) Aortic valve replaced: - Hx. of replaced aortic valve - echo ordered - continue Warfarin (9) IDDM (insulin dependent diabetes mellitus): - found to be poorly controlled w/ blood sugars in the 300s - pharmacy starting an insulin drip - VBG and BMP ordered, no gap at this time - will continue to monitor BMP and blood sugars Supervising Physician Co-Signing Physician Notes I saw the patient and confirmed kumar portions of the history and exam. I agree with the above impression and plan. Patient describes gradually not feeling well over the last week, more so in the last three days. Admitted with pneumonia, now found to have 2/2 blood cultures positive. Hemodynamically stable; need to be judicious with IVF given age. Will check echocardiogram to determine LV function. Discussed findings and plan of care with patient. He notes that he is feeling much better this afternoon compared tt admission. Subjective He states that he was feeling short of breath over the last week. He has had a history of a dry cough for the last year. He has a distant history of aortic valve replacement. He denied feeling any fevers overnight. Review of Systems Constitutional: no fever and no chills Respiratory: + cough; no sputum production admits shortness of breath Cardiovascular: no chest pain and no palpitations Genitourinary: no dysuria, no difficulty urinating and no urinary frequency Neurologic: no headache(s) Physical Exam Constitutional: WD/WN, vitals as above Eyes: PERRL, conjunctivae normal, anicteric sclerae ENMT: external ear and nose normal, oropharynx normal Neck: trachea midline, no thyromegaly Respiratory: dullness in the right middle lung field and egophany in the right lower lung field Cardiovascular: Extremities: + edema (2+ edema in the lower extremity) Skin: cyst on his back Results & Data Vital Signs (Past 12 Hours) Vital Signs Temp Pulse Resp BP BP Pulse Ox 10/19/19 14:57 36.7 C 68 20 116/56 L 97 10/19/19 11:49 36.4 C L 74 18 126/51 L 95 10/19/19 08:15 107/63 10/19/19 07:23 36.9 C 73 18 83/46 L 98 Resident Activity Tracking Resident Involvement: Resident Care Provided Care Provided: Adult Hospital Medicine (1) Right lower lobe pneumonia Pneumonia type: due to unspecified organism Qualified Code(s): J18.9 - Pneumonia, unspecified organism
[2019-10-19 19:00] LABS: Oxygen Saturation VBG < 60.0 %
--- NOTE | 2019-10-19 19:36 | Pharmacy Report ---
Glycemic Control Consultation - Date of Service October 19, 2019 - Scope Scope: Glycemic Pharmacist consulted by Dr James on 10/19/2019 for glycemic control and to write orders per [facility] inpatient glycemic control protocol - Objective Weight: 101.7 kg Accuchecks BSG (last 24hrs): 10/18/19 10/19/19 10/19/19 23:44 05:25 12:17 Glucose 173 H 206 H POC Glucose 346 H* 10/19/19 10/19/19 10/19/19 12:19 16:28 16:30 Glucose POC Glucose 339 H* 310 H* 315 H* 10/19/19 10/19/19 17:56 18:56 Glucose 317 H* POC Glucose 278 H Laboratory Data (last 24hrs): 10/18/19 10/19/19 10/19/19 23:44 05:25 17:56 Potassium 4.5 4.5 4.7 Carbon Dioxide 27 27 28 Anion Gap 8.0 6.0 4.0 Creatinine 0.87 1.05 1.26 Est Cr Clr Drug Dosing 72.7 59.8 49.8 Beta-Hydroxybutyric Acd 10/19/19 18:51 Potassium Carbon Dioxide Anion Gap Creatinine Est Cr Clr Drug Dosing Beta-Hydroxybutyric Acd 1.16 HbA1c: Hemoglobin A1c 7.5 % (4.5-5.6) H 10/19/19 05:25 - Recent Pertinent Medications Outpatient Anti-diabetic Regimen: * Lantus 12u PM, Novolog 6u TIDM + SSI * A1c = 7.5 % 10/19/2019 - Assessment & Plan Assessment & Plan: ASSESSMENT: * Pt is an 89yo M type I diabetic. He is growing GPC chains 2/2 blood bottles. He is being treated with vanco/zosyn/zithromax. PMHx consistent with TIA, pAF, HTN, NSTEMI, among others. AG, bicarbonate all WNL on the most recent lab work. PLAN FOR INPATIENT GLYCEMIC CONTROL: * Starting IV insulin infusion per moderate stress protocol * Goal Range 140 - 200 mg/dl * In the critical care setting, continuous IV insulin infusion has been shown to be the best method for achieving glycemic targets. * Basal insulin * Lantus 12u HS, continue home Rx * Bolus insulin * to cover carbs while on insulin gtt * Please note that the plan above was derived based on current level of insulin resistance and hospital stress. These recommendations are appropriate for inpatient admission only. Plan of care upon discharge will need to be reassessed to avoid potential outpatient hypo/hyperglycemia. Thank you.
[2019-10-19] MEDS ORDERED: cefTRIAXone SODIUM 2,000 MG in DEXTROSE 5% 50 ML IV SCH (20:00)
[2019-10-19] MEDS ORDERED: INSULIN GLARGINE SOLOSTAR 100 UNITS/ML 3 ML PEN SC SCH (21:00)
[2019-10-19] MEDS ORDERED: INSULIN GLARGINE SOLOSTAR 100 UNITS/ML 3 ML PEN SC ONE (21:15)
[2019-10-19] MEDS: AZITHROMYCIN 500 MG in DEXTROSE 5% 250 ML IV SCH (21:52)
[2019-10-20] MEDS: cefTRIAXone SODIUM 2,000 MG in DEXTROSE 5% 50 ML IV SCH ×2 (02:00→14:55)
[2019-10-20] MEDS: LEVOTHYROXINE SODIUM 112 MCG TABLET PO SCH (05:51)
[2019-10-20 06:44] LABS: Hematocrit (blood only) 31.4 % (42-52); Hemoglobin 10.4 g/dL (14.0-18.0); Mean Corpuscular Hemoglobin 29.7 pg (25-34); Mean Corpuscular Hgb Conc 33.1 g/dL (32-36); Mean Corpuscular Volume 89.7 fL (80-100); Mean Platelet Volume 10.3 fL (7.4-10.4); Platelet Count 194 K/uL (130-400); RDW Coefficient of Variation 16.9 % (11.5-14.5); RDW Standard Deviation 55.6 fL (36.4-46.3)
[2019-10-20 06:50] LABS: INR 2.1 (0.9-1.1); Prothrombin Time 20.3 Seconds (9.0-12.0)
[2019-10-20] MEDS ORDERED: PERFLUTREN LIPID MICROSPHERE (DEFINITY) IV ONE (07:03)
[2019-10-20 07:27] LABS: Albumin Globulin Ratio 0.8 (0.9-2); Albumin Level 2.7 gm/dl (3.4-5.0); BUN Creatinine Ratio 24.1 (10-20); Bilirubin Direct 0.2 mg/dl (0-0.2); Bilirubin,Total 0.8 mg/dl (0.2-1); Calcium 8.3 mg/dl (8.5-10.1); Creatinine Clr Calc Pharmacy 62.5 ml/min; Est GFR (African American) 76.1; Est GFR (Non-African American) 65.6; Globulin 3.2 gm/dl (2.5-4.0); Potassium 4.3 mmol/L (3.5-5.1); Total Protein 5.9 gm/dl (6.4-8.2)
[2019-10-20] MEDS: VANCOMYCIN HCL 1,500 MG in SODIUM CHLORIDE 0.9% 500 ML IV SCH (07:40)
[2019-10-20] MEDS: SODIUM CHLORIDE 0.9% 1000ML 1,000 ML IV SCH (07:40)
[2019-10-20] MEDS: CYANOCOBALAMIN 500 MCG TABLET (VITAMIN B-12) PO SCH (07:42)
[2019-10-20] MEDS: FAMOTIDINE 20 MG TAB PO SCH ×2 (07:42→20:04)
[2019-10-20] MEDS: ASCORBIC ACID 500 MG TAB PO SCH (07:43)
[2019-10-20] MEDS: ASPIRIN 81 MG ECTAB PO SCH (07:43)
[2019-10-20] MEDS: METOPROLOL SUCC 25MG EXT REL TAB PO SCH (07:43)
[2019-10-20] MEDS: ATORVASTATIN 40 MG TAB PO SCH (07:43)
[2019-10-20] MEDS: INSULIN ASPART 100 UNITS/ML 3 ML PEN SC SCH ×4 (07:44→20:04)
--- NOTE | 2019-10-20 14:07 | Hospitalist Progress Note ---
Date of Service October 20, 2019 Assessment & Plan (1) Right lower lobe pneumonia: 89 yo M w/ pMHx of IDDM, A. 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 Presented with week of increased shortness of breath and 2 days of fevers. CXR showed cardiomegaly with pulmonary vasc. congestion and right mid lung and base opacities with the differential of edema, atelectasis, or pneumonia. Blood cultures found to be consistent with alpha strep bacteremia. TTE with findings suggestive of new severe aortic stenosis. - currently on 2L NC - Started on Azithromycin - blood cultures showed G+Cocci in chains, increased CTX., and added Vancomycin ( trough level 10/21:30) - Duonebs PRN - on NSS 75 mL/hr, will continue to evaluate fluid status and if worsening edema consider stopping fluids - ECHO 10/20 shows Moderate concentric LVH, LVSF nl, RV is mild to moderately dilated, R. atrium is severely dilated, the gradient is abnormal for prosthetic valve, velocities suggestive of severe aortic stenosis, moderate tricuspid regurgitation, RVS pressure is elevated at 40-50% DVT: Warfarin Diet/FEN: regular diet, 75 mL/hr NSS Code: full (2) Elevated troponin: - found to have elevated troponin 0.048 @ 23:44 and 0.076 @ 5:25 - likely due to demand ischemia, will continue to monitor symptoms and ECHO ordered (3) Hypoxia: - likely 2/2 pna - currently on room air (4) Atrial fibrillation: - History of A. fib, appears to be rate controlled - continue warfarin with daily INR checks - continue metoprolol (5) Postoperative urinary retention: - found to be retaining urine - lipscomb was placed, no prior history of urinary retention (6) Anemia: - found to be anemic w/ H&H of 10.4 and 31.4 unclear etiology at this point - will continue to follow with AM CBC (7) History of pulmonary embolism: - history of post operative PE with IVC in place - continue Warfarin (8) Aortic valve replaced: - Hx. of replaced aortic valve - echo ordered - continue Warfarin (9) IDDM (insulin dependent diabetes mellitus): - found to be poorly controlled w/ blood sugars in the 300s - pharmacy starting an insulin drip, no gap - will continue to monitor BMP and blood sugars (10) Bacteremia: - found to have positive blood cultures with alpha strep - increased Ceftriaxone and added Vancomycin - consulted ID and appreciate recs. Supervising Physician Co-Signing Physician Notes I saw the patient and confirmed kumar portions of the history and exam. I agree with the above impression and plan. Subjective Mr. Paz is doing well today and his was in as well. I updated them on the positive blood cultures and the pneumonia that we were treating. The wanted me to know that she would like to have her go home after staying in the hospital because she had a negative experience at a rehab facility. She explained that they have several people at home to help care for her . She wanted to be updated on her husbands care and will be in from 8-9AM tomorrow, and I will update her of the plan in the afternoon tomorrow. 's # is [phone] Review of Systems Constitutional: no fever and no chills Respiratory: + cough; no sputum production admits shortness of breath Cardiovascular: no chest pain and no palpitations Gastrointestinal: no abdominal pain, no nausea and no vomiting Neurologic: no headache(s) Physical Exam Constitutional: WD/WN, vitals as above Eyes: PERRL, conjunctivae normal, anicteric sclerae ENMT: external ear and nose normal, oropharynx normal Neck: trachea midline, no thyromegaly Respiratory: normal respiratory effort, lungs clear to auscultation Cardiovascular: Extremities: + edema (2+ edema in the lower extremity) irregular, normal rate, [place] S1 no murmur appreciated Skin: no rashes, warm and dry Results & Data ([facility]) Vital Signs (Past 12 Hours) Vital Signs Temp Pulse Resp BP Pulse Ox 10/20/19 11:22 36.7 C 76 20 140/72 92 10/20/19 07:04 37.0 C 75 18 131/69 96 10/20/19 03:59 37.2 C 84 19 114/60 95 Resident Activity Tracking Resident Involvement: Resident Care Provided Care Provided: Adult Hospital Medicine (1) Right lower lobe pneumonia Pneumonia type: due to unspecified organism Qualified Code(s): J18.9 - Pneumonia, unspecified organism
--- NOTE | 2019-10-20 14:23 | Pharmacy Report ---
Pharmacy Glycemic Short Note 2 - Date of Service October 20, 2019 - Glycemic Short BSG Results (Last 24 hours): 10/19/19 10/19/19 10/19/19 16:28 16:30 17:56 Glucose 317 H* POC Glucose 310 H* 315 H* 10/19/19 10/19/19 10/19/19 18:56 19:53 20:51 Glucose POC Glucose 278 H 261 H 220 H 10/19/19 10/19/19 10/20/19 21:56 23:06 00:05 Glucose POC Glucose 167 H 161 H 121 H 10/20/19 10/20/19 10/20/19 00:45 01:17 02:22 Glucose POC Glucose 107 H 108 H 120 H 10/20/19 10/20/19 10/20/19 04:17 06:08 07:26 Glucose 106 H POC Glucose 123 H 117 H 10/20/19 11:11 Glucose POC Glucose 170 H OUTPATIENT ANTIDIABETIC REGIMEN: * Lantus 12 units Q PM * Novolog 6 units w/ meals and per sliding scale * A1c = 7.5% 10/19/19 ASSESSMENT: * Type 1 diabetic admitted w/ pneumonia, found to have bacteremia with alpha- hemolytic strep (not strep pn / not enterococcus) * BSGs climbed into the 300s yesterday, however no AG acidosis present on labs, and he was initiated IV insulin infusion for short period of time * Insulin drip was titrated off overnight following Lantus administration at bedtime * BSGs have been well controlled thus far today with current insulin orders; will continue current Novolog CF/CR and resume outpt Lantus dose now that diet has resumed (was NPO for CEDRICK) PLAN FOR INPATIENT GLYCEMIC CONTROL: * Basal insulin * Lantus 12 units SQ HS * Bolus insulin * NovoLog per scale ACHS and at 0200 * Goal Range: Low 120 mg/dL - High 160 mg/dL * Correction Factor: 30 mg/dL/unit * Nutritional / Prandial insulin per carb ratio of 1 unit per 10 grams CHO consumed PLAN FOR DISCHARGE: * to be determined
[2019-10-20] MEDS: WARFARIN SOD 6 MG TAB PO SCH (16:04)
--- NOTE | 2019-10-20 16:27 | XCELERA ---
[id number] \\[email or web address]\[id number]
[2019-10-20] MEDS: AZITHROMYCIN 500 MG in DEXTROSE 5% 250 ML IV SCH (20:04)
[2019-10-20] MEDS: INSULIN GLARGINE SOLOSTAR 100 UNITS/ML 3 ML PEN SC SCH (20:05)
[2019-10-21] MEDS: cefTRIAXone SODIUM 2,000 MG in DEXTROSE 5% 50 ML IV SCH ×2 (01:08→14:14)
[2019-10-21] MEDS ORDERED: VANCOMYCIN TROUGH ONE ×3 (01:30→13:30)
[2019-10-21] MEDS ORDERED: INSULIN ASPART 100 UNITS/ML 3 ML PEN SC SCH (02:00)
[2019-10-21] MEDS: VANCOMYCIN HCL 1,500 MG in SODIUM CHLORIDE 0.9% 500 ML IV SCH ×2 (02:02→15:33)
[2019-10-21] MEDS: LEVOTHYROXINE SODIUM 112 MCG TABLET PO SCH (05:50)
[2019-10-21 06:07] LABS: Basophils # (auto) 0.01 K/uL (0-0.2); Basophils % (auto) 0.1 %; Eosinophils % (auto) 3.3 %; Hemoglobin 10.1 g/dL (14.0-18.0); Immature Granulocytes # (auto) 0.02 K/uL (0.00-0.02); Immature Granulocytes % (auto) 0.2 %; Mean Corpuscular Hgb Conc 33.7 g/dL (32-36); Mean Platelet Volume 10.1 fL (7.4-10.4); Monocytes # (auto) 1.11 K/uL (0.11-0.59); Monocytes % (auto) 12.1 %; Neutrophils # (auto) 5.61 K/uL (1.4-6.5); Neutrophils % (auto) 61.3 %; Platelet Count 177 K/uL (130-400); RDW Coefficient of Variation 16.7 % (11.5-14.5); RDW Standard Deviation 55.2 fL (36.4-46.3); Red Blood Count 3.37 M/uL (4.7-6.1); White Blood Count 9.15 K/uL (4.8-10.8)
[2019-10-21 06:14] LABS: INR 2.7 (0.9-1.1); Prothrombin Time 25.4 Seconds (9.0-12.0)
[2019-10-21] MEDS: SODIUM CHLORIDE 0.9% 1000ML 1,000 ML IV SCH ×2 (06:25→09:10)
[2019-10-21 06:37] LABS: Creatinine Clr Calc Pharmacy 73.1 ml/min; Est GFR (African American) 88.7; Est GFR (Non-African American) 76.5
[2019-10-21] MEDS: INSULIN ASPART 100 UNITS/ML 3 ML PEN SC SCH ×6 (09:04→23:52)
[2019-10-21] MEDS: ASCORBIC ACID 500 MG TAB PO SCH (09:06)
[2019-10-21] MEDS: FAMOTIDINE 20 MG TAB PO SCH ×2 (09:06→20:07)
[2019-10-21] MEDS: ATORVASTATIN 40 MG TAB PO SCH (09:06)
[2019-10-21] MEDS: CYANOCOBALAMIN 500 MCG TABLET (VITAMIN B-12) PO SCH (09:06)
[2019-10-21] MEDS: METOPROLOL SUCC 25MG EXT REL TAB PO SCH (09:06)
[2019-10-21] MEDS: ASPIRIN 81 MG ECTAB PO SCH (09:06)
[2019-10-21] MEDS ORDERED: INSULIN PROTOCOL GOAL RANGE ONE (11:34)
[2019-10-21] MEDS ORDERED: INSULIN GLARGINE SOLOSTAR 100 UNITS/ML 3 ML PEN SC ONE (11:45)
[2019-10-21] MEDS ORDERED: INSULIN REGULAR 250 UNITS in SODIUM CHLORIDE 0.9% 247.5 ML IV SCH (11:45)
[2019-10-21 12:16] LABS: BUN Creatinine Ratio 20.6 (10-20); Calcium 8.2 mg/dl (8.5-10.1); Creatinine Clr Calc Pharmacy 67.7 ml/min; Est GFR (Non-African American) 71.6; Potassium 4.2 mmol/L (3.5-5.1)
--- NOTE | 2019-10-21 12:35 | Infectious Disease Consult ---
Date of Consultation October 21, 2019 Assessment & Plan (1) Gram positive sepsis: will continue on IV abx, repeat blood cultures. will likely need course of IV abx with AVR. If repeat blood cultures + would suggest izzy (2) Right lower lobe pneumonia: History of Present Illness Attending Physician: Antoinette Lal DO pt admitted [facility] sob and f/c. 10/18 CXR found right opacity. blood cultures done in ER, growing alpha strep in 4/4 bottles, no repeat cultures done. Echo negative for veg, has h/o AVR. wbc 13 in ER, now 9. creaet 1.0. afebrile since admission, on vanco, rocephin, azithro, tolerating well. oob to chair eating lunch on my exam. no f/c. no sob, cough, sob. no abd pain, no n/v/d. on nasal O2. Allergies Allergy/AdvReac Type Severity Reaction Status Date / Time No Known Allergies Allergy Verified 10/19/19 01:55 Home Medications Home Medications Medication Instructions Recorded Confirmed Type aspirin 81 mg tablet,delayed 81 mg PO DAILY 06/15/18 10/19/19 History release cholecalciferol (vitamin D3) 25 1,000 units PO DAILY 06/15/18 10/19/19 History mcg (1,000 unit) capsule coenzyme Q10 10 mg capsule 10 mg PO DAILY cap 06/15/18 10/19/19 History ascorbic acid (vitamin C) [Vitamin 500 mg PO DAILY 07/13/18 10/19/19 History C] blood sugar diagnostic #400 ea 02/24/19 09/28/19 Rx cyanocobalamin (vitamin B-12) 2,500 mcg PO DAILY tab 05/03/19 10/19/19 History 2,500 mcg tablet urine glucose-ketones test #50 ea 05/03/19 09/28/19 History blood-glucose meter #1 ea 05/04/19 09/28/19 History insulin syr/ndl U100 half beatriz 0.3 #100 ea 05/04/19 09/28/19 History mL 31 gauge x 5/16" acetaminophen 325 mg capsule 975 mg PO QID PRN cap 05/11/19 10/19/19 History atorvastatin 40 mg tablet 40 mg PO DAILY #90 tab 05/11/19 10/19/19 Rx metoprolol succinate 25 mg capsule 12.5 mg PO DAILY #45 ea 05/11/19 10/19/19 Rx sprinkle, ext. release 24 hr miscellaneous medical supply #1 ea 05/12/19 09/28/19 Rx levothyroxine 112 mcg tablet 112 mcg PO DAILY #90 tab 05/13/19 10/19/19 Rx Bedside Commode #1 ea 05/17/19 09/28/19 Rx pen needle, diabetic 32 gauge x #100 ea 05/19/19 09/28/19 Rx 5/32" Novolog Flexpen U-100 Insulin 100 See Rx Instructions SQ .COMPLEX #1 06/14/19 10/19/19 Rx unit/mL (3 mL) subcutaneous box NS sennosides 8.6 mg tablet 17.2 mg PO HS PRN tab 08/11/19 10/19/19 History insulin glargine 100 unit/mL (3 12 units SQ QPM ml 09/26/19 10/19/19 History mL) subcutaneous pen warfarin 4 mg tablet See Rx Instructions PO DAILY tab 09/28/19 10/19/19 History Patient History Medical History Diabetes mellitus type 1 DKA (diabetic ketoacidoses) March 2018. History of non-ST elevation myocardial infarction (NSTEMI) March 2018. Per cardiology note as patient was admitted at the time: "Non-ST elevation myocardial infarction. This has occurred in the setting of his diabetic ketoacidosis. The patient denies any anginal-type symptoms. His electrocardiogram initially did reveal ST depressions anteriorly. These have since resolved. The patient has had prior hospitalizations for DKA with elevations in his troponin I. He had an episode in 08/2016. In the interim, he has done well without any anginal-type symptoms. Suspect that the current troponin elevation was secondary to demand ischemia and not a primary coronary event." History of pulmonary embolism 2005 - post op - w/ ivc filter Hypertension Hypothyroidism Neuropathy On anticoagulant therapy Presence of IVC filter Transient ischemic attack (TIA) pulled from past problem list - pt could not confirm - unsure of dx Surgical History H/O aortic valve replacement >10 years - [facility] [place] - follows w/ dr. westbrook H/O removal of cyst History of colonoscopy History of herniorrhaphy rt inguinal History of inferior vena caval filter placement History of surgery rt femur reconstruction History of total hip arthroplasty rt History of total knee replacement lt Hx of right cataract extraction Family History Brother History of heart valve replacement Unknown Depression Sister Hepatic failure Renal failure Social History Preferred Language: Libyan Communication Ability: Impaired Food And Beverage Controller Required: No Beliefs That Will Affect Care: None marital status: Current Living Situation: Spouse Current Living Situation Comment: Other Information That Helps Us Care for You: No Feels Safe at Home: Yes Safety Concerns: Feels Safe At This Time Smoking Status: Former smoker Do You Dip or Chew Tobacco: No ; Second Hand Exposure: No ; Tobacco Cessation Education Requested by Patient: No Hx Alcohol Use: Yes Alcohol type: beer, wine and hard liquor Alcohol Intake Frequency Comment: 1 beer per day prior to dinner Hx Substance Use: No Review of Systems Review of Systems: All systems reviewed & are unremarkable except as noted in HPI & below Physical Exam Constitutional: WD/WN, vitals as above Eyes: PERRL, conjunctivae normal, anicteric sclerae ENMT: external ear and nose normal, oropharynx normal Neck: normal visual inspection Respiratory: normal respiratory effort, lungs clear to auscultation Cardiovascular: RRR, no murmur, no edema Gastrointestinal (Abdomen): normal bowel sounds, soft, nontender, no hepatosplenomegaly Musculoskeletal: no cyanosis or clubbing, extremities motor strength 5/5 Skin: no rashes, warm and dry Psychiatric: A+Ox3, euthymic affect Results & Data Vital Signs (Past 12 Hours) Vital Signs Temp Pulse Resp BP Pulse Ox 10/21/19 11:19 36.9 C 64 19 125/63 94 10/21/19 07:32 36.7 C 72 18 121/73 97 10/21/19 04:18 36.8 C 78 19 130/76 94 Laboratory Results Microbiology 10/18/19 23:47 Blood Aerobic Blood Culture - Preliminary Alpha strep not S.pne/enteroco 10/18/19 23:47 Blood Anaerobic Blood Culture - Preliminary Alpha strep not S.pne/enteroco 10/18/19 23:44 Blood Aerobic Blood Culture - Preliminary Alpha strep not S.pne/enteroco 10/18/19 23:44 Blood Anaerobic Blood Culture - Preliminary Alpha strep not S.pne/enteroco PG Care Time/CCT Total # of Minutes Spent Total Time Spent with Patient: Total time spent is greater than 50% in coordination of care (as documented) at patient's floor/unit and/or counseling patient: Coding Level of Care Code 28574 Inpt Consult Level 4 Diagnoses Gram positive sepsis A41.89 Right lower lobe pneumonia J18.9 Pneumonia type: due to unspecified organism (1) Right lower lobe pneumonia Pneumonia type: due to unspecified organism Qualified Code(s): J18.9 - Pneumonia, unspecified organism
--- NOTE | 2019-10-21 12:37 | Pharmacy Report ---
Pharmacy Abx Dose Short Note - Date of Service October 21, 2019 - Assessment & Plan Assessment * 89 year old M admitted for CAP - currently on Tele unit and receiving Rocephin + Zithromax + Vancomycin IV * 2 of 2 BLCXs from 10/18 currently growing alpha-hemolytic strep (not enteroc occus , not strep pn) --> sensitivities not yet reported but typically sens to 3rd gen cephs and sometimes penicillins * Patient does have h/o AVR * TTE: no mention of vegetations * CXR read as: * 1. Cardiomegaly with pulmonary vascular congestion. 2. Trace right pleural effusion with ill-defined right midlung and right lung base opacities. Findings may reflect asymmetric pulmonary edema, atelectasis or pneumonitis. * Renal fxn appears to be at baseline Plan Vancomycin * Receiving maint dose: 1500mg (~15mg/kg) IV Q 18 hrs * Trough level evaluated prior to 2nd maint dose = 11, which is sub-therapeutic however not reflective of steady-state and will likely climb w/ repeat dosing. * Will continue current dose however time next dose early due to recent subtherapeutic level. * Goal trough level for bacteremia/pulm infnx : 15 to 20 mcg/mL * Trough level will be checked w/ 1000 dose tomorrow Pharmacy will continue to follow and will adjust dose/frequency as necessary. Thank you.
--- NOTE | 2019-10-21 14:11 | Pharmacy Report ---
Pharmacy Glycemic Short Note 2 - Date of Service October 21, 2019 - Glycemic Short BSG Results (Last 24 hours): 10/20/19 10/20/19 10/21/19 16:25 19:59 02:03 Glucose POC Glucose 244 H 262 H 228 H 10/21/19 10/21/19 10/21/19 07:07 11:16 11:17 Glucose POC Glucose 206 H 307 H* 311 H* 10/21/19 10/21/19 11:39 13:04 Glucose 271 H POC Glucose 272 H OUTPATIENT ANTIDIABETIC REGIMEN: * Lantus 12 units Q PM * Novolog 6 units w/ meals and per sliding scale * A1c = 7.5% 10/19/19 ASSESSMENT: 10/21 * BSGs did climb throughout the day yesterday, peaking in mid 200s at bedtime * Home dose of Lantus was given at bedtime, however BSG remains elevated this AM despite receiving 7 units Novolog overnight as correctional insulin (FBS 206 this AM) * Prelunch BSG did climb to 307-311 despite receiving nearly twice his usual breakfast Novolog dose * Suspect stress of infection leading to greatly increase insulin needs. Will give additional Lantus x 1 now, will increase prandial insulin dose as well and place patient on IV insulin infusion to quickly control worsening hyperglycemia in bacteremic, type 1 diabetic. Of note, PRP ordered and no AG acidosis present and K within normal limits. Hopefully we can wean drip off if enough additional SQ insulin given with these SQ changes 10/20 * Type 1 diabetic admitted w/ pneumonia, found to have bacteremia with alpha- hemolytic strep (not strep pn / not enterococcus) * BSGs climbed into the 300s yesterday, however no AG acidosis present on labs, and he was initiated IV insulin infusion for short period of time * Insulin drip was titrated off overnight following Lantus administration at bedtime * BSGs have been well controlled thus far today with current insulin orders; will continue current Novolog CF/CR and resume outpt Lantus dose now that diet has resumed (was NPO for CEDRICK) PLAN FOR INPATIENT GLYCEMIC CONTROL: * Begin IV insulin infusion, goal range 110-180 - start at 2.5 units/hr and titrate per Insulin Rate Change Calculator * Basal insulin (25% increase) * Lantus 3 units x 1 STAT * Continue Lantus 12 units SQ HS (home dose) - OK to give while on IV insulin drip * Bolus insulin * Nutritional / Prandial insulin per carb ratio of 1 unit per 7 grams CHO consumed PLAN FOR DISCHARGE: * to be determined; given his age and A1c would anticipate he could be discharged on his home regimen
[2019-10-21] MEDS: WARFARIN SOD 6 MG TAB PO SCH (15:25)
--- NOTE | 2019-10-21 16:56 | Hospitalist Progress Note ---
Date of Service October 21, 2019 Assessment & Plan (1) Right lower lobe pneumonia: 89 yo M w/ pMHx of IDDM type I, A. 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 Presented with a week of increased shortness of breath and 2 days of fevers. CXR showed cardiomegaly with pulmonary vasc. congestion and right mid lung and base opacities concerning for pneumonia. Blood culture + with alpha strep bacteremia. TTE with findings suggestive of new severe aortic stenosis. - currently on 2L NC, afebrile, normal HR and BP - blood cultures showed alpha strep - repeat blood cultures today - continue Azithromycin, Ceftriaxone, and Vancomycin, narrow w/ sensitivities - Duonebs PRN - worsening edema, stopped NSS today - ECHO 10/20 shows Moderate concentric LVH, LVSF nl, RV is mild to moderately dilated, R. atrium is severely dilated, the gradient is abnormal for prosthetic valve, velocities suggestive of severe aortic stenosis, moderate tricuspid regurgitation, RVS pressure is elevated at 40-50% DVT: Warfarin - INR 2.7 today, adjusted does to 4mg (home dose) continue to monitor with daily INR Diet/FEN: regular diet, no IVF Code: full (2) Elevated troponin: - found to have elevated troponin 0.048 @ 23:44 and 0.076 @ 5:25 - likely due to demand ischemia, will continue to monitor symptoms, no chest pain during hospitalization to date (3) Hypoxia: - likely 2/2 pna, potentially due to aortic stenosis - intermittently on RA - 2L NC, some increased WOB but reassuring lung exam - continue to monitor (4) Atrial fibrillation: - History of A. fib, appears to be rate controlled - continue warfarin with daily INR checks - continue metoprolol (5) Postoperative urinary retention: - found to be retaining urine on admission and Hager was placed - trial of bladder this afternoon to see if he continues to retain urine - if found to have high post void residuals, place Hager (6) Anemia: - found to be anemic w/ H&H of 10.1 and 30 unclear etiology at this point - will continue to follow with AM CBC (7) History of pulmonary embolism: - history of post operative PE with IVC in place - continue Warfarin (8) Aortic valve replaced: - Hx. of replaced aortic valve - echo showed severe aortic stenosis, unclear if shortness of breath is 2/2 pneumonia or if a component of this is related to aortic stenosis - ensure follow up with cardiology for management of aortic stenosis - continue Warfarin (9) IDDM (insulin dependent diabetes mellitus): - found to be poorly controlled w/ blood sugars in the 300s - pharmacy starting an insulin drip, no gap, K most recently 4.2 - will continue to monitor BMP and blood sugars (10) Bacteremia: - found to have positive blood cultures with alpha strep - repeat cultures today, follow up - consulted ID and appreciate recs: continue IV abx, if repeat cultures positive suggest CEDRICK Supervising Physician Co-Signing Physician Notes Patient seen and examined with PGY-1 Dr. Hough. Agree with history, exam findings, assessment and plan of care with the following updates: In brief, Mr. Paz is an 89 year old male with history of bovine aortic valve, afib, DM admitted with pneumonia and bacteremia. Feeling well today and does not report any complaints. Seems to be a bit dyspneic with talking, but denies feeling short of breath with speaking. Satting in the mid 90s on room air (NC tubing on the floor). Good air movement throughout all lung ford. Irregular rhythm with 2/6 systolic murmur, +2 edema bilateral LE. 1. pneumonia, bacteremia. Repeat blood cultures today. Prior cultures growing strep viridans. Appreciate ID recommendations for length of antibiotic course and assistance with narrowing abx. Continue vanc, azithro and ceftriaxone for now. 2. aortic stenosis--severe--new since last echo. Consider CEDRICK to evaluate for valvular vegetation. Wonder if some of his apparent dyspnea may be symptomatic . Careful attention to blood pressure and fluid status. He is likely quite preload dependent. Dispo: pending clinical improvement. Subjective Mr. Paz is doing well today and his was here in the morning at his bedside. I updated them on the positive blood cultures and the pneumonia that we were treating. The wanted me to know that she would like to have her go home after staying in the hospital rather than going to a rehab facility because he had a negative experience at a rehab facility previously. She explained that they have several people at home to help care for her . He did doing well but his oxygen was on the ground and he was only able to speak in 2-3 word sentences before stopping to catch his breath. Discussed new findings of severe aortic stenosis seen on ECHO. Dr. Bill is there procedure tech and he was at [place] when the artificial valve was placed. 's # is [phone] for any updates. Review of Systems Constitutional: no fever and no chills Respiratory: no cough and no sputum production admits shortness of breath Gastrointestinal: no nausea and no vomiting Genitourinary: no dysuria, no difficulty urinating and no urinary frequency Neurologic: no headache(s) Physical Exam Constitutional: WD/WN, vitals as above Eyes: PERRL, conjunctivae normal, anicteric sclerae ENMT: external ear and nose normal, oropharynx normal Neck: trachea midline, no thyromegaly Respiratory: normal respiratory effort, lungs clear to auscultation Cardiovascular: Rate/Rhythm: + irregularly irregular Heart Sounds: + murmur (2/6 systolic murmur heard best at the right sternal border) Extremities: + edema (2+ edema in the lower extremity) Skin: no rashes, warm and dry Results & Data ([facility]) Vital Signs (Past 12 Hours) Vital Signs Temp Pulse Resp BP Pulse Ox 10/21/19 15:44 36.7 C 66 19 122/64 95 10/21/19 11:19 36.9 C 64 19 125/63 94 10/21/19 07:32 36.7 C 72 18 121/73 97 Resident Activity Tracking Resident Involvement: Resident Care Provided Care Provided: Adult Hospital Medicine (1) Right lower lobe pneumonia Pneumonia type: due to unspecified organism Qualified Code(s): J18.9 - Pneumonia, unspecified organism
[2019-10-21] MEDS ORDERED: OXYCODONE HCL SOLN 5 MG/5 ML UDC PO PRN (17:37)
[2019-10-21 19:24] LABS: BUN Creatinine Ratio 21.3 (10-20); Calcium 8.3 mg/dl (8.5-10.1); Creatinine Clr Calc Pharmacy 66.9 ml/min; Est GFR (African American) 81.9; Est GFR (Non-African American) 70.7; Potassium 4.4 mmol/L (3.5-5.1)
[2019-10-21] MEDS: INSULIN GLARGINE SOLOSTAR 100 UNITS/ML 3 ML PEN SC SCH (20:08)
[2019-10-21] MEDS: AZITHROMYCIN 500 MG in DEXTROSE 5% 250 ML IV SCH (21:56)
[2019-10-22] MEDS: INSULIN ASPART 100 UNITS/ML 3 ML PEN SC SCH ×6 (00:07→20:27)
[2019-10-22] MEDS: cefTRIAXone SODIUM 2,000 MG in DEXTROSE 5% 50 ML IV SCH ×2 (01:19→15:38)
[2019-10-22] MEDS: LEVOTHYROXINE SODIUM 112 MCG TABLET PO SCH (05:42)
[2019-10-22 07:03] LABS: Basophils # (auto) 0.01 K/uL (0-0.2); Basophils % (auto) 0.1 %; Eosinophils # (auto) 0.49 K/uL (0-0.5); Hematocrit (blood only) 31.1 % (42-52); Hemoglobin 10.4 g/dL (14.0-18.0); Immature Granulocytes # (auto) 0.03 K/uL (0.00-0.02); Immature Granulocytes % (auto) 0.3 %; Lymphocytes # (auto) 1.89 K/uL (1.2-3.4); Lymphocytes % (auto) 19.4 %; Mean Corpuscular Hemoglobin 29.9 pg (25-34); Mean Corpuscular Hgb Conc 33.4 g/dL (32-36); Mean Corpuscular Volume 89.4 fL (80-100); Mean Platelet Volume 9.9 fL (7.4-10.4); Monocytes # (auto) 1.16 K/uL (0.11-0.59); Monocytes % (auto) 11.9 %; Neutrophils # (auto) 6.15 K/uL (1.4-6.5); Neutrophils % (auto) 63.3 %; Platelet Count 189 K/uL (130-400); RDW Coefficient of Variation 16.5 % (11.5-14.5); RDW Standard Deviation 53.5 fL (36.4-46.3); Red Blood Count 3.48 M/uL (4.7-6.1); White Blood Count 9.73 K/uL (4.8-10.8)
[2019-10-22 07:34] LABS: BUN Creatinine Ratio 21.9 (10-20); Calcium 8.2 mg/dl (8.5-10.1); Creatinine Clr Calc Pharmacy 74.5 ml/min; Est GFR (African American) 89.1; Est GFR (Non-African American) 76.9; Potassium 4.3 mmol/L (3.5-5.1)
[2019-10-22 07:35] LABS: Creatinine Clr Calc Pharmacy 74.5 ml/min; Est GFR (African American) 89.1; Est GFR (Non-African American) 76.9
[2019-10-22 07:40] LABS: INR 3.2 (0.9-1.1); Prothrombin Time 29.8 Seconds (9.0-12.0)
[2019-10-22] MEDS: FAMOTIDINE 20 MG TAB PO SCH ×2 (08:55→20:23)
[2019-10-22] MEDS: ASPIRIN 81 MG ECTAB PO SCH (08:55)
[2019-10-22] MEDS: CYANOCOBALAMIN 500 MCG TABLET (VITAMIN B-12) PO SCH (08:56)
[2019-10-22] MEDS: ATORVASTATIN 40 MG TAB PO SCH (08:56)
[2019-10-22] MEDS: ASCORBIC ACID 500 MG TAB PO SCH (08:56)
[2019-10-22] MEDS: METOPROLOL SUCC 25MG EXT REL TAB PO SCH (08:56)
[2019-10-22] MEDS ORDERED: VANCOMYCIN TROUGH ONE (09:30)
[2019-10-22] MEDS: VANCOMYCIN HCL 1,500 MG in SODIUM CHLORIDE 0.9% 500 ML IV SCH (10:16)
--- NOTE | 2019-10-22 14:24 | Pharmacy Report ---
Pharmacy Glycemic Short Note 2 - Date of Service October 22, 2019 - Glycemic Short BSG Results (Last 24 hours): 10/21/19 10/21/19 10/21/19 14:08 15:01 15:59 Glucose POC Glucose 208 H 196 H 151 H 10/21/19 10/21/19 10/21/19 17:10 17:59 18:36 Glucose 133 H POC Glucose 126 H 193 H 10/21/19 10/21/19 10/21/19 19:01 20:00 21:28 Glucose POC Glucose 188 H 133 H 144 H 10/21/19 10/22/19 10/22/19 21:29 00:03 02:00 Glucose POC Glucose 94 196 H 163 H 10/22/19 10/22/19 10/22/19 06:49 07:23 11:26 Glucose 196 H POC Glucose 193 H 215 H OUTPATIENT ANTIDIABETIC REGIMEN: * Lantus 12 units Q PM * Novolog 6 units w/ meals and per sliding scale * A1c = 7.5% 10/19/19 ASSESSMENT: 10/22 * Blood sugars improved quickly on drip last night, discontinued, fast AM blood sugar 196mg/dl, blood sugar after lunch 215mg/dl * Increase basal and tighten CF/CR at this time. 10/21 * BSGs did climb throughout the day yesterday, peaking in mid 200s at bedtime * Home dose of Lantus was given at bedtime, however BSG remains elevated this AM despite receiving 7 units Novolog overnight as correctional insulin (FBS 206 this AM) * Prelunch BSG did climb to 307-311 despite receiving nearly twice his usual breakfast Novolog dose * Suspect stress of infection leading to greatly increase insulin needs. Will give additional Lantus x 1 now, will increase prandial insulin dose as well and place patient on IV insulin infusion to quickly control worsening hyperglycemia in bacteremic, type 1 diabetic. Of note, PRP ordered and no AG acidosis present and K within normal limits. Hopefully we can wean drip off if enough additional SQ insulin given with these SQ changes 10/20 * Type 1 diabetic admitted w/ pneumonia, found to have bacteremia with alpha- hemolytic strep (not strep pn / not enterococcus) * BSGs climbed into the 300s yesterday, however no AG acidosis present on labs, and he was initiated IV insulin infusion for short period of time * Insulin drip was titrated off overnight following Lantus administration at bedtime * BSGs have been well controlled thus far today with current insulin orders; will continue current Novolog CF/CR and resume outpt Lantus dose now that diet has resumed (was NPO for CEDRICK) PLAN FOR INPATIENT GLYCEMIC CONTROL: * Basal insulin - INCREASE * Lantus 15 units SQ HS * Bolus insulin * Goal range 110-140mg/dl * tighten: CF: 20mg/dl/unit * tighten: Nutritional / Prandial insulin per carb ratio of 1 unit per 6 gr ams CHO consumed PLAN FOR DISCHARGE: * to be determined; given his age and A1c would anticipate he could be discharged on his home regimen
--- NOTE | 2019-10-22 14:57 | Hospitalist Progress Note ---
Date of Service October 22, 2019 Assessment & Plan (1) Right lower lobe pneumonia: 89 yo M w/ pMHx of IDDM type I, A. 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 Presented with a week of increased shortness of breath and 2 days of fevers. CXR showed cardiomegaly with pulmonary vasc. congestion and right mid lung and base opacities concerning for pneumonia. Blood culture + with alpha strep bacteremia. TTE with findings suggestive of new severe aortic stenosis. Right lower lobe pneumonia: - currently on 2L NC, afebrile, normal HR and BP - blood cultures showed alpha strep - repeat blood cultures today - continue Azithromycin, Ceftriaxone; blood cultures from 128 were pansensitive; discontinued Vanc - Duonebs PRN - worsening edema, stopped NSS today - ECHO from 10/20 shows Moderate concentric LVH, LVSF nl, RV is mild to moderately dilated, R. atrium is severely dilated, the gradient is abnormal for prosthetic valve, velocities suggestive of severe aortic stenosis, moderate tricuspid regurgitation, RVS pressure is elevated at 40-50% Elevated troponin: - found to have elevated troponin 0.048 @ 23:44 and 0.076 @ 5:25 - likely due to demand ischemia, will continue to monitor symptoms, no chest pain during hospitalization to date Hypoxia: - likely 2/2 pna, potentially due to aortic stenosis -Increased work of breathing while off nasal cannula, patient believes this is more chronic; during examination patient conversive/singing satting 94% Atrial fibrillation: - History of A. fib, appears to be rate controlled - continue warfarin with daily INR checks; INR this a.m. 3.2 - Consider holding if INR becomes supratherapeutic - continue metoprolol Post-operative urinary retention: - found to be retaining urine on admission and Hager was placed - trial of bladder this afternoon to see if he continues to retain urine - consider PRN Flomax if patient continues to retain overnight; will attempt to refrain from Hager - bladder scan as needed Anemia: - found to be slightly anemic w/ H&H of 10.4 - will continue to follow with AM CBC Hx of PE: - history of post operative PE with IVC in place - continue Warfarin Aortic Valve Replaced: - Hx. of replaced aortic valve - echo showed severe aortic stenosis, unclear if shortness of breath is 2/2 pneumonia or if a component of this is related to aortic stenosis - ensure follow up with cardiology for management of aortic stenosis - continue Warfarin -We will await repeat blood cultures for decision on CEDRICK for potential vegetation IDDM: - found to be poorly controlled w/ blood sugars in the 300s - pharmacy starting an insulin drip, no gap, K most recently 4.2 - will continue to monitor BMP and blood sugars Bactermia: - found to have strep viridans x2 on 10/18 - repeat cultures 10/21 - consulted ID and appreciate recs: continue IV abx, if repeat cultures positive suggest CEDRICK Diet/FEN: regular diet DVT: Warfarin - INR 3.2 Code: full (2) Elevated troponin: (3) Hypoxia: (4) Atrial fibrillation: (5) Postoperative urinary retention: (6) Anemia: (7) History of pulmonary embolism: (8) Aortic valve replaced: (9) IDDM (insulin dependent diabetes mellitus): (10) Bacteremia: Supervising Physician Co-Signing Physician Notes Patient seen and examined with PGY-1 Dr. Valerio. Agree with history, exam findings, assessment and plan of care with the following updates: In brief, Mr. Paz is an 89 year old male with history of bovine aortic valve, afib, DM admitted with pneumonia and bacteremia. Feeling well today and does not report any complaints. Seems to be a bit dyspneic with talking, but denies feeling short of breath with speaking. Satting in the mid 90s on room air and actually saturating in the mid- 90s with singing. Good air movement throughout all lung ford. Irregular rhythm with 2/6 systolic murmur, +2 edema bilateral LE. 1. pneumonia, bacteremia. Repeat blood cultures today. Prior cultures growing strep viridans. Appreciate ID recommendations for length of antibiotic course and assistance with narrowing abx. Continue azithro and ceftriaxone for now. DC vanc as MRSA negative. 2. aortic stenosis--severe--new since last echo. Consider CEDRICK to evaluate for valvular vegetation. Wonder if some of his apparent dyspnea may be symptomatic . Careful attention to blood pressure and fluid status. He is likely quite preload dependent. Dispo: pending clinical improvement. Subjective Patient this morning feels significantly better than when initially seen used to feel he is running out of breath while talking; in reflection patient believes this has been going on for several months; is still able to do the majority of activities he wishes to do throughout the day Overnight had Hager catheter placed for bladder retention 487/500; patient could not feel urge to urinate at that time, but at this time would like to try urinating tonight without Hager Review of Systems Constitutional: no fever, no chills and no sweats Eyes: no diplopia and no spots in vision Ear, Nose, Mouth, Throat: no ear discharge, no tinnitus, no nasal congestion and no nasal discharge Respiratory: no cough and no dyspnea Cardiovascular: no chest pain, no palpitations and no edema Gastrointestinal: no abdominal pain, no nausea and no vomiting Physical Exam Constitutional: WD/WN, vitals as above Eyes: PERRL, conjunctivae normal, anicteric sclerae Respiratory: normal respiratory effort, lungs clear to auscultation Cardiovascular: Rate/Rhythm: regular rate Heart Sounds: + murmur (2 out of 6 systolic ejection murmur best heard over right second intercostal space); no click, no gallop and no cardiac rub Vessels: no JVD Gastrointestinal (Abdomen): normal bowel sounds, soft, nontender, no hepatosplenomegaly Musculoskeletal: no cyanosis or clubbing, extremities motor strength 5/5 Results & Data ([facility]) Vital Signs (Past 12 Hours) Vital Signs Temp Pulse Pulse Pulse Resp BP Pulse Ox 10/22/19 11:36 10/22/19 11:06 36.6 C 74 20 127/58 L 94 10/22/19 08:00 68 10/22/19 06:18 36.8 C 72 20 122/63 97 10/22/19 04:24 36.7 C 70 73 20 144/75 H 99 Pulse Ox 10/22/19 11:36 93 10/22/19 11:06 10/22/19 08:00 10/22/19 06:18 10/22/19 04:24 Laboratory Results 10/22/19 10/22/19 10/22/19 Range/Units 11:26 09:11 07:23 WBC (4.8-10.8) K/uL RBC (4.7-6.1) M/uL Hgb (14.0-18.0) g/dL Hct (42-52) % MCV (80-100) fL MCH (25-34) pg MCHC (32-36) g/dL RDW Std Deviation (36.4-46.3) fL RDW Coeff of Roger (11.5-14.5) % Plt Count (130-400) K/uL MPV (7.4-10.4) fL Immature Gran % (Auto) % Neut % (Auto) % Lymph % (Auto) % [place] % (Auto) % Eos % (Auto) % Baso % (Auto) % Immature Gran # (Auto) (0.00-0.02) K/uL Neut # (Auto) (1.4-6.5) K/uL Lymph # (Auto) (1.2-3.4) K/uL [place] # (Auto) (0.11-0.59) K/uL Eos # (Auto) (0-0.5) K/uL Baso # (Auto) (0-0.2) K/uL PT (9.0-12.0) Seconds INR (0.9-1.1) Sodium (136-145) mmol/L Potassium (3.5-5.1) mmol/L Chloride (98-107) mmol/L Carbon Dioxide (21-32) mmol/L Anion Gap (3-11) BUN (7-18) mg/dl Creatinine (0.6-1.4) mg/dl Est Cr Clr Drug Dosing ml/min Est GFR ( Amer) Est GFR (Non-Af Amer) BUN/Creatinine Ratio (10-20) Glucose (70-99) mg/dl POC Glucose 215 H 193 H (70-99) mg/dl Calcium (8.5-10.1) mg/dl Vancomycin Trough 14.5 (See Comment) mcg/ml 10/22/19 10/22/19 10/22/19 Range/Units 07:01 06:49 06:49 WBC 9.73 (4.8-10.8) K/uL RBC 3.48 L (4.7-6.1) M/uL Hgb 10.4 L (14.0-18.0) g/dL Hct 31.1 L (42-52) % MCV 89.4 (80-100) fL MCH 29.9 (25-34) pg MCHC 33.4 (32-36) g/dL RDW Std Deviation 53.5 H (36.4-46.3) fL RDW Coeff of Roger 16.5 H (11.5-14.5) % Plt Count 189 (130-400) K/uL MPV 9.9 (7.4-10.4) fL Immature Gran % (Auto) 0.3 % Neut % (Auto) 63.3 % Lymph % (Auto) 19.4 % [place] % (Auto) 11.9 % Eos % (Auto) 5.0 % Baso % (Auto) 0.1 % Immature Gran # (Auto) 0.03 H (0.00-0.02) K/uL Neut # (Auto) 6.15 (1.4-6.5) K/uL Lymph # (Auto) 1.89 (1.2-3.4) K/uL [place] # (Auto) 1.16 H (0.11-0.59) K/uL Eos # (Auto) 0.49 (0-0.5) K/uL Baso # (Auto) 0.01 (0-0.2) K/uL PT 29.8 H (9.0-12.0) Seconds INR 3.2 H (0.9-1.1) Sodium 133 L (136-145) mmol/L Potassium 4.3 (3.5-5.1) mmol/L Chloride 100 (98-107) mmol/L Carbon Dioxide 26 (21-32) mmol/L Anion Gap 7.0 (3-11) BUN 19 H (7-18) mg/dl Creatinine 0.86 (0.6-1.4) mg/dl Est Cr Clr Drug Dosing 74.5 ml/min Est GFR ( Amer) 89.1 Est GFR (Non-Af Amer) 76.9 BUN/Creatinine Ratio 21.9 H (10-20) Glucose 196 H (70-99) mg/dl POC Glucose (70-99) mg/dl Calcium 8.2 L (8.5-10.1) mg/dl Vancomycin Trough (See Comment) mcg/ml 10/22/19 10/22/19 10/22/19 Range/Units 06:49 02:00 00:03 WBC (4.8-10.8) K/uL RBC (4.7-6.1) M/uL Hgb (14.0-18.0) g/dL Hct (42-52) % MCV (80-100) fL MCH (25-34) pg MCHC (32-36) g/dL RDW Std Deviation (36.4-46.3) fL RDW Coeff of Roger (11.5-14.5) % Plt Count (130-400) K/uL MPV (7.4-10.4) fL Immature Gran % (Auto) % Neut % (Auto) % Lymph % (Auto) % [place] % (Auto) % Eos % (Auto) % Baso % (Auto) % Immature Gran # (Auto) (0.00-0.02) K/uL Neut # (Auto) (1.4-6.5) K/uL Lymph # (Auto) (1.2-3.4) K/uL [place] # (Auto) (0.11-0.59) K/uL Eos # (Auto) (0-0.5) K/uL Baso # (Auto) (0-0.2) K/uL PT (9.0-12.0) Seconds INR (0.9-1.1) Sodium (136-145) mmol/L Potassium (3.5-5.1) mmol/L Chloride (98-107) mmol/L Carbon Dioxide (21-32) mmol/L Anion Gap (3-11) BUN (7-18) mg/dl Creatinine 0.86 (0.6-1.4) mg/dl Est Cr Clr Drug Dosing 74.5 ml/min Est GFR ( Amer) 89.1 Est GFR (Non-Af Amer) 76.9 BUN/Creatinine Ratio (10-20) Glucose (70-99) mg/dl POC Glucose 163 H 196 H (70-99) mg/dl Calcium (8.5-10.1) mg/dl Vancomycin Trough (See Comment) mcg/ml 10/21/19 10/21/19 10/21/19 Range/Units 21:29 21:28 20:00 WBC (4.8-10.8) K/uL RBC (4.7-6.1) M/uL Hgb (14.0-18.0) g/dL Hct (42-52) % MCV (80-100) fL MCH (25-34) pg MCHC (32-36) g/dL RDW Std Deviation (36.4-46.3) fL RDW Coeff of Roger (11.5-14.5) % Plt Count (130-400) K/uL MPV (7.4-10.4) fL Immature Gran % (Auto) % Neut % (Auto) % Lymph % (Auto) % [place] % (Auto) % Eos % (Auto) % Baso % (Auto) % Immature Gran # (Auto) (0.00-0.02) K/uL Neut # (Auto) (1.4-6.5) K/uL Lymph # (Auto) (1.2-3.4) K/uL [place] # (Auto) (0.11-0.59) K/uL Eos # (Auto) (0-0.5) K/uL Baso # (Auto) (0-0.2) K/uL PT (9.0-12.0) Seconds INR (0.9-1.1) Sodium (136-145) mmol/L Potassium (3.5-5.1) mmol/L Chloride (98-107) mmol/L Carbon Dioxide (21-32) mmol/L Anion Gap (3-11) BUN (7-18) mg/dl Creatinine (0.6-1.4) mg/dl Est Cr Clr Drug Dosing ml/min Est GFR ( Amer) Est GFR (Non-Af Amer) BUN/Creatinine Ratio (10-20) Glucose (70-99) mg/dl POC Glucose 94 144 H 133 H (70-99) mg/dl Calcium (8.5-10.1) mg/dl Vancomycin Trough (See Comment) mcg/ml 10/21/19 10/21/19 10/21/19 Range/Units 19:01 18:36 17:59 WBC (4.8-10.8) K/uL RBC (4.7-6.1) M/uL Hgb (14.0-18.0) g/dL Hct (42-52) % MCV (80-100) fL MCH (25-34) pg MCHC (32-36) g/dL RDW Std Deviation (36.4-46.3) fL RDW Coeff of Roger (11.5-14.5) % Plt Count (130-400) K/uL MPV (7.4-10.4) fL Immature Gran % (Auto) % Neut % (Auto) % Lymph % (Auto) % [place] % (Auto) % Eos % (Auto) % Baso % (Auto) % Immature Gran # (Auto) (0.00-0.02) K/uL Neut # (Auto) (1.4-6.5) K/uL Lymph # (Auto) (1.2-3.4) K/uL [place] # (Auto) (0.11-0.59) K/uL Eos # (Auto) (0-0.5) K/uL Baso # (Auto) (0-0.2) K/uL PT (9.0-12.0) Seconds INR (0.9-1.1) Sodium 132 L (136-145) mmol/L Potassium 4.4 (3.5-5.1) mmol/L Chloride 101 (98-107) mmol/L Carbon Dioxide 26 (21-32) mmol/L Anion Gap 5.0 (3-11) BUN 20 H (7-18) mg/dl Creatinine 0.95 (0.6-1.4) mg/dl Est Cr Clr Drug Dosing 66.9 ml/min Est GFR ( Amer) 81.9 Est GFR (Non-Af Amer) 70.7 BUN/Creatinine Ratio 21.3 H (10-20) Glucose 133 H (70-99) mg/dl POC Glucose 188 H 193 H (70-99) mg/dl Calcium 8.3 L (8.5-10.1) mg/dl Vancomycin Trough (See Comment) mcg/ml 10/21/19 Range/Units 17:10 WBC (4.8-10.8) K/uL RBC (4.7-6.1) M/uL Hgb (14.0-18.0) g/dL Hct (42-52) % MCV (80-100) fL MCH (25-34) pg MCHC (32-36) g/dL RDW Std Deviation (36.4-46.3) fL RDW Coeff of Roger (11.5-14.5) % Plt Count (130-400) K/uL MPV (7.4-10.4) fL Immature Gran % (Auto) % Neut % (Auto) % Lymph % (Auto) % [place] % (Auto) % Eos % (Auto) % Baso % (Auto) % Immature Gran # (Auto) (0.00-0.02) K/uL Neut # (Auto) (1.4-6.5) K/uL Lymph # (Auto) (1.2-3.4) K/uL [place] # (Auto) (0.11-0.59) K/uL Eos # (Auto) (0-0.5) K/uL Baso # (Auto) (0-0.2) K/uL PT (9.0-12.0) Seconds INR (0.9-1.1) Sodium (136-145) mmol/L Potassium (3.5-5.1) mmol/L Chloride (98-107) mmol/L Carbon Dioxide (21-32) mmol/L Anion Gap (3-11) BUN (7-18) mg/dl Creatinine (0.6-1.4) mg/dl Est Cr Clr Drug Dosing ml/min Est GFR ( Amer) Est GFR (Non-Af Amer) BUN/Creatinine Ratio (10-20) Glucose (70-99) mg/dl POC Glucose 126 H (70-99) mg/dl Calcium (8.5-10.1) mg/dl Vancomycin Trough (See Comment) mcg/ml Medications Administered Current Inpatient Medications Acetaminophen (Tylenol) 650 mg PO Q4H PRN PRN Reason: mild pain or fever Stop: 11/18/19 02:49 Albuterol (Duoneb) 3 ml NEB Q4R PRN PRN Reason: Shortness Of Breath Or Wheezing Stop: 11/18/19 02:49 Ascorbic Acid (Vitamin C) 500 mg PO DAILY [facility] Stop: 11/18/19 08:59 Last Admin: 10/22/19 08:56 Dose: 500 mg Documented by: Aspirin (Ecotrin Ectab) 81 mg PO DAILY [facility] Stop: 11/18/19 08:59 Last Admin: 10/22/19 08:55 Dose: 81 mg Documented by: Atorvastatin Calcium (Lipitor) 40 mg PO DAILY [facility] Stop: 11/18/19 08:59 Last Admin: 10/22/19 08:56 Dose: 40 mg Documented by: Cyanocobalamin (Vitamin B-12) 2,500 mcg PO DAILY [facility] Stop: 11/18/19 08:59 Last Admin: 10/22/19 08:56 Dose: 2,500 mcg Documented by: Dextrose (Dextrose 50%) 25 - 50 ml IV UD PRN; Protocol PRN Reason: Hypoglycemia Protocol Stop: 11/18/19 02:49 Famotidine (Pepcid) 20 mg PO BID [facility] Stop: 11/18/19 08:59 Last Admin: 10/22/19 08:55 Dose: 20 mg Documented by: Glucagon (Glucagen) 1 mg SQ UD PRN; Protocol PRN Reason: Hypoglycemia Protocol Stop: 11/18/19 02:49 Glucose (Dex4 Glucose) 4 - 8 tabs PO UD PRN; Protocol PRN Reason: Hypoglycemia Protocol Stop: 11/18/19 02:49 Glucose (Glucose 40%) 15 - 30 gm PO UD PRN; Protocol PRN Reason: Hypoglycemia Protocol Stop: 11/18/19 02:49 Azithromycin 500 mg/ Dextrose 255 mls @ 125 mls/hr IV Q24H [facility]; Protocol Stop: 10/25/19 21:59 Last Infusion: 10/21/19 23:50 Dose: Infused Documented by: Ceftriaxone Sodium 2,000 mg/ (Dextrose) 70 mls @ 100 mls/hr IV Q12H [facility]; Protocol Stop: 11/02/19 13:59 Last Admin: 10/22/19 15:38 Dose: 100 mls/hr Documented by: Insulin Aspart (Novolog Flexpen) 0 units SC ACHS [facility]; Protocol Stop: 11/18/19 20:59 Last Admin: 10/22/19 12:22 Dose: 19 units Documented by: Insulin Glargine (Lantus Solostar Pen) 0 units SC QPM [facility]; Protocol Stop: 11/21/19 20:59 Levothyroxine Sodium (Synthroid) 112 mcg PO DAILYBB [facility] Stop: 11/18/19 06:29 Last Admin: 10/22/19 05:42 Dose: 112 mcg Documented by: Metoprolol Succinate (Toprol Xl) 12.5 mg PO QAM [facility] Stop: 11/18/19 09:29 Last Admin: 10/22/19 08:56 Dose: 12.5 mg Documented by: Miscellaneous (Carbohydrates For Hypoglycemia) 15 - 30 gm PO UD PRN PRN Reason: Hypoglycemia Protocol Stop: 11/18/19 02:49 Miscellaneous Information (Consult Glycemic Management Pharmacy) 1 ea N/A UD PRN PRN Reason: Consult Stop: 11/18/19 17:18 Ondansetron HCl (Zofran) 4 mg IV Q6H PRN PRN Reason: nausea or vomiting Stop: 11/18/19 02:49 Warfarin Sodium (Coumadin) 4 mg PO DAILY@1600 [facility] Stop: 11/21/19 15:59 Last Admin: 10/22/19 15:32 Dose: 4 mg Documented by: Resident Activity Tracking Resident Involvement: Resident Care Provided Care Provided: Adult Hospital Medicine (1) Right lower lobe pneumonia Pneumonia type: due to unspecified organism Qualified Code(s): J18.9 - P neumonia, unspecified organism
[2019-10-22] MEDS: WARFARIN SOD 4 MG TAB PO SCH (15:32)
[2019-10-22] MEDS ORDERED: INSULIN HUMAN REGULAR PER UNIT 2.5 UNITS in SYRINGE 2.475 ML IV ONE (17:00)
[2019-10-22] MEDS ORDERED: TAMSULOSIN HCL 0.4 MG CAP PO PRN (17:32)
[2019-10-22] MEDS: INSULIN GLARGINE SOLOSTAR 100 UNITS/ML 3 ML PEN SC SCH (20:25)
[2019-10-22] MEDS: AZITHROMYCIN 500 MG in DEXTROSE 5% 250 ML IV SCH (21:29)
[2019-10-23] MEDS: INSULIN ASPART 100 UNITS/ML 3 ML PEN SC SCH ×6 (00:06→21:26)
[2019-10-23] MEDS: cefTRIAXone SODIUM 2,000 MG in DEXTROSE 5% 50 ML IV SCH ×2 (01:40→14:36)
[2019-10-23] MEDS: LEVOTHYROXINE SODIUM 112 MCG TABLET PO SCH (05:13)
[2019-10-23 06:38] LABS: Basophils # (auto) 0.01 K/uL (0-0.2); Basophils % (auto) 0.1 %; Eosinophils # (auto) 0.46 K/uL (0-0.5); Eosinophils % (auto) 4.8 %; Hematocrit (blood only) 31.5 % (42-52); Hemoglobin 10.7 g/dL (14.0-18.0); Immature Granulocytes # (auto) 0.03 K/uL (0.00-0.02); Immature Granulocytes % (auto) 0.3 %; Lymphocytes # (auto) 1.79 K/uL (1.2-3.4); Lymphocytes % (auto) 18.7 %; Mean Corpuscular Volume 88.2 fL (80-100); Mean Platelet Volume 10.6 fL (7.4-10.4); Monocytes # (auto) 1.11 K/uL (0.11-0.59); Monocytes % (auto) 11.6 %; Neutrophils # (auto) 6.17 K/uL (1.4-6.5); Neutrophils % (auto) 64.5 %; Platelet Count 210 K/uL (130-400); RDW Coefficient of Variation 16.3 % (11.5-14.5); RDW Standard Deviation 53.3 fL (36.4-46.3); Red Blood Count 3.57 M/uL (4.7-6.1); White Blood Count 9.57 K/uL (4.8-10.8)
[2019-10-23 06:58] LABS: INR 3.5 (0.9-1.1)
[2019-10-23 07:07] LABS: BUN Creatinine Ratio 23.8 (10-20); Calcium 8.3 mg/dl (8.5-10.1); Creatinine Clr Calc Pharmacy 85.5 ml/min; Est GFR (African American) 94.3; Est GFR (Non-African American) 81.3; Potassium 4.1 mmol/L (3.5-5.1)
[2019-10-23] MEDS: TAMSULOSIN HCL 0.4 MG CAP PO SCH (08:50)
[2019-10-23] MEDS: ASPIRIN 81 MG ECTAB PO SCH (08:50)
[2019-10-23] MEDS: ASCORBIC ACID 500 MG TAB PO SCH (08:50)
[2019-10-23] MEDS: ATORVASTATIN 40 MG TAB PO SCH (08:51)
[2019-10-23] MEDS: METOPROLOL SUCC 25MG EXT REL TAB PO SCH (08:51)
[2019-10-23] MEDS: CYANOCOBALAMIN 500 MCG TABLET (VITAMIN B-12) PO SCH (08:51)
[2019-10-23] MEDS: FAMOTIDINE 20 MG TAB PO SCH ×2 (08:51→20:44)
[2019-10-23] MEDS ORDERED: FUROSEMIDE 20 MG TAB PO STA (10:55)
[2019-10-23] MEDS ORDERED: FUROSEMIDE 40 MG/4 ML VIAL IV ONE (11:01)
--- NOTE | 2019-10-23 13:04 | Pharmacy Report ---
Pharmacy Glycemic Short Note 2 - Date of Service October 23, 2019 - Glycemic Short BSG Results (Last 24 hours): 10/22/19 10/22/19 10/22/19 16:34 16:35 20:21 Glucose POC Glucose 460 H* 404 H* 316 H* 10/23/19 10/23/19 10/23/19 00:03 03:47 05:56 Glucose 134 H POC Glucose 201 H 140 H 10/23/19 10/23/19 07:01 11:53 Glucose POC Glucose 148 H 276 H OUTPATIENT ANTIDIABETIC REGIMEN: * Lantus 12 units Q PM * Novolog 6 units w/ meals and per sliding scale * A1c = 7.5% 10/19/19 ASSESSMENT: 10/23 * Patient had blood sugars 404mg/dl last evening requiring 2.5 units IV Regular insulin. * Blood sugars better today on increased Lantus but still yary from 148-->276mg/dl with lunch, will tighten CF/CR. 10/22 * Blood sugars improved quickly on drip last night, discontinued, fast AM blood sugar 196mg/dl, blood sugar after lunch 215mg/dl * Increase basal and tighten CF/CR at this time. 10/21 * BSGs did climb throughout the day yesterday, peaking in mid 200s at bedtime * Home dose of Lantus was given at bedtime, however BSG remains elevated this AM despite receiving 7 units Novolog overnight as correctional insulin (FBS 206 this AM) * Prelunch BSG did climb to 307-311 despite receiving nearly twice his usual breakfast Novolog dose * Suspect stress of infection leading to greatly increase insulin needs. Will give additional Lantus x 1 now, will increase prandial insulin dose as well and place patient on IV insulin infusion to quickly control worsening hyperglycemia in bacteremic, type 1 diabetic. Of note, PRP ordered and no AG acidosis present and K within normal limits. Hopefully we can wean drip off if enough additional SQ insulin given with these SQ changes 10/20 * Type 1 diabetic admitted w/ pneumonia, found to have bacteremia with alpha- hemolytic strep (not strep pn / not enterococcus) * BSGs climbed into the 300s yesterday, however no AG acidosis present on labs, and he was initiated IV insulin infusion for short period of time * Insulin drip was titrated off overnight following Lantus administration at bedtime * BSGs have been well controlled thus far today with current insulin orders; will continue current Novolog CF/CR and resume outpt Lantus dose now that diet has resumed (was NPO for CEDRICK) PLAN FOR INPATIENT GLYCEMIC CONTROL: * Basal insulin * Lantus SQ HS * 15 units for BSG 160mg/dl or greater * 12 units BSG < 160mg/dl * Bolus insulin * Goal range 110-140mg/dl * tighten: CF: 15mg/dl/unit * tighten: Nutritional / Prandial insulin per carb ratio of 1 unit per 4 grams CHO consumed PLAN FOR DISCHARGE: * to be determined; given his age and A1c would anticipate he could be discharged on his home regimen
--- NOTE | 2019-10-23 16:15 | Hospitalist Progress Note ---
Date of Service October 23, 2019 Assessment & Plan (1) Right lower lobe pneumonia: 89 yo M w/ pMHx of IDDM type I, A. 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 Presented with a week of increased shortness of breath and 2 days of fevers. CXR showed cardiomegaly with pulmonary vasc. congestion and right mid lung and base opacities concerning for pneumonia. Blood culture + with alpha strep bacteremia. TTE with findings suggestive of new severe aortic stenosis. Right lower lobe pneumonia: - currently on 2L NC, afebrile, normal HR and BP - blood cultures showed alpha strep - repeat blood cultures 10/21; will await finalized blood culture results for determination of antibiotic sensitivities - continue Azithromycin, Ceftriaxone; blood cultures from 10/18 were pansensitive; discontinued Vanc - Duonebs PRN - worsening edema, patient given 20 of p.o. Lasix; want to avoid over-diuresing this patient - ECHO from 10/20 shows Moderate concentric LVH, LVSF nl, RV is mild to moderat brook dilated, R. atrium is severely dilated, the gradient is abnormal for prosthetic valve, velocities suggestive of severe aortic stenosis, moderate tricuspid regurgitation, RVS pressure is elevated at 40-50% Elevated troponin: - found to have elevated troponin 0.048 @ 23:44 and 0.076 @ 5:25 - likely due to demand ischemia, will continue to monitor symptoms, no chest pain during hospitalization to date Hypoxia: - likely 2/2 pna, potentially due to aortic stenosis - Increased work of breathing while off nasal cannula, patient believes this is more chronic; during examination patient conversive/singing satting 94% - Patient remained satting greater than 90% throughout the day on room air Atrial fibrillation: - History of A. fib, appears to be rate controlled - continue warfarin with daily INR checks; INR this a.m. 3.5 - Held warfarin for 1 dose. INR check in the morning will resume home dosing regimen if INR does not exceed 3.5 - continue metoprolol Post-operative urinary retention: - found to be retaining urine on admission and Lipscomb was placed - Patient started on Flomax this morning. Will be shifted to Flomax nightly. Will attempt to avoid further Lipscomb catheter placement - She has scrotal edema, provided with towel left to increase gravity drainage. - Urology consulted: Appreciate recommendation - bladder scan as needed Anemia: - found to be slightly anemic w/ H&H of 10.9 - will continue to follow with AM CBC Hx of PE: - history of post operative PE with IVC in place - Held warfarin today we will continue tomorrow Aortic Valve Replaced: - Hx. of replaced aortic valve - echo showed severe aortic stenosis, unclear if shortness of breath is 2/2 pneumonia or if a component of this is related to aortic stenosis - ensure follow up with cardiology for management of aortic stenosis - continue Warfarin -We will await repeat blood cultures for decision on CEDRICK for potential vegetation IDDM: - found to be poorly controlled w/ blood sugars in the 300s - pharmacy starting an insulin drip, no gap, K most recently 4.2 - will continue to monitor BMP and blood sugars Bactermia: - found to have strep viridans x2 on 10/18 - repeat cultures 10/21 - consulted ID and appreciate recs: continue IV abx, if repeat cultures positive suggest CEDRICK Diet/FEN: regular diet DVT: Warfarin - INR 3.2 Code: full Supervising Physician Co-Signing Physician Notes Patient seen and examined with PGY-1 Dr. Valerio. Agree with history, exam findings, assessment and plan of care with the following updates: In brief, Mr. Paz is an 89 year old male with history of bovine aortic valve, afib, DM admitted with pneumonia and bacteremia. Feeling well today and does not report any complaints. Does admit to swelling in the legs and scrotum. Reports chronic lower extremity edema. Family open to short term SNF stay after hospital. Good air movement throughout all lung ford. Irregular rhythm with 2/6 systolic murmur, +2 edema bilateral LE to the thigh. Scrotum is a bit edematous and tip of penis is mildly erythematous and swollen. 1. pneumonia, bacteremia. Repeat blood cultures today. Prior cultures growing strep viridans. Appreciate ID recommendations for length of antibiotic course and assistance with narrowing abx. Continue azithro and ceftriaxone for now. DC vanc as MRSA negative. 2. aortic stenosis--severe--new since last echo. Consider CEDRICK to evaluate for valvular vegetation. Careful attention to blood pressure and fluid status. He is likely quite preload dependent. 3. Urinary retention. We have removed the lipscomb 2x now and have it replaced 2x due to elevated volumes on bladder scan. Urethral meatus becoming irritated appearing. Will keep lipscomb in for now. 4. Leg edema. 20mg PO lasix. Careful fluid management given severe . Dispo: pending clinical improvement, PT/OT again now that family willing to consider SNF. CM aware too. Subjective Patient this morning feels significantly better than when initially seen used to feel he is running out of breath while talking; is still able to do the majority of activities he wishes to do throughout the day. Overnight had Lipscomb catheter placed for bladder retention; patient could not feel urge to urinate at that time. 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 Family previously had poor interactions with short-term rehab facility in the past and desired not to go back to the same facility, with the exception that the moment physical therapy stopped at any facility they would be allowed to go directly home without conversation of need or concern for need of shelter. Review of Systems Constitutional: no fever, no chills and no sweats Eyes: no diplopia, no photophobia and no spots in vision Respiratory: no cough, no dyspnea and no wheezing Cardiovascular: no chest pain, no palpitations and no edema Gastrointestinal: no abdominal pain, no nausea, no vomiting and no change in stools Physical Exam Constitutional: WD/WN, vitals as above Eyes: PERRL, conjunctivae normal, anicteric sclerae Respiratory: normal respiratory effort, lungs clear to auscultation Cardiovascular: Rate/Rhythm: regular rate Heart Sounds: + murmur (2 out of 6 systolic ejection murmur best heard over right second intercostal space); no click, no gallop and no cardiac rub Vessels: no JVD Gastrointestinal (Abdomen): normal bowel sounds, soft, nontender, no hepatosplenomegaly Musculoskeletal: no cyanosis or clubbing, extremities motor strength 5/5 Results & Data ([facility]) Vital Signs (Past 12 Hours) Vital Signs Temp Pulse Pulse Resp BP BP Pulse Ox 10/23/19 15:29 36.5 C 82 22 115/50 L 90 10/23/19 11:30 36.5 C 80 20 151/71 H 90 10/23/19 07:05 36.4 C L 71 18 124/60 93 10/23/19 07:00 76 Laboratory Results 10/23/19 10/23/19 10/23/19 Range/Units 11:53 07:01 05:56 WBC (4.8-10.8) K/uL RBC (4.7-6.1) M/uL Hgb (14.0-18.0) g/dL Hct (42-52) % MCV (80-100) fL MCH (25-34) pg MCHC (32-36) g/dL RDW Std Deviation (36.4-46.3) fL RDW Coeff of Roger (11.5-14.5) % Plt Count (130-400) K/uL MPV (7.4-10.4) fL Immature Gran % (Auto) % Neut % (Auto) % Lymph % (Auto) % [place] % (Auto) % Eos % (Auto) % Baso % (Auto) % Immature Gran # (Auto) (0.00-0.02) K/uL Neut # (Auto) (1.4-6.5) K/uL Lymph # (Auto) (1.2-3.4) K/uL [place] # (Auto) (0.11-0.59) K/uL Eos # (Auto) (0-0.5) K/uL Baso # (Auto) (0-0.2) K/uL PT 33.0 H (9.0-12.0) Seconds INR 3.5 H (0.9-1.1) Sodium (136-145) mmol/L Potassium (3.5-5.1) mmol/L Chloride (98-107) mmol/L Carbon Dioxide (21-32) mmol/L Anion Gap (3-11) BUN (7-18) mg/dl Creatinine (0.6-1.4) mg/dl Est Cr Clr Drug Dosing ml/min Est GFR ( Amer) Est GFR (Non-Af Amer) BUN/Creatinine Ratio (10-20) Glucose (70-99) mg/dl POC Glucose 276 H 148 H (70-99) mg/dl Calcium (8.5-10.1) mg/dl 02/02/20 02/02/20 02/02/20 Range/Units 05:56 05:56 03:47 WBC 9.57 (4.8-10.8) K/uL RBC 3.57 L (4.7-6.1) M/uL Hgb 10.7 L (14.0-18.0) g/dL Hct 31.5 L (42-52) % MCV 88.2 (80-100) fL MCH 30.0 (25-34) pg MCHC 34.0 (32-36) g/dL RDW Std Deviation 53.3 H (36.4-46.3) fL RDW Coeff of Roger 16.3 H (11.5-14.5) % Plt Count 210 (130-400) K/uL MPV 10.6 H (7.4-10.4) fL Immature Gran % (Auto) 0.3 % Neut % (Auto) 64.5 % Lymph % (Auto) 18.7 % [place] % (Auto) 11.6 % Eos % (Auto) 4.8 % Baso % (Auto) 0.1 % Immature Gran # (Auto) 0.03 H (0.00-0.02) K/uL Neut # (Auto) 6.17 (1.4-6.5) K/uL Lymph # (Auto) 1.79 (1.2-3.4) K/uL [place] # (Auto) 1.11 H (0.11-0.59) K/uL Eos # (Auto) 0.46 (0-0.5) K/uL Baso # (Auto) 0.01 (0-0.2) K/uL PT (9.0-12.0) Seconds INR (0.9-1.1) Sodium 134 L (136-145) mmol/L Potassium 4.1 (3.5-5.1) mmol/L Chloride 101 (98-107) mmol/L Carbon Dioxide 27 (21-32) mmol/L Anion Gap 6.0 (3-11) BUN 18 (7-18) mg/dl Creatinine 0.75 (0.6-1.4) mg/dl Est Cr Clr Drug Dosing 85.5 ml/min Est GFR ( Amer) 94.3 Est GFR (Non-Af Amer) 81.3 BUN/Creatinine Ratio 23.8 H (10-20) Glucose 134 H (70-99) mg/dl POC Glucose 140 H (70-99) mg/dl Calcium 8.3 L (8.5-10.1) mg/dl 10/23/19 10/22/19 Range/Units 00:03 20:21 WBC (4.8-10.8) K/uL RBC (4.7-6.1) M/uL Hgb (14.0-18.0) g/dL Hct (42-52) % MCV (80-100) fL MCH (25-34) pg MCHC (32-36) g/dL RDW Std Deviation (36.4-46.3) fL RDW Coeff of Roger (11.5-14.5) % Plt Count (130-400) K/uL MPV (7.4-10.4) fL Immature Gran % (Auto) % Neut % (Auto) % Lymph % (Auto) % [place] % (Auto) % Eos % (Auto) % Baso % (Auto) % Immature Gran # (Auto) (0.00-0.02) K/uL Neut # (Auto) (1.4-6.5) K/uL Lymph # (Auto) (1.2-3.4) K/uL [place] # (Auto) (0.11-0.59) K/uL Eos # (Auto) (0-0.5) K/uL Baso # (Auto) (0-0.2) K/uL PT (9.0-12.0) Seconds INR (0.9-1.1) Sodium (136-145) mmol/L Potassium (3.5-5.1) mmol/L Chloride (98-107) mmol/L Carbon Dioxide (21-32) mmol/L Anion Gap (3-11) BUN (7-18) mg/dl Creatinine (0.6-1.4) mg/dl Est Cr Clr Drug Dosing ml/min Est GFR ( Amer) Est GFR (Non-Af Amer) BUN/Creatinine Ratio (10-20) Glucose (70-99) mg/dl POC Glucose 201 H 316 H* (70-99) mg/dl Calcium (8.5-10.1) mg/dl Medications Administered Current Inpatient Medications Acetaminophen (Tylenol) 650 mg PO Q4H PRN PRN Reason: mild pain or fever Stop: 11/18/19 02:49 Albuterol (Duoneb) 3 ml NEB Q4R PRN PRN Reason: Shortness Of Breath Or Wheezing Stop: 11/18/19 02:49 Ascorbic Acid (Vitamin C) 500 mg PO DAILY [facility] Stop: 11/18/19 08:59 Last Admin: 10/23/19 08:50 Dose: 500 mg Documented by: Aspirin (Ecotrin Ectab) 81 mg PO DAILY [facility] Stop: 11/18/19 08:59 Last Admin: 10/23/19 08:50 Dose: 81 mg Documented by: Atorvastatin Calcium (Lipitor) 40 mg PO DAILY [facility] Stop: 11/18/19 08:59 Last Admin: 10/23/19 08:51 Dose: 40 mg Documented by: Cyanocobalamin (Vitamin B-12) 2,500 mcg PO DAILY [facility] Stop: 11/18/19 08:59 Last Admin: 10/23/19 08:51 Dose: 2,500 mcg Documented by: Dextrose (Dextrose 50%) 25 - 50 ml IV UD PRN; Protocol PRN Reason: Hypoglycemia Protocol Stop: 11/18/19 02:49 Famotidine (Pepcid) 20 mg PO BID [facility] Stop: 11/18/19 08:59 Last Admin: 10/23/19 08:51 Dose: 20 mg Documented by: Glucagon (Glucagen) 1 mg SQ UD PRN; Protocol PRN Reason: Hypoglycemia Protocol Stop: 11/18/19 02:49 Glucose (Dex4 Glucose) 4 - 8 tabs PO UD PRN; Protocol PRN Reason: Hypoglycemia Protocol Stop: 11/18/19 02:49 Glucose (Glucose 40%) 15 - 30 gm PO UD PRN; Protocol PRN Reason: Hypoglycemia Protocol Stop: 11/18/19 02:49 Azithromycin 500 mg/ Dextrose 255 mls @ 125 mls/hr IV Q24H [facility]; Protocol Stop: 10/25/19 21:59 Last Infusion: 10/23/19 00:04 Dose: Infused Documented by: Ceftriaxone Sodium 2,000 mg/ (Dextrose) 70 mls @ 100 mls/hr IV Q12H [facility]; Protocol Stop: 11/02/19 13:59 Last Infusion: 10/23/19 15:19 Dose: Infused Documented by: Insulin Aspart (Novolog Flexpen) 0 units SC ACHS [facility]; Protocol Stop: 11/18/19 20:59 Last Admin: 10/23/19 13:45 Dose: 30 units Documented by: Insulin Glargine (Lantus Solostar Pen) 0 units SC QPM [facility]; Protocol Stop: 11/21/19 20:59 Last Admin: 10/22/19 20:25 Dose: 15 units Documented by: Levothyroxine Sodium (Synthroid) 112 mcg PO DAILYBB [facility] Stop: 11/18/19 06:29 Last Admin: 10/23/19 05:13 Dose: 112 mcg Documented by: Metoprolol Succinate (Toprol Xl) 12.[facility] [place]: 11/18/19 09:29 Last Admin: 10/23/19 08:51 Dose: 12.5 mg Documented by: Miscellaneous (Carbohydrates For Hypoglycemia) 15 - 30 gm PO UD PRN PRN Reason: Hypoglycemia Protocol Stop: 11/18/19 02:49 Miscellaneous Information (Consult Glycemic Management Pharmacy) 1 ea N/A UD PRN PRN Reason: Consult Stop: 11/18/19 17:18 Ondansetron HCl (Zofran) 4 mg IV Q6H PRN PRN Reason: nausea or vomiting Stop: 11/18/19 02:49 Tamsulosin HCl (Flomax) 0.4 mg [facility] [place]: 11/22/19 08:59 Last Admin: 10/23/19 08:50 Dose: 0.4 mg Documented by: Warfarin Sodium (Coumadin) 4 mg PO DAILY@1600 [facility] Stop: 11/21/19 15:59 Last Admin: 10/22/19 15:32 Dose: 4 mg Documented by: Resident Activity Tracking Resident Involvement: Resident Care Provided Care Provided: Adult Hospital Medicine (1) Right lower lobe pneumonia Pneumonia type: due to unspecified organism Qualified Code(s): J18.9 - Pneumonia, unspecified organism
[2019-10-23] MEDS: AZITHROMYCIN 500 MG in DEXTROSE 5% 250 ML IV SCH (21:13)
[2019-10-23] MEDS: INSULIN GLARGINE SOLOSTAR 100 UNITS/ML 3 ML PEN SC SCH (21:25)
[2019-10-24] MEDS: INSULIN ASPART 100 UNITS/ML 3 ML PEN SC SCH ×6 (00:15→21:13)
[2019-10-24] MEDS: cefTRIAXone SODIUM 2,000 MG in DEXTROSE 5% 50 ML IV SCH ×2 (01:38→12:59)
[2019-10-24] MEDS: LEVOTHYROXINE SODIUM 112 MCG TABLET PO SCH (05:55)
[2019-10-24 06:28] LABS: Prothrombin Time 38.9 Seconds (9.0-12.0)
[2019-10-24 06:36] LABS: INR 4.2 (0.9-1.1)
[2019-10-24 07:07] LABS: Hemoglobin 10.5 g/dL (14.0-18.0); Mean Corpuscular Hemoglobin 29.6 pg (25-34); Mean Corpuscular Hgb Conc 33.9 g/dL (32-36); Mean Corpuscular Volume 87.3 fL (80-100); Mean Platelet Volume 9.8 fL (7.4-10.4); Platelet Count 238 K/uL (130-400); RDW Coefficient of Variation 16.1 % (11.5-14.5); RDW Standard Deviation 51.9 fL (36.4-46.3); Red Blood Count 3.55 M/uL (4.7-6.1); White Blood Count 9.66 K/uL (4.8-10.8)
[2019-10-24 07:54] LABS: BUN Creatinine Ratio 18.3 (10-20); Calcium 8.5 mg/dl (8.5-10.1); Creatinine Clr Calc Pharmacy 77.8 ml/min; Est GFR (Non-African American) 77.6; Potassium 3.9 mmol/L (3.5-5.1)
--- NOTE | 2019-10-24 09:35 | Urology Consultation ---
Date of Consultation October 24, 2019 Assessment & Plan (1) Urinary retention: 89 year-old male patient admitted due to right lower lobe pneumonia and bacteremia with developed urinary retention. -Patient required lipscomb catheter insertion x2 due to retention. -Likely multifactorial including BPH, history of retention, and acute illness. -Will continue Lipscomb catheter. -Flomax was initiated 10/23/19 per primary team. -Given repeat urinary retention, recommend leaving Lipscomb catheter in place during hospitalization. -Can consider future trial of void outpatient to evaluate continued catheter need once acute medical issues resolved. -Consider imaging with any acute status changes or decline in renal function. -Outpatient follow-up will be arranged by our office. (2) Penile edema: -Per patient, has been on-going with varying severity. -Edema likely dependent in nature. -Continue supportive measures including elevation. Thank you for allowing us to participate in the acute care of Mr. Paz. Please reconsult us with additional questions, concerns or changes in patient status. History of Present Illness Reason for Consultation: Urinary retention Scrotal edema Attending Physician: Patricio Koo DO History of Present Illness 89 year-old male patient with past medical history of CAD, aortic valve replacement, A-fib,TIA, DM, hypertension, hyperlipidemia, and hypothyroid admitted on 10/19/19 with right lower lobe pneumonia and bacteremia. Urology consulted due to urinary retention and scrotal edema. Chart review: Patient requiring lipscomb catheter placement during this admission x2 due to high bladder scan volume - unable to urinate after first catheter removed. Most recent catheter insertion was 10/22/19 with bladder scan result of 609 - nursing note does report difficult insertion. UC&S and u/a not obtained. No previous renal imaging to review. WBC 9.66 Creatinine 0.84 Blood culture from 10/18/19 positive for Viridans Streptococcus - ID consulted, on IV Azithromycin and Ceftriaxone. Patient awake in bed this morning. Reports he is feeling well. HPI somewhat difficult to obtain due to patient's forgetfulness. He feels his breathing has improved during hospital stay. He cannot recall why lipscomb catheter was placed during admission. Denies pain with catheter in place. Does report scrotal edema has been present for quite sometime but varies in severity. He is unable to describe his baseline urinary status prior to hospital admission in regards to frequency, nocturia, or dysuria. Denies fevers or chills. Appetite is well. Follows with Dr. Brandon, last visit 05/25/19, previously placed on Finasteride. Does have history of post-op urinary retention after total hip replacement in March 2019 requiring catheter insertion and TOV in office. Most recent nursing office visit was 06/28/19 in which his PVR was 8 ml (lipscomb removed in office on June 24, 2020). Flomax initiated 10/23/19 by primary team. Denies additional concerns today. Allergies Allergy/AdvReac Type Severity Reaction Status Date / Time No Known Allergies Allergy Verified 10/19/19 01:55 Home Medications Home Medications Medication Instructions Recorded Confirmed Type aspirin 81 mg tablet,delayed 81 mg PO DAILY 06/15/18 10/19/19 History release cholecalciferol (vitamin D3) 25 1,000 units PO DAILY 06/15/18 10/19/19 History mcg (1,000 unit) capsule coenzyme Q10 10 mg capsule 10 mg PO DAILY cap 06/15/18 10/19/19 History ascorbic acid (vitamin C) [Vitamin 500 mg PO DAILY 07/13/18 10/19/19 History C] blood sugar diagnostic #400 ea 02/24/19 09/28/19 Rx cyanocobalamin (vitamin B-12) 2,500 mcg PO DAILY tab 05/03/19 10/19/19 History 2,500 mcg tablet urine glucose-ketones test #50 ea 05/03/19 09/28/19 History blood-glucose meter #1 ea 05/04/19 09/28/19 History insulin syr/ndl U100 half beatriz 0.3 #100 ea 05/04/19 09/28/19 History mL 31 gauge x 5/16" acetaminophen 325 mg capsule 975 mg PO QID PRN cap 05/11/19 10/19/19 History atorvastatin 40 mg tablet 40 mg PO DAILY #90 tab 05/11/19 10/19/19 Rx metoprolol succinate 25 mg capsule 12.5 mg PO DAILY #45 ea 05/11/19 10/19/19 Rx sprinkle, ext. release 24 hr miscellaneous medical supply #1 ea 05/12/19 09/28/19 Rx levothyroxine 112 mcg tablet 112 mcg PO DAILY #90 tab 05/13/19 10/19/19 Rx Bedside Commode #1 ea 05/17/19 09/28/19 Rx pen needle, diabetic 32 gauge x #100 ea 05/19/19 09/28/19 Rx 5/32" Novolog Flexpen U-100 Insulin 100 See Rx Instructions SQ .COMPLEX #1 06/14/19 10/19/19 Rx unit/mL (3 mL) subcutaneous box NS sennosides 8.6 mg tablet 17.2 mg PO HS PRN tab 08/11/19 10/19/19 History insulin glargine 100 unit/mL (3 12 units SQ QPM ml 09/26/19 10/19/19 History mL) subcutaneous pen warfarin 4 mg tablet See Rx Instructions PO DAILY tab 09/28/19 10/19/19 History Patient History Medical History Diabetes mellitus type 1 DKA (diabetic ketoacidoses) March 2018. History of non-ST elevation myocardial infarction (NSTEMI) March 2018. Per cardiology note as patient was admitted at the time: "Non-ST elevation myocardial infarction. This has occurred in the setting of his diabetic ketoacidosis. The patient denies any anginal-type symptoms. His electrocardiogram initially did reveal ST depressions anteriorly. These have since resolved. The patient has had prior hospitalizations for DKA with elevations in his troponin I. He had an episode in 08/2016. In the interim, he has done well without any anginal-type symptoms. Suspect that the current troponin elevation was secondary to demand ischemia and not a primary coronary event." History of pulmonary embolism 2005 - post op - w/ ivc filter Hypertension Hypothyroidism Neuropathy On anticoagulant therapy Presence of IVC filter Transient ischemic attack (TIA) pulled from past problem list - pt could not confirm - unsure of dx Surgical History H/O aortic valve replacement >10 years [place] [facility] [place] w/ dr. westbrook H/O removal of cyst History of colonoscopy History of herniorrhaphy rt inguinal History of inferior vena caval filter placement History of surgery rt femur reconstruction History of total hip arthroplasty rt History of total knee replacement lt Hx of right cataract extraction Family History Brother History of heart valve replacement Unknown Depression Sister Hepatic failure Renal failure Social History Preferred Language: Bol[place]ian Communication Ability: Impaired Junior Analyst Required: No Beliefs That Will Affect Care: None marital status: Current Living Situation: Spouse Current Living Situation Comment: Other Information That Helps Us Care for You: No Feels Safe at Home: Yes Safety Concerns: Feels Safe At This Time Smoking Status: Former smoker Do You Dip or Chew Tobacco: No ; Second Hand Exposure: No ; Tobacco Cessation Education Requested by Patient: No Hx Alcohol Use: Yes Alcohol type: beer, wine and hard liquor Alcohol Intake Frequency Comment: 1 beer per day prior to dinner Hx Substance Use: No Review of Systems Constitutional: as per Subjective / HPI; no fever Respiratory: as per Subjective / HPI Gastrointestinal: no nausea and no vomiting Genitourinary: + as per Subjective / HPI and + scrotal swelling; no hematuria Neurologic: as per Subjective / HPI; no dizziness Physical Exam Constitutional: well developed, well nourished and comfortable; no acute distress ENMT: Ears: no external ear abnormality Nose: no external nose abnormality Neck: normal visual inspection and trachea midline Respiratory: normal respiratory effort and able to speak in complete sentences; no respiratory distress and no audible wheezes Cardiovascular: Extremities: + edema (Pitting edema to bilateral lower extremities. ) Gastrointestinal (Abdomen): Abdomen soft, non-tender, non-distended. No rebound tenderness or rigidity. Skin: Normal color. No visible rashes or lesions present. Psychiatric: Orientation: alert, oriented to person, oriented to place and cooperative Affect: euthymic affect Genitourinary: No significant scrotal edema present. Positive generalized penile edema. Lipscomb catheter patent draining clear yellow urine. Limited exam due to body habitus and positioning. No pain reported with palpation of scrotum. Results & Data Vital Signs (Past 12 Hours) Vital Signs Temp Pulse Pulse Resp BP Pulse Ox 10/24/19 07:00 36.7 C 64 18 132/76 95 10/24/19 04:00 36.4 C L 74 18 129/78 96 10/24/19 00:45 96 H 18 97 10/24/19 00:00 85 10/23/19 23:00 36.7 C 80 19 153/87 H 94 PG Care Time/CCT Total # of Minutes Spent Total Time Spent with Patient: Total time spent is greater than 50% in coordination of care (as documented) at patient's floor/unit and/or counseling patient: Coding Level of Care Code 82549 Initial Inpt Care Lvl 3 Diagnoses Urinary retention R33.9 Penile edema N48.89
[2019-10-24] MEDS: ASCORBIC ACID 500 MG TAB PO SCH (10:04)
[2019-10-24] MEDS: ATORVASTATIN 40 MG TAB PO SCH (10:04)
[2019-10-24] MEDS: CYANOCOBALAMIN 500 MCG TABLET (VITAMIN B-12) PO SCH (10:04)
[2019-10-24] MEDS: TAMSULOSIN HCL 0.4 MG CAP PO SCH (10:05)
[2019-10-24] MEDS: METOPROLOL SUCC 25MG EXT REL TAB PO SCH (10:05)
[2019-10-24] MEDS: FAMOTIDINE 20 MG TAB PO SCH ×2 (10:06→21:12)
[2019-10-24] MEDS: ASPIRIN 81 MG ECTAB PO SCH (10:06)
--- NOTE | 2019-10-24 11:01 | Infectious Disease Progress Nt ---
Date of Service October 24, 2019 Assessment & Plan (1) Gram positive sepsis: will continue on IV abx, repeat cultures negative, would suggest 4 weeks IV rocephin with weekly cbc, cmp, esr. can give azitho x 5 days for right pna. (2) Right lower lobe pneumonia: Subjective repeat blood cultures 10/21 negative to date x 2. Initial cultures growing pansensitive viridans strep. tolerating abx. echo without beg, sever noted. afebrile. wbc 9, creat normal. Results & Data Vital Signs (Past 12 Hours) Vital Signs Temp Pulse Pulse Resp BP Pulse Ox 10/24/19 10:00 71 10/24/19 07:00 36.7 C 64 18 132/76 95 10/24/19 04:00 36.4 C L 74 18 129/78 96 10/24/19 00:45 96 H 18 97 10/24/19 00:00 85 10/23/19 23:00 36.7 C 80 19 153/87 H 94 Laboratory Results Microbiology 10/21/19 13:17 Blood Aerobic Blood Culture - Preliminary No growth in Aerobic bottle after 48 hours. 10/21/19 13:17 Blood Anaerobic Blood Culture - Preliminary No growth in Anaerobic bottle after 48 hours. 10/21/19 12:51 Blood Aerobic Blood Culture - Preliminary No growth in Aerobic bottle after 48 hours. 10/21/19 12:51 Blood Anaerobic Blood Culture - Preliminary No growth in Anaerobic bottle after 48 hours. 10/18/19 23:47 Blood Aerobic Blood Culture - Final Viridans streptococcus group 10/18/19 23:47 Blood Anaerobic Blood Culture - Final Viridans streptococcus group 10/18/19 23:44 Blood Aerobic Blood Culture - Final Viridans streptococcus group 10/18/19 23:44 Blood Anaerobic Blood Culture - Final Viridans streptococcus group PG Care Time/CCT Total # of Minutes Spent Total Time Spent with Patient: Total time spent is greater than 50% in coordination of care (as documented) at patient's floor/unit and/or counseling patient: Coding Level of Care Code 79136 Subseq Hosp Care Lvl 1 Diagnoses Gram positive sepsis A41.89 Right lower lobe pneumonia J18.9 Pneumonia type: due to unspecified organism (1) Right lower lobe pneumonia Pneumonia type: due to unspecified organism Qualified Code(s): J18.9 - Pneumonia, unspecified organism
[2019-10-24] MEDS: WARFARIN SOD 4 MG TAB PO SCH (15:24)
--- NOTE | 2019-10-24 18:21 | Billing Data ---
Date of Service October 24, 2019 Coding Level of Care Code 63391 Subseq Hosp Care Lvl 3
--- NOTE | 2019-10-24 18:39 | Hospitalist Progress Note ---
Date of Service October 24, 2019 Assessment & Plan (1) Right lower lobe pneumonia: 89 yo M w/ pMHx of IDDM type I, A. 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 Presented with a week of increased shortness of breath and 2 days of fevers. CXR showed cardiomegaly with pulmonary vasc. congestion and right mid lung and base opacities concerning for pneumonia. Blood culture + with alpha strep bacteremia. TTE with findings suggestive of new severe aortic stenosis. Right lower lobe pneumonia: - currently on 2L NC, afebrile, normal HR and BP - blood cultures showed alpha strep - repeat blood cultures 10/21; will await finalized blood culture results for determination of antibiotic sensitivities - Discontinued Azithromycin today - Ceftriaxone; blood cultures from 10/18 were pansensitive - Duonebs PRN - worsening edema, patient given 20 of p.o. Lasix; want to avoid over-diuresing this patient - ECHO from 10/20 shows Moderate concentric LVH, LVSF nl, RV is mild to moderately dilated, R. atrium is severely dilated, the gradient is abnormal for prosthetic valve, velocities suggestive of severe aortic stenosis, moderate tricuspid regurgitation, RVS pressure is elevated at 40-50% Elevated troponin: - found to have elevated troponin 0.048 @ 23:44 and 0.076 @ 5:25 - likely due to demand ischemia, will continue to monitor symptoms, no chest pain during hospitalization to date Hypoxia: - likely 2/2 pna, potentially due to aortic stenosis - Increased work of breathing while off nasal cannula, patient believes this is more chronic; during examination patient conversive/singing satting 94% - Patient remained satting greater than 90% throughout the day on room air Atrial fibrillation: - History of A. fib, appears to be rate controlled - continue warfarin with daily INR checks; INR this a.m. 4.9 - Held warfarin. INR check in the morning - continue metoprolol Post-operative urinary retention: - found to be retaining urine on admission and Lipscomb was D/C'd and now back in place - Patient started on Flomax this morning. Will be shifted to Flomax nightly. - She has scrotal edema, provided with towel left to increase gravity drainage. 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 of replaced aortic valve - echo showed severe aortic stenosis, unclear if shortness of breath is 2/2 pneumonia or if a component of this is related to aortic stenosis - ensure follow up with cardiology for management of aortic stenosis - continue Warfarin -We will await repeat blood cultures for decision on CEDRICK for potential vegetation IDDM: - found to be poorly controlled w/ blood sugars in the 300s - pharmacy starting an insulin drip, no gap, K most recently 3.9 - will continue to monitor BMP and blood sugars Bactermia: - found to have strep viridans x2 on 10/18 - repeat cultures 10/21 no growth at 48 hours - consulted ID and appreciate recs: continue IV abx, if repeat cultures positive suggest CEDRICK - will consent for PICC in the AM when is available Diet/FEN: regular diet DVT: Warfarin - INR 3.2 Code: full Supervising Physician Co-Signing Physician Notes I personally examined the patient and verified all kumar points of history and exam, discussed case, and agree with decision making with Dr Hough. Feeling better. Patient and extremely concerned about him going home. Otherwise no new complaints. Vitals noted, in general he is awake and alert pleasant no distress. HEENT normocephalic atraumatic mucous membranes moist. Breathing unlabored no accessory muscle use good effort. No focal neuro deficits. Pneumonia/bacteremiacontinue IV antibiotics as directed by infectious disease. Obtain longer-term IV access. Medically stable for discharge, but seems to be unsafe in his current home environmentwill pursue SNF for the duration of his antibiotics. Urinary retentioncontinue Lipscomb drainage and Flomax. Outpatient urology follow-up. Otherwise as above. Subjective at bedside, doing well this morning, was just wondering when he would be going home. We discussed the option of going to a rehab facility prior to going home and again discussed the options which included [facility] and [facility]. It seems that was willing to go to either and after talking with her she seemed to be leaning towards going to a facility in the short term given the IV abx., new lipscomb and oxygen requirement that her has. Review of Systems Constitutional: no fever and no chills Respiratory: + cough admits shortness of breath with long sentences Cardiovascular: no chest pain and no palpitations Gastrointestinal: no nausea and no vomiting Physical Exam Constitutional: WD/WN, vitals as above Eyes: PERRL, conjunctivae normal, anicteric sclerae ENMT: external ear and nose normal, oropharynx normal Neck: trachea midline, no thyromegaly Respiratory: normal respiratory effort, lungs clear to auscultation Cardiovascular: Rate/Rhythm: + irregularly irregular Heart Sounds: + murmur (2/6 systolic murmur heard best at the right sternal border) Extremities: + edema (2+ edema in the lower extremity) Skin: no rashes, warm and dry Results & Data ([facility]) Vital Signs (Past 12 Hours) Vital Signs Temp Pulse Pulse Pulse Pulse Pulse Resp 10/24/19 15:38 75 10/24/19 15:00 36.4 C L 71 18 10/24/19 11:22 88 80 77 10/24/19 10:00 71 10/24/19 07:00 36.7 C 64 18 Resp Resp Resp BP Pulse Ox Pulse Ox Pulse Ox 10/24/19 15:38 10/24/19 15:00 126/66 95 10/24/19 11:22 20 18 16 96 95 10/24/19 10:00 10/24/19 07:00 132/76 95 Pulse Ox 10/24/19 15:38 10/24/19 15:00 10/24/19 11:22 94 10/24/19 10:00 10/24/19 07:00 Resident Activity Tracking Resident Involvement: Resident Care Provided Care Provided: Adult Hospital Medicine (1) Right lower lobe pneumonia Pneumonia type: due to unspecified organism Qualified Code(s): J18.9 - Pneumonia, unspecified organism
[2019-10-24] MEDS: INSULIN GLARGINE SOLOSTAR 100 UNITS/ML 3 ML PEN SC SCH (21:14)
[2019-10-25] MEDS: INSULIN ASPART 100 UNITS/ML 3 ML PEN SC SCH ×6 (00:11→20:33)
[2019-10-25] MEDS: cefTRIAXone SODIUM 2,000 MG in DEXTROSE 5% 50 ML IV SCH ×2 (02:40→14:07)
[2019-10-25] MEDS: CARBOHYDRATES FOR HYPOGLYCEMIA PO PRN ×2 (04:15→04:38)
[2019-10-25] MEDS: LEVOTHYROXINE SODIUM 112 MCG TABLET PO SCH (05:59)
[2019-10-25] MEDS: TAMSULOSIN HCL 0.4 MG CAP PO SCH (08:07)
[2019-10-25] MEDS: ASPIRIN 81 MG ECTAB PO SCH (08:07)
[2019-10-25] MEDS: METOPROLOL SUCC 25MG EXT REL TAB PO SCH (08:07)
[2019-10-25] MEDS: FAMOTIDINE 20 MG TAB PO SCH ×2 (08:07→20:32)
[2019-10-25] MEDS: ATORVASTATIN 40 MG TAB PO SCH (08:07)
[2019-10-25] MEDS: CYANOCOBALAMIN 500 MCG TABLET (VITAMIN B-12) PO SCH (08:08)
[2019-10-25] MEDS: ASCORBIC ACID 500 MG TAB PO SCH (08:08)
[2019-10-25 09:22] LABS: Basophils # (auto) 0.02 K/uL (0-0.2); Basophils % (auto) 0.2 %; Eosinophils # (auto) 0.43 K/uL (0-0.5); Eosinophils % (auto) 4.1 %; Hematocrit (blood only) 33.8 % (42-52); Hemoglobin 11.2 g/dL (14.0-18.0); Immature Granulocytes # (auto) 0.03 K/uL (0.00-0.02); Immature Granulocytes % (auto) 0.3 %; Lymphocytes # (auto) 1.93 K/uL (1.2-3.4); Lymphocytes % (auto) 18.6 %; Mean Corpuscular Hemoglobin 29.4 pg (25-34); Mean Corpuscular Hgb Conc 33.1 g/dL (32-36); Mean Corpuscular Volume 88.7 fL (80-100); Mean Platelet Volume 9.9 fL (7.4-10.4); Monocytes # (auto) 0.92 K/uL (0.11-0.59); Monocytes % (auto) 8.9 %; Neutrophils # (auto) 7.06 K/uL (1.4-6.5); Neutrophils % (auto) 67.9 %; Platelet Count 237 K/uL (130-400); RDW Coefficient of Variation 16.2 % (11.5-14.5); RDW Standard Deviation 52.9 fL (36.4-46.3); Red Blood Count 3.81 M/uL (4.7-6.1); White Blood Count 10.39 K/uL (4.8-10.8)
[2019-10-25 09:30] LABS: INR 2.7 (0.9-1.1); Prothrombin Time 25.8 Seconds (9.0-12.0)
[2019-10-25 09:57] LABS: BUN Creatinine Ratio 16.7 (10-20); Calcium 8.7 mg/dl (8.5-10.1); Creatinine Clr Calc Pharmacy 70.7 ml/min; Est GFR (African American) 85.2; Est GFR (Non-African American) 73.5; Potassium 4.1 mmol/L (3.5-5.1)
--- NOTE | 2019-10-25 14:39 | Pharmacy Report ---
Pharmacy Glycemic Short Note 2 - Date of Service October 25, 2019 - Glycemic Short BSG Results (Last 24 hours): 10/24/19 10/24/19 10/25/19 16:26 20:29 04:07 Glucose POC Glucose 151 H 217 H 63 L* 10/25/19 10/25/19 10/25/19 04:10 04:12 04:33 Glucose POC Glucose 86 59 L* 65 L* 10/25/19 10/25/19 10/25/19 04:35 04:53 04:59 Glucose POC Glucose 58 L* 61 L* 66 L* 10/25/19 10/25/19 10/25/19 05:23 05:58 07:46 Glucose POC Glucose 67 L* 117 H 112 H 10/25/19 10/25/19 09:07 11:39 Glucose 121 H POC Glucose 156 H OUTPATIENT ANTIDIABETIC REGIMEN: * Lantus 12 units Q PM * Novolog 6 units w/ meals and per sliding scale * A1c = 7.5% 10/19/19 ASSESSMENT: 10/25 * BSGs improved over the last 48 hours * Fasting this morning below goal range in the 60s, will give slightly reduced scale for PM lantus * CF/CR were loosened this morning as blood sugars have been trending down, will tighten if BSGs rise 2 * Patient had blood sugars 404mg/dl last evening requiring 2.5 units IV Regular insulin. * Blood sugars better today on increased Lantus but still yary from 148-->276mg/dl with lunch, will tighten CF/CR. 10/22 * Blood sugars improved quickly on drip last night, discontinued, fast AM blood sugar 196mg/dl, blood sugar after lunch 215mg/dl * Increase basal and tighten CF/CR at this time. 10/21 * BSGs did climb throughout the day yesterday, peaking in mid 200s at bedtime * Home dose of Lantus was given at bedtime, however BSG remains elevated this AM despite receiving 7 units Novolog overnight as correctional insulin (FBS 206 this AM) * Prelunch BSG did climb to 307-311 despite receiving nearly twice his usual breakfast Novolog dose * Suspect stress of infection leading to greatly increase insulin needs. Will give additional Lantus x 1 now, will increase prandial insulin dose as well and place patient on IV insulin infusion to quickly control worsening hyperglycemia in bacteremic, type 1 diabetic. Of note, PRP ordered and no AG acidosis present and K within normal limits. Hopefully we can wean drip off if enough additional SQ insulin given with these SQ changes 10/20 * Type 1 diabetic admitted w/ pneumonia, found to have bacteremia with alpha- hemolytic strep (not strep pn / not enterococcus) * BSGs climbed into the 300s yesterday, however no AG acidosis present on labs, and he was initiated IV insulin infusion for short period of time * Insulin drip was titrated off overnight following Lantus administration at bedtime * BSGs have been well controlled thus far today with current insulin orders; will continue current Novolog CF/CR and resume outpt Lantus dose now that diet has resumed (was NPO for CEDRICK) PLAN FOR INPATIENT GLYCEMIC CONTROL: * Basal insulin * Lantus SQ HS * 12 units for BSG 200 mg/dl or greater * 11 units BSG 140-200 mg/dl * 10 units BSG <140 mg/dl * Bolus insulin * Goal range 110-140mg/dl * loosen: CF: 20 mg/dl/unit * loosen: Nutritional / Prandial insulin per carb ratio of 1 unit per 6 grams CHO consumed PLAN FOR DISCHARGE: * to be determined; given his age and A1c would anticipate he could be discharged on his home regimen
[2019-10-25] MEDS ORDERED: WARFARIN SOD 4 MG TAB PO SCH (16:00)
[2019-10-25] MEDS: WARFARIN SOD 4 MG TAB PO SCH (16:46)
--- NOTE | 2019-10-25 18:13 | Hospitalist Progress Note ---
Date of Service October 25, 2019 Assessment & Plan (1) Right lower lobe pneumonia: 89 yo M w/ pMHx of IDDM type I, A. 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 Presented with a week of increased shortness of breath and 2 days of fevers. CXR showed cardiomegaly with pulmonary vasc. congestion and right mid lung and base opacities concerning for pneumonia. Blood culture + with strep bacteremia. TTE with findings suggestive of new severe aortic stenosis. Right lower lobe pneumonia: - currently on room air, remains afebrile, normal HR - blood cultures showed Strep Viridans - Ceftriaxone changed to 2g Q24H; blood cultures from 10/18 were pansensitive - Duonebs PRN - ECHO from 10/20 shows Moderate concentric LVH, LVSF nl, RV is mild to moderately dilated, R. atrium is severely dilated, the gradient is abnormal for prosthetic valve, velocities suggestive of severe aortic stenosis, moderate tricuspid regurgitation, RVS pressure is elevated at 40-50% Elevated troponin: - found to have elevated troponin 0.048 @ 23:44 and 0.076 @ 5:25 - likely due to demand ischemia, will continue to monitor symptoms, no chest pain during hospitalization to date Hypoxia: - likely 2/2 pna, potentially due to aortic stenosis - Increased work of breathing while off nasal cannula, patient believes this is more chronic; during examination patient conversive/singing satting 94% - Patient remained satting greater than 90% throughout the day on room air Atrial fibrillation: - History of A. fib, appears to be rate controlled - continue warfarin with daily INR checks; INR this a.m. 2.7 - restarted home dose of 4 mg Warfarin today - continue metoprolol Post-operative urinary retention: - found to be retaining urine on admission and Hager was D/C'd and now back in place - Patient started on Flomax this morning. Will be shifted to Flomax nightly. - Has scrotal edema, provided with towel to increase gravity drainage. - Urology consulted: may have Hager in the joint terminal attack controller Anemia: - found to be slightly anemic w/ H&H of 11. 2 uptrending - will continue to follow with AM CBC Hx of PE: - history of post operative PE with IVC in place - Held Warfarin today we will continue tomorrow potentially Aortic Valve Replaced: - Hx. of replaced aortic valve - echo showed severe aortic stenosis, unclear if shortness of breath is 2/2 pneumonia or if a component of this is related to aortic stenosis - ensure follow up with cardiology for management of aortic stenosis - continue Warfarin IDDM: - found to be poorly controlled w/ blood sugars in the 300s and then 58 last night - will continue to monitor BMP and blood sugars Bactermia: - found to have strep viridans x2 on 10/18 - repeat cultures 10/21 no growth at 48 hours - consulted ID and appreciate recs - consented for midline this morning Diet/FEN: regular diet DVT: Warfarin - INR 2.7 Code: full Supervising Physician Co-Signing Physician Notes I personally examined the patient and verified all kumar points of history and exam, discussed case, and agree with decision making with Dr Hough. Feeling okay. Awaiting placement whenever I saw him. Later we were informed that [facility] could take him, did not want him going until tomorrow. Vitals noted, in general he is awake and alert pleasant no distress. HEENT normocephalic atraumatic mucous membranes moist. Breathing unlabored no accessory muscle use good effort. No focal neuro deficits. Pneumonia/bacteremiacontinue IV antibiotics as directed by infectious disease. Anticipate SNF to finish course of antibiotics tomorrow. Urinary retentioncontinue Hager drainage and Flomax. Outpatient urology fol low-up probably in 1 to 2 weeks. Otherwise as above. Subjective Doing well today, concerned with complications of the PICC line. We reviewed the risks benefits and alternatives and Mr. Paz and his understood this and wanted to proceed with placing the PICC but did have concerns with going to [facility] with the PICC line today. wanted to stay one day to ensure that there were no complications. I discussed that any complications would likely be in the immediate period of time after placement but she remained concerned. Review of Systems Constitutional: no fever and no chills Respiratory: no cough and no dyspnea Cardiovascular: + edema; no chest pain and no palpitations Gastrointestinal: no nausea and no vomiting Physical Exam Constitutional: WD/WN, vitals as above Eyes: PERRL, conjunctivae normal, anicteric sclerae ENMT: external ear and nose normal, oropharynx normal Neck: trachea midline, no thyromegaly Respiratory: normal respiratory effort, lungs clear to auscultation Cardiovascular: Rate/Rhythm: + irregularly irregular Heart Sounds: + murmur (2/6 systolic murmur heard best at the right sternal border) Extremities: + edema (2+ edema in the lower extremity) Skin: no rashes, warm and dry Results & Data ([facility]) Vital Signs (Past 12 Hours) Vital Signs Temp Pulse Pulse Resp BP Pulse Ox 10/25/19 15:00 69 10/25/19 11:54 36.9 C 82 20 144/75 H 95 10/25/19 07:53 36.8 C 79 19 143/76 H 95 10/25/19 07:23 74 Resident Activity Tracking Resident Involvement: Resident Care Provided Care Provided: Adult Hospital Medicine (1) Right lower lobe pneumonia Pneumonia type: due to unspecified organism Qualified Code(s): J18.9 - Pneumonia, unspecified organism
--- NOTE | 2019-10-25 19:00 | Billing Data ---
Date of Service October 25, 2019 Coding Level of Care Code 14612 Subseq Hosp Care Lvl 2
[2019-10-25] MEDS: INSULIN GLARGINE SOLOSTAR 100 UNITS/ML 3 ML PEN SC SCH (20:32)
[2019-10-26] MEDS ORDERED: INSULIN ASPART 100 UNITS/ML 3 ML PEN SC SCH (02:00)
[2019-10-26] MEDS: LEVOTHYROXINE SODIUM 112 MCG TABLET PO SCH (06:18)
[2019-10-26 07:47] LABS: Prothrombin Time 19.3 Seconds (9.0-12.0)
[2019-10-26] MEDS: FAMOTIDINE 20 MG TAB PO SCH (08:09)
[2019-10-26] MEDS: INSULIN ASPART 100 UNITS/ML 3 ML PEN SC SCH (08:09)
[2019-10-26] MEDS: ASPIRIN 81 MG ECTAB PO SCH (08:10)
[2019-10-26] MEDS: TAMSULOSIN HCL 0.4 MG CAP PO SCH (08:10)
[2019-10-26] MEDS: CYANOCOBALAMIN 500 MCG TABLET (VITAMIN B-12) PO SCH (08:10)
[2019-10-26] MEDS: ASCORBIC ACID 500 MG TAB PO SCH (08:10)
[2019-10-26] MEDS: ATORVASTATIN 40 MG TAB PO SCH (08:12)
[2019-10-26] MEDS: METOPROLOL SUCC 25MG EXT REL TAB PO SCH (08:12)
[2019-10-26 08:17] LABS: BUN Creatinine Ratio 16.2 (10-20); Calcium 8.6 mg/dl (8.5-10.1); Creatinine Clr Calc Pharmacy 80.3 ml/min; Est GFR (African American) 91.8; Est GFR (Non-African American) 79.2; Potassium 4.2 mmol/L (3.5-5.1)
[2019-10-26] MEDS ORDERED: cefTRIAXone SODIUM 2,000 MG in DEXTROSE 5% 50 ML IV SCH ×2 (10:30→14:00)
--- NOTE | 2019-10-26 10:54 | Pharmacy Report ---
Pharmacy Glycemic Short Note 2 - Date of Service October 26, 2019 - Glycemic Short BSG Results (Last 24 hours): 10/25/19 10/25/19 10/25/19 11:39 16:25 19:54 Glucose POC Glucose 156 H 123 H 154 H 10/26/19 10/26/19 10/26/19 02:19 07:26 07:29 Glucose 128 H POC Glucose 107 H 123 H OUTPATIENT ANTIDIABETIC REGIMEN: * Lantus 12 units Q PM * Novolog 6 units w/ meals and per sliding scale * A1c = 7.5% 10/19/19 ASSESSMENT: 10/26 * BSGs adequately controlled, fasting this morning 123 * Continue current parameters 10/25 * BSGs improved over the last 48 hours * Fasting this morning below goal range in the 60s, will give slightly reduced scale for PM lantus * CF/CR were loosened this morning as blood sugars have been trending down, will tighten if BSGs rise 10/23 * Patient had blood sugars 404mg/dl last evening requiring 2.5 units IV Regular insulin. * Blood sugars better today on increased Lantus but still yary from 148-->276mg/dl with lunch, will tighten CF/CR. 10/22 * Blood sugars improved quickly on drip last night, discontinued, fast AM blood sugar 196mg/dl, blood sugar after lunch 215mg/dl * Increase basal and tighten CF/CR at this time. 10/21 * BSGs did climb throughout the day yesterday, peaking in mid 200s at bedtime * Home dose of Lantus was given at bedtime, however BSG remains elevated this AM despite receiving 7 units Novolog overnight as correctional insulin (FBS 206 this AM) * Prelunch BSG did climb to 307-311 despite receiving nearly twice his usual breakfast Novolog dose * Suspect stress of infection leading to greatly increase insulin needs. Will give additional Lantus x 1 now, will increase prandial insulin dose as well and place patient on IV insulin infusion to quickly control worsening hyperglycemia in bacteremic, type 1 diabetic. Of note, PRP ordered and no AG acidosis present and K within normal limits. Hopefully we can wean drip off if enough additional SQ insulin given with these SQ changes 10/20 * Type 1 diabetic admitted w/ pneumonia, found to have bacteremia with alpha- hemolytic strep (not strep pn / not enterococcus) * BSGs climbed into the 300s yesterday, however no AG acidosis present on labs, and he was initiated IV insulin infusion for short period of time * Insulin drip was titrated off overnight following Lantus administration at bedtime * BSGs have been well controlled thus far today with current insulin orders; will continue current Novolog CF/CR and resume outpt Lantus dose now that diet has resumed (was NPO for CEDRICK) PLAN FOR INPATIENT GLYCEMIC CONTROL: * Basal insulin * Lantus SQ HS * 12 units for BSG 200 mg/dl or greater * 11 units BSG 140-200 mg/dl * 10 units BSG <140 mg/dl * Bolus insulin * Goal range 110-140mg/dl * loosen: CF: 20 mg/dl/unit * loosen: Nutritional / Prandial insulin per carb ratio of 1 unit per 6 grams CHO consumed PLAN FOR DISCHARGE: * Patient's A1c 7.5%, patient may resume home regimen on discharge if not experiencing significant/frequent hypoglycemic events at home.
--- NOTE | 2019-10-26 17:06 | Billing Data ---
Date of Service October 26, 2019 Coding Level of Care Code D/C Day Management <30 mins
--- NOTE | 2019-10-26 18:16 | Discharge Summary ---
Date of Service October 26, 2019 Admission HPI Per Admitting Provider 89 y/o male presented to the ED with shortness of breath/dyspnea that has been worsening for 1 week. He has had intermittent fevers over the past 2 days. On the evening of 10/18 the patient's reported fever of 101.8F Patient does not use oxygen at home. He uses a walker. No chest pain, N/V/D, dysuria, or body aches. He has had an unproductive cough. Admission Exam Per Admitting Provider General- adult male, NAD Head- atraumatic Eyes- PERRL, EOMI, anicteric ENT- oropharynx clear Neck- supple, no JVD, no adenopathy, no thyromegaly; carotids +2/2, no bruits appreciated Lungs- Scattered rhonchi b/l. Heart- regular rhythm; no murmur, no gallop, no rub appreciated Abdomen- normal bowel sounds, soft, nontender. Extremities- no pretibial edema, no calf tenderness; peripheral pulses intact Neuro- alert, oriented x 3; PERRL, EOMI; cardio clinician II-XII grossly intact, non-focal. Skin- warm & dry Principal Diagnosis Pneumonia Discharge Exam Constitutional WD/WN, vitals as above Eyes PERRL, conjunctivae normal, anicteric sclerae ENMT external ear and nose normal, oropharynx normal Neck trachea midline, no thyromegaly Respiratory normal respiratory effort, lungs clear to auscultation Cardiovascular Rate/Rhythm: + irregularly irregular Heart Sounds: + murmur (2/6 systolic murmur heard best at the right sternal border) Extremities: + edema (2+ edema in the lower extremity) Skin no rashes, warm and dry Discharge Data Allergies Allergy/AdvReac Type Severity Reaction Status Date / Time No Known Allergies Allergy Verified 10/19/19 01:55 Consultations 10/19/19 01:18 ED Decision to Admit Stat 10/19/19 02:50 Consult Case Management - Discharge Planning Routine 10/20/19 16:49 Consult Infectious Diseases Routine 10/23/19 10:38 Consult Urology Routine Hospital Course (1) Right lower lobe pneumonia: 89 yo M w/ pMHx of IDDM type I, A. 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 Presented with a week of increased shortness of breath and 2 days of fevers. CXR showed cardiomegaly with pulmonary vasc. congestion and right mid lung and base opacities concerning for pneumonia. Blood culture + with strep bacteremia. TTE with findings suggestive of new severe aortic stenosis. Overall improved afebrile and hemodynamically stable. Will require close monitoring of INR and Blood sugar after discharge. Right lower lobe pneumonia: - currently on room air, remains afebrile, normal HR - blood cultures showed Strep Viridans - Ceftriaxone changed to 2g Q24H; blood cultures from 10/18 were pansensitive - Duonebs PRN Elevated troponin: - found to have elevated troponin 0.048 @ 23:44 and 0.076 @ 5:25 - likely due to demand ischemia, will continue to monitor symptoms, no chest pain during hospitalization to date Hypoxia: - likely 2/2 pna, potentially due to aortic stenosis - ECHO from 10/20 shows Moderate concentric LVH, LVSF nl, RV is mild to moderately dilated, R. atrium is severely dilated, the gradient is abnormal for prosthetic valve, velocities suggestive of severe aortic stenosis, moderate tri cuspid regurgitation, RVS pressure is elevated at 40-50% - Increased work of breathing while off nasal cannula, patient believes this is more chronic; during examination patient talking satting 94% - Patient remained satting greater than 90% throughout the day on room air Atrial fibrillation: - History of A. fib, appears to be rate controlled - continue warfarin with daily INR checks; INR this a.m. 2 - restarted home dose of 4 mg Warfarin today - continued metoprolol Post-operative urinary retention: - found to be retaining urine on admission and then replaced - Patient started on Flomax. - Has scrotal edema, provided with towel to increase gravity drainage. - Urology consulted: may have Hagre in the [facility]dc Anemia: - found to be slightly anemic w/ H&H of 11. 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 of replaced aortic valve - echo showed new severe aortic stenosis, unclear if shortness of breath is 2/2 pneumonia or if a component of this is related to aortic stenosis - ensure follow up with cardiology for management of aortic stenosis - continue Warfarin IDDM: - found to be poorly controlled w/ blood sugars likely 2/2 illness with blood sugars in the 300s and some lows over hospitalization to 58 - continue to monitor blood sugars and adjust insulin dosing Bactermia: - found to have strep viridans x2 on 10/18 - repeat cultures 10/21 no growth at 48 hours - consulted ID and appreciate recs - consented for midline and will continue Abx. for 4 weeks.l Total Time Total Time Spent Total Time Spent (In Minutes): <30 Discharge Plan Discharge Items Patient Disposition: Transfer [facility] Reason For Visit: PNEUMONIA, RIGHT Discharge Diagnosis: Bacteremia Activity: Per Instructions section Non-emergency contact: Primary Care Provider Call non-emergency contact if: your temperature is above 101 Follow-up/Referrals: Juan Mendez MD [Primary Care Provider] - Diet: Regular Addtl Attending Provider Instructions: Right lower lobe pneumonia: You were admitted to the hospital for increased shortness of breath and fevers. On chest x-ray it was seen that you had a right lower sided pneumonia. Bacteremia: When you were admitted to the hospital we marya blood and it was seen that you had an infection in your lungs. We consulted the infectious disease doctors to help us to determine next steps in regard to the infection. The infection is being treated with an IV antibiotic that you will be required to take for the next 4 weeks. This requires that you have a longer term catheter to give the antibiotics, when you are done with your course of antibiotics you will have this line removed. Aortic Valve Replaced: We did an ultrasound of your heart it was found that you have a new findings of stenosis of your aortic valve. This may be contributing to your shortness of breath. It will be important for you to follow up with your lump roller to discuss theses findings. Urinary retention: It was found that you were not able to drain your bladder fully. We initially placed a catheter into your bladder for this. After giving you a couple of days of "bladder rest" we attempted to remove the catheter to see if you were still retaining urine. It was found that you were and we were required to replace the catheter. We consulted Urology to get their input and they recommended that we keep the catheter in place for now. Pending Studies at Discharge: Yes Studies:: Blood cultures Stand-Alone Forms: [facility] Skilled Items Patient informed of condition?: Yes DNR: No Discharge Level of Care: Acute rehab Communicable Disease: No Discharge Prognosis: Stable Lines: Mid-Line Urinary Catheter: Yes Medications and DC Order Prescriptions: New ceftriaxone 1 gram recon soln 2 gm IV DAILY Qty: 25 RF: 0 Continued aspirin [Adult Low Dose Aspirin] 81 mg tablet,delayed release (DR/EC) 81 mg PO DAILY RF: 0 cholecalciferol (vitamin D3) 1,000 unit capsule 1,000 units PO DAILY RF: 0 coenzyme Q10 10 mg capsule 10 mg PO DAILY RF: 0 Lantus Solostar U-100 Insulin 100 unit/mL (3 mL) insulin pen 12 units SQ QPM RF: 0 warfarin 4 mg tablet See Rx Instructions PO DAILY RF: 0 (DME) OneTouch Ultra Blue Test Strip strip See Dose Instructions .ROUTE .MEDSUPPLY Qty: 400 RF: 5 cyanocobalamin (vitamin B-12) 2,500 mcg tablet 2,500 mcg PO DAILY RF: 0 (DME) Keto-Diastix strip See Dose Instructions .ROUTE .MEDSUPPLY Qty: 50 RF: 0 (DME) BD Insulin Syringe Half Unit 0.3 mL 31 gauge x 5/16" syringe See Dose Instructions .ROUTE .MEDSUPPLY Qty: 100 RF: 0 (DME) blood-glucose meter [OneTouch Ultra2 Meter] kit See Dose Instructions .ROUTE .MEDSUPPLY Qty: 1 RF: 0 levothyroxine 112 mcg tablet 112 mcg PO DAILY Qty: 90 RF: 0 (DME) Bedside Commode Misc See Dose Instructions .ROUTE .MEDSUPPLY Qty: 1 RF: 0 Novolog Flexpen U-100 Insulin 100 unit/mL (3 mL) insulin pen See Rx Instructions SQ .COMPLEX Qty: 1 RF: 5 acetaminophen 325 mg capsule 975 mg PO QID PRN (Reason: Pain) RF: 0 atorvastatin 40 mg tablet 40 mg PO DAILY Qty: 90 RF: 3 metoprolol succinate 25 mg capsule,sprinkle,ER 24hr 12.5 mg PO DAILY Qty: 45 RF: 3 (DME) miscellaneous medical supply misc See Dose Instructions .ROUTE .MEDSUPPLY Qty: 1 RF: 0 (DME) pen needle, diabetic [Comfort EZ Pen Logan] 32 gauge x 5/32" needle See Dose Instructions .ROUTE .MEDSUPPLY Qty: 100 RF: 3 sennosides [Senokot] 8.6 mg tablet 17.2 mg PO HS PRN (Reason: constipation) RF: 0 ascorbic acid (vitamin C) [Vitamin C] 500 mg Tablet 500 mg PO DAILY RF: 0 Discharge Orders: Discharge Order (Routine); Ordered 10/26/19 Ordered By: Patricio Foster/Other Patient Handouts: Hyperglycemia, Hypoglycemia, Diabetes Healthy Meals, Diabetes Exercise Benefits, Diabetes Living Life, Diabetes Manage A1C Test Admission Data Admit Date/Time: 10/19/19 01:51 Attending Provider: Patricio Koo Admit Provider: Michele Rueda Primary Care Provider: Juan Mendez Other Providers: Michele Rueda ; Kristie Santiago ; Roddy Beltran ; Antoinette Lal ; Amari George at [place] Other Interventions: Discharge Summary Assessment (RN) Last Done: 10/26/19 11:06 DC Date/Time DO NOT enter until pt leaves facility: 10/26/19 11:59 Supervising Physician Co-Signing Physician Notes I personally examined the patient and verified all kumar points of history and exam, discussed case, and agree with decision making with Dr Hough. Feeling okay. no new issues. for SNF today. Vitals noted, in general he is awake and alert pleasant no distress. HEENT normocephalic atraumatic mucous membranes moist. Breathing unlabored no accessory muscle use good effort. No focal neuro deficits. Pneumonia/bacteremiacontinue IV antibiotics as directed by infectious disease. right now presumptive course through . close outpt f/u, follow periodic labs Urinary retentioncontinue Hager drainage and Flomax. Outpatient urology follow-up probably in 1 to 2 weeks. Otherwise as above. Resident Activity Tracking Resident Involvement: Resident Care Provided Care Provided: Adult Hospital Medicine
== END 2019-10-26 11:59 | DRG 871 ==
LOC: ED 22:57 → 2E 10-19 01:51 → SUATTDRO 10-19 01:51 → 2E 10-19 02:23 → 2N 10-23 11:56 → 2W 10-23 14:20